=== PATIENT | male | born 1955 | race Caucasian/White ===

== ENCOUNTER 2016-09-24 17:41 | Inpatient (IN) | payer OTHER, MEDICARE ==
[~2016-09-24] VITALS: Ht 185.4 cm; Wt 96.5 kg
[2016-09-24 17:50] VITALS: BP 199/95; PULSE 94; RESP 20; TEMP 99.8; O2SAT 94
[2016-09-24] MEDS ORDERED: ONDANSETRON HCL 4 MG/2 ML VIAL ONE (18:30)
[2016-09-24 19:43] LABS: AUTOMATED NEUTROPHIL # 23.9 TH/MM3 (1.8-7.7); BASOPHIL # 0.1 TH/MM3 (0-0.2); BASOPHIL % 0.3 % (0.0-2.0); HEMATOCRIT 44.7 % (39.0-51.0); LYMPH % 4.6 % (9.0-44.0); LYMPHOCYTE # 1.2 TH/MM3 (1.0-4.8); MEAN CELL VOLUME 97.5 FL (80.0-100.0); MEAN CORPUSCULAR HEMOGLOBIN 32.4 PG (27.0-34.0); MEAN CORPUSCULAR HGB CONC 33.3 % (32.0-36.0); MONO % 4.2 % (0.0-8.0); NEUT % 90.9 % (16.0-70.0); PLATELET COUNT 289 TH/MM3 (150-450); RED BLOOD COUNT 4.59 MIL/MM3 (4.50-5.90); RED CELL DISTRIBUTION WIDTH 15.4 % (11.6-17.2); WHITE BLOOD COUNT 26.3 TH/MM3 (4.0-11.0)
[2016-09-24 19:44] VITALS: BP 197/91; PULSE 81; RESP 20; O2SAT 97
[2016-09-24] MEDS ORDERED: ZONI100C2 PO (19:49)
[2016-09-24] MEDS ORDERED: DILA100C PO (19:49)
[2016-09-24] MEDS ORDERED: METH40TA PO (19:49)
[2016-09-24] MEDS ORDERED: FOLI400T PO (19:50)
[2016-09-24] MEDS ORDERED: GABA100C4 PO (19:50)
[2016-09-24] MEDS ORDERED: LORA-475 PO (19:50)
[2016-09-24] MEDS ORDERED: CYAN1TAB24 (19:51)
--- NOTE | 2016-09-24 19:54 | PD ---
HPI Chief Complaint: GI Complaint Time Seen by Provider: 19:37 Travel History International Travel<30 days: No Contact w/Intl Traveler<30days: No PFSH Past Medical History Medical other: Yes (pneumo in 88) Neurologic: Yes (neuropathy) Renal Failure: Yes Seizures: Yes Tetanus Vaccination: Unknown Influenza Vaccination: No Past Surgical History Other Surgery: Yes (facial) Social History Alcohol Use: Yes (occasional) Tobacco Use: No Substance Use: No Allergies-Medications (Allergen,Severity, Reaction): Coded Allergies: No Known Allergies (Unverified , 09/24/16) Reported Meds & Prescriptions Reported Meds & Active Scripts Active Reported B12 (Cyanocobalamin) 1,000 Mcg Tab Folic Acid 400 Mcg Tab 400 Mcg PO DAILY Ativan (Lorazepam) 2 Mg Tab 2 Mg PO Q6H PRN Gabapentin 100 Mg Cap 200 Mg PO BID Zonisamide 100 Mg Cap 100 Mg PO BID Dilantin (Phenytoin Extended) 100 Mg Cap 100 Mg PO TID Methadone (Methadone HCl) 40 Mg Tab 90 Mg PO DAILY Data Data Last Documented VS Vital Signs Date Time Temp Pulse Resp B/P Pulse Ox O2 Delivery O2 Flow Rate FiO2 09/24/16 19:44 81 20 197/91 97 Room Air 09/24/16 17:50 99.8 Orders Complete Blood Count With Diff (09/24/16 18:29) Urinalysis - C+S If Indicated (09/24/16 18:29) Ondansetron Inj (Zofran Inj) (09/24/16 18:30) Comprehensive Metabolic Panel (09/24/16 19:16) Lipase (09/24/16 19:16) Phenytoin (Dilantin) (09/24/16 19:54) Ondansetron Inj (Zofran Inj) (09/24/16 20:00) Sodium Chlor 0.9% 1000 Ml Inj (Ns 1000 M (09/24/16 20:00) Labs Laboratory Tests Test 09/24/16 18:30 White Blood Count 26.3 TH/MM3 Red Blood Count 4.59 MIL/MM3 Hemoglobin 14.9 GM/DL Hematocrit 44.7 % Mean Corpuscular Volume 97.5 FL Mean Corpuscular Hemoglobin 32.4 PG Mean Corpuscular Hemoglobin 33.3 % Concent Red Cell Distribution Width 15.4 % Platelet Count 289 TH/MM3 Mean Platelet Volume 9.7 FL Neutrophils (%) (Auto) 90.9 % Lymphocytes (%) (Auto) 4.6 % Monocytes (%) (Auto) 4.2 % Eosinophils (%) (Auto) 0.0 % Basophils (%) (Auto) 0.3 % Neutrophils # (Auto) 23.9 TH/MM3 Lymphocytes # (Auto) 1.2 TH/MM3 Monocytes # (Auto) 1.1 TH/MM3 Eosinophils # (Auto) 0.0 TH/MM3 Basophils # (Auto) 0.1 TH/MM3 CBC Comment AUTO DIFF Toño Spring MD Sep 24, 2016 19:54
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
[2016-09-24 19:56] LABS: HEMO FLAGS AUTO DIFF
[2016-09-24] MEDS ORDERED: SODIUM CHLOR 0.9% 1000 ML INJ 1,000 ML IV ONE (20:00)
[2016-09-24] MEDS ORDERED: ONDANSETRON HCL 4 MG/2 ML VIAL IV PUSH ONE (20:00)
[2016-09-24 20:22] VITALS: BP 218/114; PULSE 80; RESP 20; O2SAT 96
[2016-09-24 20:23] LABS: ALT (GPT) 27 U/L (12-78)
[2016-09-24 20:26] LABS: ALKALINE PHOSPHATASE 143 U/L (45-117); ANION GAP 15 MEQ/L (5-15); AST (GOT) 45 U/L (15-37); BICARBONATE 23.9 MEQ/L (21.0-32.0); BLOOD UREA NITROGEN 13 MG/DL (7-18); CHLORIDE 105 MEQ/L (98-107); GLOMERULAR FILTRATION RATE 48 ML/MIN (>89); POTASSIUM 3.1 MEQ/L (3.5-5.1); SODIUM (NA) 144 MEQ/L (136-145); TOTAL BILIRUBIN ADULT 0.7 MG/DL (0.2-1.0)
[2016-09-24] MEDS ORDERED: METOCLOPRAMIDE HCL 10 MG/2 ML VIAL IV PUSH ONE (20:30)
[2016-09-24 20:58] VITALS: BP 204/93; PULSE 81; RESP 18; O2SAT 96
[2016-09-24 21:04] LABS: BACTERIA, URINE RARE /hpf; BLOOD, URINE NEG (NEG); COMMENT (UR) CULT NOT INDICATED; CULTURE IF INDICATED CULT NOT INDICATED; GLUCOSE,URINE NEG (NEG); HYALINE CAST, URINE 4 /lpf (RARE); KETONE, URINE 10 mg/dL (NEG); NITRITE,URINE NEG (NEG); PH, URINE 6.5 (5.0-8.5); URINE COLOR YELLOW (YELLW/STRAW)
[2016-09-24 21:14] LABS: SCAN/DIFF AUTO DIFF CONFIRMED
[2016-09-24] MEDS ORDERED: IOHEXOL 350 MG/ML 10 ML VIAL (for RAD DIAG) IV ONE (21:45)
--- NOTE | 2016-09-24 21:57 | RADRPT ---
EXAM DATE/TIME: 09/24/2016 21:33 [facility] COMPARISON: No previous studies available for comparison. INDICATIONS : Abdominal pain and vomiting. IV CONTRAST: 95 cc Omnipaque 350 (iohexol) IV ORAL CONTRAST: No oral contrast ingested. RADIATION DOSE: 14.53 CTDIvol (mGy) MEDICAL HISTORY : Seizures. Renal failure. SURGICAL HISTORY : None. ENCOUNTER: Initial ACUITY: 2 days PAIN SCALE: 5/10 LOCATION: All quadrants. TECHNIQUE: Volumetric scanning of the abdomen and pelvis was performed. Using automated exposure control and ad justment of the mA and/or kV according to patient size, radiation dose was kept as low as reasonably achievable to obtain optimal diagnostic quality images. DICOM format image data is available electro nically for review and comparison. FINDINGS: Lung bases are clear. No pleural or pericardial effusion. There is diffuse fatty infiltration liver. Spleen, adrenals, kidneys and pancreas unremarkable. No ca lcified gallstones or biliary ductal dilatation. There several mildly dilated loops of small bowel le ft upper quadrant, probably ileus localized. No bowel obstruction identified. CONCLUSION: 1. Localized ileus left upper quadrant. No bowel obstruction identified.. No free air or free fluid. Diffuse fatty liver. Small hiatal hernia. Dylan Lantigua MD on September 24, 2016 at 21:51 Board Certified Radiologist. This report was verified electronically.
[2016-09-24] MEDS ORDERED: LORazepam 2 MG/ML VIAL IV PUSH ONE (22:15)
[2016-09-24] MEDS ORDERED: SODIUM CHLORID 0.9% 500 ML INJ 500 ML IV ONE (22:15)
[2016-09-24] MEDS ORDERED: KETOROLAC TROMETHAMINE 30 MG/ML (IVP) VIAL IV PUSH ONE (22:15)
[2016-09-24 22:27] VITALS: BP 193/93; PULSE 83; RESP 18; O2SAT 97
[2016-09-24] MEDS ORDERED: NALOXONE HCL 0.4 MG/ML AMP IV PRN (22:45)
[2016-09-24] MEDS: SODIUM CHLOR 0.9% 1000 ML INJ 1,000 ML IV SCH (23:07)
[2016-09-24] MEDS: METOCLOPRAMIDE HCL 10 MG/2 ML VIAL IV PUSH SCH (23:13)
[2016-09-25] VITALS (9 sets, daily range): BP systolic 169–201; BP diastolic 74–97; PULSE 85–104; RESP 16–20; TEMP 98.3–100.3; O2SAT 96–100
[2016-09-25] MEDS: ONDANSETRON HCL 4 MG/2 ML VIAL IVP PRN ×3 (00:11→18:13)
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
[2016-09-25] MEDS ORDERED: FOSPHENYTOIN INJ 1,000 MGPE in SODIUM CHLORIDE 0.9% INJ 50 ML IV ONE (01:15)
[2016-09-25] MEDS ORDERED: MORPHINE SULFATE 4 MG/ML INJ IV PUSH PRN (01:30)
[2016-09-25] MEDS: LORazepam 2 MG/ML VIAL IV PUSH PRN ×5 (01:42→18:10)
--- NOTE | 2016-09-25 01:55 | RADRPT ---
EXAM DATE/TIME: 09/25/2016 01:32 [facility] COMPARISON: No previous studies available for comparison. INDICATIONS : Shortness of breath. MEDICAL HISTORY : Renal failure, acute. Seizures. SURGICAL HISTORY : None. ENCOUNTER: Initial ACUITY: 2 days PAIN SCORE: 0/10 LOCATION: Bilateral chest FINDINGS: A single view of the chest demonstrates the lungs to be symmetrically aerated without evidence of mas s, infiltrate or effusion. The cardiomediastinal contours are unremarkable. Osseous structures are intact. Postsurgical changes right apex. CONCLUSION: No acute disease. Joshua Glaser MD on September 25, 2016 at 1:52 Board Certified Radiologist. This report was verified electronically.
[2016-09-25] MEDS: HYDROmorphone HCL PF 1 MG/ML VIAL IV PUSH PRN ×2 (02:08→07:23)
[2016-09-25] MEDS ORDERED: cloNIDine HCL 0.1 MG TAB PO ONE (03:15)
[2016-09-25] MEDS ORDERED: POTASSIUM CHLORIDE 20 MEQ CONTROLLED RELEASE TAB PO ONE (03:15)
[2016-09-25] MEDS ORDERED: ACETAMINOPHEN 325 MG TAB PO PRN (03:30)
[2016-09-25] MEDS: LEVOFLOXACIN 750 MG PREMIX INJ 150 ML IV SCH (03:35)
[2016-09-25] MEDS: SODIUM CHLORIDE 0.9% FLUSH 10 ML FLUSH IV FLUSH PRN (06:02)
[2016-09-25] MEDS: METOCLOPRAMIDE HCL 10 MG/2 ML VIAL IV PUSH SCH ×3 (06:02→22:48)
[2016-09-25] MEDS: PHENYTOIN INJ 100 MG/2 ML VIAL IV SCH ×3 (06:05→21:18)
[2016-09-25 07:50] LABS: AUTOMATED NEUTROPHIL # 19.9 TH/MM3 (1.8-7.7); HEMATOCRIT 42.2 % (39.0-51.0); HEMO FLAGS DIFF FINAL; LYMPH % 8.3 % (9.0-44.0); MEAN CELL VOLUME 98.6 FL (80.0-100.0); MEAN CORPUSCULAR HEMOGLOBIN 32.3 PG (27.0-34.0); MEAN CORPUSCULAR HGB CONC 32.7 % (32.0-36.0); NEUT % 83.7 % (16.0-70.0); PLATELET COUNT 244 TH/MM3 (150-450); RED BLOOD COUNT 4.28 MIL/MM3 (4.50-5.90); RED CELL DISTRIBUTION WIDTH 15.5 % (11.6-17.2); WHITE BLOOD COUNT 23.8 TH/MM3 (4.0-11.0)
[2016-09-25] MEDS: GABAPENTIN 100 MG CAP PO SCH ×2 (08:08→21:19)
[2016-09-25] MEDS: SODIUM CHLORIDE 0.9% FLUSH 10 ML FLUSH IV FLUSH SCH ×2 (08:09→21:23)
[2016-09-25] MEDS: FOLIC ACID 1 MG TAB PO SCH (08:09)
[2016-09-25] MEDS: SODIUM CHLOR 0.9% 1000 ML INJ 1,000 ML IV SCH ×2 (08:10→17:11)
[2016-09-25] MEDS: ENOXAPARIN SODIUM 30 MG/0.3 ML SYRINGE SQ SCH (08:23)
[2016-09-25] MEDS: PANTOPRAZOLE SOD 40 MG DELAYED RELEASE TAB PO SCH (08:23)
[2016-09-25 08:31] LABS: BICARBONATE 25.5 MEQ/L (21.0-32.0); POTASSIUM 3.2 MEQ/L (3.5-5.1)
[2016-09-25] MEDS ORDERED: ENOXAPARIN SODIUM 40 MG/0.4 ML SYRINGE SQ SCH (09:00)
[2016-09-25] MEDS ORDERED: ZONISAMIDE 100 MG CAP PO SCH (09:00)
[2016-09-25] MEDS ORDERED: METHADONE HCL 10 MG TAB PO SCH (09:00)
[2016-09-25] MEDS ORDERED: cloNIDine HCL 0.1 MG TAB PO PRN (11:00)
--- NOTE | 2016-09-25 11:24 | HHI.PR ---
Subjective Remarks Follow-up for intractable emesis. Patient found very sleepy. Easily arousable. Patient was asking for his pain medication. He denies any pain or abdominal pain. Deny any shortness of breathing, chest pain, palpitation, lightheadedness or dizziness. Patient remains afebrile. He has no complaints. patient is burping at bedside. Per patient's nurse he did get a dose of Ativan earlier this morning. He stated his last drink was a week ago. Objective Vitals Vital Signs Date Time Temp Pulse Resp B/P Pulse Ox O2 Delivery O2 Flow Rate FiO2 09/25/16 09:19 18 09/25/16 08:31 16 09/25/16 04:39 Room Air 09/25/16 04:15 99.3 101 18 169/84 97 09/25/16 03:40 201/97 09/25/16 02:32 86 16 174/85 98 Room Air 09/25/16 02:08 102 20 188/90 97 Room Air 09/25/16 00:00 100.3 85 20 180/74 97 Room Air 09/24/16 22:27 83 18 193/93 97 Room Air 09/24/16 20:58 81 18 204/93 96 Room Air 09/24/16 20:22 80 20 218/114 96 Room Air 09/24/16 19:44 81 20 197/91 97 Room Air 09/24/16 17:50 99.8 94 20 199/95 94 I/O 09/24/16 09/24/16 09/24/16 09/25/16 09/25/16 09/25/16 07:00 15:00 23:00 07:00 15:00 23:00 Intake Total 1000 ml 0 ml Output Total 450 ml 0 ml Balance 550 ml 0 ml Intake Oral 0 ml IV Total 1000 ml Output Urine Total 450 ml 0 ml # Voids 1 # Bowel Movements 0 Result Diagram: 09/25/16 0704 09/25/16 0704 Objective Remarks GENERAL: in NAD found sleeping. SKIN: Warm and dry. HEAD: Normocephalic. EYES: No scleral icterus. No injection or drainage. NECK: Supple, trachea midline. No JVD or lymphadenopathy. CARDIOVASCULAR: Regular rate. Positive 3/6 systolic heart murmur. RESPIRATORY: Breath sounds equal bilaterally. No accessory muscle use. GASTROINTESTINAL: Abdomen soft, non-tender, nondistended. MUSCULOSKELETAL: No cyanosis, or edema. BACK: Nontender without obvious deformity. No CVA tenderness. Medications and IVs Current Medications Ondansetron HCl (Zofran Inj) 4 mg STK-MED ONCE .ROUTE ; Start 09/24/16 at 18:30; Stop 09/24/16 at 18:31; Status DC Ondansetron HCl 4 mg 4 mg ONCE ONCE IV PUSH Last administered on 09/24/16 20: 21; Start 09/24/16 at 20:00; Stop 09/24/16 at 20:01; Status DC Sodium Chloride (NS 1000 ml Inj) 1,000 ml @ 999 mls/hr BOLUS ONCE IV Last administered on 09/24/16 20:21; Start 09/24/16 at 20:00; Stop 09/24/16 at 21:00; Status DC Metoclopramide HCl (Reglan Inj) 10 mg ONCE ONCE IV PUSH Last administered on 20:31; Start 09/24/16 at 20:30; Stop 09/24/16 at 20:31; Status DC Iohexol (Omnipaque 350 Inj) 95 ml STK-MED ONCE IV Last administered on 21:45; Start 09/24/16 at 21:45; Stop 09/24/16 at 21:46; Status DC Lorazepam (Ativan Inj) 1 mg ONCE ONCE IV PUSH Last administered on 09/24/16 22 :17; Start 09/24/16 at 22:15; Stop 09/24/16 at 22:16; Status DC Ketorolac Tromethamine 30 mg 30 mg ONCE ONCE IV PUSH Last administered on 22:17; Start 09/24/16 at 22:15; Stop 09/24/16 at 22:16; Status DC Sodium Chloride 500 ml @ 500 mls/hr BOLUS ONCE IV Last administered on 22:17; Start 09/24/16 at 22:15; Stop 09/24/16 at 23:14; Status DC Sodium Chloride (NS 1000 ml Inj) 1,000 ml @ 100 mls/hr Q10H IV Last administered on 09/25/16 08:10; Start 09/24/16 at 22:34 Sodium Chloride (NS Flush) 2 ml UNSCH PRN IV FLUSH FLUSH AFTER USING IV ACCESS Last administered on 09/25/16 06:02; Start 09/24/16 at 22:45 Sodium Chloride (NS Flush) 2 ml BID IV FLUSH Last administered on 09/25/16 08: 09; Start 09/25/16 at 09:00 Ondansetron HCl (Zofran Inj) 4 mg Q6H PRN IVP NAUSEA OR VOMITING Last administered on 09/25/16 06:04; Start 09/24/16 at 22:45 Naloxone HCl (Narcan Inj) 0.4 mg UNSCH PRN IV SEE LABEL COMMENTS; Start at 22:45 Metoclopramide HCl (Reglan Inj) 5 mg Q8H IV PUSH Last administered on 09/25/16 06:02; Start 09/24/16 at 23:00 Folic Acid (Folate) 1 mg DAILY PO Last administered on 09/25/16 08:09; Start at 09:00 Gabapentin (Neurontin) 200 mg BID PO Last administered on 09/25/16 08:08; Start 09/25/16 at 09:00 Zonisamide (Zonegran) 100 mg BID PO Last administered on 09/25/16 09:19; Start 09/25/16 at 09:00 Phenytoin Sodium 100 mg 100 mg Q8HR IV Last administered on 09/25/16 06:05; Start 09/25/16 at 06:00 Fosphenytoin Sodium/Sodium Chloride (Cerebyx Inj/NS Inj) 70 ml @ 280 mls/hr ONCE ONCE IV Last administered on 09/25/16 02:07; Start 09/25/16 at 01:15; Stop 09/25/16 at 01:29; Status DC Lorazepam (Ativan Inj) 1 mg Q2H PRN IV PUSH withdrawal symptoms from benzo Last administered on 09/25/16 08:11; Start 09/25/16 at 01:15 Methadone HCl (Dolophine) 20 mg DAILY PO Last administered on 09/25/16 08:08; Start 09/25/16 at 09:00 Morphine Sulfate (Morphine Inj) 2 mg Q3H PRN IV PUSH pain >5; Start 09/25/16 at 01:30; Stop 09/25/16 at 01:30; Status DC Hydromorphone HCl 0.2 mg 0.2 mg Q4H PRN IV PUSH pain >5 Last administered on 07:23; Start 09/25/16 at 01:30 Levofloxacin/ Dextrose (Levaquin 750 Mg Premix Inj) 150 ml @ 100 mls/hr Q24H IV Last administered on 09/25/16 03:35; Start 09/25/16 at 02:00 Enoxaparin Sodium (Lovenox Inj) 40 mg Q24H SQ ; Start 09/25/16 at 09:00; Stop 09/25/16 at 09:00; Status DC Potassium Chloride (KCl) 40 meq ONCE ONCE PO Last administered on 09/25/16 03: 35; Start 09/25/16 at 03:15; Stop 09/25/16 at 03:18; Status DC Clonidine (Catapres) 0.1 mg ONCE ONCE PO Last administered on 09/25/16 03:35; Start 09/25/16 at 03:15; Stop 09/25/16 at 03:18; Status DC Acetaminophen (Tylenol) 650 mg Q4H PRN PO fever >101; Start 09/25/16 at 03:30 Enoxaparin Sodium (Lovenox Inj) 30 mg Q24H SQ Last administered on 09/25/16 08: 23; Start 09/25/16 at 09:00 Pantoprazole Sodium (Protonix) 40 mg DAILY PO Last administered on 09/25/16 08: 23; Start 09/25/16 at 09:00 Clonidine (Catapres) 0.1 mg Q6H PRN PO SBP>180 or DBP>100; Start 09/25/16 at 11: 00; Status UNV A/P Assessment and Plan Intractable emesis -No vomiting noted during interview patient seems very comfortable. -CT scan showed possible ileus. -May be secondary to alcohol withdrawal but at the moment I do not see any signs of it. He is on CIOH protocol. -will need to try to hold narcotics due to ileus. opiate use for chronic back pain -Will hold pain medications secondary to ileus. Alcoholic seizure disorder -Continue home medication. Renal insufficiency -Most likely secondary to dehydration. -Wilma a monitor. Avoid nephrotoxins. Strict ins and outs. Leukocytosis -Unsure source. Workup so far negative. Maybe secondary to aspiration pneumonia. -Continue to monitor clinically. -Patient was empirically put on Levaquin. Continue Levaquin. He is also on IV fluids. Continue with IV maintenance fluids. dvt prophylaxis with lovenox gi prophylaxis on pantoprazole Meaghan Matson MD Sep 25, 2016 11:24
[2016-09-25] MEDS ORDERED: FURO1TAB62 PO (17:19)
[2016-09-25] MEDS ORDERED: TIZA4 PO (17:19)
--- NOTE | 2016-09-25 17:41 | EKG ---
Date Performed: 09/24/2016 Time Performed: 20:25:49 PTAGE: 61 years EKG: Sinus rhythm WITH FREQUENT VENTRICULAR PREMATURE COMPLEXES IN A BIGEMINAL PATTERN RIGHT BUNDLE BRANCH BLOCK ABNOR MAL ECG NO PREVIOUS TRACING DOCTOR: Abigail Underwood Interpretating Date/Time 09/25/2016 17:36:38
[2016-09-25] MEDS: ZONISAMIDE 25 MG CAP PO SCH (22:43)
[2016-09-26] VITALS (7 sets, daily range): BP systolic 160–177; BP diastolic 80–93; PULSE 85–99; RESP 16–20; TEMP 98.5–99.2; O2SAT 96–98
[2016-09-26] MEDS: LORazepam 2 MG/ML VIAL IV PUSH PRN ×2 (00:09→05:05)
[2016-09-26] MEDS: SODIUM CHLORIDE 0.9% FLUSH 10 ML FLUSH IV FLUSH PRN ×2 (00:10→05:06)
[2016-09-26] MEDS: LEVOFLOXACIN 750 MG PREMIX INJ 150 ML IV SCH (03:13)
[2016-09-26] MEDS: SODIUM CHLOR 0.9% 1000 ML INJ 1,000 ML IV SCH ×2 (05:05→14:55)
[2016-09-26] MEDS: PHENYTOIN INJ 100 MG/2 ML VIAL IV SCH ×3 (05:05→20:09)
[2016-09-26] MEDS: ONDANSETRON HCL 4 MG/2 ML VIAL IVP PRN ×3 (05:06→18:13)
[2016-09-26] MEDS: METOCLOPRAMIDE HCL 10 MG/2 ML VIAL IV PUSH SCH ×3 (06:00→23:38)
[2016-09-26] MEDS: FOLIC ACID 1 MG TAB PO SCH (08:09)
[2016-09-26] MEDS: ENOXAPARIN SODIUM 30 MG/0.3 ML SYRINGE SQ SCH (08:09)
[2016-09-26] MEDS: PANTOPRAZOLE SOD 40 MG DELAYED RELEASE TAB PO SCH (08:09)
[2016-09-26] MEDS: GABAPENTIN 100 MG CAP PO SCH ×2 (08:09→20:09)
[2016-09-26] MEDS: SODIUM CHLORIDE 0.9% FLUSH 10 ML FLUSH IV FLUSH SCH ×2 (08:10→20:10)
[2016-09-26 08:12] LABS: HEMATOCRIT 39.1 % (39.0-51.0); MEAN CELL VOLUME 97.8 FL (80.0-100.0); MEAN CORPUSCULAR HEMOGLOBIN 31.8 PG (27.0-34.0); MEAN CORPUSCULAR HGB CONC 32.6 % (32.0-36.0); PLATELET COUNT 175 TH/MM3 (150-450); RED CELL DISTRIBUTION WIDTH 15.3 % (11.6-17.2); REVIEW FLAG FINAL; WHITE BLOOD COUNT 15.7 TH/MM3 (4.0-11.0)
[2016-09-26] MEDS: ZONISAMIDE 25 MG CAP PO SCH ×2 (08:21→20:09)
[2016-09-26 08:48] LABS: BICARBONATE 23.6 MEQ/L (21.0-32.0); MAGNESIUM 1.7 MG/DL (1.5-2.5)
--- NOTE | 2016-09-26 12:10 | HHI.PR ---
Subjective Remarks Follow-up for intractable emesis Deny nausea vomiting. Patient is hiccuping. Post flatus. Deny any bowel movements. Patient asking to be placed back on his methadone. Objective Vitals Vital Signs Date Time Temp Pulse Resp B/P Pulse Ox O2 Delivery O2 Flow Rate FiO2 09/26/16 11:25 86 09/26/16 08:16 Room Air 09/26/16 08:04 98.5 90 20 173/93 98 09/26/16 04:00 98.9 90 18 169/91 98 09/26/16 00:00 99.1 85 18 177/93 98 09/25/16 20:00 99.1 89 16 169/91 99 09/25/16 20:00 Room Air 09/25/16 16:00 98.7 104 18 173/88 97 I/O 09/25/16 09/25/16 09/25/16 09/26/16 09/26/16 09/26/16 07:00 15:00 23:00 07:00 15:00 23:00 Intake Total 0 ml 480 ml 240 ml 958 ml Output Total 0 ml 500 ml 300 ml 300 ml Balance 0 ml -20 ml -60 ml 658 ml Intake Oral 0 ml 480 ml 240 ml 240 ml IV Total 718 ml Output Urine Total 0 ml 500 ml 300 ml 300 ml # Bowel Movements 0 0 0 0 Result Diagram: 09/26/1671409/26/16714 Objective Remarks GENERAL: in NAD SKIN: Warm and dry. HEAD: Normocephalic. EYES: No scleral icterus. No injection or drainage. NECK: Supple, trachea midline. No JVD or lymphadenopathy. CARDIOVASCULAR: Regular rate. Positive 3/6 systolic heart murmur. RESPIRATORY: Breath sounds equal bilaterally. No accessory muscle use. GASTROINTESTINAL: Abdomen soft, non-tender, nondistended. MUSCULOSKELETAL: No cyanosis, or edema. BACK: Nontender without obvious deformity. No CVA tenderness. Medications and IVs Current Medications Ondansetron HCl (Zofran Inj) 4 mg STK-MED ONCE .ROUTE ; Start 09/24/16 at 18:30; Stop 09/24/16 at 18:31; Status DC Ondansetron HCl 4 mg 4 mg ONCE ONCE IV PUSH Last administered on 09/24/16t 20: 21; Start 09/24/16 at 20:00; Stop 09/24/16 at 20:01; Status DC Sodium Chloride (NS 1000 ml Inj) 1,000 ml @ 999 mls/hr BOLUS ONCE IV Last administered on 09/24/16 20:21; Start 09/24/16 at 20:00; Stop 09/24/16 at 21:00; Status DC Metoclopramide HCl (Reglan Inj) 10 mg ONCE ONCE IV PUSH Last administered on 20:31; Start 09/24/16 at 20:30; Stop 09/24/16 at 20:31; Status DC Iohexol (Omnipaque 350 Inj) 95 ml STK-MED ONCE IV Last administered on 21:45; Start 09/24/16 at 21:45; Stop 09/24/16 at 21:46; Status DC Lorazepam (Ativan Inj) 1 mg ONCE ONCE IV PUSH Last administered on 09/24/16 22 :17; Start 09/24/16 at 22:15; Stop 09/24/16 at 22:16; Status DC Ketorolac Tromethamine 30 mg 30 mg ONCE ONCE IV PUSH Last administered on 22:17; Start 09/24/16 at 22:15; Stop 09/24/16 at 22:16; Status DC Sodium Chloride 500 ml @ 500 mls/hr BOLUS ONCE IV Last administered on 22:17; Start 09/24/16 at 22:15; Stop 09/24/16 at 23:14; Status DC Sodium Chloride (NS 1000 ml Inj) 1,000 ml @ 100 mls/hr Q10H IV Last administered on 09/26/16 05:05; Start 09/24/16 at 22:34 Sodium Chloride (NS Flush) 2 ml UNSCH PRN IV FLUSH FLUSH AFTER USING IV ACCESS Last administered on 09/26/16 05:06; Start 09/24/16 at 22:45 Sodium Chloride (NS Flush) 2 ml BID IV FLUSH Last administered on 09/25/16 21: 23; Start 09/25/16 at 09:00 Ondansetron HCl (Zofran Inj) 4 mg Q6H PRN IVP NAUSEA OR VOMITING Last administered on 09/26/16 11:52; Start 09/24/16 at 22:45 Naloxone HCl (Narcan Inj) 0.4 mg UNSCH PRN IV SEE LABEL COMMENTS; Start at 22:45 Metoclopramide HCl (Reglan Inj) 5 mg Q8H IV PUSH Last administered on 09/26/16 06:00; Start 09/24/16 at 23:00 Folic Acid (Folate) 1 mg DAILY PO Last administered on 09/26/16 08:09; Start at 09:00 Gabapentin (Neurontin) 200 mg BID PO Last administered on 09/26/16 08:09; Start 09/25/16 at 09:00 Zonisamide (Zonegran) 100 mg BID PO Last administered on 09/25/16 09:19; Start 09/25/16 at 09:00; Stop 09/25/16 at 20:47; Status DC Phenytoin Sodium 100 mg 100 mg Q8HR IV Last administered on 09/26/16 05:05; Start 09/25/16 at 06:00 Fosphenytoin Sodium/Sodium Chloride (Cerebyx Inj/NS Inj) 70 ml @ 280 mls/hr ONCE ONCE IV Last administered on 09/25/16 02:07; Start 09/25/16 at 01:15; Stop 09/25/16 at 01:29; Status DC Lorazepam (Ativan Inj) 1 mg Q2H PRN IV PUSH withdrawal symptoms from benzo Last administered on 09/26/16 05:05; Start 09/25/16 at 01:15 Methadone HCl (Dolophine) 20 mg DAILY PO Last administered on 09/25/16 08:08; Start 09/25/16 at 09:00; Status Hold Morphine Sulfate (Morphine Inj) 2 mg Q3H PRN IV PUSH pain >5; Start 09/25/16 at 01:30; Stop 09/25/16 at 01:30; Status DC Hydromorphone HCl 0.2 mg 0.2 mg Q4H PRN IV PUSH pain >5 Last administered on 07:23; Start 09/25/16 at 01:30; Stop 09/25/16 at 11:19; Status DC Levofloxacin/ Dextrose (Levaquin 750 Mg Premix Inj) 150 ml @ 100 mls/hr Q24H IV Last administered on 09/26/16 03:13; Start 09/25/16 at 02:00 Enoxaparin Sodium (Lovenox Inj) 40 mg Q24H SQ ; Start 09/25/16 at 09:00; Stop 09/25/16 at 09:00; Status DC Potassium Chloride (KCl) 40 meq ONCE ONCE PO Last administered on 09/25/16 03: 35; Start 09/25/16 at 03:15; Stop 09/25/16 at 03:18; Status DC Clonidine (Catapres) 0.1 mg ONCE ONCE PO Last administered on 09/25/16 03:35; Start 09/25/16 at 03:15; Stop 09/25/16 at 03:18; Status DC Acetaminophen (Tylenol) 650 mg Q4H PRN PO fever >101; Start 09/25/16 at 03:30 Enoxaparin Sodium (Lovenox Inj) 30 mg Q24H SQ Last administered on 09/26/16 08: 09; Start 09/25/16 at 09:00 Pantoprazole Sodium (Protonix) 40 mg DAILY PO Last administered on 09/26/16 08: 09; Start 09/25/16 at 09:00 Clonidine (Catapres) 0.1 mg Q6H PRN PO SBP>180 or DBP>100; Start 09/25/16 at 11: 00 Zonisamide (Zonegran) 100 mg BID PO Last administered on 09/26/16 08:21; Start 09/25/16 at 21:00 Potassium Chloride (KCl) 30 meq ONCE ONCE PO ; Start 09/26/16 at 11:30; Stop 09/26/16 at 11:31; Status UNV Amlodipine Besylate (Norvasc) 10 mg DAILY PO ; Start 09/26/16 at 11:30; Status UNV A/P Assessment and Plan Intractable emesis -No vomiting noted during interview patient seems very comfortable. -CT scan showed possible ileus. -May be secondary to alcohol withdrawal but at the moment I do not see any signs of it. He is on CIMD protocol. opiate use for chronic back pain -Will restart his home dose of methadone. We'll have his nurse confirm this with his pharmacist. Alcoholic seizure disorder -Continue home medication. Renal insufficiency -Most likely secondary to dehydration. -Resolved. Leukocytosis -Unsure source. Workup so far negative. Maybe secondary to aspiration pneumonia. Continue to improve. -Continue to monitor clinically. -We will discontinue IV Levaquin and start oral Levaquin. Will need to monitor on oral medication. Systolic heart murmur -Patient unaware of heart murmur. He is a poor historian. Pending echo report. dvt prophylaxis with lovenox gi prophylaxis on pantoprazole Discharge Planning If patient does well off of IV antibiotics can consider discharge tomorrow. Meaghan Matson MD Sep 26, 2016 12:10
[2016-09-26] MEDS ORDERED: POTASSIUM CHLORIDE 10 MEQ CONTROLLED RELEASE TAB PO ONE (13:00)
[2016-09-26] MEDS ORDERED: METHADONE HCL 10 MG TAB PO SCH (13:00)
--- NOTE | 2016-09-26 18:24 | ECHRPT ---
Indication: Shortness of breath CONCLUSIONS Technically difficult echo In limited views, the left ventricular systolic function is normal with an estimated ejection fracti on in the range of 55-60%. There was limited left ventricular wall motion assessment due to poor endocardial visualization. Grossly normal tricuspid valve. There is trace tricuspid valve regurgitation. BP: 169 / 84 HR: 101 Rhythm: Sinus MEASUREMENTS (Male / Female) Normal Values Technical Quality:Technically difficult study 2D ECHO LV Diastolic Diameter PLAX 5.2 cm 4.2 - 5.9 / 3.9 - 5.3 cm LV Systolic Diameter PLAX 3.9 cm IVS Diastolic Thickness 0.9 cm 0.6 - 1.0 / 0.6 - 0.9 cm LVPW Diastolic Thickness 1.0 cm 0.6 - 1.0 / 0.6 - 0.9 cm LV Relative Wall Thickness 0.4 RV Internal Dim ED PLAX 1.8 cm DOPPLER Mitral E Point Velocity 51.0 cm/s Mitral A Point Velocity 89.9 cm/s Mitral E to A Ratio 0.6 LV E' Lateral Velocity 5.3 cm/s Mitral E to LV E' Lateral Ratio 9.7 TR Peak Velocity 200.0 cm/s TR Peak Gradient 16.0 mmHg FINDINGS LEFT VENTRICLE Normal left ventricular size. Wall thickness is normal. In limited views, the left ventricular systolic function is normal with an estimated ejection fracti on in the range of 55-60%. There was limited left ventricular wall motion assessment due to poor endocardial visualization. RIGHT VENTRICLE The right ventricle was not well visualized. LEFT ATRIUM The left atrium was not well visualized. RIGHT ATRIUM The right atrium is not well visualized. ATRIAL SEPTUM The interatrial septum not well visualized. AORTA The aortic root and proximal ascending aorta are not well visualized. MITRAL VALVE Grossly normal mitral valve. No mitral valve stenosis or regurgitation. AORTIC VALVE Trileaflet aortic valve. No aortic valve stenosis or regurgitation. TRICUSPID VALVE Grossly normal tricuspid valve. There is trace tricuspid valve regurgitation. No tricuspid valve stenosis. PULMONARY VALVE The pulmonary valve is not well visualized. VESSELS The inferior vena cava was not well visualized. PERICARDIUM A prominent epicardial fat pad is present. Gabriele Conteh DO (Electronically Signed) Final Date:26 September 2016 18:23
[2016-09-26] MEDS: METHADONE HCL 10 MG TAB PO SCH (20:10)
[2016-09-27] VITALS: BP 157/88; PULSE 90; RESP 18; TEMP 98.9; O2SAT 99
[2016-09-27] MEDS: SODIUM CHLOR 0.9% 1000 ML INJ 1,000 ML IV SCH ×2 (01:13→09:47)
[2016-09-27] MEDS: ONDANSETRON HCL 4 MG/2 ML VIAL IVP PRN ×3 (03:49→18:04)
[2016-09-27] MEDS: LORazepam 2 MG/ML VIAL IV PUSH PRN (03:49)
[2016-09-27 04:00] VITALS: BP 165/89; PULSE 87; RESP 18; TEMP 98.2; O2SAT 97
[2016-09-27] MEDS: PHENYTOIN INJ 100 MG/2 ML VIAL IV SCH ×3 (05:52→21:07)
[2016-09-27] MEDS: METHADONE HCL 10 MG TAB PO SCH ×2 (05:52→21:06)
[2016-09-27] MEDS: METOCLOPRAMIDE HCL 10 MG/2 ML VIAL IV PUSH SCH ×3 (05:52→21:07)
[2016-09-27 07:58] LABS: POTASSIUM 3.5 MEQ/L (3.5-5.1)
[2016-09-27 08:00] VITALS: BP 175/89; PULSE 89; RESP 18; TEMP 99.9; O2SAT 100
[2016-09-27 08:15] LABS: HEMATOCRIT 39.7 % (39.0-51.0); MEAN CELL VOLUME 97.4 FL (80.0-100.0); MEAN CORPUSCULAR HEMOGLOBIN 31.9 PG (27.0-34.0); MEAN CORPUSCULAR HGB CONC 32.7 % (32.0-36.0); PLATELET COUNT 136 TH/MM3 (150-450); RED BLOOD COUNT 4.08 MIL/MM3 (4.50-5.90); RED CELL DISTRIBUTION WIDTH 15.1 % (11.6-17.2); REVIEW FLAG FINAL; WHITE BLOOD COUNT 11.9 TH/MM3 (4.0-11.0)
[2016-09-27] MEDS: FOLIC ACID 1 MG TAB PO SCH (09:47)
[2016-09-27] MEDS: ZONISAMIDE 25 MG CAP PO SCH ×2 (09:47→21:04)
[2016-09-27] MEDS: LEVOFLOXACIN 750 MG TAB PO SCH (09:47)
[2016-09-27] MEDS: GABAPENTIN 100 MG CAP PO SCH ×2 (09:47→21:04)
[2016-09-27] MEDS: ENOXAPARIN SODIUM 30 MG/0.3 ML SYRINGE SQ SCH (09:47)
[2016-09-27] MEDS: PANTOPRAZOLE SOD 40 MG DELAYED RELEASE TAB PO SCH (09:47)
[2016-09-27] MEDS: SODIUM CHLORIDE 0.9% FLUSH 10 ML FLUSH IV FLUSH SCH ×2 (09:48→21:06)
--- NOTE | 2016-09-27 10:32 | HHI.PR ---
Subjective Remarks Follow-up for nausea Patient stated that he continues to feel nauseated. He stated that it's intermittent and sometimes associate food. He stated that he is afraid to eat because of this. Deny need abdominal pain. Patient feels like this is due for him not ambulating. He is also asking to be restarted on his Ativan 2 mg by mouth twice a day, Zanaflex 2 mg 3 times a day and Lasix. Otherwise no other complaints. Objective Vitals Vital Signs Date Time Temp Pulse Resp B/P Pulse Ox O2 Delivery O2 Flow Rate FiO2 09/27/16 08:00 99.9 89 18 175/89 100 09/27/16 04:00 98.2 87 18 165/89 97 09/27/16 00:00 98.9 90 18 157/88 99 09/26/16 20:00 98.7 90 16 160/87 96 09/26/16 20:00 99 09/26/16 20:00 Room Air 09/26/16 16:04 99.0 90 18 162/80 98 09/26/16 12:04 99.2 87 20 175/92 98 09/26/16 11:25 86 I/O 09/26/16 09/26/16 09/26/16 09/27/16 09/27/16 09/27/16 07:00 15:00 23:00 07:00 15:00 23:00 Intake Total 958 ml 380 ml 882 ml 1148 ml Output Total 300 ml 1200 ml 500 ml 1100 ml Balance 658 ml -820 ml 382 ml 48 ml Intake Oral 240 ml 380 ml 240 ml 480 ml IV Total 718 ml 642 ml 668 ml Output Urine Total 300 ml 1200 ml 500 ml 1100 ml # Bowel Movements 0 0 0 0 Result Diagram: 09/27/16 0654 09/27/16 0654 Objective Remarks GENERAL: in NAD SKIN: Warm and dry. HEAD: Normocephalic. EYES: No scleral icterus. No injection or drainage. NECK: Supple, trachea midline. No JVD or lymphadenopathy. CARDIOVASCULAR: Regular rate. Positive 3/6 systolic heart murmur. RESPIRATORY: Breath sounds equal bilaterally. No accessory muscle use. GASTROINTESTINAL: Abdomen soft, non-tender, nondistended. MUSCULOSKELETAL: No cyanosis, or edema. BACK: Nontender without obvious deformity. No CVA tenderness. Medications and IVs Current Medications Ondansetron HCl (Zofran Inj) 4 mg STK-MED ONCE .ROUTE ; Start 09/24/16 at 18:30; Stop 09/24/16 at 18:31; Status DC Ondansetron HCl 4 mg 4 mg ONCE ONCE IV PUSH Last administered on 09/24/16 20: 21; Start 09/24/16 at 20:00; Stop 09/24/16 at 20:01; Status DC Sodium Chloride (NS 1000 ml Inj) 1,000 ml @ 999 mls/hr BOLUS ONCE IV Last administered on 09/24/16 20:21; Start 09/24/16 at 20:00; Stop 09/24/16 at 21:00; Status DC Metoclopramide HCl (Reglan Inj) 10 mg ONCE ONCE IV PUSH Last administered on 20:31; Start 09/24/16 at 20:30; Stop 09/24/16 at 20:31; Status DC Iohexol (Omnipaque 350 Inj) 95 ml STK-MED ONCE IV Last administered on 21:45; Start 09/24/16 at 21:45; Stop 09/24/16 at 21:46; Status DC Lorazepam (Ativan Inj) 1 mg ONCE ONCE IV PUSH Last administered on 09/24/16 22 :17; Start 09/24/16 at 22:15; Stop 09/24/16 at 22:16; Status DC Ketorolac Tromethamine 30 mg 30 mg ONCE ONCE IV PUSH Last administered on 22:17; Start 09/24/16 at 22:15; Stop 09/24/16 at 22:16; Status DC Sodium Chloride 500 ml @ 500 mls/hr BOLUS ONCE IV Last administered on 22:17; Start 09/24/16 at 22:15; Stop 09/24/16 at 23:14; Status DC Sodium Chloride (NS 1000 ml Inj) 1,000 ml @ 100 mls/hr Q10H IV Last administered on 09/27/16 09:47; Start 09/24/16 at 22:34; Stop 09/27/16 at 10:24; Status DC Sodium Chloride (NS Flush) 2 ml UNSCH PRN IV FLUSH FLUSH AFTER USING IV ACCESS Last administered on 09/26/16 05:06; Start 09/24/16 at 22:45 Sodium Chloride (NS Flush) 2 ml BID IV FLUSH Last administered on 09/27/16 09: 48; Start 09/25/16 at 09:00 Ondansetron HCl (Zofran Inj) 4 mg Q6H PRN IVP NAUSEA OR VOMITING Last administered on 09/27/16 09:47; Start 09/24/16 at 22:45 Naloxone HCl (Narcan Inj) 0.4 mg UNSCH PRN IV SEE LABEL COMMENTS; Start at 22:45 Metoclopramide HCl (Reglan Inj) 5 mg Q8H IV PUSH Last administered on 09/27/16 05:52; Start 09/24/16 at 23:00 Folic Acid (Folate) 1 mg DAILY PO Last administered on 09/27/16 09:47; Start at 09:00 Gabapentin (Neurontin) 200 mg BID PO Last administered on 09/27/16 09:47; Start 09/25/16 at 09:00 Zonisamide (Zonegran) 100 mg BID PO Last administered on 09/25/16 09:19; Start 09/25/16 at 09:00; Stop 09/25/16 at 20:47; Status DC Phenytoin Sodium 100 mg 100 mg Q8HR IV Last administered on 09/27/16 05:52; Start 09/25/16 at 06:00 Fosphenytoin Sodium/Sodium Chloride (Cerebyx Inj/NS Inj) 70 ml @ 280 mls/hr ONCE ONCE IV Last administered on 09/25/16 02:07; Start 09/25/16 at 01:15; Stop 09/25/16 at 01:29; Status DC Lorazepam (Ativan Inj) 1 mg Q2H PRN IV PUSH withdrawal symptoms from benzo Last administered on 09/27/16 03:49; Start 09/25/16 at 01:15 Methadone HCl (Dolophine) 20 mg DAILY PO Last administered on 09/25/16 08:08; Start 09/25/16 at 09:00; Stop 09/26/16 at 12:05; Status DC Morphine Sulfate (Morphine Inj) 2 mg Q3H PRN IV PUSH pain >5; Start 09/25/16 at 01:30; Stop 09/25/16 at 01:30; Status DC Hydromorphone HCl 0.2 mg 0.2 mg Q4H PRN IV PUSH pain >5 Last administered on 07:23; Start 09/25/16 at 01:30; Stop 09/25/16 at 11:19; Status DC Levofloxacin/ Dextrose (Levaquin 750 Mg Premix Inj) 150 ml @ 100 mls/hr Q24H IV Last administered on 09/26/16 03:13; Start 09/25/16 at 02:00; Stop 09/26/16 at 12:11; Status DC Enoxaparin Sodium (Lovenox Inj) 40 mg Q24H SQ ; Start 09/25/16 at 09:00; Stop 09/25/16 at 09:00; Status DC Potassium Chloride (KCl) 40 meq ONCE ONCE PO Last administered on 09/25/16 03: 35; Start 09/25/16 at 03:15; Stop 09/25/16 at 03:18; Status DC Clonidine (Catapres) 0.1 mg ONCE ONCE PO Last administered on 09/25/16 03:35; Start 09/25/16 at 03:15; Stop 09/25/16 at 03:18; Status DC Acetaminophen (Tylenol) 650 mg Q4H PRN PO fever >101; Start 09/25/16 at 03:30 Enoxaparin Sodium (Lovenox Inj) 30 mg Q24H SQ Last administered on 09/27/16 09: 47; Start 09/25/16 at 09:00 Pantoprazole Sodium (Protonix) 40 mg DAILY PO Last administered on 09/27/16 09: 47; Start 09/25/16 at 09:00 Clonidine (Catapres) 0.1 mg Q6H PRN PO SBP>180 or DBP>100; Start 09/25/16 at 11: 00 Zonisamide (Zonegran) 100 mg BID PO Last administered on 09/27/16 09:47; Start 09/25/16 at 21:00 Potassium Chloride (KCl) 30 meq ONCE ONCE PO Last administered on 09/26/16 14: 55; Start 09/26/16 at 13:00; Stop 09/26/16 at 13:01; Status DC Amlodipine Besylate (Norvasc) 10 mg DAILY PO Last administered on 09/27/16 09: 47; Start 09/26/16 at 13:00 Methadone HCl (Dolophine) 90 mg DAILY PO ; Start 09/26/16 at 13:00; Stop 09/26/16 at 15:29; Status DC Levofloxacin (Levaquin) 750 mg DAILY PO Last administered on 09/27/16 09:47; Start 09/27/16 at 09:00 Methadone HCl (Dolophine) 30 mg DAILY@0600 PO Last administered on 09/27/16 05: 52; Start 09/27/16 at 06:00 Methadone HCl (Dolophine) 30 mg DAILY@2000 PO Last administered on 09/26/16 20: 10; Start 09/26/16 at 20:00 Furosemide (Lasix Inj) 20 mg ONCE ONCE IV PUSH ; Start 09/27/16 at 11:00; Stop 09/27/16 at 11:01 Furosemide (Lasix) 20 mg DAILY PO ; Start 09/28/16 at 09:00; Status UNV A/P Assessment and Plan Intractable emesis -Patient has not had any emesis but he continues to feel nauseous and has decreased by mouth intake. He is not tolerating clear liquid diet. -CT scan showed possible ileus. -Will get a HIDA scan. -Unsure this may be due to not taking his schedule Ativan. Dealt with patient' s nurse to confirm his Ativan doses with his pharmacist. If patient is taking Ativan will restart his home regimen. -May consider consulted GI based on HIDA scan and clinical course. opiate use for chronic back pain -Continue with methadone. Alcoholic seizure disorder -Continue home medication. Renal insufficiency -Most likely secondary to dehydration. -Resolved. Leukocytosis -Unsure source. Workup so far negative. Maybe secondary to aspiration pneumonia. Continue to improve. -Continue to monitor clinically. -Continue to improve on oral Levaquin. Continue with oral Levaquin. + 2/4 staph coagulase-negative -Most likely a contaminant. Patient's improving with Levaquin which does not cover for this. Systolic heart murmur -Echo EF of 55-60%. dvt prophylaxis with lovenox gi prophylaxis on pantoprazole Discharge Planning Patient doing well on oral antibiotics but he continues to be symptomatic feel nauseous and not able to tolerate oral intake. Will need to get a HIDA scan to evaluate further. Meaghan Matson MD Sep 27, 2016 10:32
[2016-09-27] MEDS ORDERED: FUROSEMIDE 20 MG/2 ML VIAL IV PUSH ONE (11:00)
[2016-09-27 12:00] VITALS: BP 162/88; PULSE 92; RESP 18; TEMP 99.7; O2SAT 97
[2016-09-27] MEDS: LORazepam 2 MG TAB PO SCH ×2 (12:46→21:05)
--- NOTE | 2016-09-27 14:59 | RADRPT ---
EXAM DATE/TIME: 09/27/2016 13:15 [facility] COMPARISON: CT ABDOMEN & PELVIS W CONTRAST, September 24, 2016, 21:33. INDICATIONS : Nausea. DOSE: 4.1 mCi Tc99m Mebrofenin IV MEDICAL HISTORY : Renal failure, chrnoic. SURGICAL HISTORY : None. ENCOUNTER: Initial ACUITY: 1 day PAIN SCALE: 0/10 LOCATION: Abdomen TECHNIQUE: Following the intravenous administration of radiotracer, dynamic sequential images were performed wit h continuous acquisition. FINDINGS: HEPATIC KINETICS: There is prompt uptake of radiotracer in the liver. No focal defects are seen. There is normal rate of washout from the hepatic parenchyma. BILIARY CLEARANCE: Activity is first seen in the extrahepatic biliary system at 10 minutes. There is normal excretion i nto the small bowel. GALLBLADDER: Activity is first seen in the gallbladder at 15 minutes. Common bile duct kinetics are normal and th ere is no evidence of biliary obstruction. BILIARY ENTRIC REFLUX: None observed. CONCLUSION: Normal uptake in the gallbladder. Joshua Glaser MD on September 27, 2016 at 14:57 Board Certified Radiologist. This report was verified electronically.
[2016-09-27 16:00] VITALS: BP 95/61; PULSE 81; RESP 18; TEMP 97.6; O2SAT 97
[2016-09-27 20:00] VITALS: BP 125/81; PULSE 71; PULSE 84; RESP 18; TEMP 98.5; O2SAT 98
[2016-09-28] VITALS (8 sets, daily range): BP systolic 100–153; BP diastolic 66–81; PULSE 68–92; RESP 18; TEMP 97.8–98.9; O2SAT 97–100
[2016-09-28] MEDS: ONDANSETRON HCL 4 MG/2 ML VIAL IVP PRN ×3 (00:59→17:20)
[2016-09-28] MEDS: SODIUM CHLORIDE 0.9% FLUSH 10 ML FLUSH IV FLUSH PRN ×3 (01:00→21:31)
[2016-09-28] MEDS: METOCLOPRAMIDE HCL 10 MG/2 ML VIAL IV PUSH SCH ×3 (05:52→21:22)
[2016-09-28] MEDS: PHENYTOIN INJ 100 MG/2 ML VIAL IV SCH ×3 (05:52→21:31)
[2016-09-28] MEDS: METHADONE HCL 10 MG TAB PO SCH ×2 (05:53→21:23)
[2016-09-28 07:40] LABS: HEMATOCRIT 36.5 % (39.0-51.0); MEAN CELL VOLUME 95.6 FL (80.0-100.0); MEAN CORPUSCULAR HEMOGLOBIN 32.6 PG (27.0-34.0); MEAN CORPUSCULAR HGB CONC 34.1 % (32.0-36.0); PLATELET COUNT 161 TH/MM3 (150-450); RED BLOOD COUNT 3.82 MIL/MM3 (4.50-5.90); RED CELL DISTRIBUTION WIDTH 14.7 % (11.6-17.2); REVIEW FLAG FINAL; WHITE BLOOD COUNT 9.4 TH/MM3 (4.0-11.0)
[2016-09-28 07:59] LABS: BICARBONATE 22.4 MEQ/L (21.0-32.0)
[2016-09-28] MEDS: LEVOFLOXACIN 750 MG TAB PO SCH (08:11)
[2016-09-28] MEDS: GABAPENTIN 100 MG CAP PO SCH ×2 (08:11→21:24)
[2016-09-28] MEDS: LORazepam 2 MG TAB PO SCH ×2 (08:11→21:24)
[2016-09-28] MEDS: ZONISAMIDE 25 MG CAP PO SCH ×2 (08:12→21:23)
[2016-09-28] MEDS: FOLIC ACID 1 MG TAB PO SCH (08:12)
[2016-09-28] MEDS: PANTOPRAZOLE SOD 40 MG DELAYED RELEASE TAB PO SCH (08:12)
[2016-09-28] MEDS: SODIUM CHLORIDE 0.9% FLUSH 10 ML FLUSH IV FLUSH SCH ×2 (08:12→21:24)
[2016-09-28] MEDS: ENOXAPARIN SODIUM 30 MG/0.3 ML SYRINGE SQ SCH (08:12)
[2016-09-28] MEDS: FUROSEMIDE 20 MG TAB PO SCH (08:12)
[2016-09-28] MEDS ORDERED: POTASSIUM CHLORIDE 10 MEQ CONTROLLED RELEASE TAB PO ONE (11:45)
--- NOTE | 2016-09-28 12:06 | HHI.PR ---
Subjective Remarks Follow-up for intractable emesis/nausea Patient stated that he has improved and he is tolerating his clear liquid diet. Patient stated that he does have episodes where he feels nauseous and sometimes is hesitant to eat. Asking to advance his diet so he can safely tolerates it. Deny any abdominal pain. Objective Vitals Vital Signs Date Time Temp Pulse Resp B/P Pulse Ox O2 Delivery O2 Flow Rate FiO2 09/28/16 10:31 70 09/28/16 10:13 Room Air 09/28/16 08:00 98.5 68 18 105/66 98 09/28/16 04:00 98.9 79 18 152/77 100 09/28/16 00:32 97.8 92 18 100/69 97 09/27/16 21:40 Room Air 09/27/16 20:00 98.5 71 18 125/81 98 09/27/16 20:00 84 09/27/16 16:00 97.6 81 18 95/61 97 09/27/16 12:56 Room Air I/O 09/27/16 09/27/16 09/27/16 09/28/16 09/28/16 09/28/16 07:00 15:00 23:00 07:00 15:00 23:00 Intake Total 1148 ml Output Total 1100 ml 850 ml 400 ml Balance 48 ml -850 ml -400 ml Intake Oral 480 ml IV Total 668 ml Output Urine Total 1100 ml 850 ml 400 ml # Bowel Movements 0 0 Result Diagram: 09/28/16 0655 09/28/16 0635 Objective Remarks GENERAL: in NAD SKIN: Warm and dry. HEAD: Normocephalic. EYES: No scleral icterus. No injection or drainage. NECK: Supple, trachea midline. No JVD or lymphadenopathy. CARDIOVASCULAR: Regular rate. Positive 3/6 systolic heart murmur. RESPIRATORY: Breath sounds equal bilaterally. No accessory muscle use. GASTROINTESTINAL: Abdomen soft, non-tender, nondistended. MUSCULOSKELETAL: No cyanosis, or edema. BACK: Nontender without obvious deformity. No CVA tenderness. Medications and IVs Current Medications Ondansetron HCl (Zofran Inj) 4 mg STK-MED ONCE .ROUTE ; Start 09/24/16 at 18:30; Stop 09/24/16 at 18:31; Status DC Ondansetron HCl 4 mg 4 mg ONCE ONCE IV PUSH Last administered on 09/24/16 20: 21; Start 09/24/16 at 20:00; Stop 09/24/16 at 20:01; Status DC Sodium Chloride (NS 1000 ml Inj) 1,000 ml @ 999 mls/hr BOLUS ONCE IV Last administered on 09/24/16 20:21; Start 09/24/16 at 20:00; Stop 09/24/16 at 21:00; Status DC Metoclopramide HCl (Reglan Inj) 10 mg ONCE ONCE IV PUSH Last administered on 20:31; Start 09/24/16 at 20:30; Stop 09/24/16 at 20:31; Status DC Iohexol (Omnipaque 350 Inj) 95 ml STK-MED ONCE IV Last administered on 21:45; Start 09/24/16 at 21:45; Stop 09/24/16 at 21:46; Status DC Lorazepam (Ativan Inj) 1 mg ONCE ONCE IV PUSH Last administered on 09/24/16 22 :17; Start 09/24/16 at 22:15; Stop 09/24/16 at 22:16; Status DC Ketorolac Tromethamine 30 mg 30 mg ONCE ONCE IV PUSH Last administered on 22:17; Start 09/24/16 at 22:15; Stop 09/24/16 at 22:16; Status DC Sodium Chloride 500 ml @ 500 mls/hr BOLUS ONCE IV Last administered on 22:17; Start 09/24/16 at 22:15; Stop 09/24/16 at 23:14; Status DC Sodium Chloride (NS 1000 ml Inj) 1,000 ml @ 100 mls/hr Q10H IV Last administered on 09/27/16 09:47; Start 09/24/16 at 22:34; Stop 09/27/16 at 10:24; Status DC Sodium Chloride (NS Flush) 2 ml UNSCH PRN IV FLUSH FLUSH AFTER USING IV ACCESS Last administered on 09/28/16 05:52; Start 09/24/16 at 22:45 Sodium Chloride (NS Flush) 2 ml BID IV FLUSH Last administered on 09/28/16 08: 12; Start 09/25/16 at 09:00 Ondansetron HCl (Zofran Inj) 4 mg Q6H PRN IVP NAUSEA OR VOMITING Last administered on 09/28/16 08:12; Start 09/24/16 at 22:45 Naloxone HCl (Narcan Inj) 0.4 mg UNSCH PRN IV SEE LABEL COMMENTS; Start at 22:45 Metoclopramide HCl (Reglan Inj) 5 mg Q8H IV PUSH Last administered on 09/28/16 05:52; Start 09/24/16 at 23:00 Folic Acid (Folate) 1 mg DAILY PO Last administered on 09/28/16 08:12; Start at 09:00 Gabapentin (Neurontin) 200 mg BID PO Last administered on 09/28/16 08:11; Start 09/25/16 at 09:00 Zonisamide (Zonegran) 100 mg BID PO Last administered on 09/25/16 09:19; Start 09/25/16 at 09:00; Stop 09/25/16 at 20:47; Status DC Phenytoin Sodium 100 mg 100 mg Q8HR IV Last administered on 09/28/16 05:52; Start 09/25/16 at 06:00 Fosphenytoin Sodium/Sodium Chloride (Cerebyx Inj/NS Inj) 70 ml @ 280 mls/hr ONCE ONCE IV Last administered on 09/25/16 02:07; Start 09/25/16 at 01:15; Stop 09/25/16 at 01:29; Status DC Lorazepam (Ativan Inj) 1 mg Q2H PRN IV PUSH withdrawal symptoms from benzo Last administered on 09/27/16 03:49; Start 09/25/16 at 01:15 Methadone HCl (Dolophine) 20 mg DAILY PO Last administered on 09/25/16 08:08; Start 09/25/16 at 09:00; Stop 09/26/16 at 12:05; Status DC Morphine Sulfate (Morphine Inj) 2 mg Q3H PRN IV PUSH pain >5; Start 09/25/16 at 01:30; Stop 09/25/16 at 01:30; Status DC Hydromorphone HCl 0.2 mg 0.2 mg Q4H PRN IV PUSH pain >5 Last administered on 07:23; Start 09/25/16 at 01:30; Stop 09/25/16 at 11:19; Status DC Levofloxacin/ Dextrose (Levaquin 750 Mg Premix Inj) 150 ml @ 100 mls/hr Q24H IV Last administered on 09/26/16 03:13; Start 09/25/16 at 02:00; Stop 09/26/16 at 12:11; Status DC Enoxaparin Sodium (Lovenox Inj) 40 mg Q24H SQ ; Start 09/25/16 at 09:00; Stop 09/25/16 at 09:00; Status DC Potassium Chloride (KCl) 40 meq ONCE ONCE PO Last administered on 09/25/16 03: 35; Start 09/25/16 at 03:15; Stop 09/25/16 at 03:18; Status DC Clonidine (Catapres) 0.1 mg ONCE ONCE PO Last administered on 09/25/16 03:35; Start 09/25/16 at 03:15; Stop 09/25/16 at 03:18; Status DC Acetaminophen (Tylenol) 650 mg Q4H PRN PO fever >101; Start 09/25/16 at 03:30 Enoxaparin Sodium (Lovenox Inj) 30 mg Q24H SQ Last administered on 09/28/16 08: 12; Start 09/25/16 at 09:00 Pantoprazole Sodium (Protonix) 40 mg DAILY PO Last administered on 09/28/16 08: 12; Start 09/25/16 at 09:00 Clonidine (Catapres) 0.1 mg Q6H PRN PO SBP>180 or DBP>100; Start 09/25/16 at 11: 00 Zonisamide (Zonegran) 100 mg BID PO Last administered on 09/28/16 08:12; Start 09/25/16 at 21:00 Potassium Chloride (KCl) 30 meq ONCE ONCE PO Last administered on 09/26/16 14: 55; Start 09/26/16 at 13:00; Stop 09/26/16 at 13:01; Status DC Amlodipine Besylate (Norvasc) 10 mg DAILY PO Last administered on 09/28/16 08: 11; Start 09/26/16 at 13:00 Methadone HCl (Dolophine) 90 mg DAILY PO ; Start 09/26/16 at 13:00; Stop 09/26/16 at 15:29; Status DC Levofloxacin (Levaquin) 750 mg DAILY PO Last administered on 09/28/16 08:11; Start 09/27/16 at 09:00 Methadone HCl (Dolophine) 30 mg DAILY@0600 PO Last administered on 09/28/16 05: 53; Start 09/27/16 at 06:00 Methadone HCl (Dolophine) 30 mg DAILY@2000 PO Last administered on 09/27/16 21: 06; Start 09/26/16 at 20:00 Furosemide (Lasix Inj) 20 mg ONCE ONCE IV PUSH Last administered on 09/27/16 12:15; Start 09/27/16 at 11:00; Stop 09/27/16 at 11:01; Status DC Furosemide (Lasix) 20 mg DAILY PO Last administered on 09/28/16 08:12; Start at 09:00 Lorazepam (Ativan) 2 mg BID PO Last administered on 09/28/16 08:11; Start at 12:30 Tizanidine HCl (Zanaflex) 2 mg Q8HR PO Last administered on 09/28/16 05:52; Start 09/27/16 at 14:00 Potassium Chloride (KCl) 30 meq ONCE ONCE PO ; Start 09/28/16 at 11:45; Stop 09/28/16 at 11:53; Status DC A/P Assessment and Plan Intractable emesis -Patient has not had any emesis but he continues to feel nauseous with improvement. Will advance his diet. -CT scan showed possible ileus and HIDA scan negative. -If patient continues to be symptomatic does not tolerate diet will consult GI. opiate use for chronic back pain -Continue with methadone. Alcoholic seizure disorder -Continue home medication. Renal insufficiency -Most likely secondary to dehydration. -Resolved. Leukocytosis -Unsure source. Workup so far negative. Maybe secondary to aspiration pneumonia. Continue to improve. -Continue to monitor clinically. -Continue to improve on oral Levaquin. Continue with oral Levaquin. + 2/4 staph coagulase-negative -Most likely a contaminant. Patient's improving with Levaquin which does not cover for this. Systolic heart murmur -Echo EF of 55-60%. dvt prophylaxis with lovenox gi prophylaxis on pantoprazole Discharge Planning If patient tolerates diet can be discharged to home if not will need to consult GI. Meaghan Matson MD Sep 28, 2016 12:06
[2016-09-29] VITALS (8 sets, daily range): BP systolic 94–162; BP diastolic 59–84; PULSE 70–89; RESP 16–22; TEMP 97.6–99.5; O2SAT 95–98
[2016-09-29] MEDS: ONDANSETRON HCL 4 MG/2 ML VIAL IVP PRN ×3 (00:26→21:06)
[2016-09-29] MEDS: METOCLOPRAMIDE HCL 10 MG/2 ML VIAL IV PUSH SCH ×2 (05:25→08:42)
[2016-09-29] MEDS: METHADONE HCL 10 MG TAB PO SCH ×2 (05:25→21:06)
[2016-09-29] MEDS: PHENYTOIN INJ 100 MG/2 ML VIAL IV SCH (05:26)
[2016-09-29] MEDS: SODIUM CHLORIDE 0.9% FLUSH 10 ML FLUSH IV FLUSH PRN (05:26)
[2016-09-29] MEDS: PANTOPRAZOLE SOD 40 MG DELAYED RELEASE TAB PO SCH (08:41)
[2016-09-29] MEDS: ENOXAPARIN SODIUM 30 MG/0.3 ML SYRINGE SQ SCH (08:41)
[2016-09-29] MEDS: GABAPENTIN 100 MG CAP PO SCH ×2 (08:42→21:05)
[2016-09-29] MEDS: SODIUM CHLORIDE 0.9% FLUSH 10 ML FLUSH IV FLUSH SCH ×2 (08:42→21:00)
[2016-09-29] MEDS: LEVOFLOXACIN 750 MG TAB PO SCH (08:42)
[2016-09-29] MEDS: FUROSEMIDE 20 MG TAB PO SCH (08:42)
[2016-09-29] MEDS: FOLIC ACID 1 MG TAB PO SCH (08:42)
[2016-09-29] MEDS: LORazepam 2 MG TAB PO SCH ×2 (08:42→21:06)
[2016-09-29] MEDS: ZONISAMIDE 25 MG CAP PO SCH ×2 (08:56→21:05)
[2016-09-29 10:12] LABS: HEMATOCRIT 36.2 % (39.0-51.0); MEAN CELL VOLUME 95.2 FL (80.0-100.0); MEAN CORPUSCULAR HEMOGLOBIN 32.7 PG (27.0-34.0); MEAN CORPUSCULAR HGB CONC 34.3 % (32.0-36.0); PLATELET COUNT 166 TH/MM3 (150-450); RED BLOOD COUNT 3.81 MIL/MM3 (4.50-5.90); RED CELL DISTRIBUTION WIDTH 14.7 % (11.6-17.2); REVIEW FLAG FINAL; WHITE BLOOD COUNT 8.5 TH/MM3 (4.0-11.0)
--- NOTE | 2016-09-29 11:05 | HHI.PR ---
Subjective Remarks Follow-up for intractable emesis and ileus Patient stated that he did not tolerate the diet yesterday. He stated that after eating he had episodes emesis and he continues to feel nauseous. He remains afebrile. He has no other complaints. Objective Vitals Vital Signs Date Time Temp Pulse Resp B/P Pulse Ox O2 Delivery O2 Flow Rate FiO2 09/29/16 08:05 98.6 75 18 162/84 97 09/29/16 05:29 97.6 70 20 145/75 98 09/29/16 00:51 98.8 79 22 94/59 95 09/28/16 21:45 Room Air 09/28/16 21:45 87 09/28/16 20:00 98.2 86 18 153/80 98 09/28/16 16:00 98.1 88 18 133/77 97 09/28/16 12:00 98.7 80 18 151/81 99 I/O 09/28/16 09/28/16 09/28/16 09/29/16 09/29/16 09/29/16 07:00 15:00 23:00 07:00 15:00 23:00 Intake Total 1400 ml 240 ml Output Total 400 ml 800 ml 600 ml Balance -400 ml 600 ml -360 ml Intake Oral 1400 ml 240 ml Output Urine Total 400 ml 800 ml 600 ml Result Diagram: 09/29/16 0848 09/28/16 0635 Objective Remarks GENERAL: in NAD NECK: Supple, trachea midline. No JVD or lymphadenopathy. CARDIOVASCULAR: Regular rate. Positive 3/6 systolic heart murmur. RESPIRATORY: Breath sounds equal bilaterally. No accessory muscle use. GASTROINTESTINAL: Abdomen soft, non-tender, nondistended. MUSCULOSKELETAL: No cyanosis, or edema. BACK: Nontender without obvious deformity. No CVA tenderness. Medications and IVs Current Medications Ondansetron HCl (Zofran Inj) 4 mg STK-MED ONCE .ROUTE ; Start 09/24/16 at 18:30; Stop 09/24/16 at 18:31; Status DC Ondansetron HCl 4 mg 4 mg ONCE ONCE IV PUSH Last administered on 09/24/16t 20: 21; Start 09/24/16 at 20:00; Stop 09/24/16 at 20:01; Status DC Sodium Chloride (NS 1000 ml Inj) 1,000 ml @ 999 mls/hr BOLUS ONCE IV Last administered on 09/24/16 20:21; Start 09/24/16 at 20:00; Stop 09/24/16 at 21:00; Status DC Metoclopramide HCl (Reglan Inj) 10 mg ONCE ONCE IV PUSH Last administered on 20:31; Start 09/24/16 at 20:30; Stop 09/24/16 at 20:31; Status DC Iohexol (Omnipaque 350 Inj) 95 ml STK-MED ONCE IV Last administered on 21:45; Start 09/24/16 at 21:45; Stop 09/24/16 at 21:46; Status DC Lorazepam (Ativan Inj) 1 mg ONCE ONCE IV PUSH Last administered on 09/24/16 22 :17; Start 09/24/16 at 22:15; Stop 09/24/16 at 22:16; Status DC Ketorolac Tromethamine 30 mg 30 mg ONCE ONCE IV PUSH Last administered on 22:17; Start 09/24/16 at 22:15; Stop 09/24/16 at 22:16; Status DC Sodium Chloride 500 ml @ 500 mls/hr BOLUS ONCE IV Last administered on 22:17; Start 09/24/16 at 22:15; Stop 09/24/16 at 23:14; Status DC Sodium Chloride (NS 1000 ml Inj) 1,000 ml @ 100 mls/hr Q10H IV Last administered on 09/27/16 09:47; Start 09/24/16 at 22:34; Stop 09/27/16 at 10:24; Status DC Sodium Chloride (NS Flush) 2 ml UNSCH PRN IV FLUSH FLUSH AFTER USING IV ACCESS Last administered on 09/29/16 05:26; Start 09/24/16 at 22:45 Sodium Chloride (NS Flush) 2 ml BID IV FLUSH Last administered on 09/29/16 08: 42; Start 09/25/16 at 09:00 Ondansetron HCl (Zofran Inj) 4 mg Q6H PRN IVP NAUSEA OR VOMITING Last administered on 09/29/16 08:56; Start 09/24/16 at 22:45 Naloxone HCl (Narcan Inj) 0.4 mg UNSCH PRN IV SEE LABEL COMMENTS; Start at 22:45 Metoclopramide HCl (Reglan Inj) 5 mg Q8H IV PUSH Last administered on 05:25; Start 09/24/16 at 23:00 Folic Acid (Folate) 1 mg DAILY PO Last administered on 09/29/16 08:42; Start 09/25/16 at 09:00 Gabapentin (Neurontin) 200 mg BID PO Last administered on 09/29/16 08:42; Start 09/25/16 at 09:00 Zonisamide (Zonegran) 100 mg BID PO Last administered on 09/25/16 09:19; Start 09/25/16 at 09:00; Stop 09/25/16 at 20:47; Status DC Phenytoin Sodium 100 mg 100 mg Q8HR IV Last administered on 09/29/16 05:26; Start 09/25/16 at 06:00 Fosphenytoin Sodium/Sodium Chloride (Cerebyx Inj/NS Inj) 70 ml @ 280 mls/hr ONCE ONCE IV Last administered on 09/25/16 02:07; Start 09/25/16 at 01:15; Stop 09/25/16 at 01:29; Status DC Lorazepam (Ativan Inj) 1 mg Q2H PRN IV PUSH withdrawal symptoms from benzo Last administered on 09/27/16 03:49; Start 09/25/16 at 01:15 Methadone HCl (Dolophine) 20 mg DAILY PO Last administered on 09/25/16 08:08; Start 09/25/16 at 09:00; Stop 09/26/16 at 12:05; Status DC Morphine Sulfate (Morphine Inj) 2 mg Q3H PRN IV PUSH pain >5; Start 09/25/16 at 01:30; Stop 09/25/16 at 01:30; Status DC Hydromorphone HCl 0.2 mg 0.2 mg Q4H PRN IV PUSH pain >5 Last administered on 07:23; Start 09/25/16 at 01:30; Stop 09/25/16 at 11:19; Status DC Levofloxacin/ Dextrose (Levaquin 750 Mg Premix Inj) 150 ml @ 100 mls/hr Q24H IV Last administered on 09/26/16 03:13; Start 09/25/16 at 02:00; Stop 09/26/16 at 12:11; Status DC Enoxaparin Sodium (Lovenox Inj) 40 mg Q24H SQ ; Start 09/25/16 at 09:00; Stop 09/25/16 at 09:00; Status DC Potassium Chloride (KCl) 40 meq ONCE ONCE PO Last administered on 09/25/16 03: 35; Start 09/25/16 at 03:15; Stop 09/25/16 at 03:18; Status DC Clonidine (Catapres) 0.1 mg ONCE ONCE PO Last administered on 09/25/16 03:35; Start 09/25/16 at 03:15; Stop 09/25/16 at 03:18; Status DC Acetaminophen (Tylenol) 650 mg Q4H PRN PO fever >101; Start 09/25/16 at 03:30 Enoxaparin Sodium (Lovenox Inj) 30 mg Q24H SQ Last administered on 09/29/16 08 :41; Start 09/25/16 at 09:00 Pantoprazole Sodium (Protonix) 40 mg DAILY PO Last administered on 09/29/16 08 :41; Start 09/25/16 at 09:00 Clonidine (Catapres) 0.1 mg Q6H PRN PO SBP>180 or DBP>100; Start 09/25/16 at 11: 00 Zonisamide (Zonegran) 100 mg BID PO Last administered on 09/29/16 08:56; Start 09/25/16 at 21:00 Potassium Chloride (KCl) 30 meq ONCE ONCE PO Last administered on 09/26/16 14: 55; Start 09/26/16 at 13:00; Stop 09/26/16 at 13:01; Status DC Amlodipine Besylate (Norvasc) 10 mg DAILY PO Last administered on 09/29/16 08: 41; Start 09/26/16 at 13:00 Methadone HCl (Dolophine) 90 mg DAILY PO ; Start 09/26/16 at 13:00; Stop 09/26/16 at 15:29; Status DC Levofloxacin (Levaquin) 750 mg DAILY PO Last administered on 09/29/16 08:42; Start 09/27/16 at 09:00 Methadone HCl (Dolophine) 30 mg DAILY@0600 PO Last administered on 09/29/16 05 :25; Start 09/27/16 at 06:00 Methadone HCl (Dolophine) 30 mg DAILY@2000 PO Last administered on 09/28/16 21: 23; Start 09/26/16 at 20:00 Furosemide (Lasix Inj) 20 mg ONCE ONCE IV PUSH Last administered on 09/27/16 12:15; Start 09/27/16 at 11:00; Stop 09/27/16 at 11:01; Status DC Furosemide (Lasix) 20 mg DAILY PO Last administered on 09/29/16 08:42; Start 09/28/16 at 09:00 Lorazepam (Ativan) 2 mg BID PO Last administered on 09/29/16 08:42; Start 09/27 at 12:30 Tizanidine HCl (Zanaflex) 2 mg Q8HR PO Last administered on 09/29/16 05:25; Start 09/27/16 at 14:00 Potassium Chloride (KCl) 30 meq ONCE ONCE PO Last administered on 09/28/16 12: 05; Start 09/28/16 at 11:45; Stop 09/28/16 at 11:53; Status DC A/P Assessment and Plan Intractable emesis -CT scan showed possible ileus and HIDA scan negative. --Patient's diet was advanced yesterday but continues to have emesis/nausea. Will consult GI for further recommendations. opiate use for chronic back pain -Continue with methadone. Alcoholic seizure disorder -Continue home medication. Renal insufficiency -Most likely secondary to dehydration. -Resolved. Leukocytosis -Unsure source. Workup so far negative. Maybe secondary to aspiration pneumonia. Continue to improve. -Continue to monitor clinically. -Continue to improve on oral Levaquin. Continue with oral Levaquin. + 2/4 Staphylococcus capitis -Patient has no prosthetics in. Most likely contaminant. Systolic heart murmur -Echo EF of 55-60%. dvt prophylaxis with lovenox gi prophylaxis on pantoprazole Discharge Planning Patient continues to be symptomatic will need to consult GI. Meaghan Matson MD Sep 29, 2016 11:05
[2016-09-29] MEDS ORDERED: POTASSIUM CHLORIDE 10 MEQ CONTROLLED RELEASE TAB PO ONE (11:30)
[2016-09-29] MEDS: PHENYTOIN INJ 250 MG/5 ML VIAL IV SCH ×2 (14:00→21:05)
[2016-09-29 14:35] LABS: BICARBONATE 22.4 MEQ/L (21.0-32.0)
[2016-09-29 14:36] LABS: POTASSIUM 3.3 MEQ/L (3.5-5.1)
--- NOTE | 2016-09-29 16:28 | PD.CONS ---
HPI History of Present Illness This is a 61 year old male with a history of seizure disorder, chronic kidney disease, hx traumatic brain injury from a fall, chronic back pain (on methadone for pain management) secondary to degenerative spine disease, who presented to the ER for evaluation of persistent nausea/vomiting with hematemesis. He reports that he was in his normal state of health up until 6 days ago. He cooked some asparagus for dinner and reports that after about an hour later, he started having nausea and vomiting. Initially, this consisted of undigested food, then bile. After about 24 hours of nausea/vomiting with dry heaving, he started vomiting a mixture of bilious material mixed with red blood. This is what prompted him to come to the ER for evaluation. He denies any associated fever or chills, abdominal pain, diarrhea, constipation, melena, or hematochezia. He last had a bowel movement yesterday. His symptoms are aggravated by any po intake. Here in the hospital, he was evaluated with Abdomen/Pelvis CT (09/24/16)----> 1. Localized ileus left upper quadrant. No bowel obstruction identified.. No free air or free fluid. Diffuse fatty liver. Small hiatal hernia. Hepatobiliary Scan Nuclear Medicine (09/27/16)-----> Normal uptake in the gallbladder. He was treated with a clear liquid diet, Protonix, and reglan. His symptoms did improve, but he reports that these worsened again after his diet was advanced yesterday. He reports that he cannot eat anything because of the nausea and vomiting. He denies any hx of peptic ulcer disease. He has never had an EGD or Colonoscopy, although he does report that he recently had the Cologuard test with his primary care physician. He does not take NSAIDs. PFSH Past Medical History Neuropathy CKD Seizure D/O Hx Traumatic brain injury from a fall about 17yrs - no surgical intervention Degenerative spine disease Chronic back pain Past Surgical History Facial reconstruction Surgery for pneumothorax Right tib fib spiral fx repair Coded Allergies: No Known Allergies (Unverified , 09/24/16) Medications Allergies Coded Allergies Type Severity Reaction Last Updated Verified No Known Allergies 09/24/16 No Active Scripts Medications Dose Route/Sig Days Date Category Zanaflex (Tizanidine HCl) 4 Mg Tab 8 Mg PO TID 09/25/16 Reported Lasix (Furosemide) 20 Mg Tab 20 Mg PO DAILY 09/25/16 Reported B12 (Cyanocobalamin) 1,000 Mcg Tab 09/24/16 Reported Folic Acid 400 Mcg Tab 400 Mcg PO DAILY 09/24/16 Reported Ativan (Lorazepam) 2 Mg Tab 2 Mg PO Q6H PRN 09/24/16 Reported Gabapentin 100 Mg Cap 200 Mg PO BID 09/24/16 Reported Zonisamide 100 Mg Cap 100 Mg PO BID 09/24/16 Reported Dilantin (Phenytoin Extended) 100 Mg Cap 100 Mg PO TID 09/24/16 Reported Methadone (Methadone HCl) 40 Mg Tab 90 Mg PO DAILY 09/24/16 Reported Family History No family hx of esophageal, gastric, or colorectal cancer. Social History Never smoked Occasional drinker No drugs Review of Systems Constitutional: COMPLAINS OF: Fatigue, Change in appetite, DENIES: Fever, Weight loss, Chills Respiratory: DENIES: Cough, Shortness of breath Cardiovascular: DENIES: Chest pain Gastrointestinal: COMPLAINS OF: Nausea, Vomiting, Hematemesis, DENIES: Abdominal pain, Black stools, Bloody stools, Constipation, Diarrhea, Swelling of Abdomen Musculoskeletal: COMPLAINS OF: Joint pain, Back pain Hematologic/lymphatic: DENIES: Bruising Neurologic: DENIES: Headache Psychiatric: DENIES: Confusion GI Exam Vitals I&O Vital Signs Date Time Temp Pulse Resp B/P Pulse Ox O2 Delivery O2 Flow Rate FiO2 09/29/16 12:05 99.5 89 18 161/82 96 09/29/16 08:05 98.6 75 18 162/84 97 09/29/16 08:00 Room Air 09/29/16 05:29 97.6 70 20 145/75 98 09/29/16 00:51 98.8 79 22 94/59 95 09/28/16 21:45 Room Air 09/28/16 21:45 87 09/28/16 20:00 98.2 86 18 153/80 98 I/O 09/28/16 09/28/16 09/28/16 09/29/16 09/29/16 09/29/16 07:00 15:00 23:00 07:00 15:00 23:00 Intake Total 1400 ml 240 ml Output Total 400 ml 800 ml 600 ml Balance -400 ml 600 ml -360 ml Intake Oral 1400 ml 240 ml Output Urine Total 400 ml 800 ml 600 ml Imaging Last Impressions Hepatobiliary Scan Nuclear Medicine 09/27/16 0000 Signed Impressions: Service Date/Time: Tuesday, September 27, 2016 13:15 - CONCLUSION: Normal uptake in the gallbladder. Joshua Glaser MD Chest X-Ray 09/25/16 0000 Signed Impressions: Service Date/Time: September 01:32 - CONCLUSION: No acute disease. Joshua Glaser MD Abdomen/Pelvis CT 09/24/16 0000 Signed Impressions: Service Date/Time: Saturday, September 24, 2016 21:33 - CONCLUSION: 1. Localized ileus left upper quadrant. No bowel obstruction identified.. No free air or free fluid. Diffuse fatty liver. Small hiatal hernia. Dylan Lantigua MD Laboratory Test 09/29/16 09/29/16 08:48 13:45 White Blood Count 8.5 TH/MM3 Red Blood Count 3.81 MIL/MM3 Hemoglobin 12.4 GM/DL Hematocrit 36.2 % Mean Corpuscular Volume 95.2 FL Mean Corpuscular Hemoglobin 32.7 PG Mean Corpuscular Hemoglobin 34.3 % Concent Red Cell Distribution Width 14.7 % Platelet Count 166 TH/MM3 Mean Platelet Volume 9.2 FL Sodium Level 141 MEQ/L Potassium Level 3.3 MEQ/L Chloride Level 108 MEQ/L Carbon Dioxide Level 22.4 MEQ/L Anion Gap 11 MEQ/L Blood Urea Nitrogen 10 MG/DL Creatinine 1.02 MG/DL Estimat Glomerular Filtration 74 ML/MIN Rate Random Glucose 91 MG/DL Calcium Level 8.5 MG/DL Date/Time Procedure Status Source Growth 09/25/16 01:45 Aerobic Blood Culture - Preliminary Resulted Blood Peripheral NO GROWTH IN 4 DAYS 09/25/16 01:45 Anaerobic Blood Culture - Final Resulted Staphylococcus Capitis-Capitis Physical Examination HEENT: Normocephalic; atraumatic; no jaundice. CHEST: CTA CARDIAC: RRR ABDOMEN: Soft, nondistended, nontender; no hepatosplenomegaly; bowel sounds are present in all four quadrants. EXTREMITIES: No clubbing, cyanosis, or edema. SKIN: Normal; no rash; no jaundice. 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 Assessment and Plan Plan ASSESSMENT: - Intractable N/V. Started 6 days ago after having asparagus- has had intractable n/v (first digested food, then bilious, then red blood mixed in bile ). Came to the ER Abdomen/Pelvis CT (09/24/16)----> 1. Localized ileus left upper quadrant. No bowel obstruction identified.. No free air or free fluid. Diffuse fatty liver. Small hiatal hernia. HIDA (09/27/16)-----> Normal uptake in the gallbladder. He was treated with clear liquids, Protonix, and Reglan. His symptoms improved, but returned once his diet was advanced. GI has been consulted for further evaluation. He c/o persistent nausea without abdominal pain, constipation, bloating. He is not having any further GI bleeding at this time, but did have some earlier. Of note, he takes methadone for chronic back pain. No hx of PUD. Never had EGD/Colonoscopy. Recently had Cologuard testing thru his primary. Not on NSAIDs. Will plan for EGD in am to r/o gastritis, PUD. If negative, consider GES. ? some medication component. - GIB, Hematemesis. Had red blood mixed in bile after persistent n/v x 24 hours. he has not not any further bleeding since that time. HH 12.4/36.2. - Elevated LFTs. on 09/24/16, had T. Bili 0.7, AST 45, ALT 27, ALK phoshp 143. HIDA negative. Will get GB US to r/o gallbladder wall thickening/ pericholecystic fluid. Rpt LFTs. - Leukocytosis, improved. ? reactive from vomiting. - Hypokalemia. - Seizure disorder, CKD, hx TBI from a fall, chronic back pain (on methadone for pain management) secondary to degenerative spine disease per attending. PLAN: - Plan for egd in am - Obtain consents - NPO after MN - Clear liquids - RUQ US - LFT in am - PPI - D/C reglan given the fact that he still has n/v with this and he has hx of sz - Zofran prn - Supportive care - Further recommendations to follow based on results of above - Pt seen and examined by Dr. Hester and myself and this note is written on his behalf Darya Angulo Sep 29, 2016 16:28
[2016-09-30] VITALS (8 sets, daily range): BP systolic 108–162; BP diastolic 62–85; PULSE 66–74; RESP 16–20; TEMP 98.1–99.8; O2SAT 96–99
[2016-09-30] MEDS: ONDANSETRON HCL 4 MG/2 ML VIAL IVP PRN ×4 (03:40→20:27)
[2016-09-30] MEDS: PHENYTOIN INJ 250 MG/5 ML VIAL IV SCH ×3 (05:48→20:27)
[2016-09-30] MEDS: METHADONE HCL 10 MG TAB PO SCH ×2 (05:48→20:30)
[2016-09-30 06:20] LABS: HEMATOCRIT 35.7 % (39.0-51.0); MEAN CELL VOLUME 95.8 FL (80.0-100.0); MEAN CORPUSCULAR HEMOGLOBIN 32.9 PG (27.0-34.0); MEAN CORPUSCULAR HGB CONC 34.4 % (32.0-36.0); PLATELET COUNT 167 TH/MM3 (150-450); RED BLOOD COUNT 3.73 MIL/MM3 (4.50-5.90); RED CELL DISTRIBUTION WIDTH 14.7 % (11.6-17.2); REVIEW FLAG FINAL; WHITE BLOOD COUNT 7.6 TH/MM3 (4.0-11.0)
[2016-09-30 06:26] LABS: BICARBONATE 23.8 MEQ/L (21.0-32.0); POTASSIUM 3.2 MEQ/L (3.5-5.1)
[2016-09-30 06:29] LABS: INDIRECT BILIRUBIN 0.3 MG/DL (0.0-0.8); TOTAL BILIRUBIN ADULT 0.5 MG/DL (0.2-1.0)
[2016-09-30] MEDS: SODIUM CHLORIDE 0.9% FLUSH 10 ML FLUSH IV FLUSH SCH ×2 (09:00→20:31)
[2016-09-30] MEDS: FUROSEMIDE 20 MG TAB PO SCH (09:00)
[2016-09-30] MEDS: PANTOPRAZOLE SOD 40 MG DELAYED RELEASE TAB PO SCH (09:00)
[2016-09-30] MEDS: ZONISAMIDE 25 MG CAP PO SCH ×2 (09:08→20:30)
[2016-09-30] MEDS: GABAPENTIN 100 MG CAP PO SCH ×2 (09:08→20:30)
[2016-09-30] MEDS: LORazepam 2 MG TAB PO SCH ×2 (09:09→20:31)
[2016-09-30] MEDS: LEVOFLOXACIN 750 MG TAB PO SCH (09:09)
[2016-09-30] MEDS: FOLIC ACID 1 MG TAB PO SCH (09:10)
[2016-09-30] MEDS ORDERED: PROPOFOL 200 MG/20 ML AMP IV ONE (10:08)
--- NOTE | 2016-09-30 10:21 | HHI.GIFU ---
Subjective Remarks Immediate postop note: EGD with biopsy Indication: N and v, hematemesis Meds: MAC Findings: Esophagus: distal mild esophagitis Stomach: small HH Antral gastritis. Biopsy taken Duodenum: normal Imp: Gastritis. HH, and GERD Plan: PPI and carafate. supportive care. Objective Vitals I&O Vital Signs Date Time Temp Pulse Resp B/P Pulse Ox O2 Delivery O2 Flow Rate FiO2 09/30/16 09:38 99.8 71 18 155/75 99 09/30/16 04:00 98.3 72 16 158/85 98 09/30/16 00:00 98.1 69 16 126/71 97 09/29/16 21:16 Room Air 09/29/16 20:00 98.3 78 16 138/80 97 09/29/16 19:47 86 09/29/16 16:26 98.8 83 20 126/78 98 09/29/16 12:05 99.5 89 18 161/82 96 I/O 09/29/16 09/29/16 09/29/16 09/30/16 09/30/16 09/30/16 07:00 15:00 23:00 07:00 15:00 23:00 Intake Total 240 ml 480 ml Output Total 600 ml 1400 ml 450 ml 300 ml Balance -360 ml -920 ml -450 ml -300 ml Intake Oral 240 ml 480 ml Output Urine Total 600 ml 1400 ml 450 ml 300 ml # Bowel Movements 0 Laboratory Laboratory Tests Test 09/29/16 09/30/16 13:45 05:20 Sodium Level 141 141 Potassium Level 3.3 3.2 Chloride Level 108 108 Carbon Dioxide Level 22.4 23.8 Anion Gap 11 9 Blood Urea Nitrogen 10 10 Creatinine 1.02 1.03 Estimat Glomerular Filtration 74 73 Rate Random Glucose 91 96 Calcium Level 8.5 8.6 White Blood Count 7.6 Red Blood Count 3.73 Hemoglobin 12.3 Hematocrit 35.7 Mean Corpuscular Volume 95.8 Mean Corpuscular Hemoglobin 32.9 Mean Corpuscular Hemoglobin 34.4 Concent Red Cell Distribution Width 14.7 Platelet Count 167 Mean Platelet Volume 8.8 Total Bilirubin 0.5 Direct Bilirubin 0.2 Indirect Bilirubin 0.3 Aspartate Amino Transf 26 (AST/SGOT) Alanine Aminotransferase 18 (ALT/SGPT) Alkaline Phosphatase 86 Total Protein 6.3 Albumin 3.1 Physical Exam HEENT: Pupils round and reactive to light; normocephalic; atraumatic; no jaundice. Throat is clear. NECK: Neck is supple, no JVD, no lymphadenopathy. CHEST: Chest is clear to auscultation and percussion. CARDIAC: Regular rate and rhythm with no murmur gallop or rubs. ABDOMEN: Soft, nondistended, nontender; no hepatosplenomegaly; bowel sounds are present in all four quadrants. EXTREMITIES: No clubbing, cyanosis, or edema. SKIN: Normal; no rash; no jaundice. PROGRAMMER NUMERICAL CONTROL: No focal deficits; alert and oriented times three. Assessment and Plan Plan ASSESSMENT: - Intractable N/V. Started 6 days ago after having asparagus- has had intractable n/v (first digested food, then bilious, then red blood mixed in bile ). Came to the ER Abdomen/Pelvis CT (09/24/16)----> 1. Localized ileus left upper quadrant. No bowel obstruction identified.. No free air or free fluid. Diffuse fatty liver. Small hiatal hernia. HIDA (09/27/16)-----> Normal uptake in the gallbladder. He was treated with clear liquids, Protonix, and Reglan. His symptoms improved, but returned once his diet was advanced. GI has been consulted for further evaluation. He c/o persistent nausea without abdominal pain, constipation, bloating. He is not having any further GI bleeding at this time, but did have some earlier. Of note, he takes methadone for chronic back pain. No hx of PUD. Never had EGD/Colonoscopy. Recently had Cologuard testing thru his primary. Not on NSAIDs. Will plan for EGD in am to r/o gastritis, PUD. If negative, consider GES. ? some medication component. - GIB, Hematemesis. Had red blood mixed in bile after persistent n/v x 24 hours. he has not not any further bleeding since that time. HH 12.4/36.2. - Elevated LFTs. on 09/24/16, had T. Bili 0.7, AST 45, ALT 27, ALK phoshp 143. HIDA negative. Will get GB US to r/o gallbladder wall thickening/ pericholecystic fluid. Rpt LFTs. - Leukocytosis, improved. ? reactive from vomiting. - Hypokalemia. - Seizure disorder, CKD, hx TBI from a fall, chronic back pain (on methadone for pain management) secondary to degenerative spine disease per attending. - EGD today showed no bleeding, no ulcers. Has HH and gerd, mild gastritis PLAN: - await biopsy result - full liquids - RUQ US - LFT in am - PPI - D/C reglan given the fact that he still has n/v with this and he has hx of sz - Zofran prn - Supportive care - Further recommendations to follow based on results of above Sriram Hester MD Sep 30, 2016 10:21
--- NOTE | 2016-09-30 10:25 | RADRPT ---
EXAM DATE/TIME: 09/30/2016 07:52 [facility] COMPARISON: CT ABDOMEN & PELVIS W CONTRAST, September 24, 2016, 21:33. INDICATIONS : Elevated labs. MEDICAL HISTORY : Hypertension. Seizures. Hematemesis. Renal disease, unspecified. Renal failure. Joint pain. SURGICAL HISTORY : Tibia and fibula surgery. Facial reconstruction. ENCOUNTER: Initial ACUITY: 4-6 days PAIN SCORE: 1/10 LOCATION: Right upper quadrant MEASUREMENTS: LIVER: 18.1 cm length COMMON DUCT: 3 mm RIGHT KIDNEY: 10.7 x 5.5 x 4.6 cm FINDINGS: LIVER: Diffusely increased hepatic echogenicity with evidence for volume loss or gross focal mass or in trahepatic ductal dilatation. COMMON DUCT: No intraluminal mass or stone visualized. GALLBLADDER: Contains no stones, demonstrates no wall thickening or pericholecystic fluid. PANCREAS: Largely secured by overlying bowel gas. RIGHT KIDNEY: Suboptimally visualized. No evidence of hydronephrosis, gross stone, or mass. CONCLUSION: 1. Limited exam due to bowel gas with limited visualization of the pancreas and right kidney. 2. Mild hepatomegaly with diffusely increased hepatic echogenicity most consistent with diffuse fatty infiltration. 3. No sonographic evidence for cholelithiasis or acute cholecystitis. Harry Ryan MD on September 30, 2016 at 10:19 Board Certified Radiologist. This report was verified electronically.
[2016-09-30] MEDS ORDERED: POTASSIUM CHLORIDE 10 MEQ CONTROLLED RELEASE TAB PO ONE (11:00)
[2016-09-30] MEDS: ENOXAPARIN SODIUM 30 MG/0.3 ML SYRINGE SQ SCH (11:24)
--- NOTE | 2016-09-30 11:28 | HHI.PR ---
Subjective Remarks Follow-up for nausea Patient stated he just had EGD done. He denies any nausea/ vomiting, but has not eaten yet. Denies abdominal pain. Patient stated that he supposed to work with PT this afternoon. Objective Vitals Vital Signs Date Time Temp Pulse Resp B/P Pulse Ox O2 Delivery O2 Flow Rate FiO2 09/30/16 10:28 66 16 168/83 100 09/30/16 10:22 68 16 126/69 98 09/30/16 10:18 98.3 70 16 129/67 98 09/30/16 09:38 99.8 71 18 155/75 99 09/30/16 07:15 Room Air 09/30/16 04:00 98.3 72 16 158/85 98 09/30/16 00:00 98.1 69 16 126/71 97 09/29/16 21:16 Room Air 09/29/16 20:00 98.3 78 16 138/80 97 09/29/16 19:47 86 09/29/16 16:26 98.8 83 20 126/78 98 09/29/16 12:05 99.5 89 18 161/82 96 I/O 09/29/16 09/29/16 09/29/16 09/30/16 09/30/16 09/30/16 07:00 15:00 23:00 07:00 15:00 23:00 Intake Total 240 ml 480 ml 300 ml Output Total 600 ml 1400 ml 450 ml 300 ml Balance -360 ml -920 ml -450 ml -300 ml 300 ml Intake Oral 240 ml 480 ml IV Total 300 ml Output Urine Total 600 ml 1400 ml 450 ml 300 ml # Bowel Movements 0 Result Diagram: 09/30/16 0520 09/30/16 0520 Objective Remarks GENERAL: in NAD NECK: Supple, trachea midline. No JVD or lymphadenopathy. CARDIOVASCULAR: Regular rate. Positive 3/6 systolic heart murmur. RESPIRATORY: Breath sounds equal bilaterally. No accessory muscle use. GASTROINTESTINAL: Abdomen soft, non-tender, nondistended. MUSCULOSKELETAL: No cyanosis, or edema. BACK: Nontender without obvious deformity. No CVA tenderness. Medications and IVs Current Medications Ondansetron HCl (Zofran Inj) 4 mg STK-MED ONCE .ROUTE ; Start 09/24/16 at 18:30; Stop 09/24/16 at 18:31; Status DC Ondansetron HCl 4 mg 4 mg ONCE ONCE IV PUSH Last administered on 09/24/16 20: 21; Start 09/24/16 at 20:00; Stop 09/24/16 at 20:01; Status DC Sodium Chloride (NS 1000 ml Inj) 1,000 ml @ 999 mls/hr BOLUS ONCE IV Last administered on 09/24/16 20:21; Start 09/24/16 at 20:00; Stop 09/24/16 at 21:00; Status DC Metoclopramide HCl (Reglan Inj) 10 mg ONCE ONCE IV PUSH Last administered on 20:31; Start 09/24/16 at 20:30; Stop 09/24/16 at 20:31; Status DC Iohexol (Omnipaque 350 Inj) 95 ml STK-MED ONCE IV Last administered on 21:45; Start 09/24/16 at 21:45; Stop 09/24/16 at 21:46; Status DC Lorazepam (Ativan Inj) 1 mg ONCE ONCE IV PUSH Last administered on 09/24/16 22 :17; Start 09/24/16 at 22:15; Stop 09/24/16 at 22:16; Status DC Ketorolac Tromethamine 30 mg 30 mg ONCE ONCE IV PUSH Last administered on 22:17; Start 09/24/16 at 22:15; Stop 09/24/16 at 22:16; Status DC Sodium Chloride 500 ml @ 500 mls/hr BOLUS ONCE IV Last administered on 22:17; Start 09/24/16 at 22:15; Stop 09/24/16 at 23:14; Status DC Sodium Chloride (NS 1000 ml Inj) 1,000 ml @ 100 mls/hr Q10H IV Last administered on 09/27/16 09:47; Start 09/24/16 at 22:34; Stop 09/27/16 at 10:24; Status DC Sodium Chloride (NS Flush) 2 ml UNSCH PRN IV FLUSH FLUSH AFTER USING IV ACCESS Last administered on 09/29/16 05:26; Start 09/24/16 at 22:45 Sodium Chloride (NS Flush) 2 ml BID IV FLUSH Last administered on 09/30/16 09: 00; Start 09/25/16 at 09:00 Ondansetron HCl (Zofran Inj) 4 mg Q6H PRN IVP NAUSEA OR VOMITING Last administered on 09/30/16 09:10; Start 09/24/16 at 22:45 Naloxone HCl (Narcan Inj) 0.4 mg UNSCH PRN IV SEE LABEL COMMENTS; Start at 22:45 Metoclopramide HCl (Reglan Inj) 5 mg Q8H IV PUSH Last administered on 05:25; Start 09/24/16 at 23:00; Stop 09/29/16 at 17:27; Status DC Folic Acid (Folate) 1 mg DAILY PO Last administered on 09/30/16 09:10; Start 09/25/16 at 09:00 Gabapentin (Neurontin) 200 mg BID PO Last administered on 09/30/16 09:08; Start 09/25/16 at 09:00 Zonisamide (Zonegran) 100 mg BID PO Last administered on 09/25/16 09:19; Start 09/25/16 at 09:00; Stop 09/25/16 at 20:47; Status DC Phenytoin Sodium 100 mg 100 mg Q8HR IV Last administered on 09/29/16 05:26; Start 09/25/16 at 06:00; Stop 09/29/16 at 13:24; Status DC Fosphenytoin Sodium/Sodium Chloride (Cerebyx Inj/NS Inj) 70 ml @ 280 mls/hr ONCE ONCE IV Last administered on 09/25/16 02:07; Start 09/25/16 at 01:15; Stop 09/25/16 at 01:29; Status DC Lorazepam (Ativan Inj) 1 mg Q2H PRN IV PUSH withdrawal symptoms from benzo Last administered on 09/27/16 03:49; Start 09/25/16 at 01:15 Methadone HCl (Dolophine) 20 mg DAILY PO Last administered on 09/25/16 08:08; Start 09/25/16 at 09:00; Stop 09/26/16 at 12:05; Status DC Morphine Sulfate (Morphine Inj) 2 mg Q3H PRN IV PUSH pain >5; Start 09/25/16 at 01:30; Stop 09/25/16 at 01:30; Status DC Hydromorphone HCl 0.2 mg 0.2 mg Q4H PRN IV PUSH pain >5 Last administered on 07:23; Start 09/25/16 at 01:30; Stop 09/25/16 at 11:19; Status DC Levofloxacin/ Dextrose (Levaquin 750 Mg Premix Inj) 150 ml @ 100 mls/hr Q24H IV Last administered on 09/26/16 03:13; Start 09/25/16 at 02:00; Stop 09/26/16 at 12:11; Status DC Enoxaparin Sodium (Lovenox Inj) 40 mg Q24H SQ ; Start 09/25/16 at 09:00; Stop 09/25/16 at 09:00; Status DC Potassium Chloride (KCl) 40 meq ONCE ONCE PO Last administered on 09/25/16 03: 35; Start 09/25/16 at 03:15; Stop 09/25/16 at 03:18; Status DC Clonidine (Catapres) 0.1 mg ONCE ONCE PO Last administered on 09/25/16 03:35; Start 09/25/16 at 03:15; Stop 09/25/16 at 03:18; Status DC Acetaminophen (Tylenol) 650 mg Q4H PRN PO fever >101; Start 09/25/16 at 03:30 Enoxaparin Sodium (Lovenox Inj) 30 mg Q24H SQ Last administered on 09/30/16 11 :24; Start 09/25/16 at 09:00 Pantoprazole Sodium (Protonix) 40 mg DAILY PO Last administered on 09/30/16 09 :00; Start 09/25/16 at 09:00 Clonidine (Catapres) 0.1 mg Q6H PRN PO SBP>180 or DBP>100; Start 09/25/16 at 11: 00 Zonisamide (Zonegran) 100 mg BID PO Last administered on 09/30/16 09:08; Start 09/25/16 at 21:00 Potassium Chloride (KCl) 30 meq ONCE ONCE PO Last administered on 09/26/16 14: 55; Start 09/26/16 at 13:00; Stop 09/26/16 at 13:01; Status DC Amlodipine Besylate (Norvasc) 10 mg DAILY PO Last administered on 09/30/16 09: 08; Start 09/26/16 at 13:00 Methadone HCl (Dolophine) 90 mg DAILY PO ; Start 09/26/16 at 13:00; Stop 09/26/16 at 15:29; Status DC Levofloxacin (Levaquin) 750 mg DAILY PO Last administered on 09/30/16 09:09; Start 09/27/16 at 09:00 Methadone HCl (Dolophine) 30 mg DAILY@0600 PO Last administered on 09/30/16 05 :48; Start 09/27/16 at 06:00 Methadone HCl (Dolophine) 30 mg DAILY@2000 PO Last administered on 09/29/16 21 :06; Start 09/26/16 at 20:00 Furosemide (Lasix Inj) 20 mg ONCE ONCE IV PUSH Last administered on 09/27/16 12:15; Start 09/27/16 at 11:00; Stop 09/27/16 at 11:01; Status DC Furosemide (Lasix) 20 mg DAILY PO Last administered on 09/30/16 09:00; Start 09/28/16 at 09:00 Lorazepam (Ativan) 2 mg BID PO Last administered on 09/30/16 09:09; Start 09/27 at 12:30 Tizanidine HCl (Zanaflex) 2 mg Q8HR PO Last administered on 09/30/16 05:48; Start 09/27/16 at 14:00 Potassium Chloride (KCl) 30 meq ONCE ONCE PO Last administered on 09/28/16 12: 05; Start 09/28/16 at 11:45; Stop 09/28/16 at 11:53; Status DC Potassium Chloride (KCl) 30 meq ONCE ONCE PO Last administered on 09/29/16 13 :27; Start 09/29/16 at 11:30; Stop 09/29/16 at 11:31; Status DC Phenytoin Sodium (Dilantin Inj) 100 mg Q8H IV Last administered on 09/30/16 05 :48; Start 09/29/16 at 14:00 Propofol (Diprivan 200 Mg/20 ml Inj) 250 mg STK-MED ONCE IV ; Start 09/30/16 at 10:08; Stop 09/30/16 at 10:14; Status DC Potassium Chloride (KCl) 30 meq ONCE ONCE PO Last administered on 7/11/17at 11 :21; Start 09/30/16 at 11:00; Stop 09/30/16 at 11:07; Status DC A/P Assessment and Plan Intractable emesis -CT scan showed possible ileus and HIDA scan negative. -Ultrasound of liver/gallbladder does not show any acute process. He does have fatty liver disease. -EGD done this morning showing GERD and mild gastritis. -Patient is on Protonix. Per GI repeat LFTs tomorrow. -Management per GI. opiate use for chronic back pain -Continue with methadone. Alcoholic seizure disorder -Continue home medication. Renal insufficiency -Most likely secondary to dehydration. -Resolved. Leukocytosis -Unsure source. Workup so far negative. Maybe secondary to aspiration pneumonia. Continue to improve. -Continue to monitor clinically. -Continue to improve on oral Levaquin. Continue with oral Levaquin. + 2/4 Staphylococcus capitis -Patient has no prosthetics. Most likely contaminant. Systolic heart murmur -Echo EF of 55-60%. dvt prophylaxis with lovenox Discharge Planning Patient continues to be symptomatic will need to consult GI. Meaghan Matson MD Sep 30, 2016 11:28
--- NOTE | 2016-09-30 13:36 | MR ---
cc: GINA SHAH MD, HAROLD H. JR. MD DATE 09/30/2016 PROCEDURE Esophagogastroduodenoscopy with biopsy. INDICATION Nausea and vomiting, hematemesis REFERRING PHYSICIAN Dr. Shah PROCEDURE After informed consent was obtained, the patient was placed in left side down position. He was sedated by the anesthesia service. After adequate sedation was achieved, the Pentax video gastroscope was inserted in the oropharynx and advanced through the esophagus, stomach and duodenum. It was then slowly withdrawn examining the mucosal surfaces carefully. Retroflex exam was performed in the fundus and cardia. The scope was then straightened and biopsies were obtained in the gastric antrum. The scope was then withdrawn out through the esophagus and the procedure was terminated. He tolerated the procedure well and was returned to the recovery area in good condition. FINDINGS 1. The esophagus showed distal mild esophagitis. 2. In the stomach there was small hiatal hernia. 3. There was antral gastritis that was mild, biopsy was taken. 4. Duodenum was normal. IMPRESSION Hiatal hernia and gastroesophageal reflux disease and gastritis. PLAN He should continue proton pump inhibitor and Carafate and continue supportive care. Advance diet to full liquids and then diet as tolerated. The ultrasound was also negative as was his HIDA scan. He may be stable for discharge. Sriram Hester MD HHS/DJL /10:33 AM /1:34 PM
[2016-10-01] VITALS: BP 127/72; PULSE 62; RESP 16; TEMP 98; O2SAT 98
[2016-10-01] MEDS: ONDANSETRON HCL 4 MG/2 ML VIAL IVP PRN ×2 (02:30→08:32)
[2016-10-01 04:00] VITALS: BP 166/84; PULSE 72; RESP 18; TEMP 98.9; O2SAT 100
[2016-10-01] MEDS: PHENYTOIN INJ 250 MG/5 ML VIAL IV SCH (05:33)
[2016-10-01] MEDS: METHADONE HCL 10 MG TAB PO SCH (05:33)
[2016-10-01 08:00] VITALS: BP 126/75; PULSE 76; RESP 16; TEMP 98; O2SAT 98
[2016-10-01] MEDS: LEVOFLOXACIN 750 MG TAB PO SCH (08:31)
[2016-10-01] MEDS: LORazepam 2 MG TAB PO SCH (08:31)
[2016-10-01] MEDS: FOLIC ACID 1 MG TAB PO SCH (08:31)
[2016-10-01] MEDS: FUROSEMIDE 20 MG TAB PO SCH (08:31)
[2016-10-01] MEDS: PANTOPRAZOLE SOD 40 MG DELAYED RELEASE TAB PO SCH (08:31)
[2016-10-01] MEDS: GABAPENTIN 100 MG CAP PO SCH (08:31)
[2016-10-01] MEDS: ZONISAMIDE 25 MG CAP PO SCH (08:32)
[2016-10-01] MEDS: SODIUM CHLORIDE 0.9% FLUSH 10 ML FLUSH IV FLUSH SCH (08:39)
[2016-10-01] MEDS: ENOXAPARIN SODIUM 30 MG/0.3 ML SYRINGE SQ SCH (08:39)
[2016-10-01] MEDS: ONDANSETRON ODT 4 MG TAB PO PRN ×2 (09:29→15:34)
[2016-10-01 12:00] VITALS: BP 141/74; PULSE 74; RESP 16; TEMP 98.2; O2SAT 98
[2016-10-01 12:35] LABS: HEMATOCRIT 36.2 % (39.0-51.0); MEAN CELL VOLUME 93.8 FL (80.0-100.0); MEAN CORPUSCULAR HEMOGLOBIN 32.6 PG (27.0-34.0); MEAN CORPUSCULAR HGB CONC 34.8 % (32.0-36.0); PLATELET COUNT 191 TH/MM3 (150-450); RED BLOOD COUNT 3.86 MIL/MM3 (4.50-5.90); RED CELL DISTRIBUTION WIDTH 14.5 % (11.6-17.2); REVIEW FLAG FINAL; WHITE BLOOD COUNT 10.4 TH/MM3 (4.0-11.0)
[2016-10-01] MEDS ORDERED: WALKER WHEELS/F1 MIS (12:50)
[2016-10-01] MEDS ORDERED: LEVA750T9 PO (12:53)
[2016-10-01] MEDS ORDERED: AMLO10 PO (12:53)
[2016-10-01] MEDS ORDERED: ZOFR4TAB PO (12:54)
[2016-10-01] MEDS ORDERED: PANT40TA3 PO (12:54)
[2016-10-01 12:59] LABS: BICARBONATE 25.5 MEQ/L (21.0-32.0); POTASSIUM 3.2 MEQ/L (3.5-5.1)
--- NOTE | 2016-10-01 12:59 | HHI.DCPOC ---
Discharge Care Plan Diagnosis: (1) Ileus (2) Nausea (3) Gastritis (4) Deconditioned low back (5) Chronic pain Goals to Promote Your Health * To prevent worsening of your condition and complications * To maintain your health at the optimal level Directions to Meet Your Goals Take your medications as prescribed Follow your dietary instruction Follow activity as directed Keep your appointments as scheduled Take your immunizations and boosters as scheduled If your symptoms worsen call your PCP, if no PCP go to Urgent Care Center or Emergency Room Smoking is Dangerous to Your Health. Avoid second hand smoke Call the 24-hour hour crisis hotline for domestic abuse at Meaghan Matson MD Oct 01, 2016 12:59
[2016-10-01] MEDS ORDERED: POTASSIUM CHLORIDE 20 MEQ CONTROLLED RELEASE TAB PO ONE (13:00)
[2016-10-01] MEDS ORDERED: PHENYTOIN SODIUM 100 MG CAP PO SCH (13:00)
[2016-10-01 13:01] LABS: INDIRECT BILIRUBIN 0.3 MG/DL (0.0-0.8); TOTAL BILIRUBIN ADULT 0.5 MG/DL (0.2-1.0)
--- NOTE | 2016-10-01 13:02 | HHI.DS ---
Discharge Summary Admission Date Sep 24, 2016 at 22:31 Admitting Diagnosis Ileus Brief History - From Admission thursday night ate somehting wrong and constant nausea vomiting yellow and red color no coffee color all day long episodes no abdominal pain able to pass gas but have not moved bowels states he had fever 101.5 started onlhy when this started that fever started had cough wiht vomiting no brunig or pain ' does c/o on and off dizziness no balck or blood CBC/BMP: 10/01/16 1155 10/01/16 1155 Significant Findings Laboratory Tests Test 09/29/16 09/29/16 09/30/16 10/01/16 08:48 13:45 05:20 11:55 Red Blood Count 3.81 MIL/MM3 3.73 MIL/MM3 3.86 MIL/MM3 (4.50-5.90) (4.50-5.90) (4.50-5.90) Hemoglobin 12.4 GM/DL 12.3 GM/DL 12.6 GM/DL (13.0-17.0) (13.0-17.0) (13.0-17.0) Hematocrit 36.2 % 35.7 % 36.2 % (39.0-51.0) (39.0-51.0) (39.0-51.0) Potassium Level 3.3 MEQ/L 3.2 MEQ/L 3.2 MEQ/L (3.5-5.1) (3.5-5.1) (3.5-5.1) Chloride Level 108 MEQ/L 108 MEQ/L (98-107) (98-107) Estimat Glomerular Filtration 74 ML/MIN (>89) 73 ML/MIN (>89) 77 ML/MIN (>89) Rate Total Protein 6.3 GM/DL (6.4-8.2) Albumin 3.1 GM/DL 3.3 GM/DL (3.4-5.0) (3.4-5.0) PE at Discharge GENERAL: in NAD NECK: Supple, trachea midline. No JVD or lymphadenopathy. CARDIOVASCULAR: Regular rate. Positive 3/6 systolic heart murmur. RESPIRATORY: Breath sounds equal bilaterally. No accessory muscle use. GASTROINTESTINAL: Abdomen soft, non-tender, nondistended. MUSCULOSKELETAL: No cyanosis, or edema. BACK: Nontender without obvious deformity. No CVA tenderness. Pt Condition on Discharge: Stable Discharge Disposition: Discharge Home Discharge Instructions DIET: Follow Instructions for: Heart Healthy Diet Activities you can perform: Regular-No Restrictions Meaghan Matson MD Oct 01, 2016 13:02
--- NOTE | 2016-10-01 14:17 | HHI.GIFU ---
Subjective Remarks Pt resting in bed. Says he had his first solid meal, did ok. No nausea. Objective Vitals I&O Vital Signs Date Time Temp Pulse Resp B/P Pulse Ox O2 Delivery O2 Flow Rate FiO2 10/01/16 12:00 98.2 74 16 141/74 98 10/01/16 08:00 98.0 76 16 126/75 98 10/01/16 04:00 98.9 72 18 166/84 100 10/01/16 00:00 98.0 62 16 127/72 98 09/30/16 20:00 98.6 70 16 162/84 99 09/30/16 19:59 66 09/30/16 16:00 98.2 67 20 108/62 96 I/O 09/30/16 09/30/16 09/30/16 10/01/16 10/01/16 10/01/16 07:00 15:00 23:00 07:00 15:00 23:00 Intake Total 840 ml 360 ml 1080 ml Output Total 300 ml 725 ml 275 ml 1200 ml Balance -300 ml 115 ml 85 ml -120 ml Intake Oral 540 ml 360 ml 1080 ml IV Total 300 ml Output Urine Total 300 ml 725 ml 275 ml 1200 ml # Bowel Movements 0 0 0 Laboratory Laboratory Tests Test 10/01/16 11:55 White Blood Count 10.4 Red Blood Count 3.86 Hemoglobin 12.6 Hematocrit 36.2 Mean Corpuscular Volume 93.8 Mean Corpuscular Hemoglobin 32.6 Mean Corpuscular Hemoglobin 34.8 Concent Red Cell Distribution Width 14.5 Platelet Count 191 Mean Platelet Volume 8.9 Sodium Level 141 Potassium Level 3.2 Chloride Level 107 Carbon Dioxide Level 25.5 Anion Gap 9 Blood Urea Nitrogen 8 Creatinine 0.99 Estimat Glomerular Filtration 77 Rate Random Glucose 78 Calcium Level 9.0 Total Bilirubin 0.5 Direct Bilirubin 0.2 Indirect Bilirubin 0.3 Aspartate Amino Transf 27 (AST/SGOT) Alanine Aminotransferase 18 (ALT/SGPT) Alkaline Phosphatase 90 Total Protein 6.9 Albumin 3.3 Imaging Last Impressions Gall Bladder Ultrasound 09/30/16 0000 Signed Impressions: Service Date/Time: Friday, September 30, 2016 07:52 - CONCLUSION: 1. Limited exam due to bowel gas with limited visualization of the pancreas and right kidney. 2. Mild hepatomegaly with diffusely increased hepatic echogenicity most consistent with diffuse fatty infiltration. 3. No sonographic evidence for cholelithiasis or acute cholecystitis. Harry Ryan MD Hepatobiliary Scan Nuclear Medicine 09/27/16 0000 Signed Impressions: Service Date/Time: Tuesday, September 27, 2016 13:15 - CONCLUSION: Normal uptake in the gallbladder. Joshua Glaser MD Chest X-Ray 09/25/16 Signed Impressions: Service Date/Time: September 01:32 - CONCLUSION: No acute disease. Joshua Glaser MD Abdomen/Pelvis CT 09/24/16 0000 Signed Impressions: Service Date/Time: Saturday, September 24, 2016 21:33 - CONCLUSION: 1. Localized ileus left upper quadrant. No bowel obstruction identified.. No free air or free fluid. Diffuse fatty liver. Small hiatal hernia. Dylan Lantigua MD Physical Exam HEENT: PERRL; normocephalic; atraumatic; no jaundice. CHEST: CTA CARDIAC: RRR, + murmur ABDOMEN: Soft, nondistended, nontender; no hepatosplenomegaly; bowel sounds are present in all four quadrants. EXTREMITIES: No clubbing, cyanosis, or edema. SKIN: Normal; no rash; no jaundice. PROFESSIONAL SECURITY OFFICER: No focal deficits; alert and oriented times three. Assessment and Plan Plan ASSESSMENT: - Intractable N/V. Started 6 days ago after having asparagus- has had intractable n/v (first digested food, then bilious, then red blood mixed in bile ). Came to the ER s/p EGD 09-30-16--> GERD, hiatal hernia. GB US 09-30-16--> 1. Limited exam due to bowel gas with limited visualization of the pancreas and right kidney. 2. Mild hepatomegaly with diffusely increased hepatic echogenicity most consistent with diffuse fatty infiltration. 3. No sonographic evidence for cholelithiasis or acute cholecystitis. Abdomen/Pelvis CT (09/24/16)----> 1. Localized ileus left upper quadrant. No bowel obstruction identified.. No free air or free fluid. Diffuse fatty liver. Small hiatal hernia. HIDA (09/27/16)-----> Normal uptake in the gallbladder. He was treated with clear liquids, Protonix, and Reglan. His symptoms improved, but returned once his diet was advanced. GI has been consulted for further evaluation. He c/o persistent nausea without abdominal pain, constipation, bloating. He is not having any further GI bleeding at this time, but did have some earlier. Of note, he takes methadone for chronic back pain. No hx of PUD. Never had EGD/Colonoscopy. Recently had Cologuard testing thru his primary. Not on NSAIDs. consider GES. ? some medication component. - GIB, Hematemesis. Had red blood mixed in bile after persistent n/v x 24 hours. he has not not any further bleeding since that time. HH stable - Elevated LFTs. on 09/24/16, had T. Bili 0.7, AST 45, ALT 27, ALK phoshp 143. HIDA negative. Will get GB US to r/o gallbladder wall thickening/ pericholecystic fluid. Rpt LFTs. - Leukocytosis, improved. ? reactive from vomiting. - Hypokalemia. - Seizure disorder, CKD, hx TBI from a fall, chronic back pain (on methadone for pain management) secondary to degenerative spine disease per attending. - EGD today showed no bleeding, no ulcers. Has HH and gerd, mild gastritis PLAN: - await biopsy result - heart healthy diet - PPI - carafate - trial bethanechol - Zofran prn - Supportive care - stable for d/c if tolerates reg diet, from GI standpoint This pt seen by myself and Dr Hester and this note is written on his behalf Christi Narayan Oct 01, 2016 14:17
[2016-10-01] MEDS ORDERED: BETHANECHOL CHL 10 MG TAB PO SCH (14:30)
--- NOTE | 2016-10-03 21:43 | HHI.FF ---
Face to Face Verification Diagnosis: (1) Infection (2) Chronic pain (3) Deconditioned low back (4) Gastritis (5) Ileus (6) Nausea Physical Therapy Order: Evaluate and Treat, Improve ambulation, Strength and gait training Home Health Nursing Order: Medical education Signs/symptoms of disease process Medication education-adverse effect I have seen patient Dylan Blackwood on 10/03/16. My clinical findings support the need for the requested home health care services because: Deconditioned w/ increased weakness I certify that my clinical findings support that this patient is homebound because: Unsteady gait/balance Meaghan Matson MD Oct 03, 2016 21:43
== END 2016-10-01 17:30 | disposition home or self-care (01) | DRG 389 ==
LOC: NEPE 17:41 → NEDA 22:31 → NEDH 09-25 02:41 → N04A 09-25 04:10
PROVIDERS: ADMIT Family Medicine; ATTEND Family Medicine
PROC: 0DB68ZX Excision of Stomach, Via Natural or Artificial Opening Endoscopic, Diagnostic (ICD-10-PCS; principal; 2016-09-30 09:45)
DX: K56.7 Ileus, unspecified (principal); K92.0 Hematemesis; K76.0 Fatty (change of) liver, not elsewhere classified; F13.239 Sedative, hypnotic or anxiolytic dependence with withdrawal, unspecified; K21.0 Gastro-esophageal reflux disease with esophagitis; G62.9 Polyneuropathy, unspecified; G89.29 Other chronic pain; G40.909 Epilepsy, unspecified, not intractable, without status epilepticus; K29.70 Gastritis, unspecified, without bleeding; K44.9 Diaphragmatic hernia without obstruction or gangrene; N18.9 Chronic kidney disease, unspecified; E87.6 Hypokalemia; M54.9 Dorsalgia, unspecified; E86.0 Dehydration; R06.6 Hiccough; Z79.891 Long term (current) use of opiate analgesic; Z87.820 Personal history of traumatic brain injury
CPT/HCPCS: 71010; 74177; 76705; 76937; 78226; 80048; 80053; 80076; 80185; 81001; 83605; 83690; 83735; 84484; 85025; 85027; 86403; 87040; 87077; 87186; 87205; 88305; 88312; 93005; 93306; 96361; 96374; 96375; A9537; J1165; J1170; J1650; J1885; J1940; J1956; J2060; J2405; J2765; J7030; J7040; Q2009; Q9967

== ENCOUNTER 2016-10-29 01:13 | Inpatient (IN) | payer OTHER, MEDICAID, MEDICARE ==
[~2016-10-29] VITALS: Ht 182.9 cm; Wt 98.6 kg
[2016-10-29] VITALS (9 sets, daily range): BP systolic 163–199; BP diastolic 57–93; PULSE 82–94; RESP 16–19; TEMP 97.8–99.9; O2SAT 97–100
[~2016-10-29 01:13] MED LIST: AMLO10 PO; CYAN1TAB24 PO; DILA100C PO; FOLI400T PO; FURO1TAB62 PO; GABA100C4 PO; LEVA750T9 PO; LORA-475 PO; METH40TA PO; PANT40TA3 PO; TIZA4 PO; WALKER WHEELS/F1 MIS; ZOFR4TAB PO; ZONI100C2 PO
[2016-10-29] MEDS ORDERED: METH10TA PO (01:41)
[2016-10-29] MEDS ORDERED: SODIUM CHLOR 0.9% 1000 ML INJ 1,000 ML IV SCH (01:47)
[2016-10-29] MEDS ORDERED: ONDANSETRON HCL 4 MG/2 ML VIAL IVP ONE (02:00)
[2016-10-29] MEDS ORDERED: MORPHINE SULFATE 4 MG/ML INJ IV PUSH ONE ×2 (02:00→05:15)
[2016-10-29] MEDS ORDERED: SODIUM CHLORIDE 0.9% FLUSH 10 ML FLUSH IV FLUSH PRN (02:00)
--- NOTE | 2016-10-29 02:03 | PD ---
HPI Chief Complaint: Abdominal Pain Time Seen by Provider: 01:30 Travel History International Travel<30 days: No Contact w/Intl Traveler<30days: No Traveled to known affect area: No History of Present Illness HPI 61-year-old male seen in the emergency department last month for ileus, brought in by ambulance from home for similar symptoms. The patient states that since yesterday at around 7:00 AM he has been having epigastric abdominal pain associated with nausea and vomiting. He states he is unable to keep any food or liquid down without vomiting. Last bowel movement was yesterday evening. He denies history of abdominal surgeries. No chest pain. He has had subjective fevers/chills. PFSH Past Medical History Arthritis: No Asthma: No Heart Rhythm Problems: No Cancer: No Cardiovascular Problems: Yes High Cholesterol: No Chest Pain: No Congestive Heart Failure: No COPD: No Cerebrovascular Accident: No Diabetes: No Endocrine: No Gastrointestinal Disorders: Yes (PARTIALLY BLOCKED ILLEUM, HIATAL HERNIA ) Genitourinary: Yes Hypertension: Yes Immune Disorder: No Implanted Vascular Access Dvce: Yes Kidney Stones: No Musculoskeletal: Yes Neurologic: Yes (neuropathy) Psychiatric: No Reproductive: No Respiratory: Yes (PNEUMOTHORAX IN 1987) Migraines: No Renal Failure: Yes Seizures: Yes Sleep Apnea: No Thyroid Disease: No Tetanus Vaccination: > 5 Years Influenza Vaccination: No Past Surgical History Abdominal Surgery: No Arteriovenous Shunt: No Body Medical Devices: cher in right lower leg Cardiac Surgery: No Ear Surgery: No Endocrine Surgery: No Eye Surgery: No Genitourinary Surgery: No Gynecologic Surgery: No Insulin Pump: No Oral Surgery: No Thoracic Surgery: Yes Other Surgery: Yes (facial reconstruction) Social History Alcohol Use: Yes (RARELY ) Tobacco Use: No Substance Use: No Allergies-Medications (Allergen,Severity, Reaction): Coded Allergies: No Known Allergies (Unverified , 10/29/16) Reported Meds & Prescriptions Reported Meds & Active Scripts Active Zofran (Ondansetron HCl) 4 Mg Tab 4 Mg PO Q6HR PRN Pantoprazole (Pantoprazole Sodium) 40 Mg Tab 40 Mg PO DAILY Norvasc (Amlodipine Besylate) 10 Mg Tab 10 Mg PO DAILY Walker with Front Wheels (Device) 1 Mis Mis 1 Ea .ROUTE DIRECTED Reported Methadone (Methadone HCl) 10 Mg Tab 30 Mg PO TID Zanaflex (Tizanidine HCl) 4 Mg Tab 8 Mg PO TID Lasix (Furosemide) 20 Mg Tab 20 Mg PO DAILY B12 (Cyanocobalamin) 1,000 Mcg Tab Folic Acid 400 Mcg Tab 400 Mcg PO DAILY Ativan (Lorazepam) 2 Mg Tab 2 Mg PO Q6H PRN Gabapentin 100 Mg Cap 200 Mg PO BID Zonisamide 100 Mg Cap 100 Mg PO BID Dilantin (Phenytoin Extended) 100 Mg Cap 100 Mg PO TID Review of Systems Except as stated in HPI: all other systems reviewed are Neg Physical Exam Narrative GENERAL: Well-developed, well-nourished, awake, alert, no apparent distress. SKIN: Focused skin assessment warm/dry. HEAD: Atraumatic. Normocephalic. EYES: Pupils equal and round. No scleral icterus. No injection or drainage. ENT: Mucous membranes pink and moist. NECK: Trachea midline. No JVD. CARDIOVASCULAR: Regular rate and rhythm. No murmur appreciated. RESPIRATORY: No accessory muscle use. Clear to auscultation. Breath sounds equal bilaterally. GASTROINTESTINAL: Abdomen soft, round, moderate epigastric tenderness without peritoneal signs. Normal bowel sounds. Reducible inguinal hernia. MUSCULOSKELETAL: No obvious deformities. No clubbing. No cyanosis. No edema. NEUROLOGICAL: Awake and alert. No obvious cranial nerve deficits. Motor grossly within normal limits. Normal speech. PSYCHIATRIC: Appropriate mood and affect; insight and judgment normal. Data Data Last Documented VS Vital Signs Date Time Temp Pulse Resp B/P Pulse Ox O2 Delivery O2 Flow Rate FiO2 10/29/16 05:16 90 16 199/93 100 Nasal Cannula 2 10/29/16 01:15 99.9 Orders Comprehensive Metabolic Panel (10/29/16 01:47) Lipase (10/29/16 01:47) Lactic Acid (10/29/16 01:47) Prothrombin Time / Inr (Pt) (10/29/16 01:47) Act Partial Throm Time (Ptt) (10/29/16 01:47) Urinalysis - C+S If Indicated (10/29/16 01:47) Ct Abd/Pel W Iv Contrast(Rout) (10/29/16 01:47) Iv Access Insert/Monitor (10/29/16 01:47) Ecg Monitoring (10/29/16 01:47) Oximetry (10/29/16 01:47) Morphine Inj (Morphine Inj) (10/29/16 02:00) Ondansetron Inj (Zofran Inj) (10/29/16 02:00) Sodium Chlor 0.9% 1000 Ml Inj (Ns 1000 M (10/29/16 01:47) Sodium Chloride 0.9% Flush (Ns Flush) (10/29/16 02:00) Electrocardiogram (10/29/16 01:47) Abdomen, Flat & Upright (10/29/16 ) Ckmb (Isoenzyme) Profile (10/29/16 01:47) Troponin I (10/29/16 01:47) Electrocardiogram (10/29/16 ) Complete Blood Count With Diff (10/29/16 04:01) Sodium Chlor 0.9% 1000 Ml Inj (Ns 1000 M (10/29/16 05:00) Morphine Inj (Morphine Inj) (10/29/16 05:15) Ondansetron Inj (Zofran Inj) (10/29/16 05:15) Potassium Chlor 20 Meq Premix (Kcl 20 Me (10/29/16 05:15) Iohexol 350 Inj (Omnipaque 350 Inj) (10/29/16 05:26) Labs Laboratory Tests Test 10/29/16 10/29/16 10/29/16 01:55 03:17 04:01 Prothrombin Time 11.5 SEC Prothromb Time International 1.0 RATIO Ratio Activated Partial 23.1 SEC Thromboplast Time Urine Color YELLOW Urine Turbidity CLEAR Urine pH 7.0 Urine Specific [place] 1.016 Urine Protein TRACE mg/dL Urine Glucose (UA) NEG mg/dL Urine Ketones NEG mg/dL Urine Occult Blood NEG Urine Nitrite NEG Urine Bilirubin NEG Urine Urobilinogen LESS THAN 2.0 MG/DL Urine Leukocyte Esterase TRACE Urine RBC LESS THAN 1 /hpf Urine WBC 1 /hpf Urine Hyaline Casts 3 /lpf Microscopic Urinalysis Comment CULT NOT INDICATED Lactic Acid Level 5.7 mmol/L Sodium Level 140 MEQ/L Potassium Level 3.1 MEQ/L Chloride Level 98 MEQ/L Carbon Dioxide Level 28.8 MEQ/L Anion Gap 13 MEQ/L Blood Urea Nitrogen 8 MG/DL Creatinine 1.30 MG/DL Estimat Glomerular Filtration 56 ML/MIN Rate Random Glucose 142 MG/DL Calcium Level 8.4 MG/DL Total Bilirubin 0.6 MG/DL Aspartate Amino Transf 21 U/L (AST/SGOT) Alanine Aminotransferase 15 U/L (ALT/SGPT) Alkaline Phosphatase 125 U/L Total Creatine Kinase 21 U/L Troponin I LESS THAN 0.02 NG/ML Total Protein 7.4 GM/DL Albumin 3.5 GM/DL Lipase 6880 U/L White Blood Count 17.1 TH/MM3 Red Blood Count 4.49 MIL/MM3 Hemoglobin 14.3 GM/DL Hematocrit 42.1 % Mean Corpuscular Volume 93.7 FL Mean Corpuscular Hemoglobin 31.9 PG Mean Corpuscular Hemoglobin 34.0 % Concent Red Cell Distribution Width 15.3 % Platelet Count 213 TH/MM3 Mean Platelet Volume 8.3 FL Neutrophils (%) (Auto) 91.8 % Lymphocytes (%) (Auto) 3.4 % Monocytes (%) (Auto) 4.6 % Eosinophils (%) (Auto) 0.0 % Basophils (%) (Auto) 0.2 % Neutrophils # (Auto) 15.7 TH/MM3 Lymphocytes # (Auto) 0.6 TH/MM3 Monocytes # (Auto) 0.8 TH/MM3 Eosinophils # (Auto) 0.0 TH/MM3 Basophils # (Auto) 0.0 TH/MM3 CBC Comment DIFF FINAL Differential Comment MDM Medical Decision Making Medical Screen Exam Complete: Yes Emergency Medical Condition: Yes Medical Record Reviewed: Yes Differential Diagnosis Ileus, bowel obstruction, pancreatitis, gastritis, peptic ulcer disease, hepatobiliary disease, ACS Narrative Course Initial CBC showed a hemoglobin of 6.7. According to farm laborer, he believe this may be a lab error. Repeat labs were sent to the lab with conflicting results. I then inserted my on IV catheter in the right arm and sent the labs to lab. Repeat CBC performed by me shows a hemoglobin of 14.3, hematocrit 42.1, WBC 17.1 with 92% neutrophils. CMP is remarkable for potassium 3.1, calcium 8.4, alkaline phosphatase 125 Cardiac enzymes are negative. Lipase is 6880 Lactic acid is 5.7. UA is not suggestive of UTI. CT abdomen/pelvis: CONCLUSION: 1. Hepatomegaly and hepatic steatosis. 2. Acute pancreatitis. No evidence for pseudocyst or abscess. 3. There is pericholecystic fat stranding and findings of this gallbladder wall edema versus trace pericholecystic fluid. The possibility of cholecystitis should be entertained, and a gallbladder ultrasound would be helpful for further assessment. 4. Atherosclerosis. 5. Small amount of free fluid. 6. Severe osteoarthritis of the left hip. Patient made aware of all findings. He was given 2 doses of IV pain medication and IV antiemetics. There are no peritoneal signs on exam. Right upper quadrant ultrasound will be ordered as advised by CT reading. Patient will also be started on Zosyn. He will be admitted to the medical service for further workup and evaluation. Case discussed with hospitalist Dr. Blair who will admit the patient to her service. Diagnosis Primary Impression: Acute pancreatitis Qualified Code: K85.90 - Acute pancreatitis, unspecified complication status, unspecified pancreatitis type Admitting Information Admitting Physician Requests: Admit Agustín Richardson MD Oct 29, 2016 02:03
[2016-10-29 02:23] LABS: BLOOD, URINE NEG (NEG); COMMENT (UR) CULT NOT INDICATED; CULTURE IF INDICATED CULT NOT INDICATED; GLUCOSE,URINE NEG (NEG); HYALINE CAST, URINE 3 /lpf (RARE); KETONE, URINE NEG (NEG); NITRITE,URINE NEG (NEG); URINE COLOR YELLOW (YELLW/STRAW)
--- NOTE | 2016-10-29 02:34 | RADRPT ---
EXAM DATE/TIME: 10/29/2016 02:11 [facility] COMPARISON: No previous studies available for comparison. INDICATIONS : Obstruction. MEDICAL HISTORY : None. SURGICAL HISTORY : None. ENCOUNTER: Initial ACUITY: 1 day PAIN SCORE: 0/10 LOCATION: Bilateral Abdomen FINDINGS: Supine and upright views of the abdomen were performed. The abdominal bowel gas pattern is normal. No air fluid levels are seen. No abnormal masses, calcifications, or organomegaly is seen. The visu alized lower lungs are clear. No evidence of free intraperitoneal gas. The osseous structures are u nremarkable. CONCLUSION: 1. Nonobstructive bowel gas pattern. Gustavo Soto MD on October 29, 2016 at 2:32 Board Certified Radiologist. This report was verified electronically.
[2016-10-29 04:19] LABS: AUTOMATED NEUTROPHIL # 15.7 TH/MM3 (1.8-7.7); BASOPHIL % 0.2 % (0.0-2.0); HEMATOCRIT 42.1 % (39.0-51.0); HEMO FLAGS DIFF FINAL; LYMPH % 3.4 % (9.0-44.0); LYMPHOCYTE # 0.6 TH/MM3 (1.0-4.8); MEAN CELL VOLUME 93.7 FL (80.0-100.0); MEAN CORPUSCULAR HEMOGLOBIN 31.9 PG (27.0-34.0); MONO % 4.6 % (0.0-8.0); NEUT % 91.8 % (16.0-70.0); PLATELET COUNT 213 TH/MM3 (150-450); RED BLOOD COUNT 4.49 MIL/MM3 (4.50-5.90); RED CELL DISTRIBUTION WIDTH 15.3 % (11.6-17.2); WHITE BLOOD COUNT 17.1 TH/MM3 (4.0-11.0)
[2016-10-29 04:49] LABS: BLOOD UREA NITROGEN 8 MG/DL (7-18); GLOMERULAR FILTRATION RATE 56 ML/MIN (>89)
[2016-10-29 04:50] LABS: ALKALINE PHOSPHATASE 125 U/L (45-117); ALT (GPT) 15 U/L (12-78); ANION GAP 13 MEQ/L (5-15); AST (GOT) 21 U/L (15-37); BICARBONATE 28.8 MEQ/L (21.0-32.0); CHLORIDE 98 MEQ/L (98-107); POTASSIUM 3.1 MEQ/L (3.5-5.1); SODIUM (NA) 140 MEQ/L (136-145); TOTAL BILIRUBIN ADULT 0.6 MG/DL (0.2-1.0)
[2016-10-29 04:51] LABS: APTT (PATIENT) 23.1 SEC (24.3-30.1); PROTHROMBIN TIME - PATIENT 11.5 SEC (9.8-11.6)
[2016-10-29 04:53] LABS: CREATINE KINASE 21 U/L (39-308)
[2016-10-29] MEDS ORDERED: SODIUM CHLOR 0.9% 1000 ML INJ 1,000 ML IV ONE (05:00)
[2016-10-29] MEDS ORDERED: ONDANSETRON HCL 4 MG/2 ML VIAL IV PUSH ONE (05:15)
[2016-10-29] MEDS ORDERED: IOHEXOL 350 MG/ML 10 ML VIAL (for RAD DIAG) IV ONE (05:26)
[2016-10-29] MEDS: POTASSIUM CHLOR 20 MEQ PREMIX 100 ML IV SCH ×2 (05:52→08:29)
--- NOTE | 2016-10-29 05:52 | RADRPT ---
EXAM DATE/TIME: 10/29/2016 05:23 [facility] COMPARISON: US ABDOMEN - GALLBLADDER, September 30, 2016, 7:52. CT ABDOMEN & PELVIS W CONTRAST, September 24, 2016, 21:33. INDICATIONS : Abdominal pain, nausea and vomiting. Elevated lipase. IV CONTRAST: 100 cc Omnipaque 350 (iohexol) IV ORAL CONTRAST: No oral contrast ingested. RADIATION DOSE: 15.23 CTDIvol (mGy) MEDICAL HISTORY : Hypertension. Hernia, hiatal. Renal failure. SURGICAL HISTORY : None. ENCOUNTER: Initial ACUITY: 1 day PAIN SCALE: 9/10 LOCATION: All quadrants. TECHNIQUE: Volumetric scanning of the abdomen and pelvis was performed. Using automated exposure control and ad justment of the mA and/or kV according to patient size, radiation dose was kept as low as reasonably achievable to obtain optimal diagnostic quality images. DICOM format image data is available electro nically for review and comparison. FINDINGS: Linear atelectasis at the bases. The osseous structures are intact. There is severe osteoarthritis of the left hip. There is gynecomastia. Hepatic steatosis. Small hiatal hernia. Spleen, adrenal glands, kidneys are unremarkable. The there is some fluid in the right anterior pararenal space, and strandi ng is seen near the body neck and head of the pancreas the peripancreatic fat. There is a small amoun t of fluid near the head of the pancreas. This is characteristic of acute pancreatitis. There is some stranding of the pericholecystic fat is well, and coronal images suggest possible gallbladder wall e dean. No obvious radiopaque calculi are seen however cholecystitis should be excluded. The liver richard ures 23 cm in cephalocaudal dimension. There is atherosclerotic calcification of the aorta and iliac vessels. There is bladder and prostate are unremarkable. There is presacral edema identified. There i s a trace amount of free fluid in the pelvis. No evidence of bowel obstruction. No free air. CONCLUSION: 1. Hepatomegaly and hepatic steatosis. 2. Acute pancreatitis. No evidence for pseudocyst or abscess. 3. There is pericholecystic fat stranding and findings of this gallbladder wall edema versus trace pe richolecystic fluid. The possibility of cholecystitis should be entertained, and a gallbladder ultras ound would be helpful for further assessment. 4. Atherosclerosis. 5. Small amount of free fluid. 6. Severe osteoarthritis of the left hip. Gustavo Soto MD on October 29, 2016 at 5:45 Board Certified Radiologist. This report was verified electronically.
[2016-10-29] MEDS ORDERED: PIPERACIL-TAZO 4.5 GM PREMIX 100 ML IV ONE (06:00)
[2016-10-29] MEDS ORDERED: NALOXONE HCL 0.4 MG/ML AMP IV PRN (06:45)
[2016-10-29] MEDS: SODIUM CHLOR 0.9% 1000 ML INJ 1,000 ML IV SCH ×3 (06:51→21:22)
--- NOTE | 2016-10-29 08:04 | HHI.HP ---
[facility] Physician Christophe Toledo MD Admission Diagnosis acute pancreatitis Diagnoses: (1) Acute pancreatitis Diagnosis: Principal Chief Complaint: abdominal pain Travel History International Travel<30 Days: No Contact w/Intl Traveler <30 Da: No Traveled to Known Affected Are: No Sepsis Criteria SIRS Criteria (2 or more): Heart rate over 90, WBC > 46757, < 4000 or > 10% bands Sepsis Criteria (SIRS+source): Infect source susp/known Severe Sepsis (+one): Lactate >2 Criteria Outcome: Meets severe sepsis criteria History of Present Illness patient is a 61 y/o male who presented to ER with abdominal pain. he says that the pain started yesterday morning, constant,severe and gradually got worse. pain is more or less generalized. he had some nausea, emesis , fever and chills. he doesn't report any change in his bowel movement. he doesn't recall any similar prior episodes of abdominal pain in the past. Review of Systems Constitutional: COMPLAINS OF: Fever, Chills, DENIES: Weight loss, Night Sweats Eyes: DENIES: Blurred vision, Diplopia, Vision loss, Double Vision Ears, nose, mouth, throat: DENIES: Tinnitus, Vertigo, Throat pain, Epistaxis Respiratory: DENIES: Apneas, Cough, Snoring, Wheezing, Hemoptysis, Sputum production, Shortness of breath Cardiovascular: DENIES: Chest pain, Palpitations, Syncope, Dyspnea on Exertion , PND, Lower Extremity Edema, Orthopnea, Claudication Gastrointestinal: COMPLAINS OF: Abdominal pain, Nausea, Vomiting, DENIES: Black stools, Bloody stools, Constipation, Diarrhea, Difficulty Swallowing, Anorexia Genitourinary: DENIES: Urinary frequency, Urgency, Hematuria, Dysuria Musculoskeletal: DENIES: Joint pain, Muscle aches, Stiffness, Joint Swelling Integumentary: DENIES: Rash Neurologic: DENIES: Abnormal gait, Headache, Localized weakness, Paresthesias, Seizures, Speech Problems, Tremor, Poor Balance Psychiatric: DENIES: Anxiety, Confusion, Mood changes, Depression, Hallucinations, Agitation, Suicidal Ideation, Homicidal Ideation, Delusions Past Family Social History Past Medical History back pain neuropathy hypertension seizure disorder Past Surgical History facial reconstruction right leg surgery Reported Medications Zofran (Ondansetron HCl) 4 Mg Tab 4 Mg PO Q6HR PRN Pantoprazole (Pantoprazole Sodium) 40 Mg Tab 40 Mg PO DAILY Norvasc (Amlodipine Besylate) 10 Mg Tab 10 Mg PO DAILY Walker with Front Wheels (Device) 1 Mis Mis 1 Ea .ROUTE DIRECTED Reported Methadone (Methadone HCl) 10 Mg Tab 30 Mg PO TID Zanaflex (Tizanidine HCl) 4 Mg Tab 8 Mg PO TID Lasix (Furosemide) 20 Mg Tab 20 Mg PO DAILY B12 (Cyanocobalamin) 1,000 Mcg Tab Folic Acid 400 Mcg Tab 400 Mcg PO DAILY Ativan (Lorazepam) 2 Mg Tab 2 Mg PO Q6H PRN Gabapentin 100 Mg Cap 200 Mg PO BID Zonisamide 100 Mg Cap 100 Mg PO BID Dilantin (Phenytoin Extended) 100 Mg Cap 100 Mg PO TID Allergies: Coded Allergies: No Known Allergies (Unverified , 10/29/16) Active Ordered Medications Current Medications Morphine Sulfate (Morphine Inj) 4 mg ONCE ONCE IV PUSH Last administered on 02:06; Start 10/29/16 at 02:00; Stop 10/29/16 at 02:01; Status DC Ondansetron HCl 4 mg 4 mg ONCE ONCE IVP Last administered on 10/29/16 02:05; Start 10/29/16 at 02:00; Stop 10/29/16 at 02:01; Status DC Sodium Chloride (NS 1000 ml Inj) 1,000 ml @ 125 mls/hr Q8H IV Last administered on 10/29/16 02:05; Start 10/29/16 at 01:47; Stop 10/29/16 at 06:36; Status DC Sodium Chloride 2 ml 2 ml UNSCH PRN IV FLUSH FLUSH AFTER USING IV ACCESS Last administered on 10/29/16 02:05; Start 10/29/16 at 02:00; Stop 10/29/16 at 06:36; Status DC Sodium Chloride (NS 1000 ml Inj) 1,000 ml @ 999 mls/hr BOLUS ONCE IV Last administered on 10/29/16 05:10; Start 10/29/16 at 05:00; Stop 10/29/16 at 06:00; Status DC Morphine Sulfate (Morphine Inj) 4 mg ONCE ONCE IV PUSH Last administered on 05:15; Start 10/29/16 at 05:15; Stop 10/29/16 at 05:16; Status DC Ondansetron HCl 4 mg 4 mg ONCE ONCE IV PUSH Last administered on 10/29/16 05: 15; Start 10/29/16 at 05:15; Stop 10/29/16 at 05:16; Status DC Potassium Chloride (KCl 20 Meq Premix Inj) 100 ml @ 50 mls/hr Q2H IV Last administered on 10/29/16 05:52; Start 10/29/16 at 05:15; Stop 10/29/16 at 09:14 Iohexol 100 ml 100 ml STK-MED ONCE IV Last administered on 10/29/16 05:26; Start 10/29/16 at 05:26; Stop 10/29/16 at 05:27; Status DC Piperacillin Sod/ Tazobactam Sod 100 ml @ 200 mls/hr ONCE ONCE IV Last administered on 10/29/16 06:25; Start 10/29/16 at 06:00; Stop 10/29/16 at 06:29; Status DC Sodium Chloride (NS 1000 ml Inj) 1,000 ml @ 100 mls/hr Q10H IV Last administered on 10/29/16 06:51; Start 10/29/16 at 06:31 Sodium Chloride (NS Flush) 2 ml UNSCH PRN IV FLUSH FLUSH AFTER USING IV ACCESS ; Start 10/29/16 at 06:45 Sodium Chloride (NS Flush) 2 ml BID IV FLUSH ; Start 10/29/16 at 09:00 Ondansetron HCl (Zofran Inj) 4 mg Q6H PRN IVP NAUSEA OR VOMITING; Start at 06:45 Naloxone HCl (Narcan Inj) 0.4 mg UNSCH PRN IV SEE LABEL COMMENTS; Start at 06:45 Morphine Sulfate (Morphine Inj) 2 mg Q3H PRN IV PUSH pain >5; Start 10/29/16 at 06:45 Family History not relevant to this admission. Social History doesn't smoke.drinks rarely. Physical Exam Vital Signs Vital Signs Date Time Temp Pulse Resp B/P Pulse Ox O2 Delivery O2 Flow Rate FiO2 10/29/16 07:11 90 16 198/89 100 Room Air 10/29/16 05:16 90 16 199/93 100 Nasal Cannula 2 10/29/16 01:15 99.9 94 16 193/93 99 Physical Exam GENERAL: This is a well-nourished, well-developed patient, in no apparent distress. SKIN: No rashes, ecchymoses or lesions. Cool and dry. HEAD: Atraumatic. Normocephalic. No temporal or scalp tenderness. EYES: Pupils equal round and reactive. Extraocular motions intact. No scleral icterus. No injection or drainage. ENT: Nose without bleeding, purulent drainage or septal hematoma. Throat without erythema, tonsillar hypertrophy or exudate. Uvula midline. Airway patent. NECK: Trachea midline. No JVD or lymphadenopathy. Supple, nontender, no meningeal signs. CARDIOVASCULAR: Regular rate and rhythm without murmurs, gallops, or rubs. RESPIRATORY: Clear to auscultation. Breath sounds equal bilaterally. No wheezes , rales, or rhonchi. GASTROINTESTINAL: Abdomen soft, periumbilical tenderness, nondistended. No hepato-splenomegaly, or palpable masses. No guarding. MUSCULOSKELETAL: Extremities without clubbing, cyanosis, or edema. No joint tenderness, effusion, or edema noted. No calf tenderness. Negative Homans sign bilaterally. NEUROLOGICAL: Awake and alert. Cranial nerves II through XII intact. Motor and sensory grossly within normal limits. Five out of 5 muscle strength in all muscle groups. Normal speech. Laboratory Laboratory Tests Test 10/29/16 10/29/16 10/29/16 10/29/16 01:55 03:17 04:01 06:45 Prothrombin Time 11.5 Prothromb Time International 1.0 Ratio Activated Partial 23.1 Thromboplast Time Urine Color YELLOW Urine Turbidity CLEAR Urine pH 7.0 Urine Specific [place] 1.016 Urine Protein TRACE Urine Glucose (UA) NEG Urine Ketones NEG Urine Occult Blood NEG Urine Nitrite NEG Urine Bilirubin NEG Urine Urobilinogen LESS THAN 2.0 Urine Leukocyte Esterase TRACE Urine RBC LESS THAN 1 Urine WBC 1 Urine Hyaline Casts 3 Microscopic Urinalysis Comment CULT NOT INDICATED Lactic Acid Level 5.7 4.8 Sodium Level 140 Potassium Level 3.1 Chloride Level 98 Carbon Dioxide Level 28.8 Anion Gap 13 Blood Urea Nitrogen 8 Creatinine 1.30 Estimat Glomerular Filtration 56 Rate Random Glucose 142 Calcium Level 8.4 Total Bilirubin 0.6 Aspartate Amino Transf 21 (AST/SGOT) Alanine Aminotransferase 15 (ALT/SGPT) Alkaline Phosphatase 125 Total Creatine Kinase 21 Troponin I LESS THAN 0.02 Total Protein 7.4 Albumin 3.5 Lipase 6880 White Blood Count 17.1 Red Blood Count 4.49 Hemoglobin 14.3 Hematocrit 42.1 Mean Corpuscular Volume 93.7 Mean Corpuscular Hemoglobin 31.9 Mean Corpuscular Hemoglobin 34.0 Concent Red Cell Distribution Width 15.3 Platelet Count 213 Mean Platelet Volume 8.3 Neutrophils (%) (Auto) 91.8 Lymphocytes (%) (Auto) 3.4 Monocytes (%) (Auto) 4.6 Eosinophils (%) (Auto) 0.0 Basophils (%) (Auto) 0.2 Neutrophils # (Auto) 15.7 Lymphocytes # (Auto) 0.6 Monocytes # (Auto) 0.8 Eosinophils # (Auto) 0.0 Basophils # (Auto) 0.0 CBC Comment DIFF FINAL Differential Comment Result Diagram: 10/29/16 0401 10/29/16 0317 Imaging Last Impressions Abdomen/Pelvis CT 10/29/16 0147 Signed Impressions: Service Date/Time: Saturday, October 29, 2016 05:23 - CONCLUSION: 1. Hepatomegaly and hepatic steatosis. 2. Acute pancreatitis. No evidence for pseudocyst or abscess. 3. There is pericholecystic fat stranding and findings of this gallbladder wall edema versus trace pericholecystic fluid. The possibility of cholecystitis should be entertained, and a gallbladder ultrasound would be helpful for further assessment. 4. Atherosclerosis. 5. Small amount of free fluid. 6. Severe osteoarthritis of the left hip. Gustavo Soto MD Abdomen X-Ray 10/29/16 0000 Signed Impressions: Service Date/Time: Saturday, October 29, 2016 02:11 - CONCLUSION: 1. Nonobstructive bowel gas pattern. Gustavo Soto MD EKG; sinus rhythm with RBBB Assessment and Plan Assessment and Plan A/P - severe sepsis due to acute pancreatitis with questionable acute cholecystitis keep NPO- continue IV fluid, IV antibiotic pain control and antiemetics as needed. abdominal sonogram- will consider GI/ surgery evaluation-pending the clinical course and result of sonogram -hypokalemia; replaced. -hypertension; resume amlodipine- vasotec prn- - seizure disorder/neuropathy; resume home meds -DVT prophylaxis with subq Lovenox Discussed Condition With the patient and RN. Physician Certification 2 Midnight Certification Type: Admission for Inpatient Services Order for Inpatient Services The services are ordered in accordance with Medicare regulations or non- Medicare payer requirements, as applicable. In the case of services not specified as inpatient-only, they are appropriately provided as inpatient services in accordance with the 2-midnight benchmark. Estimated LOS (days): 2 days is the estimated time the patient will need to remain in the hospital, assuming treatment plan goals are met and no additional complications. Post-Hospital Plan: Home Problem Qualifiers (1) Acute pancreatitis: Qualified Code: K85.90 - Acute pancreatitis, unspecified complication status, unspecified pancreatitis type Sintia Iverson MD Oct 29, 2016 08:04
--- NOTE | 2016-10-29 08:17 | EKG ---
Date Performed: 10/29/2016 Time Performed: 03:42:38 PTAGE: 61 years EKG: Sinus rhythm WITH SHORT SC INTERVAL INDETERMINATE AXIS RIGHT BUNDLE BRANCH BLOCK POSSIBLE ANTERIOR MYOCARDIAL INF ARCTION MODERATE T-WAVE ABNORMALITY, CONSIDER LATERAL ISCHEMIA ABNORMAL ECG PREVIOUS TRACING : 09/24/2016 20.25 DOCTOR: Moe Garcia Interpretating Date/Time 10/29/2016 08:15:49
[2016-10-29] MEDS: ONDANSETRON HCL 4 MG/2 ML VIAL IVP PRN ×3 (08:22→20:10)
[2016-10-29] MEDS: MORPHINE SULFATE 4 MG/ML INJ IV PUSH PRN ×5 (08:22→21:50)
[2016-10-29] MEDS: SODIUM CHLORIDE 0.9% FLUSH 10 ML FLUSH IV FLUSH SCH ×2 (09:00→20:12)
[2016-10-29] MEDS: GABAPENTIN 100 MG CAP PO SCH ×2 (09:21→21:23)
[2016-10-29] MEDS: PANTOPRAZOLE SODIUM 40 MG VIAL IV PUSH SCH (09:21)
[2016-10-29] MEDS: ENOXAPARIN SODIUM 40 MG/0.4 ML SYRINGE SQ SCH (09:21)
--- NOTE | 2016-10-29 09:42 | RADRPT ---
EXAM DATE/TIME: 10/29/2016 07:49 [place] COMPARISON: CT ABDOMEN & PELVIS W CONTRAST, October 29, 2016, 5:23. INDICATIONS : Right upper quadrant pain. MEDICAL HISTORY : Hernia, hiatal. Seizures. Neuropathy. Seizures. Head trauma. Pneumothorax. Partially blocked ille um. Renal disease and failure. SURGICAL HISTORY : Tib/fib in right spiral fracture. Blood transfusions. Facial reconstruction. ENCOUNTER: Subsequent ACUITY: 1 day PAIN SCORE: 10/10 LOCATION: Right upper quadrant MEASUREMENTS: LIVER: Unable to see borders COMMON DUCT: Non-visualized RIGHT KIDNEY: 10.7 x 5.5 x 6.4 cm FINDINGS: LIVER: Diffuse increase in hepatic echogenicity, likely steatosis. Liver is poorly seen with portions obscur ed for technical reasons. There is a 13 mm hypoechoic mass in the right lobe. No definite biliary dennis paul dilatation, however the common duct is not clearly seen. COMMON DUCT: Nonvisualized GALLBLADDER: Contains no stones, demonstrates no wall thickening or pericholecystic fluid. PANCREAS: Obscured RIGHT KIDNEY: No evidence of hydronephrosis, stone, or mass. CONCLUSION: Technically limited exam. Gallbladder is mildly distended but otherwise focally unremarkable. Poorly seen fatty liver with hypoechoic right lobe mass. This likely correlates with hypervascular fo cus in segment V. Further characterization with hepatic MRI may be beneficial. Christophe Vegas MD on October 29, 2016 at 9:33 Board Certified Radiologist. This report was verified electronically.
[2016-10-29] MEDS: PHENYTOIN SODIUM 100 MG CAP PO SCH ×2 (11:25→18:51)
[2016-10-29] MEDS: ZONISAMIDE 100 MG CAP PO SCH ×2 (11:25→22:00)
[2016-10-29] MEDS: PIPERACIL-TAZO 3.375 GM PREMIX 50 ML IV SCH ×2 (11:26→17:51)
[2016-10-29] MEDS: ACETAMINOPHEN 325 MG TAB PO PRN (12:11)
[2016-10-29] MEDS: ENALAPRILAT 1.25 MG/ML VIAL IV PUSH PRN ×2 (12:42→21:50)
[2016-10-29] MEDS ORDERED: PHENYTOIN SODIUM 100 MG CAP PO SCH (13:00)
--- NOTE | 2016-10-29 15:11 | PD.CONS ---
HPI History of Present Illness This is a 61 year old male who presented with epigastric pain and n/v that started yesterday. He admits fevers. NEver had pain like this before. NO aggravating or alleviating factors. No hx pancreatitis, gallbladder issues or liver problems. No blood in vomit, diarrhea, blood in stool, tarry stools, weight loss. Rare ETOH consumption but did drink "a little bit yesterday with a couple friends" prior to onset of his pain; he says he had one drink. He was admitted in September for n/v and hematemesis and was found to have ileus, had EGD -- > mild esophagitis, gastritis, hiatal hernia, path benign. Lipase [address] showed hepatomegaly, fatty liver, acute pancreatitis, and possible cholecystitis. US showed hypoechoic mass right liver lobe. PFSH Past Medical History back pain neuropathy hypertension seizure disorder Past Surgical History facial reconstruction right leg surgery Coded Allergies: No Known Allergies (Unverified , 10/29/16) Family History not relevant to this admission. Social History doesn't smoke.drinks rarely. Review of Systems Constitutional: COMPLAINS OF: Fever Eyes: DENIES: Blurred vision Ears, nose, mouth, throat: DENIES: Hearing loss Respiratory: DENIES: Hemoptysis Cardiovascular: DENIES: Chest pain Gastrointestinal: COMPLAINS OF: Abdominal pain, Nausea, Vomiting, DENIES: Black stools, Bloody stools, Constipation, Diarrhea, Hematemesis Genitourinary: DENIES: Hematuria Musculoskeletal: DENIES: Joint Swelling Integumentary: DENIES: Jaundice Neurologic: DENIES: Abnormal gait Psychiatric: DENIES: Confusion GI Exam Vitals I&O Vital Signs Date Time Temp Pulse Resp B/P Pulse Ox O2 Delivery O2 Flow Rate FiO2 10/29/16 13:45 192/57 10/29/16 11:57 99.2 82 18 194/91 97 Room Air 10/29/16 10:17 97.8 93 19 189/91 Room Air 10/29/16 07:11 90 16 198/89 100 Room Air 10/29/16 05:16 90 16 199/93 100 Nasal Cannula 2 10/29/16 01:15 99.9 94 16 193/93 99 Imaging Last Impressions Abdomen/Pelvis CT 10/29/16 0147 Signed Impressions: Service Date/Time: Saturday, October 29, 2016 05:23 - CONCLUSION: 1. Hepatomegaly and hepatic steatosis. 2. Acute pancreatitis. No evidence for pseudocyst or abscess. 3. There is pericholecystic fat stranding and findings of this gallbladder wall edema versus trace pericholecystic fluid. The possibility of cholecystitis should be entertained, and a gallbladder ultrasound would be helpful for further assessment. 4. Atherosclerosis. 5. Small amount of free fluid. 6. Severe osteoarthritis of the left hip. Gustavo Soto MD Gall Bladder Ultrasound 10/29/16 0000 Signed Impressions: Service Date/Time: Saturday, October 29, 2016 07:49 - CONCLUSION: Technically limited exam. Gallbladder is mildly distended but otherwise focally unremarkable. Poorly seen fatty liver with hypoechoic right lobe mass. This likely correlates with hypervascular focus in segment V. Further characterization with hepatic MRI may be beneficial. Christophe Vegas MD Abdomen X-Ray 10/29/16 0000 Signed Impressions: Service Date/Time: Saturday, October 29, 2016 02:11 - CONCLUSION: 1. Nonobstructive bowel gas pattern. Gustavo Soto MD Laboratory Test 10/29/16 10/29/16 10/29/16 10/29/16 01:55 03:17 04:01 06:45 Prothrombin Time 11.5 SEC Prothromb Time International 1.0 RATIO Ratio Activated Partial 23.1 SEC Thromboplast Time Urine Color YELLOW Urine Turbidity CLEAR Urine pH 7.0 Urine Specific [place] 1.016 Urine Protein TRACE mg/dL Urine Glucose (UA) NEG mg/dL Urine Ketones NEG mg/dL Urine Occult Blood NEG Urine Nitrite NEG Urine Bilirubin NEG Urine Urobilinogen LESS THAN 2.0 MG/DL Urine Leukocyte Esterase TRACE Urine RBC LESS THAN 1 /hpf Urine WBC 1 /hpf Urine Hyaline Casts 3 /lpf Microscopic Urinalysis Comment CULT NOT INDICATED Lactic Acid Level 5.7 mmol/L 4.8 mmol/L Sodium Level 140 MEQ/L Potassium Level 3.1 MEQ/L Chloride Level 98 MEQ/L Carbon Dioxide Level 28.8 MEQ/L Anion Gap 13 MEQ/L Blood Urea Nitrogen 8 MG/DL Creatinine 1.30 MG/DL Estimat Glomerular Filtration 56 ML/MIN Rate Random Glucose 142 MG/DL Calcium Level 8.4 MG/DL Total Bilirubin 0.6 MG/DL Aspartate Amino Transf 21 U/L (AST/SGOT) Alanine Aminotransferase 15 U/L (ALT/SGPT) Alkaline Phosphatase 125 U/L Total Creatine Kinase 21 U/L Troponin I LESS THAN 0.02 NG/ML Total Protein 7.4 GM/DL Albumin 3.5 GM/DL Triglycerides Level 219 MG/DL Lipase 6880 U/L White Blood Count 17.1 TH/MM3 Red Blood Count 4.49 MIL/MM3 Hemoglobin 14.3 GM/DL Hematocrit 42.1 % Mean Corpuscular Volume 93.7 FL Mean Corpuscular Hemoglobin 31.9 PG Mean Corpuscular Hemoglobin 34.0 % Concent Red Cell Distribution Width 15.3 % Platelet Count 213 TH/MM3 Mean Platelet Volume 8.3 FL Neutrophils (%) (Auto) 91.8 % Lymphocytes (%) (Auto) 3.4 % Monocytes (%) (Auto) 4.6 % Eosinophils (%) (Auto) 0.0 % Basophils (%) (Auto) 0.2 % Neutrophils # (Auto) 15.7 TH/MM3 Lymphocytes # (Auto) 0.6 TH/MM3 Monocytes # (Auto) 0.8 TH/MM3 Eosinophils # (Auto) 0.0 TH/MM3 Basophils # (Auto) 0.0 TH/MM3 CBC Comment DIFF FINAL Differential Comment Physical Examination HEENT: PERRL; normocephalic; atraumatic; no jaundice. CHEST: CTA CARDIAC: RRR ABDOMEN: Soft, nondistended,LUQ and epigastric TTP; no hepatosplenomegaly; bowel sounds are present in all four quadrants. EXTREMITIES: No clubbing, cyanosis, + pitting BLE edema SKIN: Normal; no rash; no jaundice. STUNT DOUBLE: No focal deficits; alert and oriented times three. Assessment and Plan Plan ASSESSMENT - Epigastric and LUQ pain, n/v - acute pancreatitis, lipase 6880 on admission, CT indicates acute pancreatitis. CT also showed poss cholecystitis- HIDA 7-17 normal. pt says he rarely drinks but did drink prior to onset pain. - abnormal US finding - hypoechoic mass right hepatic lobe, suggested f/u with MRliver. Mild elev ALP, he had this also in September will get AFP, will consider ordering MRCP - leukocytosis wbc 17.1 on admission- could be from pancreatitis. zosyn. PLAN - NPO - IVF - will see tomorrow and consider MRCP - AFP - monitor labs - supportive care - This pt seen by myself and Dr Hester and this note is written on his behalf Christi Narayan Oct 29, 2016 15:11
[2016-10-29] MEDS ORDERED: cloNIDine HCL 0.1 MG TAB PO ONE ×2 (16:00→16:30)
[2016-10-29] MEDS: LORazepam 2 MG TAB PO PRN (22:00)
[2016-10-30] VITALS (9 sets, daily range): BP systolic 166–188; BP diastolic 85–93; PULSE 90–119; RESP 18–19; TEMP 97.1–100.1; O2SAT 97–100
[2016-10-30] MEDS: PIPERACIL-TAZO 3.375 GM PREMIX 50 ML IV SCH ×5 (00:25→23:57)
[2016-10-30] MEDS: MORPHINE SULFATE 4 MG/ML INJ IV PUSH PRN ×8 (00:44→20:58)
[2016-10-30] MEDS: PHENYTOIN SODIUM 100 MG CAP PO SCH ×3 (02:14→18:45)
[2016-10-30] MEDS: ONDANSETRON HCL 4 MG/2 ML VIAL IVP PRN ×4 (02:15→20:58)
[2016-10-30 07:23] LABS: AUTOMATED NEUTROPHIL # 16.1 TH/MM3 (1.8-7.7); BASOPHIL % 0.1 % (0.0-2.0); HEMATOCRIT 37.4 % (39.0-51.0); HEMO FLAGS DIFF FINAL; LYMPH % 6.6 % (9.0-44.0); LYMPHOCYTE # 1.2 TH/MM3 (1.0-4.8); MEAN CELL VOLUME 93.1 FL (80.0-100.0); MEAN CORPUSCULAR HEMOGLOBIN 31.7 PG (27.0-34.0); MEAN CORPUSCULAR HGB CONC 34.1 % (32.0-36.0); MONO % 7.9 % (0.0-8.0); NEUT % 85.4 % (16.0-70.0); PLATELET COUNT 194 TH/MM3 (150-450); RED BLOOD COUNT 4.02 MIL/MM3 (4.50-5.90); RED CELL DISTRIBUTION WIDTH 15.4 % (11.6-17.2); WHITE BLOOD COUNT 18.9 TH/MM3 (4.0-11.0)
[2016-10-30 07:56] LABS: ALT (GPT) 12 U/L (12-78); ANION GAP 9 MEQ/L (5-15); AST (GOT) 20 U/L (15-37); BICARBONATE 28.1 MEQ/L (21.0-32.0); BLOOD UREA NITROGEN 7 MG/DL (7-18); CHLORIDE 107 MEQ/L (98-107); GLOMERULAR FILTRATION RATE 83 ML/MIN (>89); SODIUM (NA) 144 MEQ/L (136-145)
[2016-10-30 07:59] LABS: ALKALINE PHOSPHATASE 96 U/L (45-117); POTASSIUM 2.9 MEQ/L (3.5-5.1); TOTAL BILIRUBIN ADULT 0.8 MG/DL (0.2-1.0)
[2016-10-30] MEDS: ZONISAMIDE 100 MG CAP PO SCH ×2 (08:51→20:57)
[2016-10-30] MEDS: ENOXAPARIN SODIUM 40 MG/0.4 ML SYRINGE SQ SCH (08:51)
[2016-10-30] MEDS: PANTOPRAZOLE SODIUM 40 MG VIAL IV PUSH SCH (08:52)
[2016-10-30] MEDS: SODIUM CHLORIDE 0.9% FLUSH 10 ML FLUSH IV FLUSH SCH ×2 (08:52→21:08)
[2016-10-30] MEDS: GABAPENTIN 100 MG CAP PO SCH ×2 (08:52→20:57)
[2016-10-30] MEDS: LORazepam 2 MG TAB PO PRN ×2 (08:52→21:07)
--- NOTE | 2016-10-30 09:15 | HHI.PR ---
Subjective Remarks f/u; acute pancreatitis still with moderate to severe abdominal pain. had some nausea but no emesis. Tmax 100.1. d/w the RN. Objective Vitals Vital Signs Date Time Temp Pulse Resp B/P Pulse Ox O2 Delivery O2 Flow Rate FiO2 10/30/16 07:27 99.6 101 18 188/91 97 10/30/16 06:30 18 10/30/16 04:25 100.1 95 19 186/88 97 10/30/16 00:45 97.1 99 18 177/85 99 10/29/16 20:35 98.2 82 17 180/86 97 10/29/16 18:17 82 17 163/61 97 Room Air 10/29/16 16:12 98.8 84 19 165/58 97 Room Air 10/29/16 13:45 192/57 10/29/16 11:57 99.2 82 18 194/91 97 Room Air 10/29/16 10:17 97.8 93 19 189/91 Room Air I/O 10/29/16 10/29/16 10/29/16 10/30/16 10/30/16 10/30/16 07:00 15:00 23:00 07:00 15:00 23:00 Intake Total 0 ml 0 ml Output Total 300 ml Balance -300 ml 0 ml Intake Oral 0 ml 0 ml Output Urine Total 300 ml # Voids 1 1 # Bowel Movements 0 0 Result Diagram: 10/30/16 0702 10/30/16 0702 Imaging Last Impressions Abdomen/Pelvis CT 10/29/16 0147 Signed Impressions: Service Date/Time: Saturday, October 29, 2016 05:23 - CONCLUSION: 1. Hepatomegaly and hepatic steatosis. 2. Acute pancreatitis. No evidence for pseudocyst or abscess. 3. There is pericholecystic fat stranding and findings of this gallbladder wall edema versus trace pericholecystic fluid. The possibility of cholecystitis should be entertained, and a gallbladder ultrasound would be helpful for further assessment. 4. Atherosclerosis. 5. Small amount of free fluid. 6. Severe osteoarthritis of the left hip. Gustavo Soto MD Gall Bladder Ultrasound 10/29/16 0000 Signed Impressions: Service Date/Time: Saturday, October 29, 2016 07:49 - CONCLUSION: Technically limited exam. Gallbladder is mildly distended but otherwise focally unremarkable. Poorly seen fatty liver with hypoechoic right lobe mass. This likely correlates with hypervascular focus in segment V. Further characterization with hepatic MRI may be beneficial. Christophe Vegas MD Abdomen X-Ray 10/29/16 0000 Signed Impressions: Service Date/Time: Saturday, October 29, 2016 02:11 - CONCLUSION: 1. Nonobstructive bowel gas pattern. Gustavo Soto MD Objective Remarks GENERAL: This is a well-nourished, well-developed patient, in no apparent distress. CARDIOVASCULAR: Regular rate and regular rhythm without murmurs, gallops, or rubs. RESPIRATORY: Clear to auscultation. Breath sounds equal bilaterally. No wheezes , rales, or rhonchi. GASTROINTESTINAL: Abdomen soft, periumbilical tenderness, nondistended. Normal, active bowel sounds MUSCULOSKELETAL: Extremities without clubbing, cyanosis, or edema. NEURO: Alert & Oriented x4 to person, place, time, situation. Moves all ext x4 Medications and IVs Current Medications Morphine Sulfate (Morphine Inj) 4 mg ONCE ONCE IV PUSH Last administered on 02:06; Start 10/29/16 at 02:00; Stop 10/29/16 at 02:01; Status DC Ondansetron HCl 4 mg 4 mg ONCE ONCE IVP Last administered on 10/29/16 02:05; Start 10/29/16 at 02:00; Stop 10/29/16 at 02:01; Status DC Sodium Chloride (NS 1000 ml Inj) 1,000 ml @ 125 mls/hr Q8H IV Last administered on 10/29/16 02:05; Start 10/29/16 at 01:47; Stop 10/29/16 at 06:36; Status DC Sodium Chloride 2 ml 2 ml UNSCH PRN IV FLUSH FLUSH AFTER USING IV ACCESS Last administered on 10/29/16 02:05; Start 10/29/16 at 02:00; Stop 10/29/16 at 06:36; Status DC Sodium Chloride (NS 1000 ml Inj) 1,000 ml @ 999 mls/hr BOLUS ONCE IV Last administered on 10/29/16 05:10; Start 10/29/16 at 05:00; Stop 10/29/16 at 06:00; Status DC Morphine Sulfate (Morphine Inj) 4 mg ONCE ONCE IV PUSH Last administered on 05:15; Start 10/29/16 at 05:15; Stop 10/29/16 at 05:16; Status DC Ondansetron HCl 4 mg 4 mg ONCE ONCE IV PUSH Last administered on 10/29/16 05: 15; Start 10/29/16 at 05:15; Stop 10/29/16 at 05:16; Status DC Potassium Chloride (KCl 20 Meq Premix Inj) 100 ml @ 50 mls/hr Q2H IV Last administered on 10/29/16 08:29; Start 10/29/16 at 05:15; Stop 10/29/16 at 09:14; Status DC Iohexol 100 ml 100 ml STK-MED ONCE IV Last administered on 10/29/16 05:26; Start 10/29/16 at 05:26; Stop 10/29/16 at 05:27; Status DC Piperacillin Sod/ Tazobactam Sod 100 ml @ 200 mls/hr ONCE ONCE IV Last administered on 10/29/16 06:25; Start 10/29/16 at 06:00; Stop 10/29/16 at 06:29; Status DC Sodium Chloride (NS 1000 ml Inj) 1,000 ml @ 100 mls/hr Q10H IV Last administered on 10/29/16 21:22; Start 10/29/16 at 06:31 Sodium Chloride (NS Flush) 2 ml UNSCH PRN IV FLUSH FLUSH AFTER USING IV ACCESS ; Start 10/29/16 at 06:45 Sodium Chloride (NS Flush) 2 ml BID IV FLUSH Last administered on 10/30/16 08: 52; Start 10/29/16 at 09:00 Ondansetron HCl (Zofran Inj) 4 mg Q6H PRN IVP NAUSEA OR VOMITING Last administered on 10/30/16 08:51; Start 10/29/16 at 06:45 Naloxone HCl (Narcan Inj) 0.4 mg UNSCH PRN IV SEE LABEL COMMENTS; Start at 06:45 Morphine Sulfate 2 mg 2 mg Q3H PRN IV PUSH pain >5 Last administered on 08:51; Start 10/29/16 at 06:45 Piperacillin Sod/ Tazobactam Sod (Zosyn 3.375 Gm Premix) 50 ml @ 100 mls/hr Q6H IV Last administered on 10/30/16 06:25; Start 10/29/16 at 12:00 Pantoprazole Sodium (Protonix Inj) 40 mg DAILY IV PUSH Last administered on 08:52; Start 10/29/16 at 09:00 Gabapentin (Neurontin) 200 mg BID PO Last administered on 10/30/16 08:52; Start 10/29/16 at 09:00 Zonisamide (Zonegran) 100 mg BID PO Last administered on 10/30/16 08:51; Start 10/29/16 at 09:00 Enalaprilat (Vasotec Inj) 1.25 mg Q8H PRN IV PUSH SBP> OR = 180, DBP> OR = 100 Last administered on 10/29/16 21:50; Start 10/29/16 at 08:00 Acetaminophen (Tylenol) 650 mg Q4H PRN PO FEVER Last administered on 10/29/16 12:11; Start 10/29/16 at 08:15 Enoxaparin Sodium (Lovenox Inj) 40 mg Q24H SQ Last administered on 10/30/16 08 :51; Start 10/29/16 at 09:00 Lorazepam (Ativan) 2 mg Q6H PRN PO ANXIETY AND/OR AGITATION Last administered on 10/30/16 08:52; Start 10/29/16 at 10:45 Phenytoin (Dilantin) 100 mg TID PO ; Start 10/29/16 at 13:00; Stop 10/29/16 at 13: 00; Status DC Phenytoin (Dilantin) 100 mg Q8H PO Last administered on 10/30/16 02:14; Start 10/29/16 at 11:00 Amlodipine Besylate (Norvasc) 10 mg DAILY PO Last administered on 10/30/16 08: 51; Start 10/29/16 at 10:45 Clonidine (Catapres) 0.1 mg NOW ONCE PO Last administered on 10/29/16 15:57; Start 10/29/16 at 16:00; Stop 10/29/16 at 16:01; Status DC Clonidine (Catapres) 0.1 mg NOW ONCE PO ; Start 10/29/16 at 16:30; Stop 10/29/16 at 16:31; Status Cancel A/P Assessment and Plan A/P - severe sepsis due to acute pancreatitis with questionable acute cholecystitis - pain hasn't changed as much. continue to keep NPO- continue IV fluid, IV antibiotics- pain control and antiemetics as needed. GI consult appreciated. -hypokalemia; will replace and monitor. -hypertension;not well controlled-likely due to the pain- resumed amlodipine- one dose of Procardia today- vasotec prn- continue to monitor and adjust the regimen as needed. - seizure disorder/neuropathy; resumed home meds -DVT prophylaxis with subq Lovelupex Sintia Iverson MD Oct 30, 2016 09:15
[2016-10-30] MEDS ORDERED: POTASSIUM CHLOR 20 MEQ PREMIX 100 ML IV ONE (09:30)
[2016-10-30] MEDS ORDERED: NIFEdipine 30 MG SUSTAINED RELEASE TAB PO ONE (09:30)
[2016-10-30] MEDS: NS + KCL 20 MEQ INJ 1,000 ML IV SCH (11:00)
[2016-10-30] MEDS: SODIUM CHLORIDE 0.9% FLUSH 10 ML FLUSH IV FLUSH PRN ×3 (11:51→17:41)
[2016-10-30] MEDS: ENALAPRILAT 1.25 MG/ML VIAL IV PUSH PRN (13:12)
--- NOTE | 2016-10-30 16:18 | HHI.GIFU ---
Subjective Remarks Resting in bed. Continues to have nausea, abdominal pain. Low grade fevers. Objective Vitals I&O Vital Signs Date Time Temp Pulse Resp B/P Pulse Ox O2 Delivery O2 Flow Rate FiO2 10/30/16 14:49 112 174/87 10/30/16 11:30 98.2 103 18 182/93 97 10/30/16 07:27 99.6 101 18 188/91 97 10/30/16 06:30 18 10/30/16 04:25 100.1 95 19 186/88 97 10/30/16 00:45 97.1 99 18 177/85 99 10/29/16 20:35 98.2 82 17 180/86 97 10/29/16 18:17 82 17 163/61 97 Room Air 10/29/16 16:12 98.8 84 19 165/58 97 Room Air I/O 10/29/16 10/29/16 10/29/16 10/30/16 10/30/16 10/30/16 07:00 15:00 23:00 07:00 15:00 23:00 Intake Total 0 ml 0 ml 358 ml Output Total 300 ml Balance -300 ml 0 ml 358 ml Intake Oral 0 ml 0 ml IV Total 358 ml Output Urine Total 300 ml # Voids 1 1 # Bowel Movements 0 0 Laboratory Laboratory Tests Test 10/30/16 07:02 White Blood Count 18.9 Red Blood Count 4.02 Hemoglobin 12.7 Hematocrit 37.4 Mean Corpuscular Volume 93.1 Mean Corpuscular Hemoglobin 31.7 Mean Corpuscular Hemoglobin 34.1 Concent Red Cell Distribution Width 15.4 Platelet Count 194 Mean Platelet Volume 8.3 Neutrophils (%) (Auto) 85.4 Lymphocytes (%) (Auto) 6.6 Monocytes (%) (Auto) 7.9 Eosinophils (%) (Auto) 0.0 Basophils (%) (Auto) 0.1 Neutrophils # (Auto) 16.1 Lymphocytes # (Auto) 1.2 Monocytes # (Auto) 1.5 Eosinophils # (Auto) 0.0 Basophils # (Auto) 0.0 CBC Comment DIFF FINAL Differential Comment Sodium Level 144 Potassium Level 2.9 Chloride Level 107 Carbon Dioxide Level 28.1 Anion Gap 9 Blood Urea Nitrogen 7 Creatinine 0.93 Estimat Glomerular Filtration 83 Rate Random Glucose 148 Lactic Acid Level 1.4 Calcium Level 7.9 Total Bilirubin 0.8 Aspartate Amino Transf 20 (AST/SGOT) Alanine Aminotransferase 12 (ALT/SGPT) Alkaline Phosphatase 96 Total Protein 6.2 Albumin 2.9 Lipase 1142 Tumor Marker Alpha Fetoprotein 4.9 Imaging Last Impressions Abdomen/Pelvis CT 10/29/16 0147 Signed Impressions: Service Date/Time: Saturday, October 29, 2016 05:23 - CONCLUSION: 1. Hepatomegaly and hepatic steatosis. 2. Acute pancreatitis. No evidence for pseudocyst or abscess. 3. There is pericholecystic fat stranding and findings of this gallbladder wall edema versus trace pericholecystic fluid. The possibility of cholecystitis should be entertained, and a gallbladder ultrasound would be helpful for further assessment. 4. Atherosclerosis. 5. Small amount of free fluid. 6. Severe osteoarthritis of the left hip. Gustavo Soto MD Gall Bladder Ultrasound 10/29/16 0000 Signed Impressions: Service Date/Time: Saturday, October 29, 2016 07:49 - CONCLUSION: Technically limited exam. Gallbladder is mildly distended but otherwise focally unremarkable. Poorly seen fatty liver with hypoechoic right lobe mass. This likely correlates with hypervascular focus in segment V. Further characterization with hepatic MRI may be beneficial. Christophe Vegas MD Abdomen X-Ray 10/29/16 0000 Signed Impressions: Service Date/Time: Saturday, October 29, 2016 02:11 - CONCLUSION: 1. Nonobstructive bowel gas pattern. Gustavo Soto MD Physical Exam HEENT: Normocephalic; atraumatic; no jaundice. CHEST: CTA CARDIAC: RRR ABDOMEN: Soft, mildly bloated, diffuse tenderness; no hepatosplenomegaly; bowel sounds are present in all four quadrants. EXTREMITIES: Generalized edema. SKIN: Normal; no rash; no jaundice. ADMINISTRATIVE SUPPORT ASSOCIATE: No focal deficits; alert and oriented times three. Assessment and Plan Plan ASSESSMENT - Acute pancreatitis with abdominal pain and nausea/vomiting. Abdomen/Pelvis CT (10/29/16)---> 1. Hepatomegaly and hepatic steatosis. 2. Acute pancreatitis. No evidence for pseudocyst or abscess. 3. There is pericholecystic fat stranding and findings of this gallbladder wall edema versus trace pericholecystic fluid. The possibility of cholecystitis should be entertained, and a gallbladder ultrasound would be helpful for further assessment. 4. Atherosclerosis. 5. Small amount of free fluid. 6. Severe osteoarthritis of the left hip. Gall Bladder Ultrasound (10/29/16)---> Technically limited exam. Gallbladder is mildly distended but otherwise focally unremarkable. Poorly seen fatty liver with hypoechoic right lobe mass. This likely correlates with hypervascular focus in segment V. Further characterization with hepatic MRI may be beneficial. States he has never had pancreatitis. States rare ETOH use, but does admit to drinking (unclear amount) prior to this episode. NPO, IVF. Continues to have abdominal pain/nausea. Zosyn. - Right hepatic lobe mass on US. AFP 4.9. Will get MRI abdomen. - Leukocytosis. WBC 18.9. Zosyn. PLAN - Ice chips - IVF - PPI - Zosyn. - MRI abdomen - Supportive care - Further recommendations to follow based on results of above - This pt seen by myself and Dr Hester and this note is written on his behalf Darya Angulo Oct 30, 2016 16:18
[2016-10-31] VITALS (7 sets, daily range): BP systolic 156–182; BP diastolic 78–91; PULSE 82–108; RESP 17–18; TEMP 98.9–99.7; O2SAT 96–98
[2016-10-31] MEDS: MORPHINE SULFATE 4 MG/ML INJ IV PUSH PRN ×4 (00:02→09:06)
[2016-10-31] MEDS: NS + KCL 20 MEQ INJ 1,000 ML IV SCH ×3 (00:04→16:29)
[2016-10-31] MEDS: PHENYTOIN SODIUM 100 MG CAP PO SCH ×3 (03:01→18:12)
[2016-10-31] MEDS: ENALAPRILAT 1.25 MG/ML VIAL IV PUSH PRN (04:25)
[2016-10-31] MEDS ORDERED: HYDROmorphone HCL PF 1 MG/ML VIAL IV PUSH ONE (05:00)
[2016-10-31] MEDS: PIPERACIL-TAZO 3.375 GM PREMIX 50 ML IV SCH ×3 (05:11→18:12)
[2016-10-31] MEDS: ONDANSETRON HCL 4 MG/2 ML VIAL IVP PRN ×3 (06:02→20:26)
[2016-10-31] MEDS ORDERED: POTASSIUM CHLORIDE INJ 20 MEQ in SODIUM CHLOR 0.9% 1000 ML INJ 1,000 ML IV SCH (06:31)
[2016-10-31] MEDS: SODIUM CHLORIDE 0.9% FLUSH 10 ML FLUSH IV FLUSH SCH ×2 (09:04→20:26)
[2016-10-31] MEDS: GABAPENTIN 100 MG CAP PO SCH ×2 (09:05→20:25)
[2016-10-31] MEDS: PANTOPRAZOLE SODIUM 40 MG VIAL IV PUSH SCH (09:05)
[2016-10-31] MEDS: ENOXAPARIN SODIUM 40 MG/0.4 ML SYRINGE SQ SCH (09:05)
[2016-10-31] MEDS: ZONISAMIDE 100 MG CAP PO SCH ×2 (09:05→20:25)
[2016-10-31] MEDS ORDERED: HYDROmorphone HCL PF 1 MG/ML VIAL IV PUSH PRN (09:15)
--- NOTE | 2016-10-31 09:17 | HHI.PR ---
Subjective Remarks still with severe abdominal pain. says that Morphine doesn't help. still with some nausea. afebrile this morning. d/w the RN at the bedside. Objective Vitals Vital Signs Date Time Temp Pulse Resp B/P Pulse Ox O2 Delivery O2 Flow Rate FiO2 10/31/16 07:34 99.3 97 18 165/83 97 10/31/16 04:50 98.9 106 18 182/89 97 10/31/16 03:07 18 10/30/16 22:58 99.0 119 19 171/89 97 10/30/16 20:55 97.6 94 18 184/88 100 10/30/16 16:00 98.6 119 18 166/89 99 10/30/16 14:49 112 174/87 10/30/16 11:30 98.2 103 18 182/93 97 I/O 10/30/16 10/30/16 10/30/16 10/31/16 10/31/16 10/31/16 06:59 14:59 22:59 06:59 14:59 22:59 Intake Total 0 ml 358 ml 1052 ml 964 ml Output Total 250 ml 300 ml Balance 0 ml 358 ml 802 ml 664 ml Intake Oral 0 ml 0 ml 0 ml 0 ml IV Total 358 ml 1052 ml 964 ml Output Urine Total 250 ml 300 ml # Voids 1 4 # Bowel Movements 0 0 0 0 Result Diagram: 10/30/16 0702 10/30/16 0702 Imaging Last Impressions Abdomen/Pelvis CT 10/29/16 0147 Signed Impressions: Service Date/Time: Saturday, October 29, 2016 05:23 - CONCLUSION: 1. Hepatomegaly and hepatic steatosis. 2. Acute pancreatitis. No evidence for pseudocyst or abscess. 3. There is pericholecystic fat stranding and findings of this gallbladder wall edema versus trace pericholecystic fluid. The possibility of cholecystitis should be entertained, and a gallbladder ultrasound would be helpful for further assessment. 4. Atherosclerosis. 5. Small amount of free fluid. 6. Severe osteoarthritis of the left hip. Gustavo Soto MD Gall Bladder Ultrasound 10/29/16 0000 Signed Impressions: Service Date/Time: Saturday, October 29, 2016 07:49 - CONCLUSION: Technically limited exam. Gallbladder is mildly distended but otherwise focally unremarkable. Poorly seen fatty liver with hypoechoic right lobe mass. This likely correlates with hypervascular focus in segment V. Further characterization with hepatic MRI may be beneficial. Christophe Vegas MD Abdomen X-Ray 10/29/16 0000 Signed Impressions: Service Date/Time: Saturday, October 29, 2016 02:11 - CONCLUSION: 1. Nonobstructive bowel gas pattern. Gustavo Soto MD Objective Remarks GENERAL: This is a well-nourished, well-developed patient, in no apparent distress. CARDIOVASCULAR: Regular rate and regular rhythm without murmurs, gallops, or rubs. RESPIRATORY: Clear to auscultation. Breath sounds equal bilaterally. No wheezes , rales, or rhonchi. GASTROINTESTINAL: Abdomen soft, still with periumbilical tenderness, nondistended. Normal, active bowel sounds MUSCULOSKELETAL: Extremities without clubbing, cyanosis, or edema. NEURO: Alert & Oriented x4 to person, place, time, situation. Moves all ext x4 Procedures none Medications and IVs Current Medications Morphine Sulfate (Morphine Inj) 4 mg ONCE ONCE IV PUSH Last administered on 02:06; Start 10/29/16 at 02:00; Stop 10/29/16 at 02:01; Status DC Ondansetron HCl 4 mg 4 mg ONCE ONCE IVP Last administered on 10/29/16 02:05; Start 10/29/16 at 02:00; Stop 10/29/16 at 02:01; Status DC Sodium Chloride (NS 1000 ml Inj) 1,000 ml @ 125 mls/hr Q8H IV Last administered on 10/29/16 02:05; Start 10/29/16 at 01:47; Stop 10/29/16 at 06:36; Status DC Sodium Chloride 2 ml 2 ml UNSCH PRN IV FLUSH FLUSH AFTER USING IV ACCESS Last administered on 10/29/16 02:05; Start 10/29/16 at 02:00; Stop 10/29/16 at 06:36; Status DC Sodium Chloride (NS 1000 ml Inj) 1,000 ml @ 999 mls/hr BOLUS ONCE IV Last administered on 10/29/16 05:10; Start 10/29/16 at 05:00; Stop 10/29/16 at 06:00; Status DC Morphine Sulfate (Morphine Inj) 4 mg ONCE ONCE IV PUSH Last administered on 05:15; Start 10/29/16 at 05:15; Stop 10/29/16 at 05:16; Status DC Ondansetron HCl 4 mg 4 mg ONCE ONCE IV PUSH Last administered on 10/29/16 05: 15; Start 10/29/16 at 05:15; Stop 10/29/16 at 05:16; Status DC Potassium Chloride (KCl 20 Meq Premix Inj) 100 ml @ 50 mls/hr Q2H IV Last administered on 10/29/16 08:29; Start 10/29/16 at 05:15; Stop 10/29/16 at 09:14; Status DC Iohexol 100 ml 100 ml STK-MED ONCE IV Last administered on 10/29/16 05:26; Start 10/29/16 at 05:26; Stop 10/29/16 at 05:27; Status DC Piperacillin Sod/ Tazobactam Sod 100 ml @ 200 mls/hr ONCE ONCE IV Last administered on 10/29/16 06:25; Start 10/29/16 at 06:00; Stop 10/29/16 at 06:29; Status DC Sodium Chloride (NS 1000 ml Inj) 1,000 ml @ 100 mls/hr Q10H IV Last administered on 10/29/16 21:22; Start 10/29/16 at 06:31; Stop 10/30/16 at 09:17; Status DC Sodium Chloride (NS Flush) 2 ml UNSCH PRN IV FLUSH FLUSH AFTER USING IV ACCESS Last administered on 10/30/16 17:41; Start 10/29/16 at 06:45 Sodium Chloride (NS Flush) 2 ml BID IV FLUSH Last administered on 10/31/16 09: 04; Start 10/29/16 at 09:00 Ondansetron HCl (Zofran Inj) 4 mg Q6H PRN IVP NAUSEA OR VOMITING Last administered on 10/31/16 06:02; Start 10/29/16 at 06:45 Naloxone HCl (Narcan Inj) 0.4 mg UNSCH PRN IV SEE LABEL COMMENTS; Start at 06:45 Morphine Sulfate 2 mg 2 mg Q3H PRN IV PUSH pain >5 Last administered on 09:06; Start 10/29/16 at 06:45 Piperacillin Sod/ Tazobactam Sod (Zosyn 3.375 Gm Premix) 50 ml @ 100 mls/hr Q6H IV Last administered on 10/31/16 05:11; Start 10/29/16 at 12:00 Pantoprazole Sodium (Protonix Inj) 40 mg DAILY IV PUSH Last administered on 09:05; Start 10/29/16 at 09:00 Gabapentin (Neurontin) 200 mg BID PO Last administered on 10/31/16 09:05; Start 10/29/16 at 09:00 Zonisamide (Zonegran) 100 mg BID PO Last administered on 10/31/16 09:05; Start 10/29/16 at 09:00 Enalaprilat (Vasotec Inj) 1.25 mg Q8H PRN IV PUSH SBP> OR = 180, DBP> OR = 100 Last administered on 10/31/16 04:25; Start 10/29/16 at 08:00 Acetaminophen (Tylenol) 650 mg Q4H PRN PO FEVER Last administered on 10/29/16 12:11; Start 10/29/16 at 08:15 Enoxaparin Sodium (Lovenox Inj) 40 mg Q24H SQ Last administered on 10/31/16 09 :05; Start 10/29/16 at 09:00 Lorazepam (Ativan) 2 mg Q6H PRN PO ANXIETY AND/OR AGITATION Last administered on 10/30/16 21:07; Start 10/29/16 at 10:45 Phenytoin (Dilantin) 100 mg TID PO ; Start 10/29/16 at 13:00; Stop 10/29/16 at 13: 00; Status DC Phenytoin (Dilantin) 100 mg Q8H PO Last administered on 10/31/16 03:01; Start 10/29/16 at 11:00 Amlodipine Besylate (Norvasc) 10 mg DAILY PO Last administered on 10/31/16 09: 05; Start 10/29/16 at 10:45 Clonidine (Catapres) 0.1 mg NOW ONCE PO Last administered on 10/29/16 15:57; Start 10/29/16 at 16:00; Stop 10/29/16 at 16:01; Status DC Clonidine 0.1 mg 0.1 mg NOW ONCE PO ; Start 10/29/16 at 16:30; Stop 10/29/16 at 16:31; Status Cancel Potassium Chloride 20 meq/ Sodium Chloride 1,010 ml @ 100 mls/hr Q10H6M IV ; Start 10/31/16 at 06:31; Stop 10/31/16 at 06:31; Status DC Potassium Chloride (KCl 20 Meq Premix Inj) 100 ml @ 50 mls/hr BOLUS ONCE IV Last administered on 10/30/16 11:00; Start 10/30/16 at 09:30; Stop 10/30/16 at 11:29; Status DC Nifedipine 30 mg 30 mg ONCE ONCE PO Last administered on 10/30/16 11:00; Start 10/30/16 at 09:30; Stop 10/30/16 at 09:31; Status DC Potassium Chloride/Sodium Chloride (NS + KCl 20 Meq Inj) 1,000 ml @ 100 mls/hr Q10H IV Last administered on 10/31/16 00:04; Start 10/30/16 at 09:30 Hydromorphone HCl (Dilaudid Pf Inj) 0.5 mg ONCE ONCE IV PUSH Last administered on 10/31/16 05:11; Start 10/31/16 at 05:00; Stop 10/31/16 at 05:01 ; Status DC A/P Assessment and Plan A/P - severe sepsis due to acute pancreatitis with questionable acute cholecystitis - pain hasn't changed as much. continue to keep NPO- continue IV fluid, IV antibiotics- continue antiemetics. will dc Morphine and start on IV dilaudid- will adjust the pain regimen as needed. MRI of the abdomen pending- GI following. -hypokalemia; replaced. -hypertension;not well controlled-likely due to the pain- resumed amlodipine- - vasotec prn- continue to monitor and adjust the regimen as needed. - seizure disorder/neuropathy; resumed home meds -DVT prophylaxis with Sintia Nash MD Oct 31, 2016 09:17
[2016-10-31] MEDS: SODIUM CHLORIDE 0.9% FLUSH 10 ML FLUSH IV FLUSH PRN ×2 (10:21→14:07)
[2016-10-31] MEDS: HYDROmorphone HCL PF 1 MG/ML VIAL IV PUSH PRN ×4 (10:21→22:00)
[2016-10-31 12:17] LABS: AUTOMATED NEUTROPHIL # 15.1 TH/MM3 (1.8-7.7); BASOPHIL # 0.1 TH/MM3 (0-0.2); BASOPHIL % 0.4 % (0.0-2.0); EOSINOPHIL % 0.1 % (0.0-4.0); LYMPH % 9.1 % (9.0-44.0); LYMPHOCYTE # 1.7 TH/MM3 (1.0-4.8); MEAN CELL VOLUME 94.5 FL (80.0-100.0); MEAN CORPUSCULAR HEMOGLOBIN 31.2 PG (27.0-34.0); MONO % 7.7 % (0.0-8.0); NEUT % 82.7 % (16.0-70.0); PLATELET COUNT 205 TH/MM3 (150-450); RED BLOOD COUNT 4.02 MIL/MM3 (4.50-5.90); RED CELL DISTRIBUTION WIDTH 15.7 % (11.6-17.2); WHITE BLOOD COUNT 18.2 TH/MM3 (4.0-11.0)
[2016-10-31 12:20] LABS: HEMO FLAGS AUTO DIFF
[2016-10-31 12:40] LABS: BICARBONATE 26.1 MEQ/L (21.0-32.0)
[2016-10-31 12:42] LABS: POTASSIUM 2.9 MEQ/L (3.5-5.1)
[2016-10-31 13:08] LABS: BANDS 6 % (0-6); METAMYELOCYTES 1 % (0-1); MYELOCYTES 2 % (0-0); NEUTROPHIL # MANUAL DIFF 16.9 TH/MM3 (1.8-7.7); POLYS (SEG NEUTROPHILS) 84 % (16-70); SCAN/DIFF FINAL DIFF MANUAL; WBC DIFF SAMPLE 100
[2016-10-31 13:10] LABS: PLATELET ESTIMATE SMEAR NORMAL (NORMAL); PLATELET MORPHOLOGY NORMAL (NORMAL)
[2016-10-31 13:16] LABS: HYPERSEGMENTED POLYS 1+ (NORMAL)
[2016-10-31] MEDS: POTASSIUM CHLOR 20 MEQ PREMIX 100 ML IV SCH ×2 (13:25→16:29)
--- NOTE | 2016-10-31 14:16 | HHI.GIFU ---
Subjective Remarks Resting in bed. C/O nausea without vomiting. Continues to have significant abdominal pain. Wants to eat. Objective Vitals I&O Vital Signs Date Time Temp Pulse Resp B/P Pulse Ox O2 Delivery O2 Flow Rate FiO2 10/31/16 11:31 99.6 108 18 170/85 96 10/31/16 07:34 99.3 97 18 165/83 97 10/31/16 04:50 98.9 106 18 182/89 97 10/31/16 03:07 18 10/30/16 22:58 99.0 119 19 171/89 97 10/30/16 20:55 97.6 94 18 184/88 100 10/30/16 16:00 98.6 119 18 166/89 99 10/30/16 14:49 112 174/87 I/O 10/30/16 10/30/16 10/30/16 10/31/16 10/31/16 10/31/16 06:59 14:59 22:59 06:59 14:59 22:59 Intake Total 0 ml 358 ml 1052 ml 964 ml Output Total 250 ml 300 ml Balance 0 ml 358 ml 802 ml 664 ml Intake Oral 0 ml 0 ml 0 ml 0 ml IV Total 358 ml 1052 ml 964 ml Output Urine Total 250 ml 300 ml # Voids 1 4 # Bowel Movements 0 0 0 0 Laboratory Laboratory Tests Test 10/31/16 11:46 White Blood Count 18.2 Red Blood Count 4.02 Hemoglobin 12.5 Hematocrit 38.0 Mean Corpuscular Volume 94.5 Mean Corpuscular Hemoglobin 31.2 Mean Corpuscular Hemoglobin 33.0 Concent Red Cell Distribution Width 15.7 Platelet Count 205 Mean Platelet Volume 7.6 Neutrophils (%) (Auto) 82.7 Lymphocytes (%) (Auto) 9.1 Monocytes (%) (Auto) 7.7 Eosinophils (%) (Auto) 0.1 Basophils (%) (Auto) 0.4 Neutrophils # (Auto) 15.1 Lymphocytes # (Auto) 1.7 Monocytes # (Auto) 1.4 Eosinophils # (Auto) 0.0 Basophils # (Auto) 0.1 CBC Comment AUTO DIFF Differential Total Cells 100 Counted Neutrophils % (Manual) 84 Band Neutrophils % 6 Lymphocytes % 2 Monocytes % 5 Neutrophils # (Manual) 16.9 Metamyelocytes 1 Myelocytes 2 Differential Comment FINAL DIFF MANUAL Hypersegmented Polys 1+ Platelet Estimate NORMAL Platelet Morphology Comment NORMAL Red Cell Morphology Comment NORMAL Sodium Level 142 Potassium Level 2.9 Chloride Level 109 Carbon Dioxide Level 26.1 Anion Gap 7 Blood Urea Nitrogen 5 Creatinine 0.70 Estimat Glomerular Filtration 115 Rate Random Glucose 122 Calcium Level 8.3 Lipase 899 Imaging Last Impressions Abdomen/Pelvis CT 10/29/16 0147 Signed Impressions: Service Date/Time: Saturday, October 29, 2016 05:23 - CONCLUSION: 1. Hepatomegaly and hepatic steatosis. 2. Acute pancreatitis. No evidence for pseudocyst or abscess. 3. There is pericholecystic fat stranding and findings of this gallbladder wall edema versus trace pericholecystic fluid. The possibility of cholecystitis should be entertained, and a gallbladder ultrasound would be helpful for further assessment. 4. Atherosclerosis. 5. Small amount of free fluid. 6. Severe osteoarthritis of the left hip. Gustavo Soto MD Gall Bladder Ultrasound 10/29/16 0000 Signed Impressions: Service Date/Time: Saturday, October 29, 2016 07:49 - CONCLUSION: Technically limited exam. Gallbladder is mildly distended but otherwise focally unremarkable. Poorly seen fatty liver with hypoechoic right lobe mass. This likely correlates with hypervascular focus in segment V. Further characterization with hepatic MRI may be beneficial. Christophe Vegas MD Abdomen X-Ray 10/29/16 0000 Signed Impressions: Service Date/Time: Saturday, October 29, 2016 02:11 - CONCLUSION: 1. Nonobstructive bowel gas pattern. Gustavo Soto MD Physical Exam HEENT: Normocephalic; atraumatic; no jaundice. CHEST: CTA CARDIAC: RRR ABDOMEN: Soft, mildly bloated, diffuse tenderness; no hepatosplenomegaly; bowel sounds are present in all four quadrants. EXTREMITIES: Generalized edema. SKIN: Normal; no rash; no jaundice. ISOTOPE HYDROLOGIST: No focal deficits; alert and oriented times three. Assessment and Plan Plan ASSESSMENT - Acute pancreatitis with abdominal pain and nausea/vomiting. Abdomen/Pelvis CT (10/29/16)---> 1. Hepatomegaly and hepatic steatosis. 2. Acute pancreatitis. No evidence for pseudocyst or abscess. 3. There is pericholecystic fat stranding and findings of this gallbladder wall edema versus trace pericholecystic fluid. The possibility of cholecystitis should be entertained, and a gallbladder ultrasound would be helpful for further assessment. 4. Atherosclerosis. 5. Small amount of free fluid. 6. Severe osteoarthritis of the left hip. Gall Bladder Ultrasound (10/29/16)---> Technically limited exam. Gallbladder is mildly distended but otherwise focally unremarkable. Poorly seen fatty liver with hypoechoic right lobe mass. This likely correlates with hypervascular focus in segment V. Further characterization with hepatic MRI may be beneficial. States he has never had pancreatitis. States rare ETOH use, but does admit to drinking (unclear amount) prior to this episode. NPO, IVF. Continues to have abdominal pain/nausea, although wanting to eat today. WBC 18.2. Lipase 899 Zosyn. - Right hepatic lobe mass on US. AFP 4.9. MRI pending. - Leukocytosis. WBC 18.9. Zosyn. PLAN - Clear liquids - MRI abdomen - IVF - PPI - Zosyn. - Supportive care - Further recommendations to follow based on results of above - This pt seen by myself and Dr Hester and this note is written on his behalf Darya Angulo Oct 31, 2016 14:16
[2016-10-31] MEDS ORDERED: GADODIAMIDE PF 287 MG/ML 20 ML VIAL (for RAD MRI) IV ONE (15:28)
--- NOTE | 2016-10-31 16:49 | RADRPT ---
EXAM DATE/TIME: 10/31/2016 14:57 [facility] COMPARISON: CT ABDOMEN & PELVIS W CONTRAST, October 29, 2016, 5:23. INDICATIONS : Abnormal CT scan. Abdominal pain. CONTRAST: 18 cc Omniscan (gadodiamide) IV MEDICAL HISTORY : Hypertension. renal insufficiency SURGICAL HISTORY : tib/fib, facial reconstruction ENCOUNTER: Subsequent ACUITY: 3 day PAIN SCORE: 3/10 LOCATION: upper quadrant abdomen TECHNIQUE: Multiplanar, multisequence magnetic resonance imaging of the abdomen was performed without and with i ntravenous contrast. FINDINGS: LIVER: The liver is mildly enlarged and demonstrates decreased signal intensity on opposed phase imaging. Sm all hemangioma is identified in right hepatic lobe. There are no suspicious lesions. Portal vein is p atent. Small amount of ascites is noted. BILIARY: There is no intra- or extra-hepatic biliary ductal dilatation. Gallbladder is distended but does not contain any calculi. Common bile that measures 3-4 mm. SPLEEN: Within normal limits. PANCREAS: Diffuse inflammation is present throughout the pancreas. There is no evidence of discrete mass, enhan cing lesions or abnormal fluid collections. ADRENALS: Within normal limits. KIDNEYS: Normal size and signal intensity. There is no hydronephrosis or mass. OTHER: Aorta is nonaneurysmal. There is no lymphadenopathy. CONCLUSION: 1. Acute pancreatitis without evidence of organized fluid collections. 2. Hepatic steatosis. 3. No evidence of biliary duct or pancreatic duct dilatation. 4. Mildly distended gallbladder without evidence of cholelithiasis. 5. Minimal ascites. 6. Small hepatic hemangioma. Josias Arthur MD on October 31, 2016 at 16:42 Board Certified Radiologist. This report was verified electronically.
[2016-10-31] MEDS: LORazepam 2 MG TAB PO PRN (21:59)
[2016-11-01] VITALS: BP 172/90; PULSE 97; RESP 16; TEMP 99.8; O2SAT 98
[2016-11-01] MEDS: PIPERACIL-TAZO 3.375 GM PREMIX 50 ML IV SCH ×4 (00:03→18:22)
[2016-11-01] MEDS: PHENYTOIN SODIUM 100 MG CAP PO SCH ×3 (01:19→18:24)
[2016-11-01] MEDS: HYDROmorphone HCL PF 1 MG/ML VIAL IV PUSH PRN ×7 (01:20→21:40)
[2016-11-01] MEDS: NS + KCL 20 MEQ INJ 1,000 ML IV SCH ×3 (01:30→21:47)
[2016-11-01] MEDS: ONDANSETRON HCL 4 MG/2 ML VIAL IVP PRN ×4 (02:25→21:39)
[2016-11-01 04:00] VITALS: BP 170/89; PULSE 98; RESP 16; TEMP 99.3; O2SAT 97
[2016-11-01] MEDS: LORazepam 2 MG TAB PO PRN ×2 (04:49→21:39)
[2016-11-01] MEDS: ENOXAPARIN SODIUM 40 MG/0.4 ML SYRINGE SQ SCH (08:32)
[2016-11-01] MEDS: SODIUM CHLORIDE 0.9% FLUSH 10 ML FLUSH IV FLUSH SCH ×2 (08:32→20:37)
[2016-11-01] MEDS: GABAPENTIN 100 MG CAP PO SCH ×2 (08:32→20:29)
[2016-11-01] MEDS: PANTOPRAZOLE SODIUM 40 MG VIAL IV PUSH SCH (08:32)
[2016-11-01] MEDS: ZONISAMIDE 100 MG CAP PO SCH ×2 (08:37→20:31)
--- NOTE | 2016-11-01 11:08 | HHI.PR ---
Subjective Remarks in no acute distress. still with moderate to severe abdominal pain. has some nausea but with no emesis. d/w the RN. Objective Vitals Vital Signs Date Time Temp Pulse Resp B/P Pulse Ox O2 Delivery O2 Flow Rate FiO2 11/01/16 04:00 99.3 98 16 170/89 97 11/01/16 00:00 99.8 97 16 172/90 98 10/31/16 22:09 82 10/31/16 20:00 99.4 100 17 156/78 98 10/31/16 16:00 99.7 96 18 178/91 98 10/31/16 11:31 99.6 108 18 170/85 96 I/O 10/31/16 10/31/16 10/31/16 11/01/16 11/01/16 11/01/16 06:59 14:59 22:59 06:59 14:59 22:59 Intake Total 964 ml 701 ml 720 ml 600 ml Output Total 300 ml 525 ml 750 ml Balance 664 ml 701 ml 195 ml -150 ml Intake Oral 0 ml 0 ml 720 ml 600 ml IV Total 964 ml 701 ml Output Urine Total 300 ml 525 ml 750 ml # Voids 3 # Bowel Movements 0 0 Result Diagram: 10/31/16 1146 10/31/16 1146 Imaging Last Impressions Abdomen MRI 10/31/16 0000 Signed Impressions: Service Date/Time: Monday, October 31, 2016 14:57 - CONCLUSION: 1. Acute pancreatitis without evidence of organized fluid collections. 2. Hepatic steatosis. 3. No evidence of biliary duct or pancreatic duct dilatation. 4. Mildly distended gallbladder without evidence of cholelithiasis. 5. Minimal ascites. 6. Small hepatic hemangioma. Josias Arthur MD Abdomen/Pelvis CT 10/29/16 0147 Signed Impressions: Service Date/Time: Saturday, October 29, 2016 05:23 - CONCLUSION: 1. Hepatomegaly and hepatic steatosis. 2. Acute pancreatitis. No evidence for pseudocyst or abscess. 3. There is pericholecystic fat stranding and findings of this gallbladder wall edema versus trace pericholecystic fluid. The possibility of cholecystitis should be entertained, and a gallbladder ultrasound would be helpful for further assessment. 4. Atherosclerosis. 5. Small amount of free fluid. 6. Severe osteoarthritis of the left hip. Gustavo Soto MD Gall Bladder Ultrasound 10/29/16 0000 Signed Impressions: Service Date/Time: Saturday, October 29, 2016 07:49 - CONCLUSION: Technically limited exam. Gallbladder is mildly distended but otherwise focally unremarkable. Poorly seen fatty liver with hypoechoic right lobe mass. This likely correlates with hypervascular focus in segment V. Further characterization with hepatic MRI may be beneficial. Christophe Vegas MD Abdomen X-Ray 10/29/16 0000 Signed Impressions: Service Date/Time: Saturday, October 29, 2016 02:11 - CONCLUSION: 1. Nonobstructive bowel gas pattern. Gustavo Soto MD Objective Remarks GENERAL: This is a well-nourished, well-developed patient, in no apparent distress. CARDIOVASCULAR: Regular rate and regular rhythm without murmurs, gallops, or rubs. RESPIRATORY: Clear to auscultation. Breath sounds equal bilaterally. No wheezes , rales, or rhonchi. GASTROINTESTINAL: Abdomen soft, still with periumbilical tenderness, nondistended. Normal, active bowel sounds MUSCULOSKELETAL: Extremities without clubbing, cyanosis, or edema. NEURO: Alert & Oriented x4 to person, place, time, situation. Moves all ext x4 Procedures none Medications and IVs Current Medications Morphine Sulfate (Morphine Inj) 4 mg ONCE ONCE IV PUSH Last administered on 02:06; Start 10/29/16 at 02:00; Stop 10/29/16 at 02:01; Status DC Ondansetron HCl 4 mg 4 mg ONCE ONCE IVP Last administered on 10/29/16 02:05; Start 10/29/16 at 02:00; Stop 10/29/16 at 02:01; Status DC Sodium Chloride (NS 1000 ml Inj) 1,000 ml @ 125 mls/hr Q8H IV Last administered on 10/29/16 02:05; Start 10/29/16 at 01:47; Stop 10/29/16 at 06:36; Status DC Sodium Chloride 2 ml 2 ml UNSCH PRN IV FLUSH FLUSH AFTER USING IV ACCESS Last administered on 10/29/16 02:05; Start 10/29/16 at 02:00; Stop 10/29/16 at 06:36; Status DC Sodium Chloride (NS 1000 ml Inj) 1,000 ml @ 999 mls/hr BOLUS ONCE IV Last administered on 10/29/16 05:10; Start 10/29/16 at 05:00; Stop 10/29/16 at 06:00; Status DC Morphine Sulfate (Morphine Inj) 4 mg ONCE ONCE IV PUSH Last administered on 05:15; Start 10/29/16 at 05:15; Stop 10/29/16 at 05:16; Status DC Ondansetron HCl 4 mg 4 mg ONCE ONCE IV PUSH Last administered on 10/29/16 05: 15; Start 10/29/16 at 05:15; Stop 10/29/16 at 05:16; Status DC Potassium Chloride (KCl 20 Meq Premix Inj) 100 ml @ 50 mls/hr Q2H IV Last administered on 10/29/16 08:29; Start 10/29/16 at 05:15; Stop 10/29/16 at 09:14; Status DC Iohexol 100 ml 100 ml STK-MED ONCE IV Last administered on 10/29/16 05:26; Start 10/29/16 at 05:26; Stop 10/29/16 at 05:27; Status DC Piperacillin Sod/ Tazobactam Sod 100 ml @ 200 mls/hr ONCE ONCE IV Last administered on 10/29/16 06:25; Start 10/29/16 at 06:00; Stop 10/29/16 at 06:29; Status DC Sodium Chloride (NS 1000 ml Inj) 1,000 ml @ 100 mls/hr Q10H IV Last administered on 10/29/16 21:22; Start 10/29/16 at 06:31; Stop 10/30/16 at 09:17; Status DC Sodium Chloride (NS Flush) 2 ml UNSCH PRN IV FLUSH FLUSH AFTER USING IV ACCESS Last administered on 10/31/16 14:07; Start 10/29/16 at 06:45 Sodium Chloride (NS Flush) 2 ml BID IV FLUSH Last administered on 10/31/16 09: 04; Start 10/29/16 at 09:00 Ondansetron HCl (Zofran Inj) 4 mg Q6H PRN IVP NAUSEA OR VOMITING Last administered on 11/01/16 02:25; Start 10/29/16 at 06:45 Naloxone HCl (Narcan Inj) 0.4 mg UNSCH PRN IV SEE LABEL COMMENTS; Start at 06:45 Morphine Sulfate 2 mg 2 mg Q3H PRN IV PUSH pain >5 Last administered on 09:06; Start 10/29/16 at 06:45; Stop 10/31/16 at 09:17; Status DC Piperacillin Sod/ Tazobactam Sod (Zosyn 3.375 Gm Premix) 50 ml @ 100 mls/hr Q6H IV Last administered on 11/01/16 04:52; Start 10/29/16 at 12:00 Pantoprazole Sodium (Protonix Inj) 40 mg DAILY IV PUSH Last administered on 08:32; Start 10/29/16 at 09:00 Gabapentin (Neurontin) 200 mg BID PO Last administered on 11/01/16 08:32; Start 10/29/16 at 09:00 Zonisamide (Zonegran) 100 mg BID PO Last administered on 11/01/16 08:37; Start 10/29/16 at 09:00 Enalaprilat (Vasotec Inj) 1.25 mg Q8H PRN IV PUSH SBP> OR = 180, DBP> OR = 100 Last administered on 10/31/16 04:25; Start 10/29/16 at 08:00 Acetaminophen (Tylenol) 650 mg Q4H PRN PO FEVER Last administered on 10/29/16 12:11; Start 10/29/16 at 08:15 Enoxaparin Sodium (Lovenox Inj) 40 mg Q24H SQ Last administered on 11/01/16 08 :32; Start 10/29/16 at 09:00 Lorazepam (Ativan) 2 mg Q6H PRN PO ANXIETY AND/OR AGITATION Last administered on 11/01/16 04:49; Start 10/29/16 at 10:45 Phenytoin (Dilantin) 100 mg TID PO ; Start 10/29/16 at 13:00; Stop 10/29/16 at 13: 00; Status DC Phenytoin (Dilantin) 100 mg Q8H PO Last administered on 11/01/16 10:33; Start 10/29/16 at 11:00 Amlodipine Besylate (Norvasc) 10 mg DAILY PO Last administered on 11/01/16 08: 32; Start 10/29/16 at 10:45 Clonidine (Catapres) 0.1 mg NOW ONCE PO Last administered on 10/29/16 15:57; Start 10/29/16 at 16:00; Stop 10/29/16 at 16:01; Status DC Clonidine 0.1 mg 0.1 mg NOW ONCE PO ; Start 10/29/16 at 16:30; Stop 10/29/16 at 16:31; Status Cancel Potassium Chloride 20 meq/ Sodium Chloride 1,010 ml @ 100 mls/hr Q10H6M IV ; Start 10/31/16 at 06:31; Stop 10/31/16 at 06:31; Status DC Potassium Chloride (KCl 20 Meq Premix Inj) 100 ml @ 50 mls/hr BOLUS ONCE IV Last administered on 10/30/16 11:00; Start 10/30/16 at 09:30; Stop 10/30/16 at 11:29; Status DC Nifedipine 30 mg 30 mg ONCE ONCE PO Last administered on 10/30/16 11:00; Start 10/30/16 at 09:30; Stop 10/30/16 at 09:31; Status DC Potassium Chloride/Sodium Chloride (NS + KCl 20 Meq Inj) 1,000 ml @ 100 mls/hr Q10H IV Last administered on 10/31/16 16:29; Start 10/30/16 at 09:30 Hydromorphone HCl (Dilaudid Pf Inj) 0.5 mg ONCE ONCE IV PUSH Last administered on 10/31/16 05:11; Start 10/31/16 at 05:00; Stop 10/31/16 at 05:01 ; Status DC Hydromorphone HCl (Dilaudid Pf Inj) 0.5 mg Q4H PRN IV PUSH PAIN 4-6; Start 02/06 at 09:15 Hydromorphone HCl 1 mg 1 mg Q4H PRN IV PUSH PAIN 7-10 Last administered on 11/01 08:30; Start 10/31/16 at 09:15 Potassium Chloride (KCl 20 Meq Premix Inj) 100 ml @ 50 mls/hr Q2H IV Last administered on 10/31/16 16:29; Start 10/31/16 at 13:00; Stop 10/31/16 at 16:59 ; Status DC Gadodiamide (Omniscan Pf Inj) 18 ml STK-MED ONCE IV Last administered on t 15:28; Start 10/31/16 at 15:28; Stop 10/31/16 at 15:29; Status DC A/P Assessment and Plan A/P - severe sepsis due to acute pancreatitis with questionable acute cholecystitis - on clear liquid diet- will advance the continue IV fluid, IV antibiotics- continue antiemetics. continue IV dilaudid- will increase the dose today for better pain control. will resume his methadone when nausea / abdominal pain is better. MRI of the abdomen with acute pancreatitis- GI following. -hypokalemia; replaced.will monitor. -hypertension;not well controlled-likely due to the pain- resumed amlodipine- - vasotec prn- one dose of procardia today. continue to monitor and adjust the regimen as needed. - seizure disorder/neuropathy; resumed home meds -DVT prophylaxis with subq Lovenox Sintia Iverson MD Nov 01, 2016 11:08
[2016-11-01] MEDS ORDERED: MAGNESIUM HYDROXIDE SUSP 30 ML CUP PO PRN (11:15)
[2016-11-01] MEDS ORDERED: NIFEdipine 30 MG SUSTAINED RELEASE TAB PO ONE (12:00)
[2016-11-01 12:10] LABS: AUTOMATED NEUTROPHIL # 12.4 TH/MM3 (1.8-7.7); BASOPHIL % 0.3 % (0.0-2.0); EOSINOPHIL % 0.2 % (0.0-4.0); HEMATOCRIT 36.1 % (39.0-51.0); HEMO FLAGS DIFF FINAL; LYMPH % 11.1 % (9.0-44.0); LYMPHOCYTE # 1.7 TH/MM3 (1.0-4.8); MEAN CELL VOLUME 93.1 FL (80.0-100.0); MEAN CORPUSCULAR HEMOGLOBIN 31.6 PG (27.0-34.0); MEAN CORPUSCULAR HGB CONC 33.9 % (32.0-36.0); MONO % 7.5 % (0.0-8.0); NEUT % 80.9 % (16.0-70.0); PLATELET COUNT 188 TH/MM3 (150-450); RED BLOOD COUNT 3.88 MIL/MM3 (4.50-5.90); RED CELL DISTRIBUTION WIDTH 15.5 % (11.6-17.2); WHITE BLOOD COUNT 15.4 TH/MM3 (4.0-11.0)
[2016-11-01] MEDS ORDERED: HYDROmorphone HCL PF 1 MG/ML VIAL IV PUSH PRN ×3 (12:15→14:00)
[2016-11-01 12:30] LABS: BICARBONATE 24.2 MEQ/L (21.0-32.0); POTASSIUM 3.2 MEQ/L (3.5-5.1)
[2016-11-01 16:00] VITALS: BP_SYST 179; BP_SYST 190; BP_DIAS 100; BP_DIAS 96; PULSE 92; RESP 18; TEMP 99.2; O2SAT 97
--- NOTE | 2016-11-01 16:10 | HHI.GIFU ---
Subjective Remarks Pt resting in bed, clears have been ordered but he has not tried yet. about to eat a popsicle. Says no improvement in pain or nausea. (Christi Narayan) Objective Vitals I&O Vital Signs Date Time Temp Pulse Resp B/P Pulse Ox O2 Delivery O2 Flow Rate FiO2 11/01/16 04:00 99.3 98 16 170/89 97 11/01/16 00:00 99.8 97 16 172/90 98 10/31/16 22:09 82 10/31/16 20:00 99.4 100 17 156/78 98 I/O 10/31/16 10/31/16 10/31/16 11/01/16 11/01/16 11/01/16 07:00 15:00 23:00 07:00 15:00 23:00 Intake Total 964 ml 701 ml 720 ml 600 ml Output Total 300 ml 525 ml 750 ml Balance 664 ml 701 ml 195 ml -150 ml Intake Oral 0 ml 0 ml 720 ml 600 ml IV Total 964 ml 701 ml Output Urine Total 300 ml 525 ml 750 ml # Voids 3 # Bowel Movements 0 0 Laboratory Laboratory Tests Test 11/01/16 11:56 White Blood Count 15.4 Red Blood Count 3.88 Hemoglobin 12.3 Hematocrit 36.1 Mean Corpuscular Volume 93.1 Mean Corpuscular Hemoglobin 31.6 Mean Corpuscular Hemoglobin 33.9 Concent Red Cell Distribution Width 15.5 Platelet Count 188 Mean Platelet Volume 7.8 Neutrophils (%) (Auto) 80.9 Lymphocytes (%) (Auto) 11.1 Monocytes (%) (Auto) 7.5 Eosinophils (%) (Auto) 0.2 Basophils (%) (Auto) 0.3 Neutrophils # (Auto) 12.4 Lymphocytes # (Auto) 1.7 Monocytes # (Auto) 1.2 Eosinophils # (Auto) 0.0 Basophils # (Auto) 0.0 CBC Comment DIFF FINAL Differential Comment Sodium Level 144 Potassium Level 3.2 Chloride Level 110 Carbon Dioxide Level 24.2 Anion Gap 10 Blood Urea Nitrogen 7 Creatinine 0.71 Estimat Glomerular Filtration 113 Rate Random Glucose 102 Calcium Level 8.3 Lipase 1101 Imaging Last Impressions Abdomen MRI 10/31/16 0000 Signed Impressions: Service Date/Time: Monday, October 31, 2016 14:57 - CONCLUSION: 1. Acute pancreatitis without evidence of organized fluid collections. 2. Hepatic steatosis. 3. No evidence of biliary duct or pancreatic duct dilatation. 4. Mildly distended gallbladder without evidence of cholelithiasis. 5. Minimal ascites. 6. Small hepatic hemangioma. Josias Arthur MD Abdomen/Pelvis CT 10/29/16 0147 Signed Impressions: Service Date/Time: Saturday, October 29, 2016 05:23 - CONCLUSION: 1. Hepatomegaly and hepatic steatosis. 2. Acute pancreatitis. No evidence for pseudocyst or abscess. 3. There is pericholecystic fat stranding and findings of this gallbladder wall edema versus trace pericholecystic fluid. The possibility of cholecystitis should be entertained, and a gallbladder ultrasound would be helpful for further assessment. 4. Atherosclerosis. 5. Small amount of free fluid. 6. Severe osteoarthritis of the left hip. Gustavo Soto MD Gall Bladder Ultrasound 10/29/16 0000 Signed Impressions: Service Date/Time: Saturday, October 29, 2016 07:49 - CONCLUSION: Technically limited exam. Gallbladder is mildly distended but otherwise focally unremarkable. Poorly seen fatty liver with hypoechoic right lobe mass. This likely correlates with hypervascular focus in segment V. Further characterization with hepatic MRI may be beneficial. Christophe Vegas MD Abdomen X-Ray 10/29/16 0000 Signed Impressions: Service Date/Time: Saturday, October 29, 2016 02:11 - CONCLUSION: 1. Nonobstructive bowel gas pattern. Gustavo Soto MD Physical Exam HEENT: Normocephalic; atraumatic; no jaundice. CHEST: CTA CARDIAC: RRR ABDOMEN: Soft, mildly bloated, LUQ and epigastric TTP; no hepatosplenomegaly; bowel sounds are present in all four quadrants. EXTREMITIES: Generalized edema. SKIN: Normal; no rash; no jaundice. GROUP BURNER MACHINE: No focal deficits; alert and oriented times three. (Christi Narayan) Assessment and Plan Plan ASSESSMENT - Acute pancreatitis with abdominal pain and nausea/vomiting. Abdomen/Pelvis CT (10/29/16)---> 1. Hepatomegaly and hepatic steatosis. 2. Acute pancreatitis. No evidence for pseudocyst or abscess. 3. There is pericholecystic fat stranding and findings of this gallbladder wall edema versus trace pericholecystic fluid. The possibility of cholecystitis should be entertained, and a gallbladder ultrasound would be helpful for further assessment. 4. Atherosclerosis. 5. Small amount of free fluid. 6. Severe osteoarthritis of the left hip. Gall Bladder Ultrasound (10/29/16)---> Technically limited exam. Gallbladder is mildly distended but otherwise focally unremarkable. Poorly seen fatty liver with hypoechoic right lobe mass. This likely correlates with hypervascular focus in segment V. Further characterization with hepatic MRI may be beneficial. MRI abd 11-01-16--> fatty liver, acute pancreatitis, no evidence biliary or pancreatic duct dilatation, mildly distended BG no evidence cholelithiasis, min ascites, hemangioma liver. States he has never had pancreatitis. States rare ETOH use, but does admit to drinking (unclear amount) prior to this episode. NPO, IVF. Continues to have abdominal pain/nausea, although wanting to eat today. WBCdecreasing Lipase decreasing Zosyn. - Right hepatic lobe mass on US. AFP 4.9. MRI pending. - Leukocytosis. WBC 18.9. Zosyn. PLAN - Clear liquids - IVF - PPI - Zosyn. - Supportive care - Further recommendations to follow based on results of above - This pt seen by myself and Dr Mejia and this note is written on his behalf (Christi Narayan) Plan Patient was seen and examined, agree with above-noted plan, continue supportive care, start clear liquid advancing as tolerated, monitor lab. (Samra Mejia MD ) Christi Narayan Nov 01, 2016 16:09 Samra Mejia MD Nov 01, 2016 17:13
[2016-11-01] MEDS: ENALAPRILAT 1.25 MG/ML VIAL IV PUSH PRN (16:17)
[2016-11-01] MEDS ORDERED: POTASSIUM CHLOR 20 MEQ PREMIX 100 ML IV ONE (16:45)
[2016-11-01] MEDS ORDERED: ENALAPRILAT 1.25 MG/ML VIAL IV PUSH ONE (16:45)
[2016-11-01 20:20] VITALS: BP 159/88; PULSE 104; RESP 19; TEMP 96.8; O2SAT 96
[2016-11-01 23:05] VITALS: BP 168/95; PULSE 111; RESP 19; TEMP 98.1; O2SAT 97
[2016-11-02] MEDS: PIPERACIL-TAZO 3.375 GM PREMIX 50 ML IV SCH ×4 (00:33→18:58)
[2016-11-02] MEDS: HYDROmorphone HCL PF 1 MG/ML VIAL IV PUSH PRN ×8 (00:34→21:30)
[2016-11-02] MEDS: PHENYTOIN SODIUM 100 MG CAP PO SCH ×3 (03:28→18:50)
[2016-11-02] MEDS: ONDANSETRON HCL 4 MG/2 ML VIAL IVP PRN ×4 (03:33→21:29)
[2016-11-02 04:27] VITALS: BP 162/92; PULSE 100; RESP 18; TEMP 98.1; O2SAT 99
[2016-11-02] MEDS: NS + KCL 20 MEQ INJ 1,000 ML IV SCH ×2 (06:28→18:50)
[2016-11-02 08:00] VITALS: BP 187/94; PULSE 95; RESP 18; TEMP 98.9; O2SAT 98
--- NOTE | 2016-11-02 08:40 | HHI.PR ---
Subjective Remarks looks sightly more comfortable- although still with abdominal pain and tenderness. says that at times has nausea with clear liquids. no fever this morning. d/w the RN. Objective Vitals Vital Signs Date Time Temp Pulse Resp B/P Pulse Ox O2 Delivery O2 Flow Rate FiO2 11/02/16 04:27 98.1 100 18 162/92 99 11/01/16 23:05 98.1 111 19 168/95 97 11/01/16 20:20 96.8 104 19 159/88 96 11/01/16 16:00 99.2 92 18 179/100 97 190/96 I/O 11/01/16 11/01/16 11/01/16 11/02/16 11/02/16 11/02/16 07:00 15:00 23:00 07:00 15:00 23:00 Intake Total 600 ml 1159 ml 720 ml Output Total 750 ml 1175 ml Balance -150 ml 1159 ml -455 ml Intake Oral 600 ml 720 ml IV Total 1159 ml Output Urine Total 750 ml 1175 ml # Bowel Movements 0 Result Diagram: 11/01/16 1156 11/01/16 1156 Imaging Last Impressions Abdomen MRI 10/31/16 0000 Signed Impressions: Service Date/Time: Monday, October 31, 2016 14:57 - CONCLUSION: 1. Acute pancreatitis without evidence of organized fluid collections. 2. Hepatic steatosis. 3. No evidence of biliary duct or pancreatic duct dilatation. 4. Mildly distended gallbladder without evidence of cholelithiasis. 5. Minimal ascites. 6. Small hepatic hemangioma. Josias Arthur MD Abdomen/Pelvis CT 10/29/16 0147 Signed Impressions: Service Date/Time: Saturday, October 29, 2016 05:23 - CONCLUSION: 1. Hepatomegaly and hepatic steatosis. 2. Acute pancreatitis. No evidence for pseudocyst or abscess. 3. There is pericholecystic fat stranding and findings of this gallbladder wall edema versus trace pericholecystic fluid. The possibility of cholecystitis should be entertained, and a gallbladder ultrasound would be helpful for further assessment. 4. Atherosclerosis. 5. Small amount of free fluid. 6. Severe osteoarthritis of the left hip. Gustavo Soto MD Gall Bladder Ultrasound 10/29/16 0000 Signed Impressions: Service Date/Time: Saturday, October 29, 2016 07:49 - CONCLUSION: Technically limited exam. Gallbladder is mildly distended but otherwise focally unremarkable. Poorly seen fatty liver with hypoechoic right lobe mass. This likely correlates with hypervascular focus in segment V. Further characterization with hepatic MRI may be beneficial. Christophe Vegas MD Abdomen X-Ray 10/29/16 0000 Signed Impressions: Service Date/Time: Saturday, October 29, 2016 02:11 - CONCLUSION: 1. Nonobstructive bowel gas pattern. Gustavo Soto MD Objective Remarks GENERAL: This is a well-nourished, well-developed patient, in no apparent distress. CARDIOVASCULAR: Regular rate and regular rhythm without murmurs, gallops, or rubs. RESPIRATORY: Clear to auscultation. Breath sounds equal bilaterally. No wheezes , rales, or rhonchi. GASTROINTESTINAL: Abdomen soft, still with periumbilical tenderness, nondistended. Normal, active bowel sounds MUSCULOSKELETAL: Extremities without clubbing, cyanosis, or edema. NEURO: Alert & Oriented x4 to person, place, time, situation. Moves all ext x4 Procedures none Medications and IVs Current Medications Morphine Sulfate (Morphine Inj) 4 mg ONCE ONCE IV PUSH Last administered on 02:06; Start 10/29/16 at 02:00; Stop 10/29/16 at 02:01; Status DC Ondansetron HCl 4 mg 4 mg ONCE ONCE IVP Last administered on 10/29/16 02:05; Start 10/29/16 at 02:00; Stop 10/29/16 at 02:01; Status DC Sodium Chloride (NS 1000 ml Inj) 1,000 ml @ 125 mls/hr Q8H IV Last administered on 10/29/16 02:05; Start 10/29/16 at 01:47; Stop 10/29/16 at 06:36; Status DC Sodium Chloride 2 ml 2 ml UNSCH PRN IV FLUSH FLUSH AFTER USING IV ACCESS Last administered on 10/29/16 02:05; Start 10/29/16 at 02:00; Stop 10/29/16 at 06:36; Status DC Sodium Chloride (NS 1000 ml Inj) 1,000 ml @ 999 mls/hr BOLUS ONCE IV Last administered on 10/29/16 05:10; Start 10/29/16 at 05:00; Stop 10/29/16 at 06:00; Status DC Morphine Sulfate (Morphine Inj) 4 mg ONCE ONCE IV PUSH Last administered on 05:15; Start 10/29/16 at 05:15; Stop 10/29/16 at 05:16; Status DC Ondansetron HCl 4 mg 4 mg ONCE ONCE IV PUSH Last administered on 10/29/16 05: 15; Start 10/29/16 at 05:15; Stop 10/29/16 at 05:16; Status DC Potassium Chloride (KCl 20 Meq Premix Inj) 100 ml @ 50 mls/hr Q2H IV Last administered on 10/29/16 08:29; Start 10/29/16 at 05:15; Stop 10/29/16 at 09:14; Status DC Iohexol 100 ml 100 ml STK-MED ONCE IV Last administered on 10/29/16 05:26; Start 10/29/16 at 05:26; Stop 10/29/16 at 05:27; Status DC Piperacillin Sod/ Tazobactam Sod 100 ml @ 200 mls/hr ONCE ONCE IV Last administered on 10/29/16 06:25; Start 10/29/16 at 06:00; Stop 10/29/16 at 06:29; Status DC Sodium Chloride (NS 1000 ml Inj) 1,000 ml @ 100 mls/hr Q10H IV Last administered on 10/29/16 21:22; Start 10/29/16 at 06:31; Stop 10/30/16 at 09:17; Status DC Sodium Chloride (NS Flush) 2 ml UNSCH PRN IV FLUSH FLUSH AFTER USING IV ACCESS Last administered on 10/31/16 14:07; Start 10/29/16 at 06:45 Sodium Chloride (NS Flush) 2 ml BID IV FLUSH Last administered on 10/31/16 09: 04; Start 10/29/16 at 09:00 Ondansetron HCl (Zofran Inj) 4 mg Q6H PRN IVP NAUSEA OR VOMITING Last administered on 11/02/16 03:33; Start 10/29/16 at 06:45 Naloxone HCl (Narcan Inj) 0.4 mg UNSCH PRN IV SEE LABEL COMMENTS; Start at 06:45 Morphine Sulfate 2 mg 2 mg Q3H PRN IV PUSH pain >5 Last administered on 09:06; Start 10/29/16 at 06:45; Stop 10/31/16 at 09:17; Status DC Piperacillin Sod/ Tazobactam Sod (Zosyn 3.375 Gm Premix) 50 ml @ 100 mls/hr Q6H IV Last administered on 11/02/16 06:24; Start 10/29/16 at 12:00 Pantoprazole Sodium (Protonix Inj) 40 mg DAILY IV PUSH Last administered on 08:32; Start 10/29/16 at 09:00 Gabapentin (Neurontin) 200 mg BID PO Last administered on 11/01/16 20:29; Start 10/29/16 at 09:00 Zonisamide (Zonegran) 100 mg BID PO Last administered on 11/01/16 20:31; Start 10/29/16 at 09:00 Enalaprilat (Vasotec Inj) 1.25 mg Q8H PRN IV PUSH SBP> OR = 180, DBP> OR = 100 Last administered on 11/01/16 16:17; Start 10/29/16 at 08:00 Acetaminophen (Tylenol) 650 mg Q4H PRN PO FEVER Last administered on 10/29/16 12:11; Start 10/29/16 at 08:15 Enoxaparin Sodium (Lovenox Inj) 40 mg Q24H SQ Last administered on 11/01/16 08 :32; Start 10/29/16 at 09:00 Lorazepam (Ativan) 2 mg Q6H PRN PO ANXIETY AND/OR AGITATION Last administered on 11/01/16 21:39; Start 10/29/16 at 10:45 Phenytoin (Dilantin) 100 mg TID PO ; Start 10/29/16 at 13:00; Stop 10/29/16 at 13: 00; Status DC Phenytoin (Dilantin) 100 mg Q8H PO Last administered on 11/02/16 03:28; Start 10/29/16 at 11:00 Amlodipine Besylate (Norvasc) 10 mg DAILY PO Last administered on 11/01/16 08: 32; Start 10/29/16 at 10:45 Clonidine (Catapres) 0.1 mg NOW ONCE PO Last administered on 10/29/16 15:57; Start 10/29/16 at 16:00; Stop 10/29/16 at 16:01; Status DC Clonidine 0.1 mg 0.1 mg NOW ONCE PO ; Start 10/29/16 at 16:30; Stop 10/29/16 at 16:31; Status Cancel Potassium Chloride 20 meq/ Sodium Chloride 1,010 ml @ 100 mls/hr Q10H6M IV ; Start 10/31/16 at 06:31; Stop 10/31/16 at 06:31; Status DC Potassium Chloride (KCl 20 Meq Premix Inj) 100 ml @ 50 mls/hr BOLUS ONCE IV Last administered on 10/30/16 11:00; Start 10/30/16 at 09:30; Stop 10/30/16 at 11:29; Status DC Nifedipine 30 mg 30 mg ONCE ONCE PO Last administered on 10/30/16 11:00; Start 10/30/16 at 09:30; Stop 10/30/16 at 09:31; Status DC Potassium Chloride/Sodium Chloride (NS + KCl 20 Meq Inj) 1,000 ml @ 100 mls/hr Q10H IV Last administered on 11/02/16 06:28; Start 10/30/16 at 09:30 Hydromorphone HCl (Dilaudid Pf Inj) 0.5 mg ONCE ONCE IV PUSH Last administered on 10/31/16 05:11; Start 10/31/16 at 05:00; Stop 10/31/16 at 05:01 ; Status DC Hydromorphone HCl (Dilaudid Pf Inj) 0.5 mg Q4H PRN IV PUSH PAIN 4-6; Start 02/06 at 09:15; Stop 11/01/16 at 11:10; Status DC Hydromorphone HCl 1 mg 1 mg Q4H PRN IV PUSH PAIN 7-10 Last administered on 11/01 08:30; Start 10/31/16 at 09:15; Stop 11/01/16 at 11:10; Status DC Potassium Chloride (KCl 20 Meq Premix Inj) 100 ml @ 50 mls/hr Q2H IV Last administered on 10/31/16 16:29; Start 10/31/16 at 13:00; Stop 10/31/16 at 16:59 ; Status DC Gadodiamide (Omniscan Pf Inj) 18 ml STK-MED ONCE IV Last administered on 15:28; Start 10/31/16 at 15:28; Stop 10/31/16 at 15:29; Status DC Hydromorphone HCl (Dilaudid Pf Inj) 0.5 mg Q3H PRN IV PUSH PAIN 4-6; Start 03/08 at 14:00; Stop 11/01/16 at 14:00; Status DC Hydromorphone HCl (Dilaudid Pf Inj) 1 mg Q3H PRN IV PUSH PAIN 7-10; Start 11/01 at 14:00; Stop 11/01/16 at 14:00; Status DC Magnesium Hydroxide (Milk Of Magnesia Liq) 30 ml DAILY PRN PO CONSTIPATION; Start 11/01/16 at 11:15 Nifedipine (Procardia Xl) 30 mg ONCE ONCE PO Last administered on 11/01/16 12 :22; Start 11/01/16 at 12:00; Stop 11/01/16 at 12:01; Status DC Hydromorphone HCl (Dilaudid Pf Inj) 0.5 mg Q3H PRN IV PUSH PAIN 4-6; Start 03/08 at 12:15 Hydromorphone HCl 1 mg 1 mg Q3H PRN IV PUSH PAIN 7-10 Last administered on 11/02 06:23; Start 11/01/16 at 12:15 Potassium Chloride (KCl 20 Meq Premix Inj) 100 ml @ 50 mls/hr BOLUS ONCE IV Last administered on 11/01/16 16:45; Start 11/01/16 at 16:45; Stop 11/01/16 at 18:44; Status DC Enalaprilat (Vasotec Inj) 1.25 mg ONCE ONCE IV PUSH ; Start 11/01/16 at 16:45 ; Stop 11/01/16 at 16:46; Status DC A/P Assessment and Plan A/P - severe sepsis due to acute pancreatitis with questionable acute cholecystitis - on clear liquid diet- will advance the diet slowly- continue IV fluid, IV antibiotics- continue antiemetics. continue IV dilaudid- will resume his methadone when nausea / abdominal pain is better. MRI of the abdomen with acute pancreatitis- GI following. -hypokalemia; replaced.will monitor. -hypertension;not well controlled-likely due to the pain- hold amlodipine- - vasotec prn- start Procardia today. continue to monitor and adjust the regimen as needed. - seizure disorder/neuropathy; resumed home meds -DVT prophylaxis with subq Lovenox Sintia Iverson MD Nov 02, 2016 08:40
[2016-11-02] MEDS: SODIUM CHLORIDE 0.9% FLUSH 10 ML FLUSH IV FLUSH SCH ×2 (09:00→21:30)
[2016-11-02] MEDS: PANTOPRAZOLE SODIUM 40 MG VIAL IV PUSH SCH (09:19)
[2016-11-02] MEDS: GABAPENTIN 100 MG CAP PO SCH ×2 (09:20→21:29)
[2016-11-02] MEDS: ZONISAMIDE 100 MG CAP PO SCH ×2 (09:20→21:28)
[2016-11-02] MEDS: ENOXAPARIN SODIUM 40 MG/0.4 ML SYRINGE SQ SCH (09:20)
[2016-11-02] MEDS: NIFEdipine 30 MG SUSTAINED RELEASE TAB PO SCH (09:20)
[2016-11-02] MEDS: LORazepam 2 MG TAB PO PRN ×2 (09:32→21:29)
[2016-11-02 12:00] VITALS: BP 177/97; PULSE 101; RESP 18; TEMP 100; O2SAT 100
--- NOTE | 2016-11-02 15:20 | HHI.GIFU ---
Subjective Remarks Lying in bed in no apparent distress. Continues to have abdominal tenderness and intermittent nausea. (Arianna Petty) Objective Vitals I&O Vital Signs Date Time Temp Pulse Resp B/P Pulse Ox O2 Delivery O2 Flow Rate FiO2 11/02/16 08:00 98.9 95 18 187/94 98 11/02/16 04:27 98.1 100 18 162/92 99 11/01/16 23:05 98.1 111 19 168/95 97 11/01/16 20:20 96.8 104 19 159/88 96 11/01/16 16:00 99.2 92 18 179/100 97 190/96 I/O 11/01/16 11/01/16 11/01/16 11/02/16 11/02/16 11/02/16 07:00 15:00 23:00 07:00 15:00 23:00 Intake Total 600 ml 1159 ml 720 ml Output Total 750 ml 1175 ml Balance -150 ml 1159 ml -455 ml Intake Oral 600 ml 720 ml IV Total 1159 ml Output Urine Total 750 ml 1175 ml # Bowel Movements 0 Imaging Last Impressions Abdomen MRI 10/31/16 0000 Signed Impressions: Service Date/Time: Monday, October 31, 2016 14:57 - CONCLUSION: 1. Acute pancreatitis without evidence of organized fluid collections. 2. Hepatic steatosis. 3. No evidence of biliary duct or pancreatic duct dilatation. 4. Mildly distended gallbladder without evidence of cholelithiasis. 5. Minimal ascites. 6. Small hepatic hemangioma. Josias Arthur MD Abdomen/Pelvis CT 10/29/16 0147 Signed Impressions: Service Date/Time: Saturday, October 29, 2016 05:23 - CONCLUSION: 1. Hepatomegaly and hepatic steatosis. 2. Acute pancreatitis. No evidence for pseudocyst or abscess. 3. There is pericholecystic fat stranding and findings of this gallbladder wall edema versus trace pericholecystic fluid. The possibility of cholecystitis should be entertained, and a gallbladder ultrasound would be helpful for further assessment. 4. Atherosclerosis. 5. Small amount of free fluid. 6. Severe osteoarthritis of the left hip. Gustavo Soto MD Gall Bladder Ultrasound 10/29/16 0000 Signed Impressions: Service Date/Time: Saturday, October 29, 2016 07:49 - CONCLUSION: Technically limited exam. Gallbladder is mildly distended but otherwise focally unremarkable. Poorly seen fatty liver with hypoechoic right lobe mass. This likely correlates with hypervascular focus in segment V. Further characterization with hepatic MRI may be beneficial. Christophe Vegas MD Abdomen X-Ray 10/29/16 0000 Signed Impressions: Service Date/Time: Saturday, October 29, 2016 02:11 - CONCLUSION: 1. Nonobstructive bowel gas pattern. Gustavo Soto MD Physical Exam HEENT: Normocephalic; atraumatic; no jaundice. CHEST: CTA CARDIAC: RRR ABDOMEN: Soft, nondistended, periumbilical TTP; no hepatosplenomegaly; bowel sounds x 4 EXTREMITIES: Generalized edema. SKIN: Normal; no rash; no jaundice. LEAD PRESSMAN: No focal deficits; alert and oriented x 3 (Arianna Petty) Assessment and Plan Plan ASSESSMENT - Acute pancreatitis with abdominal pain and nausea/vomiting. Abdomen/Pelvis CT (10/29/16)---> 1. Hepatomegaly and hepatic steatosis. 2. Acute pancreatitis. No evidence for pseudocyst or abscess. 3. There is pericholecystic fat stranding and findings of this gallbladder wall edema versus trace pericholecystic fluid. The possibility of cholecystitis should be entertained, and a gallbladder ultrasound would be helpful for further assessment. 4. Atherosclerosis. 5. Small amount of free fluid. 6. Severe osteoarthritis of the left hip. Gall Bladder Ultrasound (10/29/16)---> Technically limited exam. Gallbladder is mildly distended but otherwise focally unremarkable. Poorly seen fatty liver with hypoechoic right lobe mass. This likely correlates with hypervascular focus in segment V. Further characterization with hepatic MRI may be beneficial. MRI abd 11-01-16--> fatty liver, acute pancreatitis, no evidence biliary or pancreatic duct dilatation, mildly distended BG no evidence cholelithiasis, min ascites, hemangioma liver. States he has never had pancreatitis. States rare ETOH use, but does admit to drinking (unclear amount) prior to this episode. Continues to have abdominal pain/nausea. WBC trending down. Lipase 899 (10/31) , 1101 (11/01) - Right hepatic lobe mass on US. AFP 4.9. MRI abd as above. - Leukocytosis. WBC 15.4. Zosyn. PLAN - Clear liquid diet - Antiemetics - Monitor Lipase - IVF - PPI - Zosyn. - Supportive care - Further recommendations to follow based on results of above Patient seen and examined by Dr. Tan and myself and this note is written on his behalf. (Arianna Petty) Physician Comments Patient Seen and examined Agree with above Continue with current supportive care Monitor labs Rising lipase with persistent abdominal pain we will continue to monitor for now further recommendations shall depend on his hospital course (Jcarlos Tan MD) Arianna Petty Nov 02, 2016 15:20 Jcarlos Tan MD Nov 02, 2016 22:13
[2016-11-02 16:00] VITALS: BP 159/97; PULSE 99; RESP 18; TEMP 97.3; O2SAT 100
[2016-11-02 20:00] VITALS: BP 172/94; PULSE 85; RESP 18; TEMP 98.6; O2SAT 97
[2016-11-03] VITALS (8 sets, daily range): BP systolic 156–187; BP diastolic 86–96; PULSE 84–102; RESP 18–20; TEMP 97–99.5; O2SAT 95–99
[2016-11-03] MEDS: PIPERACIL-TAZO 3.375 GM PREMIX 50 ML IV SCH ×5 (00:28→23:25)
[2016-11-03] MEDS: HYDROmorphone HCL PF 1 MG/ML VIAL IV PUSH PRN ×8 (00:29→23:24)
[2016-11-03] MEDS: PHENYTOIN SODIUM 100 MG CAP PO SCH ×3 (03:22→18:38)
[2016-11-03] MEDS: ONDANSETRON HCL 4 MG/2 ML VIAL IVP PRN ×4 (03:22→22:54)
[2016-11-03] MEDS: NS + KCL 20 MEQ INJ 1,000 ML IV SCH ×3 (06:01→23:26)
[2016-11-03] MEDS: GABAPENTIN 100 MG CAP PO SCH ×2 (08:25→20:11)
[2016-11-03] MEDS: ZONISAMIDE 100 MG CAP PO SCH ×2 (08:25→20:11)
[2016-11-03] MEDS: NIFEdipine 30 MG SUSTAINED RELEASE TAB PO SCH (08:25)
[2016-11-03] MEDS: ENOXAPARIN SODIUM 40 MG/0.4 ML SYRINGE SQ SCH (08:26)
[2016-11-03] MEDS: PANTOPRAZOLE SODIUM 40 MG VIAL IV PUSH SCH (08:26)
[2016-11-03] MEDS: SODIUM CHLORIDE 0.9% FLUSH 10 ML FLUSH IV FLUSH SCH ×2 (08:26→20:11)
[2016-11-03] MEDS: LORazepam 2 MG TAB PO PRN ×2 (08:45→20:17)
--- NOTE | 2016-11-03 08:51 | HHI.PR ---
Subjective Remarks looks and feels slightly better. no fever today- Tmax 100. BP still elevated. d/w the RN. Objective Vitals Vital Signs Date Time Temp Pulse Resp B/P Pulse Ox O2 Delivery O2 Flow Rate FiO2 11/03/16 04:00 97.0 84 18 175/94 97 11/03/16 00:00 99.5 92 18 186/96 99 11/02/16 20:00 98.6 85 18 172/94 97 11/02/16 16:00 97.3 99 18 159/97 100 11/02/16 12:00 100.0 101 18 177/97 100 I/O 11/02/16 11/02/16 11/02/16 11/03/16 11/03/16 11/03/16 07:00 15:00 23:00 07:00 15:00 23:00 Intake Total 720 ml 960 ml 806 ml 441 ml Output Total 1175 ml 500 ml Balance -455 ml 960 ml 306 ml 441 ml Intake Oral 720 ml 960 ml IV Total 806 ml 441 ml Output Urine Total 1175 ml 500 ml # Voids 4 1 # Bowel Movements 0 0 1 Result Diagram: 11/01/16 1156 11/01/16 1156 Imaging Last Impressions Abdomen MRI 10/31/16 0000 Signed Impressions: Service Date/Time: Monday, October 31, 2016 14:57 - CONCLUSION: 1. Acute pancreatitis without evidence of organized fluid collections. 2. Hepatic steatosis. 3. No evidence of biliary duct or pancreatic duct dilatation. 4. Mildly distended gallbladder without evidence of cholelithiasis. 5. Minimal ascites. 6. Small hepatic hemangioma. Josias Arthur MD Abdomen/Pelvis CT 10/29/16 0147 Signed Impressions: Service Date/Time: Saturday, October 29, 2016 05:23 - CONCLUSION: 1. Hepatomegaly and hepatic steatosis. 2. Acute pancreatitis. No evidence for pseudocyst or abscess. 3. There is pericholecystic fat stranding and findings of this gallbladder wall edema versus trace pericholecystic fluid. The possibility of cholecystitis should be entertained, and a gallbladder ultrasound would be helpful for further assessment. 4. Atherosclerosis. 5. Small amount of free fluid. 6. Severe osteoarthritis of the left hip. Gustavo Soto MD Gall Bladder Ultrasound 10/29/16 0000 Signed Impressions: Service Date/Time: Saturday, October 29, 2016 07:49 - CONCLUSION: Technically limited exam. Gallbladder is mildly distended but otherwise focally unremarkable. Poorly seen fatty liver with hypoechoic right lobe mass. This likely correlates with hypervascular focus in segment V. Further characterization with hepatic MRI may be beneficial. Christophe Vegas MD Abdomen X-Ray 10/29/16 0000 Signed Impressions: Service Date/Time: Saturday, October 29, 2016 02:11 - CONCLUSION: 1. Nonobstructive bowel gas pattern. Gustavo Soto MD Objective Remarks GENERAL: This is a well-nourished, well-developed patient, in no apparent distress. CARDIOVASCULAR: Regular rate and regular rhythm without murmurs, gallops, or rubs. RESPIRATORY: Clear to auscultation. Breath sounds equal bilaterally. No wheezes , rales, or rhonchi. GASTROINTESTINAL: Abdomen soft, still with periumbilical tenderness, nondistended. Normal, active bowel sounds MUSCULOSKELETAL: Extremities without clubbing, cyanosis, or edema. NEURO: Alert & Oriented x4 to person, place, time, situation. Moves all ext x4 Procedures none Medications and IVs Current Medications Morphine Sulfate (Morphine Inj) 4 mg ONCE ONCE IV PUSH Last administered on 02:06; Start 10/29/16 at 02:00; Stop 10/29/16 at 02:01; Status DC Ondansetron HCl 4 mg 4 mg ONCE ONCE IVP Last administered on 10/29/16 02:05; Start 10/29/16 at 02:00; Stop 10/29/16 at 02:01; Status DC Sodium Chloride (NS 1000 ml Inj) 1,000 ml @ 125 mls/hr Q8H IV Last administered on 10/29/16 02:05; Start 10/29/16 at 01:47; Stop 10/29/16 at 06:36; Status DC Sodium Chloride 2 ml 2 ml UNSCH PRN IV FLUSH FLUSH AFTER USING IV ACCESS Last administered on 10/29/16 02:05; Start 10/29/16 at 02:00; Stop 10/29/16 at 06:36; Status DC Sodium Chloride (NS 1000 ml Inj) 1,000 ml @ 999 mls/hr BOLUS ONCE IV Last administered on 10/29/16 05:10; Start 10/29/16 at 05:00; Stop 10/29/16 at 06:00; Status DC Morphine Sulfate (Morphine Inj) 4 mg ONCE ONCE IV PUSH Last administered on 05:15; Start 10/29/16 at 05:15; Stop 10/29/16 at 05:16; Status DC Ondansetron HCl 4 mg 4 mg ONCE ONCE IV PUSH Last administered on 10/29/16 05: 15; Start 10/29/16 at 05:15; Stop 10/29/16 at 05:16; Status DC Potassium Chloride (KCl 20 Meq Premix Inj) 100 ml @ 50 mls/hr Q2H IV Last administered on 10/29/16 08:29; Start 10/29/16 at 05:15; Stop 10/29/16 at 09:14; Status DC Iohexol 100 ml 100 ml STK-MED ONCE IV Last administered on 10/29/16 05:26; Start 10/29/16 at 05:26; Stop 10/29/16 at 05:27; Status DC Piperacillin Sod/ Tazobactam Sod 100 ml @ 200 mls/hr ONCE ONCE IV Last administered on 10/29/16 06:25; Start 10/29/16 at 06:00; Stop 10/29/16 at 06:29; Status DC Sodium Chloride (NS 1000 ml Inj) 1,000 ml @ 100 mls/hr Q10H IV Last administered on 10/29/16 21:22; Start 10/29/16 at 06:31; Stop 10/30/16 at 09:17; Status DC Sodium Chloride (NS Flush) 2 ml UNSCH PRN IV FLUSH FLUSH AFTER USING IV ACCESS Last administered on 10/31/16 14:07; Start 10/29/16 at 06:45 Sodium Chloride (NS Flush) 2 ml BID IV FLUSH Last administered on 11/03/16 08: 26; Start 10/29/16 at 09:00 Ondansetron HCl (Zofran Inj) 4 mg Q6H PRN IVP NAUSEA OR VOMITING Last administered on 11/03/16 03:22; Start 10/29/16 at 06:45 Naloxone HCl (Narcan Inj) 0.4 mg UNSCH PRN IV SEE LABEL COMMENTS; Start at 06:45 Morphine Sulfate 2 mg 2 mg Q3H PRN IV PUSH pain >5 Last administered on 09:06; Start 10/29/16 at 06:45; Stop 10/31/16 at 09:17; Status DC Piperacillin Sod/ Tazobactam Sod (Zosyn 3.375 Gm Premix) 50 ml @ 100 mls/hr Q6H IV Last administered on 11/03/16 05:59; Start 10/29/16 at 12:00 Pantoprazole Sodium (Protonix Inj) 40 mg DAILY IV PUSH Last administered on 08:26; Start 10/29/16 at 09:00 Gabapentin (Neurontin) 200 mg BID PO Last administered on 11/03/16 08:25; Start 10/29/16 at 09:00 Zonisamide (Zonegran) 100 mg BID PO Last administered on 11/03/16 08:25; Start 10/29/16 at 09:00 Enalaprilat (Vasotec Inj) 1.25 mg Q8H PRN IV PUSH SBP> OR = 180, DBP> OR = 100 Last administered on 11/01/16 16:17; Start 10/29/16 at 08:00 Acetaminophen (Tylenol) 650 mg Q4H PRN PO FEVER Last administered on 10/29/16 12:11; Start 10/29/16 at 08:15 Enoxaparin Sodium (Lovenox Inj) 40 mg Q24H SQ Last administered on 11/03/16 08 :26; Start 10/29/16 at 09:00 Lorazepam (Ativan) 2 mg Q6H PRN PO ANXIETY AND/OR AGITATION Last administered on 11/02/16 21:29; Start 10/29/16 at 10:45 Phenytoin (Dilantin) 100 mg TID PO ; Start 10/29/16 at 13:00; Stop 10/29/16 at 13: 00; Status DC Phenytoin (Dilantin) 100 mg Q8H PO Last administered on 11/03/16 03:22; Start 10/29/16 at 11:00 Amlodipine Besylate (Norvasc) 10 mg DAILY PO Last administered on 11/01/16 08: 32; Start 10/29/16 at 10:45; Status Hold Clonidine (Catapres) 0.1 mg NOW ONCE PO Last administered on 10/29/16 15:57; Start 10/29/16 at 16:00; Stop 10/29/16 at 16:01; Status DC Clonidine 0.1 mg 0.1 mg NOW ONCE PO ; Start 10/29/16 at 16:30; Stop 10/29/16 at 16:31; Status Cancel Potassium Chloride 20 meq/ Sodium Chloride 1,010 ml @ 100 mls/hr Q10H6M IV ; Start 10/31/16 at 06:31; Stop 10/31/16 at 06:31; Status DC Potassium Chloride (KCl 20 Meq Premix Inj) 100 ml @ 50 mls/hr BOLUS ONCE IV Last administered on 10/30/16 11:00; Start 10/30/16 at 09:30; Stop 10/30/16 at 11:29; Status DC Nifedipine 30 mg 30 mg ONCE ONCE PO Last administered on 10/30/16 11:00; Start 10/30/16 at 09:30; Stop 10/30/16 at 09:31; Status DC Potassium Chloride/Sodium Chloride (NS + KCl 20 Meq Inj) 1,000 ml @ 100 mls/hr Q10H IV Last administered on 11/03/16 06:01; Start 10/30/16 at 09:30 Hydromorphone HCl (Dilaudid Pf Inj) 0.5 mg ONCE ONCE IV PUSH Last administered on 10/31/16 05:11; Start 10/31/16 at 05:00; Stop 10/31/16 at 05:01 ; Status DC Hydromorphone HCl (Dilaudid Pf Inj) 0.5 mg Q4H PRN IV PUSH PAIN 4-6; Start 02/06 at 09:15; Stop 11/01/16 at 11:10; Status DC Hydromorphone HCl 1 mg 1 mg Q4H PRN IV PUSH PAIN 7-10 Last administered on 11/01 08:30; Start 10/31/16 at 09:15; Stop 11/01/16 at 11:10; Status DC Potassium Chloride (KCl 20 Meq Premix Inj) 100 ml @ 50 mls/hr Q2H IV Last administered on 8/11/17at 16:29; Start 10/31/16 at 13:00; Stop 10/31/16 at 16:59 ; Status DC Gadodiamide (Omniscan Pf Inj) 18 ml STK-MED ONCE IV Last administered on 15:28; Start 10/31/16 at 15:28; Stop 10/31/16 at 15:29; Status DC Hydromorphone HCl (Dilaudid Pf Inj) 0.5 mg Q3H PRN IV PUSH PAIN 4-6; Start 03/08 at 14:00; Stop 11/01/16 at 14:00; Status DC Hydromorphone HCl (Dilaudid Pf Inj) 1 mg Q3H PRN IV PUSH PAIN 7-10; Start 11/01 at 14:00; Stop 11/01/16 at 14:00; Status DC Magnesium Hydroxide (Milk Of Magnesia Liq) 30 ml DAILY PRN PO CONSTIPATION; Start 11/01/16 at 11:15 Nifedipine (Procardia Xl) 30 mg ONCE ONCE PO Last administered on 11/01/16 12 :22; Start 11/01/16 at 12:00; Stop 11/01/16 at 12:01; Status DC Hydromorphone HCl (Dilaudid Pf Inj) 0.5 mg Q3H PRN IV PUSH PAIN 4-6; Start 03/08 at 12:15 Hydromorphone HCl 1 mg 1 mg Q3H PRN IV PUSH PAIN 7-10 Last administered on 11/03 06:33; Start 11/01/16 at 12:15 Potassium Chloride (KCl 20 Meq Premix Inj) 100 ml @ 50 mls/hr BOLUS ONCE IV Last administered on 11/01/16 16:45; Start 11/01/16 at 16:45; Stop 11/01/16 at 18:44; Status DC Enalaprilat (Vasotec Inj) 1.25 mg ONCE ONCE IV PUSH ; Start 11/01/16 at 16:45 ; Stop 11/01/16 at 16:46; Status DC Nifedipine (Procardia Xl) 30 mg DAILY PO Last administered on 11/03/16 08:25; Start 11/02/16 at 09:00 A/P Assessment and Plan A/P - severe sepsis due to acute pancreatitis with questionable acute cholecystitis - on clear liquid diet- will advance the diet slowly- continue IV fluid, IV antibiotics- continue antiemetics. monitor lipase level. continue IV dilaudid- will resume his methadone today. MRI of the abdomen with acute pancreatitis- GI following. -hypokalemia; replaced.will monitor. -hypertension;not well controlled-likely due to the pain- hold amlodipine- - vasotec prn- increase Procardia today. continue to monitor and adjust the regimen as needed. - seizure disorder/neuropathy; resumed home meds -DVT prophylaxis with subq LovenoSintia Huitron MD Nov 03, 2016 08:51
[2016-11-03] MEDS: METHADONE HCL 10 MG TAB PO SCH ×3 (09:00→18:38)
[2016-11-03] MEDS ORDERED: NIFEdipine 30 MG SUSTAINED RELEASE TAB PO ONE (09:00)
--- NOTE | 2016-11-03 14:01 | HHI.GIFU ---
Subjective Remarks Resting in bed. States he is feeling much better today since he was placed back on his methadone. States he was having so much back pain before, that it made his abdominal pain worse, but now that his back pain is better controlled, his abdominal pain is improving. Tolerating liquids. States that they were not able to draw his lipase this am and that he is waiting on someone to come up and try again. He is hoping his diet can be advanced. (Darya Angulo) Objective Vitals I&O Vital Signs Date Time Temp Pulse Resp B/P Pulse Ox O2 Delivery O2 Flow Rate FiO2 11/03/16 08:00 99.0 89 20 187/92 98 11/03/16 04:00 97.0 84 18 175/94 97 11/03/16 00:00 99.5 92 18 186/96 99 11/02/16 20:00 98.6 85 18 172/94 97 11/02/16 16:00 97.3 99 18 159/97 100 I/O 11/02/16 11/02/16 11/02/16 11/03/16 11/03/16 11/03/16 06:59 14:59 22:59 06:59 14:59 22:59 Intake Total 720 ml 960 ml 806 ml 441 ml Output Total 1175 ml 500 ml Balance -455 ml 960 ml 306 ml 441 ml Intake Oral 720 ml 960 ml IV Total 806 ml 441 ml Output Urine Total 1175 ml 500 ml # Voids 4 1 # Bowel Movements 0 0 1 Laboratory Laboratory Tests Test 11/02/16 20:45 Lipase 1683 Imaging Last Impressions Abdomen MRI 10/31/16 0000 Signed Impressions: Service Date/Time: Monday, October 31, 2016 14:57 - CONCLUSION: 1. Acute pancreatitis without evidence of organized fluid collections. 2. Hepatic steatosis. 3. No evidence of biliary duct or pancreatic duct dilatation. 4. Mildly distended gallbladder without evidence of cholelithiasis. 5. Minimal ascites. 6. Small hepatic hemangioma. Josias Arthur MD Abdomen/Pelvis CT 10/29/16 0147 Signed Impressions: Service Date/Time: Saturday, October 29, 2016 05:23 - CONCLUSION: 1. Hepatomegaly and hepatic steatosis. 2. Acute pancreatitis. No evidence for pseudocyst or abscess. 3. There is pericholecystic fat stranding and findings of this gallbladder wall edema versus trace pericholecystic fluid. The possibility of cholecystitis should be entertained, and a gallbladder ultrasound would be helpful for further assessment. 4. Atherosclerosis. 5. Small amount of free fluid. 6. Severe osteoarthritis of the left hip. Gustavo Soto MD Gall Bladder Ultrasound 10/29/16 0000 Signed Impressions: Service Date/Time: Saturday, October 29, 2016 07:49 - CONCLUSION: Technically limited exam. Gallbladder is mildly distended but otherwise focally unremarkable. Poorly seen fatty liver with hypoechoic right lobe mass. This likely correlates with hypervascular focus in segment V. Further characterization with hepatic MRI may be beneficial. Christophe Vegas MD Abdomen X-Ray 10/29/16 0000 Signed Impressions: Service Date/Time: Saturday, October 29, 2016 02:11 - CONCLUSION: 1. Nonobstructive bowel gas pattern. Gustavo Soto MD Physical Exam HEENT: Normocephalic; atraumatic; no jaundice. CHEST: CTA CARDIAC: RRR ABDOMEN: Soft, nondistended, very mild epigastric tenderness; no hepatosplenomegaly; bowel sounds x 4 EXTREMITIES: Generalized edema. SKIN: Normal; no rash; no jaundice. PEDIATRIC NEUROLOGIST: No focal deficits; alert and oriented x 3 (Darya Angulo) Assessment and Plan Plan ASSESSMENT - Acute pancreatitis with abdominal pain and nausea/vomiting. Abdomen/Pelvis CT (10/29/16)---> 1. Hepatomegaly and hepatic steatosis. 2. Acute pancreatitis. No evidence for pseudocyst or abscess. 3. There is pericholecystic fat stranding and findings of this gallbladder wall edema versus trace pericholecystic fluid. The possibility of cholecystitis should be entertained, and a gallbladder ultrasound would be helpful for further assessment. 4. Atherosclerosis. 5. Small amount of free fluid. 6. Severe osteoarthritis of the left hip. Gall Bladder Ultrasound (10/29/16)---> Technically limited exam. Gallbladder is mildly distended but otherwise focally unremarkable. Poorly seen fatty liver with hypoechoic right lobe mass. This likely correlates with hypervascular focus in segment V. Further characterization with hepatic MRI may be beneficial. MRI abd 11-01-16--> fatty liver, acute pancreatitis, no evidence biliary or pancreatic duct dilatation, mildly distended GB no evidence cholelithiasis, min ascites, hemangioma liver. Clinically, abdominal pain is much improved. Lipase is pending. He is tolerating liquids and hoping that his diet States he has never had pancreatitis. States rare ETOH use, but does admit to drinking (unclear amount) prior to this episode. - Right hepatic lobe mass on US. AFP 4.9. MRI abd as above. - Leukocytosis. WBC 15.4 on 11/01. Zosyn. PLAN - Advance to full liquid diet - PPI - Zosyn - Lipase in am - Supportive care - Further recommendations to follow based on results of above - Patient seen and examined by Dr. Tan and myself and this note is written on his behalf. (Darya Angulo) Physician Comments Patient seen and examined Agree with above Continue with current supportive care Monitor labs (Jcarlos Tan MD) Darya Angulo Nov 03, 2016 14:01 Jcarlos Tan MD Nov 03, 2016 22:32
[2016-11-03 22:44] LABS: AUTOMATED NEUTROPHIL # 10.4 TH/MM3 (1.8-7.7); BASOPHIL # 0.1 TH/MM3 (0-0.2); BASOPHIL % 0.7 % (0.0-2.0); EOSINOPHIL # 0.1 TH/MM3 (0-0.4); EOSINOPHIL % 0.9 % (0.0-4.0); HEMO FLAGS DIFF FINAL; LYMPH % 13.8 % (9.0-44.0); LYMPHOCYTE # 1.8 TH/MM3 (1.0-4.8); MEAN CELL VOLUME 91.8 FL (80.0-100.0); MEAN CORPUSCULAR HEMOGLOBIN 31.8 PG (27.0-34.0); MEAN CORPUSCULAR HGB CONC 34.6 % (32.0-36.0); MONO % 5.7 % (0.0-8.0); NEUT % 78.9 % (16.0-70.0); PLATELET COUNT 191 TH/MM3 (150-450); RED BLOOD COUNT 3.93 MIL/MM3 (4.50-5.90); RED CELL DISTRIBUTION WIDTH 15.3 % (11.6-17.2); WHITE BLOOD COUNT 13.2 TH/MM3 (4.0-11.0)
[2016-11-03 23:15] LABS: ANION GAP 8 MEQ/L (5-15); BLOOD UREA NITROGEN 7 MG/DL (7-18); CHLORIDE 107 MEQ/L (98-107); POTASSIUM 3.2 MEQ/L (3.5-5.1); SODIUM (NA) 137 MEQ/L (136-145)
[2016-11-04] MEDS: PHENYTOIN SODIUM 100 MG CAP PO SCH ×3 (02:45→18:26)
[2016-11-04] MEDS: HYDROmorphone HCL PF 1 MG/ML VIAL IV PUSH PRN ×7 (02:45→23:41)
[2016-11-04 04:32] VITALS: BP 173/96; PULSE 91; RESP 18; TEMP 97.5; O2SAT 98
[2016-11-04] MEDS: ONDANSETRON HCL 4 MG/2 ML VIAL IVP PRN ×3 (05:06→20:20)
[2016-11-04] MEDS: PIPERACIL-TAZO 3.375 GM PREMIX 50 ML IV SCH ×4 (05:06→22:18)
[2016-11-04 08:00] VITALS: BP 186/91; PULSE 84; RESP 18; TEMP 98.2; O2SAT 95
[2016-11-04] MEDS: ZONISAMIDE 100 MG CAP PO SCH ×2 (08:15→20:20)
[2016-11-04] MEDS: ENOXAPARIN SODIUM 40 MG/0.4 ML SYRINGE SQ SCH (08:17)
[2016-11-04] MEDS: GABAPENTIN 100 MG CAP PO SCH ×2 (08:18→20:19)
[2016-11-04] MEDS: NIFEdipine 30 MG SUSTAINED RELEASE TAB PO SCH (08:18)
[2016-11-04] MEDS: METHADONE HCL 10 MG TAB PO SCH ×3 (08:18→18:18)
[2016-11-04] MEDS: PANTOPRAZOLE SODIUM 40 MG VIAL IV PUSH SCH (08:19)
[2016-11-04] MEDS: NS + KCL 20 MEQ INJ 1,000 ML IV SCH ×3 (08:19→20:22)
[2016-11-04] MEDS: SODIUM CHLORIDE 0.9% FLUSH 10 ML FLUSH IV FLUSH SCH ×2 (08:19→20:21)
[2016-11-04 09:10] LABS: AUTOMATED NEUTROPHIL # 9.7 TH/MM3 (1.8-7.7); BASOPHIL # 0.1 TH/MM3 (0-0.2); BASOPHIL % 0.4 % (0.0-2.0); EOSINOPHIL # 0.1 TH/MM3 (0-0.4); EOSINOPHIL % 1.1 % (0.0-4.0); HEMATOCRIT 36.5 % (39.0-51.0); LYMPH % 12.1 % (9.0-44.0); LYMPHOCYTE # 1.5 TH/MM3 (1.0-4.8); MEAN CELL VOLUME 93.4 FL (80.0-100.0); MEAN CORPUSCULAR HEMOGLOBIN 30.5 PG (27.0-34.0); MEAN CORPUSCULAR HGB CONC 32.7 % (32.0-36.0); MONO % 6.9 % (0.0-8.0); NEUT % 79.5 % (16.0-70.0); PLATELET COUNT 200 TH/MM3 (150-450); RED BLOOD COUNT 3.91 MIL/MM3 (4.50-5.90); RED CELL DISTRIBUTION WIDTH 15.3 % (11.6-17.2); WHITE BLOOD COUNT 12.2 TH/MM3 (4.0-11.0)
[2016-11-04 09:14] LABS: HEMO FLAGS AUTO DIFF
[2016-11-04 09:33] LABS: ALT (GPT) 12 U/L (12-78); ANION GAP 10 MEQ/L (5-15); AST (GOT) 16 U/L (15-37); BICARBONATE 22.4 MEQ/L (21.0-32.0); BLOOD UREA NITROGEN 6 MG/DL (7-18); CHLORIDE 107 MEQ/L (98-107); GLOMERULAR FILTRATION RATE 137 ML/MIN (>89); POTASSIUM 3.4 MEQ/L (3.5-5.1); SODIUM (NA) 139 MEQ/L (136-145)
[2016-11-04 09:37] LABS: ALKALINE PHOSPHATASE 90 U/L (45-117); TOTAL BILIRUBIN ADULT 0.5 MG/DL (0.2-1.0)
[2016-11-04 09:50] LABS: PLATELET ESTIMATE SMEAR NORMAL (NORMAL); PLATELET MORPHOLOGY NORMAL (NORMAL); SCAN/DIFF AUTO DIFF CONFIRMED
--- NOTE | 2016-11-04 10:15 | HHI.GIFU ---
Subjective Remarks Pt resting in bed. States he was feeling better yesterday, but when he tried the full liquids last night, he had worsening nausea and abdominal pain. He is afraid to eat today. No fever (Darya Angulo) Objective Vitals I&O Vital Signs Date Time Temp Pulse Resp B/P Pulse Ox O2 Delivery O2 Flow Rate FiO2 11/04/16 08:00 98.2 84 18 186/91 95 11/04/16 04:32 97.5 91 18 173/96 98 11/03/16 23:45 97.9 100 18 156/94 95 11/03/16 20:00 98 11/03/16 19:45 97.5 102 18 162/86 97 11/03/16 18:30 86 11/03/16 18:30 97.8 86 20 173/88 99 11/03/16 12:00 98.7 87 20 163/92 97 I/O 11/03/16 11/03/16 11/03/16 11/04/16 11/04/16 11/04/16 07:00 15:00 23:00 07:00 15:00 23:00 Intake Total 441 ml 1326 ml 720 ml 360 ml Output Total 475 ml 400 ml Balance 441 ml 1326 ml 245 ml -40 ml Intake Oral 500 ml 720 ml 360 ml IV Total 441 ml 826 ml Output Urine Total 475 ml 400 ml # Voids 1 5 1 # Bowel Movements 1 0 0 1 Laboratory Laboratory Tests Test 11/03/16 11/04/16 22:28 07:13 White Blood Count 13.2 12.2 Red Blood Count 3.93 3.91 Hemoglobin 12.5 11.9 Hematocrit 36.0 36.5 Mean Corpuscular Volume 91.8 93.4 Mean Corpuscular Hemoglobin 31.8 30.5 Mean Corpuscular Hemoglobin 34.6 32.7 Concent Red Cell Distribution Width 15.3 15.3 Platelet Count 191 200 Mean Platelet Volume 7.8 7.5 Neutrophils (%) (Auto) 78.9 79.5 Lymphocytes (%) (Auto) 13.8 12.1 Monocytes (%) (Auto) 5.7 6.9 Eosinophils (%) (Auto) 0.9 1.1 Basophils (%) (Auto) 0.7 0.4 Neutrophils # (Auto) 10.4 9.7 Lymphocytes # (Auto) 1.8 1.5 Monocytes # (Auto) 0.8 0.8 Eosinophils # (Auto) 0.1 0.1 Basophils # (Auto) 0.1 0.1 CBC Comment DIFF FINAL AUTO DIFF Differential Comment AUTO DIFF CONFIRMED Sodium Level 137 139 Potassium Level 3.2 3.4 Chloride Level 107 107 Carbon Dioxide Level 22.0 22.4 Anion Gap 8 10 Blood Urea Nitrogen 7 6 Creatinine 0.64 0.60 Random Glucose 120 84 Calcium Level 8.6 8.5 Lipase 1524 1910 Platelet Estimate NORMAL Platelet Morphology Comment NORMAL Red Cell Morphology Comment NORMAL Estimat Glomerular Filtration 137 Rate Total Bilirubin 0.5 Aspartate Amino Transf 16 (AST/SGOT) Alanine Aminotransferase 12 (ALT/SGPT) Alkaline Phosphatase 90 Total Protein 6.1 Albumin 2.6 Imaging Last Impressions Abdomen MRI 10/31/16 0000 Signed Impressions: Service Date/Time: Monday, October 31, 2016 14:57 - CONCLUSION: 1. Acute pancreatitis without evidence of organized fluid collections. 2. Hepatic steatosis. 3. No evidence of biliary duct or pancreatic duct dilatation. 4. Mildly distended gallbladder without evidence of cholelithiasis. 5. Minimal ascites. 6. Small hepatic hemangioma. Josias Arthur MD Abdomen/Pelvis CT 10/29/16 0147 Signed Impressions: Service Date/Time: Saturday, October 29, 2016 05:23 - CONCLUSION: 1. Hepatomegaly and hepatic steatosis. 2. Acute pancreatitis. No evidence for pseudocyst or abscess. 3. There is pericholecystic fat stranding and findings of this gallbladder wall edema versus trace pericholecystic fluid. The possibility of cholecystitis should be entertained, and a gallbladder ultrasound would be helpful for further assessment. 4. Atherosclerosis. 5. Small amount of free fluid. 6. Severe osteoarthritis of the left hip. Gustavo Soto MD Gall Bladder Ultrasound 10/29/16 0000 Signed Impressions: Service Date/Time: Saturday, October 29, 2016 07:49 - CONCLUSION: Technically limited exam. Gallbladder is mildly distended but otherwise focally unremarkable. Poorly seen fatty liver with hypoechoic right lobe mass. This likely correlates with hypervascular focus in segment V. Further characterization with hepatic MRI may be beneficial. Christophe Vegas MD Abdomen X-Ray 10/29/16 0000 Signed Impressions: Service Date/Time: Saturday, October 29, 2016 02:11 - CONCLUSION: 1. Nonobstructive bowel gas pattern. Gustavo Soto MD Physical Exam HEENT: Normocephalic; atraumatic; no jaundice. CHEST: CTA CARDIAC: RRR ABDOMEN: Soft, nondistended, epigastric/LUQ tenderness; no hepatosplenomegaly; bowel sounds x 4 EXTREMITIES: Generalized edema. SKIN: Normal; no rash; no jaundice. CHIROPRACTIC ASSISTANT: No focal deficits; alert and oriented x 3 (AnguloDarya) Assessment and Plan Plan ASSESSMENT - Acute pancreatitis with abdominal pain and nausea/vomiting. Abdomen/Pelvis CT (10/29/16)---> 1. Hepatomegaly and hepatic steatosis. 2. Acute pancreatitis. No evidence for pseudocyst or abscess. 3. There is pericholecystic fat stranding and findings of this gallbladder wall edema versus trace pericholecystic fluid. The possibility of cholecystitis should be entertained, and a gallbladder ultrasound would be helpful for further assessment. 4. Atherosclerosis. 5. Small amount of free fluid. 6. Severe osteoarthritis of the left hip. Gall Bladder Ultrasound (10/29/16)---> Technically limited exam. Gallbladder is mildly distended but otherwise focally unremarkable. Poorly seen fatty liver with hypoechoic right lobe mass. This likely correlates with hypervascular focus in segment V. Further characterization with hepatic MRI may be beneficial. MRI abd 11-01-16--> fatty liver, acute pancreatitis, no evidence biliary or pancreatic duct dilatation, mildly distended GB no evidence cholelithiasis, min ascites, hemangioma liver. He was doing better yesterday , but he did not tolerate the full liquids- increased nausea/pain, states he is now afraid to eat. Lipase increased to 1910. WBC okay. Afebrile. Will make NPO and increase IVF to 125cc/hr. Zosyn. - Right hepatic lobe mass on US. AFP 4.9. S/P MRI, hemangioma. - Leukocytosis. WBC 12.2 . Zosyn. PLAN - NPO except meds - Increase IVF to 125cc/hr - Cont. PPI - Cont. Zosyn - Lipase in am - Supportive care - Further recommendations to follow based on results of above - Patient seen and examined by Dr. Tan and myself and this note is written on his behalf. (Darya Angulo) Physician Comments Patient seen and examined Agree with above Continue current supportive care Monitor labs There is a possibility that this worsening of the lipase may be related to medications versus smoldering pancreatitis versus other Further recommendations shall depend on his hospital course even the consideration for a GJ tube (Jcarlos Tan MD) Darya Angulo Nov 04, 2016 10:15 Jcarlos Tan MD Nov 04, 2016 18:25
--- NOTE | 2016-11-04 10:58 | HHI.PR ---
Subjective Remarks in no acute distress. has some abdominal pain. no nausea,vomiting or fever. noted an upward trend in lipase level. Objective Vitals Vital Signs Date Time Temp Pulse Resp B/P Pulse Ox O2 Delivery O2 Flow Rate FiO2 11/04/16 08:00 98.2 84 18 186/91 95 11/04/16 04:32 97.5 91 18 173/96 98 11/03/16 23:45 97.9 100 18 156/94 95 11/03/16 20:00 98 11/03/16 19:45 97.5 102 18 162/86 97 11/03/16 18:30 86 11/03/16 18:30 97.8 86 20 173/88 99 11/03/16 12:00 98.7 87 20 163/92 97 I/O 11/03/16 11/03/16 11/03/16 11/04/16 11/04/16 11/04/16 06:59 14:59 22:59 06:59 14:59 22:59 Intake Total 441 ml 826 ml 1220 ml 360 ml Output Total 475 ml 400 ml Balance 441 ml 826 ml 745 ml -40 ml Intake Oral 1220 ml 360 ml IV Total 441 ml 826 ml Output Urine Total 475 ml 400 ml # Voids 1 5 1 # Bowel Movements 1 0 1 Result Diagram: 11/04/16 0713 11/04/16 0713 Imaging Last Impressions Abdomen MRI 10/31/16 0000 Signed Impressions: Service Date/Time: Monday, October 31, 2016 14:57 - CONCLUSION: 1. Acute pancreatitis without evidence of organized fluid collections. 2. Hepatic steatosis. 3. No evidence of biliary duct or pancreatic duct dilatation. 4. Mildly distended gallbladder without evidence of cholelithiasis. 5. Minimal ascites. 6. Small hepatic hemangioma. Josias Arthur MD Abdomen/Pelvis CT 10/29/16 0147 Signed Impressions: Service Date/Time: Saturday, October 29, 2016 05:23 - CONCLUSION: 1. Hepatomegaly and hepatic steatosis. 2. Acute pancreatitis. No evidence for pseudocyst or abscess. 3. There is pericholecystic fat stranding and findings of this gallbladder wall edema versus trace pericholecystic fluid. The possibility of cholecystitis should be entertained, and a gallbladder ultrasound would be helpful for further assessment. 4. Atherosclerosis. 5. Small amount of free fluid. 6. Severe osteoarthritis of the left hip. Gustavo Soto MD Gall Bladder Ultrasound 10/29/16 0000 Signed Impressions: Service Date/Time: Saturday, October 29, 2016 07:49 - CONCLUSION: Technically limited exam. Gallbladder is mildly distended but otherwise focally unremarkable. Poorly seen fatty liver with hypoechoic right lobe mass. This likely correlates with hypervascular focus in segment V. Further characterization with hepatic MRI may be beneficial. Christophe Vegas MD Abdomen X-Ray 10/29/16 0000 Signed Impressions: Service Date/Time: Saturday, October 29, 2016 02:11 - CONCLUSION: 1. Nonobstructive bowel gas pattern. Gustavo Soto MD Objective Remarks GENERAL: This is a well-nourished, well-developed patient, in no apparent distress. CARDIOVASCULAR: Regular rate and regular rhythm without murmurs, gallops, or rubs. RESPIRATORY: Clear to auscultation. Breath sounds equal bilaterally. No wheezes , rales, or rhonchi. GASTROINTESTINAL: Abdomen soft, still with periumbilical tenderness, nondistended. Normal, active bowel sounds MUSCULOSKELETAL: Extremities without clubbing, cyanosis, or edema. NEURO: Alert & Oriented x4 to person, place, time, situation. Moves all ext x4 Procedures none Medications and IVs Current Medications Morphine Sulfate (Morphine Inj) 4 mg ONCE ONCE IV PUSH Last administered on 02:06; Start 10/29/16 at 02:00; Stop 10/29/16 at 02:01; Status DC Ondansetron HCl 4 mg 4 mg ONCE ONCE IVP Last administered on 10/29/16 02:05; Start 10/29/16 at 02:00; Stop 10/29/16 at 02:01; Status DC Sodium Chloride (NS 1000 ml Inj) 1,000 ml @ 125 mls/hr Q8H IV Last administered on 10/29/16 02:05; Start 10/29/16 at 01:47; Stop 10/29/16 at 06:36; Status DC Sodium Chloride 2 ml 2 ml UNSCH PRN IV FLUSH FLUSH AFTER USING IV ACCESS Last administered on 10/29/16 02:05; Start 10/29/16 at 02:00; Stop 10/29/16 at 06:36; Status DC Sodium Chloride (NS 1000 ml Inj) 1,000 ml @ 999 mls/hr BOLUS ONCE IV Last administered on 10/29/16 05:10; Start 10/29/16 at 05:00; Stop 10/29/16 at 06:00; Status DC Morphine Sulfate (Morphine Inj) 4 mg ONCE ONCE IV PUSH Last administered on 05:15; Start 10/29/16 at 05:15; Stop 10/29/16 at 05:16; Status DC Ondansetron HCl 4 mg 4 mg ONCE ONCE IV PUSH Last administered on 10/29/16 05: 15; Start 10/29/16 at 05:15; Stop 10/29/16 at 05:16; Status DC Potassium Chloride (KCl 20 Meq Premix Inj) 100 ml @ 50 mls/hr Q2H IV Last administered on 10/29/16 08:29; Start 10/29/16 at 05:15; Stop 10/29/16 at 09:14; Status DC Iohexol 100 ml 100 ml STK-MED ONCE IV Last administered on 10/29/16 05:26; Start 10/29/16 at 05:26; Stop 10/29/16 at 05:27; Status DC Piperacillin Sod/ Tazobactam Sod 100 ml @ 200 mls/hr ONCE ONCE IV Last administered on 10/29/16 06:25; Start 10/29/16 at 06:00; Stop 10/29/16 at 06:29; Status DC Sodium Chloride (NS 1000 ml Inj) 1,000 ml @ 100 mls/hr Q10H IV Last administered on 10/29/16 21:22; Start 10/29/16 at 06:31; Stop 10/30/16 at 09:17; Status DC Sodium Chloride (NS Flush) 2 ml UNSCH PRN IV FLUSH FLUSH AFTER USING IV ACCESS Last administered on 10/31/16 14:07; Start 10/29/16 at 06:45 Sodium Chloride (NS Flush) 2 ml BID IV FLUSH Last administered on 11/04/16 08: 19; Start 10/29/16 at 09:00 Ondansetron HCl (Zofran Inj) 4 mg Q6H PRN IVP NAUSEA OR VOMITING Last administered on 11/04/16 05:06; Start 10/29/16 at 06:45 Naloxone HCl (Narcan Inj) 0.4 mg UNSCH PRN IV SEE LABEL COMMENTS; Start at 06:45 Morphine Sulfate 2 mg 2 mg Q3H PRN IV PUSH pain >5 Last administered on 09:06; Start 10/29/16 at 06:45; Stop 10/31/16 at 09:17; Status DC Piperacillin Sod/ Tazobactam Sod (Zosyn 3.375 Gm Premix) 50 ml @ 100 mls/hr Q6H IV Last administered on 11/04/16 05:06; Start 10/29/16 at 12:00 Pantoprazole Sodium (Protonix Inj) 40 mg DAILY IV PUSH Last administered on 08:19; Start 10/29/16 at 09:00 Gabapentin (Neurontin) 200 mg BID PO Last administered on 11/04/16 08:18; Start 10/29/16 at 09:00 Zonisamide (Zonegran) 100 mg BID PO Last administered on 11/04/16 08:15; Start 10/29/16 at 09:00 Enalaprilat (Vasotec Inj) 1.25 mg Q8H PRN IV PUSH SBP> OR = 180, DBP> OR = 100 Last administered on 11/01/16 16:17; Start 10/29/16 at 08:00 Acetaminophen (Tylenol) 650 mg Q4H PRN PO FEVER Last administered on 10/29/16 12:11; Start 10/29/16 at 08:15 Enoxaparin Sodium (Lovenox Inj) 40 mg Q24H SQ Last administered on 11/04/16 08 :17; Start 10/29/16 at 09:00 Lorazepam (Ativan) 2 mg Q6H PRN PO ANXIETY AND/OR AGITATION Last administered on 11/03/16 20:17; Start 10/29/16 at 10:45 Phenytoin (Dilantin) 100 mg TID PO ; Start 10/29/16 at 13:00; Stop 10/29/16 at 13: 00; Status DC Phenytoin (Dilantin) 100 mg Q8H PO Last administered on 11/04/16 09:21; Start 10/29/16 at 11:00 Amlodipine Besylate (Norvasc) 10 mg DAILY PO Last administered on 11/01/16 08: 32; Start 10/29/16 at 10:45; Status Hold Clonidine (Catapres) 0.1 mg NOW ONCE PO Last administered on 10/29/16 15:57; Start 10/29/16 at 16:00; Stop 10/29/16 at 16:01; Status DC Clonidine 0.1 mg 0.1 mg NOW ONCE PO ; Start 10/29/16 at 16:30; Stop 10/29/16 at 16:31; Status Cancel Potassium Chloride 20 meq/ Sodium Chloride 1,010 ml @ 100 mls/hr Q10H6M IV ; Start 10/31/16 at 06:31; Stop 10/31/16 at 06:31; Status DC Potassium Chloride (KCl 20 Meq Premix Inj) 100 ml @ 50 mls/hr BOLUS ONCE IV Last administered on 10/30/16 11:00; Start 10/30/16 at 09:30; Stop 10/30/16 at 11:29; Status DC Nifedipine 30 mg 30 mg ONCE ONCE PO Last administered on 10/30/16 11:00; Start 10/30/16 at 09:30; Stop 10/30/16 at 09:31; Status DC Potassium Chloride/Sodium Chloride (NS + KCl 20 Meq Inj) 1,000 ml @ 125 mls/hr Q8H IV Last administered on 11/04/16 08:19; Start 10/30/16 at 09:30 Hydromorphone HCl (Dilaudid Pf Inj) 0.5 mg ONCE ONCE IV PUSH Last administered on 10/31/16 05:11; Start 10/31/16 at 05:00; Stop 10/31/16 at 05:01 ; Status DC Hydromorphone HCl (Dilaudid Pf Inj) 0.5 mg Q4H PRN IV PUSH PAIN 4-6; Start 02/06 at 09:15; Stop 11/01/16 at 11:10; Status DC Hydromorphone HCl 1 mg 1 mg Q4H PRN IV PUSH PAIN 7-10 Last administered on 11/01 08:30; Start 10/31/16 at 09:15; Stop 11/01/16 at 11:10; Status DC Potassium Chloride (KCl 20 Meq Premix Inj) 100 ml @ 50 mls/hr Q2H IV Last administered on 10/31/16 16:29; Start 10/31/16 at 13:00; Stop 10/31/16 at 16:59 ; Status DC Gadodiamide (Omniscan Pf Inj) 18 ml STK-MED ONCE IV Last administered on 15:28; Start 10/31/16 at 15:28; Stop 10/31/16 at 15:29; Status DC Hydromorphone HCl (Dilaudid Pf Inj) 0.5 mg Q3H PRN IV PUSH PAIN 4-6; Start 03/08 at 14:00; Stop 11/01/16 at 14:00; Status DC Hydromorphone HCl (Dilaudid Pf Inj) 1 mg Q3H PRN IV PUSH PAIN 7-10; Start 11/01 at 14:00; Stop 11/01/16 at 14:00; Status DC Magnesium Hydroxide (Milk Of Magnesia Liq) 30 ml DAILY PRN PO CONSTIPATION; Start 11/01/16 at 11:15 Nifedipine (Procardia Xl) 30 mg ONCE ONCE PO Last administered on 11/01/16 12 :22; Start 11/01/16 at 12:00; Stop 11/01/16 at 12:01; Status DC Hydromorphone HCl (Dilaudid Pf Inj) 0.5 mg Q3H PRN IV PUSH PAIN 4-6; Start 03/08 at 12:15 Hydromorphone HCl 1 mg 1 mg Q3H PRN IV PUSH PAIN 7-10 Last administered on 11/04 09:22; Start 11/01/16 at 12:15 Potassium Chloride (KCl 20 Meq Premix Inj) 100 ml @ 50 mls/hr BOLUS ONCE IV Last administered on 11/01/16 16:45; Start 11/01/16 at 16:45; Stop 11/01/16 at 18:44; Status DC Enalaprilat (Vasotec Inj) 1.25 mg ONCE ONCE IV PUSH ; Start 11/01/16 at 16:45 ; Stop 11/01/16 at 16:46; Status DC Nifedipine (Procardia Xl) 30 mg DAILY PO Last administered on 8/14/17at 08:25; Start 11/02/16 at 09:00; Stop 11/03/16 at 08:52; Status DC Methadone HCl (Dolophine) 30 mg TID PO Last administered on 11/04/16 08:18; Start 11/03/16 at 09:00 Nifedipine (Procardia Xl) 60 mg DAILY PO Last administered on 11/04/16 08:18; Start 11/04/16 at 09:00 Nifedipine (Procardia Xl) 30 mg ONCE ONCE PO Last administered on 11/03/16 12 :00; Start 11/03/16 at 09:00; Stop 11/03/16 at 11:37; Status DC A/P Assessment and Plan A/P - severe sepsis due to acute pancreatitis with questionable acute cholecystitis - MRI of the abdomen with acute pancreatitis lipase is trending up- keep NPO for now- continue IV fluid, IV antibiotics- continue antiemetics and pain control. monitor lipase level closely-GI follow-up appreciated. -hypokalemia; will replace.will monitor. -hypertension;still not well controlled-likely due to the pain- hold amlodipine - - vasotec prn- continue procardia- will add clonidine- continue to monitor and adjust the regimen as needed. - seizure disorder/neuropathy; resumed home meds -DVT prophylaxis with subq LoveSintia Price MD Nov 04, 2016 10:58
[2016-11-04] MEDS: cloNIDine HCL 0.1 MG TAB PO SCH ×2 (11:40→20:20)
[2016-11-04] MEDS: LORazepam 2 MG TAB PO PRN ×2 (11:40→22:18)
[2016-11-04 12:00] VITALS: BP 187/95; PULSE 80; RESP 18; TEMP 97.7; O2SAT 97
[2016-11-04 16:00] VITALS: BP 174/93; PULSE 81; RESP 18; TEMP 96.6; O2SAT 97
[2016-11-04 16:01] VITALS: PULSE 81
[2016-11-04 20:00] VITALS: BP 169/89; PULSE 85; RESP 17; TEMP 97.4; O2SAT 98
[2016-11-05 00:28] VITALS: BP 177/95; PULSE 91; RESP 18; TEMP 96.7; O2SAT 96
[2016-11-05] MEDS: PHENYTOIN SODIUM 100 MG CAP PO SCH ×3 (02:39→19:24)
[2016-11-05] MEDS: ONDANSETRON HCL 4 MG/2 ML VIAL IVP PRN ×4 (02:39→22:23)
[2016-11-05] MEDS: HYDROmorphone HCL PF 1 MG/ML VIAL IV PUSH PRN ×7 (02:40→22:23)
[2016-11-05 04:30] VITALS: BP 173/85; PULSE 98; RESP 18; TEMP 96.7; O2SAT 96
[2016-11-05] MEDS: PIPERACIL-TAZO 3.375 GM PREMIX 50 ML IV SCH ×4 (05:44→23:50)
[2016-11-05 08:00] VITALS: BP 168/88; PULSE 93; RESP 19; TEMP 97.6; O2SAT 100
[2016-11-05] MEDS: ENOXAPARIN SODIUM 40 MG/0.4 ML SYRINGE SQ SCH (08:58)
[2016-11-05] MEDS: ZONISAMIDE 100 MG CAP PO SCH ×2 (09:00→22:22)
[2016-11-05] MEDS: METHADONE HCL 10 MG TAB PO SCH ×3 (09:00→19:24)
[2016-11-05] MEDS: NIFEdipine 30 MG SUSTAINED RELEASE TAB PO SCH (09:00)
[2016-11-05] MEDS: NS + KCL 20 MEQ INJ 1,000 ML IV SCH ×3 (09:01→22:22)
[2016-11-05] MEDS: cloNIDine HCL 0.1 MG TAB PO SCH ×2 (09:01→16:08)
[2016-11-05] MEDS: GABAPENTIN 100 MG CAP PO SCH ×2 (09:01→22:22)
[2016-11-05] MEDS: SODIUM CHLORIDE 0.9% FLUSH 10 ML FLUSH IV FLUSH SCH ×2 (09:02→22:22)
[2016-11-05] MEDS: PANTOPRAZOLE SODIUM 40 MG VIAL IV PUSH SCH (09:02)
[2016-11-05] MEDS: LORazepam 2 MG TAB PO PRN ×2 (09:17→22:22)
--- NOTE | 2016-11-05 11:40 | HHI.PR ---
Subjective Remarks in no distress. abdominal pain is better.has on and off nausea. overall doing better. no fever. Objective Vitals Vital Signs Date Time Temp Pulse Resp B/P Pulse Ox O2 Delivery O2 Flow Rate FiO2 11/05/16 08:00 97.6 93 19 168/88 100 11/05/16 04:30 96.7 98 18 173/85 96 11/05/16 00:28 96.7 91 18 177/95 96 11/04/16 20:00 97.4 85 17 169/89 98 11/04/16 19:03 Room Air 11/04/16 16:01 81 11/04/16 16:00 96.6 81 18 174/93 97 11/04/16 12:00 97.7 80 18 187/95 97 I/O 11/04/16 11/04/16 11/04/16 11/05/16 11/05/16 11/05/16 07:00 15:00 23:00 07:00 15:00 23:00 Intake Total 360 ml 875 ml 1641 ml 825 ml Output Total 400 ml 650 ml 1500 ml Balance -40 ml 875 ml 991 ml -675 ml Intake Oral 360 ml 720 ml 120 ml IV Total 875 ml 921 ml 705 ml Output Urine Total 400 ml 650 ml 1500 ml # Voids 1 4 1 # Bowel Movements 1 0 0 1 Result Diagram: 11/04/1613 11/04/1613 Imaging Last Impressions Abdomen MRI 10/31/16 0000 Signed Impressions: Service Date/Time: Monday, October 31, 2016 14:57 - CONCLUSION: 1. Acute pancreatitis without evidence of organized fluid collections. 2. Hepatic steatosis. 3. No evidence of biliary duct or pancreatic duct dilatation. 4. Mildly distended gallbladder without evidence of cholelithiasis. 5. Minimal ascites. 6. Small hepatic hemangioma. Josias Arthur MD Abdomen/Pelvis CT 10/29/16 0147 Signed Impressions: Service Date/Time: Saturday, October 29, 2016 05:23 - CONCLUSION: 1. Hepatomegaly and hepatic steatosis. 2. Acute pancreatitis. No evidence for pseudocyst or abscess. 3. There is pericholecystic fat stranding and findings of this gallbladder wall edema versus trace pericholecystic fluid. The possibility of cholecystitis should be entertained, and a gallbladder ultrasound would be helpful for further assessment. 4. Atherosclerosis. 5. Small amount of free fluid. 6. Severe osteoarthritis of the left hip. Gustavo Soto MD Gall Bladder Ultrasound 10/29/16 Signed Impressions: Service Date/Time: Saturday, October 29, 2016 07:49 - CONCLUSION: Technically limited exam. Gallbladder is mildly distended but otherwise focally unremarkable. Poorly seen fatty liver with hypoechoic right lobe mass. This likely correlates with hypervascular focus in segment V. Further characterization with hepatic MRI may be beneficial. Christophe Vegas MD Abdomen X-Ray 10/29/16 Signed Impressions: Service Date/Time: Saturday, October 29, 2016 02:11 - CONCLUSION: 1. Nonobstructive bowel gas pattern. Gustavo Soto MD Objective Remarks GENERAL: This is a well-nourished, well-developed patient, in no apparent distress. CARDIOVASCULAR: Regular rate and regular rhythm without murmurs, gallops, or rubs. RESPIRATORY: Clear to auscultation. Breath sounds equal bilaterally. No wheezes , rales, or rhonchi. GASTROINTESTINAL: Abdomen soft, still with periumbilical tenderness, nondistended. Normal, active bowel sounds MUSCULOSKELETAL: Extremities without clubbing, cyanosis, or edema. NEURO: Alert & Oriented x4 to person, place, time, situation. Moves all ext x4 Procedures none Medications and IVs Current Medications Morphine Sulfate (Morphine Inj) 4 mg ONCE ONCE IV PUSH Last administered on 02:06; Start 10/29/16 at 02:00; Stop 10/29/16 at 02:01; Status DC Ondansetron HCl 4 mg 4 mg ONCE ONCE IVP Last administered on 10/29/16 02:05; Start 10/29/16 at 02:00; Stop 10/29/16 at 02:01; Status DC Sodium Chloride (NS 1000 ml Inj) 1,000 ml @ 125 mls/hr Q8H IV Last administered on 10/29/16 02:05; Start 10/29/16 at 01:47; Stop 10/29/16 at 06:36; Status DC Sodium Chloride 2 ml 2 ml UNSCH PRN IV FLUSH FLUSH AFTER USING IV ACCESS Last administered on 10/29/16 02:05; Start 10/29/16 at 02:00; Stop 10/29/16 at 06:36; Status DC Sodium Chloride (NS 1000 ml Inj) 1,000 ml @ 999 mls/hr BOLUS ONCE IV Last administered on 10/29/16 05:10; Start 10/29/16 at 05:00; Stop 10/29/16 at 06:00; Status DC Morphine Sulfate (Morphine Inj) 4 mg ONCE ONCE IV PUSH Last administered on 05:15; Start 10/29/16 at 05:15; Stop 10/29/16 at 05:16; Status DC Ondansetron HCl 4 mg 4 mg ONCE ONCE IV PUSH Last administered on 10/29/16 05: 15; Start 10/29/16 at 05:15; Stop 10/29/16 at 05:16; Status DC Potassium Chloride (KCl 20 Meq Premix Inj) 100 ml @ 50 mls/hr Q2H IV Last administered on 10/29/16 08:29; Start 10/29/16 at 05:15; Stop 10/29/16 at 09:14; Status DC Iohexol 100 ml 100 ml STK-MED ONCE IV Last administered on 10/29/16 05:26; Start 10/29/16 at 05:26; Stop 10/29/16 at 05:27; Status DC Piperacillin Sod/ Tazobactam Sod 100 ml @ 200 mls/hr ONCE ONCE IV Last administered on 10/29/16 06:25; Start 10/29/16 at 06:00; Stop 10/29/16 at 06:29; Status DC Sodium Chloride (NS 1000 ml Inj) 1,000 ml @ 100 mls/hr Q10H IV Last administered on 10/29/16 21:22; Start 10/29/16 at 06:31; Stop 10/30/16 at 09:17; Status DC Sodium Chloride (NS Flush) 2 ml UNSCH PRN IV FLUSH FLUSH AFTER USING IV ACCESS Last administered on 10/31/16 14:07; Start 10/29/16 at 06:45 Sodium Chloride (NS Flush) 2 ml BID IV FLUSH Last administered on 11/05/16 09: 02; Start 10/29/16 at 09:00 Ondansetron HCl (Zofran Inj) 4 mg Q6H PRN IVP NAUSEA OR VOMITING Last administered on 11/05/16 08:59; Start 10/29/16 at 06:45 Naloxone HCl (Narcan Inj) 0.4 mg UNSCH PRN IV SEE LABEL COMMENTS; Start at 06:45 Morphine Sulfate 2 mg 2 mg Q3H PRN IV PUSH pain >5 Last administered on 09:06; Start 10/29/16 at 06:45; Stop 10/31/16 at 09:17; Status DC Piperacillin Sod/ Tazobactam Sod (Zosyn 3.375 Gm Premix) 50 ml @ 100 mls/hr Q6H IV Last administered on 11/05/16 05:44; Start 10/29/16 at 12:00 Pantoprazole Sodium (Protonix Inj) 40 mg DAILY IV PUSH Last administered on 09:02; Start 10/29/16 at 09:00 Gabapentin (Neurontin) 200 mg BID PO Last administered on 11/05/16 09:01; Start 10/29/16 at 09:00 Zonisamide (Zonegran) 100 mg BID PO Last administered on 11/05/16 09:00; Start 10/29/16 at 09:00 Enalaprilat (Vasotec Inj) 1.25 mg Q8H PRN IV PUSH SBP> OR = 180, DBP> OR = 100 Last administered on 11/01/16 16:17; Start 10/29/16 at 08:00 Acetaminophen (Tylenol) 650 mg Q4H PRN PO FEVER Last administered on 10/29/16 12:11; Start 10/29/16 at 08:15 Enoxaparin Sodium (Lovenox Inj) 40 mg Q24H SQ Last administered on 11/05/16 08 :58; Start 10/29/16 at 09:00 Lorazepam (Ativan) 2 mg Q6H PRN PO ANXIETY AND/OR AGITATION Last administered on 11/05/16 09:17; Start 10/29/16 at 10:45 Phenytoin (Dilantin) 100 mg TID PO ; Start 10/29/16 at 13:00; Stop 10/29/16 at 13: 00; Status DC Phenytoin (Dilantin) 100 mg Q8H PO Last administered on 11/05/16 02:39; Start 10/29/16 at 11:00 Amlodipine Besylate (Norvasc) 10 mg DAILY PO Last administered on 11/01/16 08: 32; Start 10/29/16 at 10:45; Status Hold Clonidine (Catapres) 0.1 mg NOW ONCE PO Last administered on 10/29/16 15:57; Start 10/29/16 at 16:00; Stop 10/29/16 at 16:01; Status DC Clonidine 0.1 mg 0.1 mg NOW ONCE PO ; Start 10/29/16 at 16:30; Stop 10/29/16 at 16:31; Status Cancel Potassium Chloride 20 meq/ Sodium Chloride 1,010 ml @ 100 mls/hr Q10H6M IV ; Start 10/31/16 at 06:31; Stop 10/31/16 at 06:31; Status DC Potassium Chloride (KCl 20 Meq Premix Inj) 100 ml @ 50 mls/hr BOLUS ONCE IV Last administered on 10/30/16 11:00; Start 10/30/16 at 09:30; Stop 10/30/16 at 11:29; Status DC Nifedipine 30 mg 30 mg ONCE ONCE PO Last administered on 10/30/16 11:00; Start 10/30/16 at 09:30; Stop 10/30/16 at 09:31; Status DC Potassium Chloride/Sodium Chloride (NS + KCl 20 Meq Inj) 1,000 ml @ 125 mls/hr Q8H IV Last administered on 11/05/16 09:01; Start 10/30/16 at 09:30 Hydromorphone HCl (Dilaudid Pf Inj) 0.5 mg ONCE ONCE IV PUSH Last administered on 10/31/16 05:11; Start 10/31/16 at 05:00; Stop 10/31/16 at 05:01 ; Status DC Hydromorphone HCl (Dilaudid Pf Inj) 0.5 mg Q4H PRN IV PUSH PAIN 4-6; Start 02/06 at 09:15; Stop 11/01/16 at 11:10; Status DC Hydromorphone HCl 1 mg 1 mg Q4H PRN IV PUSH PAIN 7-10 Last administered on 11/01 08:30; Start 10/31/16 at 09:15; Stop 11/01/16 at 11:10; Status DC Potassium Chloride (KCl 20 Meq Premix Inj) 100 ml @ 50 mls/hr Q2H IV Last administered on 10/31/16 16:29; Start 10/31/16 at 13:00; Stop 10/31/16 at 16:59 ; Status DC Gadodiamide (Omniscan Pf Inj) 18 ml STK-MED ONCE IV Last administered on 15:28; Start 10/31/16 at 15:28; Stop 10/31/16 at 15:29; Status DC Hydromorphone HCl (Dilaudid Pf Inj) 0.5 mg Q3H PRN IV PUSH PAIN 4-6; Start 03/08 at 14:00; Stop 11/01/16 at 14:00; Status DC Hydromorphone HCl (Dilaudid Pf Inj) 1 mg Q3H PRN IV PUSH PAIN 7-10; Start 11/01 at 14:00; Stop 11/01/16 at 14:00; Status DC Magnesium Hydroxide (Milk Of Magnesia Liq) 30 ml DAILY PRN PO CONSTIPATION; Start 11/01/16 at 11:15 Nifedipine (Procardia Xl) 30 mg ONCE ONCE PO Last administered on 11/01/16 12 :22; Start 11/01/16 at 12:00; Stop 11/01/16 at 12:01; Status DC Hydromorphone HCl (Dilaudid Pf Inj) 0.5 mg Q3H PRN IV PUSH PAIN 4-6; Start 03/08 at 12:15 Hydromorphone HCl 1 mg 1 mg Q3H PRN IV PUSH PAIN 7-10 Last administered on 11/05 08:59; Start 11/01/16 at 12:15 Potassium Chloride (KCl 20 Meq Premix Inj) 100 ml @ 50 mls/hr BOLUS ONCE IV Last administered on 11/01/16 16:45; Start 11/01/16 at 16:45; Stop 11/01/16 at 18:44; Status DC Enalaprilat (Vasotec Inj) 1.25 mg ONCE ONCE IV PUSH ; Start 11/01/16 at 16:45 ; Stop 11/01/16 at 16:46; Status DC Nifedipine (Procardia Xl) 30 mg DAILY PO Last administered on 11/03/16 08:25; Start 11/02/16 at 09:00; Stop 11/03/16 at 08:52; Status DC Methadone HCl (Dolophine) 30 mg TID PO Last administered on 11/05/16 09:00; Start 11/03/16 at 09:00 Nifedipine (Procardia Xl) 60 mg DAILY PO Last administered on 11/05/16 09:00; Start 11/04/16 at 09:00 Nifedipine (Procardia Xl) 30 mg ONCE ONCE PO Last administered on 11/03/16 12 :00; Start 11/03/16 at 09:00; Stop 11/03/16 at 11:37; Status DC Clonidine (Catapres) 0.1 mg Q12HR PO Last administered on 11/05/16 09:01; Start 11/04/16 at 11:00 A/P Assessment and Plan A/P - severe sepsis due to acute pancreatitis with questionable acute cholecystitis - MRI of the abdomen with acute pancreatitis lipase is trending down- continue IV fluid, IV antibiotics- continue antiemetics and pain control. will advance the diet slowly- awaiting GI follow-up. monitor lipase level closely- -hypokalemia; replaced.will monitor. -hypertension;still not well controlled-likely due to the pain- hold amlodipine - - vasotec prn- continue procardia- increase clonidine- continue to monitor and adjust the regimen as needed. - seizure disorder/neuropathy; resumed home meds -DVT prophylaxis with subq Lovenox Sintia Iverson MD Nov 05, 2016 11:40
[2016-11-05 12:00] VITALS: BP 141/89; PULSE 86; RESP 18; TEMP 98.1; O2SAT 99
--- NOTE | 2016-11-05 15:04 | HHI.GIFU ---
Subjective Remarks Pt resting in bed, inquiring about clear liquids. Says his pain is marginally better and he has not vomited today. (Christi Narayan) Objective Vitals I&O Vital Signs Date Time Temp Pulse Resp B/P Pulse Ox O2 Delivery O2 Flow Rate FiO2 11/05/16 12:00 98.1 86 18 141/89 99 11/05/16 08:00 97.6 93 19 168/88 100 11/05/16 04:30 96.7 98 18 173/85 96 11/05/16 00:28 96.7 91 18 177/95 96 11/04/16 20:00 97.4 85 17 169/89 98 11/04/16 19:03 Room Air 11/04/16 16:01 81 11/04/16 16:00 96.6 81 18 174/93 97 I/O 11/04/16 11/04/16 11/04/16 11/05/16 11/05/16 11/05/16 07:00 15:00 23:00 07:00 15:00 23:00 Intake Total 360 ml 875 ml 1641 ml 825 ml Output Total 400 ml 650 ml 1500 ml Balance -40 ml 875 ml 991 ml -675 ml Intake Oral 360 ml 720 ml 120 ml IV Total 875 ml 921 ml 705 ml Output Urine Total 400 ml 650 ml 1500 ml # Voids 1 4 1 # Bowel Movements 1 0 0 1 Laboratory Laboratory Tests Test 11/05/16 07:45 Lipase 1072 Imaging Last Impressions Abdomen MRI 10/31/16 0000 Signed Impressions: Service Date/Time: Monday, October 31, 2016 14:57 - CONCLUSION: 1. Acute pancreatitis without evidence of organized fluid collections. 2. Hepatic steatosis. 3. No evidence of biliary duct or pancreatic duct dilatation. 4. Mildly distended gallbladder without evidence of cholelithiasis. 5. Minimal ascites. 6. Small hepatic hemangioma. Josias Arthur MD Abdomen/Pelvis CT 10/29/16 0147 Signed Impressions: Service Date/Time: Saturday, October 29, 2016 05:23 - CONCLUSION: 1. Hepatomegaly and hepatic steatosis. 2. Acute pancreatitis. No evidence for pseudocyst or abscess. 3. There is pericholecystic fat stranding and findings of this gallbladder wall edema versus trace pericholecystic fluid. The possibility of cholecystitis should be entertained, and a gallbladder ultrasound would be helpful for further assessment. 4. Atherosclerosis. 5. Small amount of free fluid. 6. Severe osteoarthritis of the left hip. Gustavo Soto MD Gall Bladder Ultrasound 10/29/16 0000 Signed Impressions: Service Date/Time: Saturday, October 29, 2016 07:49 - CONCLUSION: Technically limited exam. Gallbladder is mildly distended but otherwise focally unremarkable. Poorly seen fatty liver with hypoechoic right lobe mass. This likely correlates with hypervascular focus in segment V. Further characterization with hepatic MRI may be beneficial. Christophe Vegas MD Abdomen X-Ray 10/29/16 0000 Signed Impressions: Service Date/Time: Saturday, October 29, 2016 02:11 - CONCLUSION: 1. Nonobstructive bowel gas pattern. Gustavo Soto MD Physical Exam HEENT: Normocephalic; atraumatic; no jaundice. CHEST: CTA CARDIAC: RRR ABDOMEN: Soft, nondistended, epigastric/LUQ tenderness; no hepatosplenomegaly; bowel sounds x 4 EXTREMITIES: Generalized edema. SKIN: Normal; no rash; no jaundice. DENTAL HYGIENE ADMINISTRATIVE ASSISTANT: No focal deficits; alert and oriented x 3 (Christi Narayan [employer]) Assessment and Plan Plan ASSESSMENT - Acute pancreatitis with abdominal pain and nausea/vomiting. Abdomen/Pelvis CT (10/29/16)---> 1. Hepatomegaly and hepatic steatosis. 2. Acute pancreatitis. No evidence for pseudocyst or abscess. 3. There is pericholecystic fat stranding and findings of this gallbladder wall edema versus trace pericholecystic fluid. The possibility of cholecystitis should be entertained, and a gallbladder ultrasound would be helpful for further assessment. 4. Atherosclerosis. 5. Small amount of free fluid. 6. Severe osteoarthritis of the left hip. Gall Bladder Ultrasound (10/29/16)---> Technically limited exam. Gallbladder is mildly distended but otherwise focally unremarkable. Poorly seen fatty liver with hypoechoic right lobe mass. This likely correlates with hypervascular focus in segment V. Further characterization with hepatic MRI may be beneficial. MRI abd 11-01-16--> fatty liver, acute pancreatitis, no evidence biliary or pancreatic duct dilatation, mildly distended GB no evidence cholelithiasis, min ascites, hemangioma liver. He was doing better yesterday , but he did not tolerate the full liquids- increased nausea/pain, states he is now afraid to eat.lipase had increased after full liquid and subsequently trending down. will try clears again. WBC okay. Afebrile. Zosyn. - Right hepatic lobe mass on US. AFP 4.9. S/P MRI, hemangioma. - Leukocytosis. WBC 12.2 . Zosyn. PLAN - clear liquids - Cont. PPI - Cont. Zosyn - Lipase in am - Supportive care - Further recommendations to follow based on results of above - Patient seen and examined by Dr. Tan and myself and this note is written on his behalf. (Christi Narayan) Physician Comments Patient seen and examined Agree with above Continue with current supportive care Monitor labs Recommend clear liquid diet at this point (Jcarlos Tan MD) Christi Narayan Nov 05, 2016 15:04 Jcarlos Tan MD Nov 05, 2016 18:30
[2016-11-05 16:00] VITALS: BP 165/93; PULSE 84; RESP 19; TEMP 96.6; O2SAT 99
[2016-11-05 19:00] VITALS: BP 165/95; PULSE 81; RESP 17; TEMP 98.5; O2SAT 99
[2016-11-06] VITALS: BP 163/89; PULSE 71; RESP 18; TEMP 97.4; O2SAT 99
[2016-11-06] MEDS: cloNIDine HCL 0.1 MG TAB PO SCH ×3 (01:20→15:31)
[2016-11-06] MEDS: PHENYTOIN SODIUM 100 MG CAP PO SCH ×3 (01:20→17:47)
[2016-11-06] MEDS: HYDROmorphone HCL PF 1 MG/ML VIAL IV PUSH PRN ×8 (01:21→23:14)
[2016-11-06 04:00] VITALS: BP 162/84; PULSE 80; RESP 17; TEMP 98; O2SAT 98
[2016-11-06] MEDS: PIPERACIL-TAZO 3.375 GM PREMIX 50 ML IV SCH ×3 (04:28→19:34)
[2016-11-06] MEDS: ONDANSETRON HCL 4 MG/2 ML VIAL IVP PRN ×3 (04:28→20:05)
[2016-11-06 07:54] LABS: AUTOMATED NEUTROPHIL # 6.4 TH/MM3 (1.8-7.7); BASOPHIL # 0.1 TH/MM3 (0-0.2); BASOPHIL % 1.2 % (0.0-2.0); EOSINOPHIL # 0.1 TH/MM3 (0-0.4); EOSINOPHIL % 1.4 % (0.0-4.0); HEMATOCRIT 34.2 % (39.0-51.0); LYMPH % 17.2 % (9.0-44.0); LYMPHOCYTE # 1.5 TH/MM3 (1.0-4.8); MEAN CELL VOLUME 92.4 FL (80.0-100.0); MEAN CORPUSCULAR HEMOGLOBIN 31.1 PG (27.0-34.0); MEAN CORPUSCULAR HGB CONC 33.7 % (32.0-36.0); MONO % 5.9 % (0.0-8.0); NEUT % 74.3 % (16.0-70.0); PLATELET COUNT 187 TH/MM3 (150-450); RED CELL DISTRIBUTION WIDTH 15.3 % (11.6-17.2); WHITE BLOOD COUNT 8.6 TH/MM3 (4.0-11.0)
[2016-11-06 07:57] LABS: HEMO FLAGS AUTO DIFF
[2016-11-06 08:00] VITALS: BP 167/87; PULSE 86; RESP 18; TEMP 99.1; O2SAT 99
[2016-11-06] MEDS: SODIUM CHLORIDE 0.9% FLUSH 10 ML FLUSH IV FLUSH SCH ×2 (08:30→20:06)
[2016-11-06 08:47] LABS: BICARBONATE 25.7 MEQ/L (21.0-32.0); POTASSIUM 3.2 MEQ/L (3.5-5.1)
[2016-11-06 08:52] LABS: EOSINOPHILS 3 % (0-4); MYELOCYTES 2 % (0-0); NEUTROPHIL # MANUAL DIFF 6.4 TH/MM3 (1.8-7.7); POLYS (SEG NEUTROPHILS) 72 % (16-70); WBC DIFF SAMPLE 100
[2016-11-06 08:53] LABS: PLATELET ESTIMATE SMEAR NORMAL (NORMAL); PLATELET MORPHOLOGY NORMAL (NORMAL); SCAN/DIFF FINAL DIFF MANUAL
[2016-11-06] MEDS: PANTOPRAZOLE SODIUM 40 MG VIAL IV PUSH SCH (09:11)
[2016-11-06] MEDS: NIFEdipine 30 MG SUSTAINED RELEASE TAB PO SCH (09:12)
[2016-11-06] MEDS: ZONISAMIDE 100 MG CAP PO SCH ×2 (09:12→20:05)
[2016-11-06] MEDS: LORazepam 2 MG TAB PO PRN (09:12)
[2016-11-06] MEDS: GABAPENTIN 100 MG CAP PO SCH ×2 (09:12→20:05)
[2016-11-06] MEDS: ENOXAPARIN SODIUM 40 MG/0.4 ML SYRINGE SQ SCH (09:13)
[2016-11-06] MEDS: METHADONE HCL 10 MG TAB PO SCH ×3 (09:13→17:47)
[2016-11-06] MEDS: NS + KCL 20 MEQ INJ 1,000 ML IV SCH ×2 (09:14→17:48)
--- NOTE | 2016-11-06 09:46 | HHI.GIFU ---
Subjective Remarks Resting in bed. Feels much better. Requesting mashed potatoes and gravy. No nausea. Pain much improved. (Darya Angulo) Objective Vitals I&O Vital Signs Date Time Temp Pulse Resp B/P Pulse Ox O2 Delivery O2 Flow Rate FiO2 11/06/16 08:00 99.1 86 18 167/87 99 11/06/16 04:00 98.0 80 17 162/84 98 11/06/16 00:00 97.4 71 18 163/89 99 11/05/16 19:12 Room Air 11/05/16 19:00 98.5 81 17 165/95 99 11/05/16 16:00 96.6 84 19 165/93 99 11/05/16 12:00 98.1 86 18 141/89 99 I/O 11/05/16 11/05/16 11/05/16 11/06/16 11/06/16 11/06/16 07:00 15:00 23:00 07:00 15:00 23:00 Intake Total 825 ml 1898 ml 1004 ml 1257 ml Output Total 1500 ml 1175 ml 960 ml 1500 ml Balance -675 ml 723 ml 44 ml -243 ml Intake Oral 120 ml 960 ml 480 ml 480 ml IV Total 705 ml 938 ml 524 ml 777 ml Output Urine Total 1500 ml 1175 ml 960 ml 1500 ml # Voids 1 5 # Bowel Movements 1 0 0 Laboratory Laboratory Tests Test 11/06/16 07:06 White Blood Count 8.6 Red Blood Count 3.70 Hemoglobin 11.5 Hematocrit 34.2 Mean Corpuscular Volume 92.4 Mean Corpuscular Hemoglobin 31.1 Mean Corpuscular Hemoglobin 33.7 Concent Red Cell Distribution Width 15.3 Platelet Count 187 Mean Platelet Volume 8.1 Neutrophils (%) (Auto) 74.3 Lymphocytes (%) (Auto) 17.2 Monocytes (%) (Auto) 5.9 Eosinophils (%) (Auto) 1.4 Basophils (%) (Auto) 1.2 Neutrophils # (Auto) 6.4 Lymphocytes # (Auto) 1.5 Monocytes # (Auto) 0.5 Eosinophils # (Auto) 0.1 Basophils # (Auto) 0.1 CBC Comment AUTO DIFF Differential Total Cells 100 Counted Neutrophils % (Manual) 72 Lymphocytes % 19 Monocytes % 4 Eosinophils % 3 Neutrophils # (Manual) 6.4 Myelocytes 2 Differential Comment FINAL DIFF MANUAL Platelet Estimate NORMAL Platelet Morphology Comment NORMAL Red Cell Morphology Comment NORMAL Sodium Level 139 Potassium Level 3.2 Chloride Level 107 Carbon Dioxide Level 25.7 Anion Gap 6 Blood Urea Nitrogen 3 Creatinine 0.62 Estimat Glomerular Filtration 132 Rate Random Glucose 97 Calcium Level 8.6 Lipase 686 Imaging Last Impressions Abdomen MRI 10/31/16 0000 Signed Impressions: Service Date/Time: Monday, October 31, 2016 14:57 - CONCLUSION: 1. Acute pancreatitis without evidence of organized fluid collections. 2. Hepatic steatosis. 3. No evidence of biliary duct or pancreatic duct dilatation. 4. Mildly distended gallbladder without evidence of cholelithiasis. 5. Minimal ascites. 6. Small hepatic hemangioma. Josias Arthur MD Abdomen/Pelvis CT 10/29/16 0147 Signed Impressions: Service Date/Time: Saturday, October 29, 2016 05:23 - CONCLUSION: 1. Hepatomegaly and hepatic steatosis. 2. Acute pancreatitis. No evidence for pseudocyst or abscess. 3. There is pericholecystic fat stranding and findings of this gallbladder wall edema versus trace pericholecystic fluid. The possibility of cholecystitis should be entertained, and a gallbladder ultrasound would be helpful for further assessment. 4. Atherosclerosis. 5. Small amount of free fluid. 6. Severe osteoarthritis of the left hip. Gustavo Soto MD Gall Bladder Ultrasound 10/29/16 0000 Signed Impressions: Service Date/Time: Saturday, October 29, 2016 07:49 - CONCLUSION: Technically limited exam. Gallbladder is mildly distended but otherwise focally unremarkable. Poorly seen fatty liver with hypoechoic right lobe mass. This likely correlates with hypervascular focus in segment V. Further characterization with hepatic MRI may be beneficial. Christophe Vegas MD Abdomen X-Ray 10/29/16 0000 Signed Impressions: Service Date/Time: Saturday, October 29, 2016 02:11 - CONCLUSION: 1. Nonobstructive bowel gas pattern. Gustavo Soto MD Physical Exam HEENT: Normocephalic; atraumatic; no jaundice. CHEST: CTA CARDIAC: RRR ABDOMEN: Soft, nondistended, mild epigastric/LUQ tenderness; no hepatosplenomegaly; bowel sounds x 4 EXTREMITIES: Generalized edema. SKIN: Normal; no rash; no jaundice. MANAGER DENTAL: No focal deficits; alert and oriented x 3 (Darya Angulo) Assessment and Plan Plan ASSESSMENT - Acute pancreatitis with abdominal pain and nausea/vomiting. Abdomen/Pelvis CT (10/29/16)---> 1. Hepatomegaly and hepatic steatosis. 2. Acute pancreatitis. No evidence for pseudocyst or abscess. 3. There is pericholecystic fat stranding and findings of this gallbladder wall edema versus trace pericholecystic fluid. The possibility of cholecystitis should be entertained, and a gallbladder ultrasound would be helpful for further assessment. 4. Atherosclerosis. 5. Small amount of free fluid. 6. Severe osteoarthritis of the left hip. Gall Bladder Ultrasound (10/29/16)---> Technically limited exam. Gallbladder is mildly distended but otherwise focally unremarkable. Poorly seen fatty liver with hypoechoic right lobe mass. This likely correlates with hypervascular focus in segment V. Further characterization with hepatic MRI may be beneficial. MRI abd 11-01-16--> fatty liver, acute pancreatitis, no evidence biliary or pancreatic duct dilatation, mildly distended GB no evidence cholelithiasis, min ascites, hemangioma liver. Symptoms much improved. Requesting diet to be advanced. WBC 8.6. Afebrile. Lipase down to 686. Zosyn. - Right hepatic lobe mass on US. AFP 4.9. S/P MRI, hemangioma. - Leukocytosis. WBC 12.2 . Zosyn. PLAN - Full liquids - Cont. PPI - Cont. Zosyn - Lipase in am - Supportive care - Further recommendations to follow based on results of above - Patient seen and examined by Dr. Tan and myself and this note is written on his behalf. (Darya Angulo) Physician Comments Patient seen and examined Agree with above Continue with current supportive care Monitor labs (Jcarlos Tan MD) Darya Angulo Nov 06, 2016 09:46 Jcarlos Tan MD Nov 06, 2016 20:01
[2016-11-06 12:14] VITALS: BP 144/80; PULSE 71; RESP 18; TEMP 97.4; O2SAT 98
--- NOTE | 2016-11-06 12:25 | HHI.PR ---
Subjective Remarks overall doing better. abdominal pain is improving. no emesis. afebrile. Objective Vitals Vital Signs Date Time Temp Pulse Resp B/P Pulse Ox O2 Delivery O2 Flow Rate FiO2 11/06/16 12:14 97.4 71 18 144/80 98 11/06/16 08:00 99.1 86 18 167/87 99 11/06/16 04:00 98.0 80 17 162/84 98 11/06/16 00:00 97.4 71 18 163/89 99 11/05/16 19:12 Room Air 11/05/16 19:00 98.5 81 17 165/95 99 11/05/16 16:00 96.6 84 19 165/93 99 I/O 11/05/16 11/05/16 11/05/16 11/06/16 11/06/16 11/06/16 07:00 15:00 23:00 07:00 15:00 23:00 Intake Total 825 ml 1898 ml 1004 ml 1257 ml Output Total 1500 ml 1175 ml 960 ml 1500 ml Balance -675 ml 723 ml 44 ml -243 ml Intake Oral 120 ml 960 ml 480 ml 480 ml IV Total 705 ml 938 ml 524 ml 777 ml Output Urine Total 1500 ml 1175 ml 960 ml 1500 ml # Voids 1 5 # Bowel Movements 1 0 0 Result Diagram: 11/06/16 0706 11/06/16 0706 Imaging Last Impressions Abdomen MRI 10/31/16 0000 Signed Impressions: Service Date/Time: Monday, October 31, 2016 14:57 - CONCLUSION: 1. Acute pancreatitis without evidence of organized fluid collections. 2. Hepatic steatosis. 3. No evidence of biliary duct or pancreatic duct dilatation. 4. Mildly distended gallbladder without evidence of cholelithiasis. 5. Minimal ascites. 6. Small hepatic hemangioma. Josias Arthur MD Abdomen/Pelvis CT 10/29/16 0147 Signed Impressions: Service Date/Time: Saturday, October 29, 2016 05:23 - CONCLUSION: 1. Hepatomegaly and hepatic steatosis. 2. Acute pancreatitis. No evidence for pseudocyst or abscess. 3. There is pericholecystic fat stranding and findings of this gallbladder wall edema versus trace pericholecystic fluid. The possibility of cholecystitis should be entertained, and a gallbladder ultrasound would be helpful for further assessment. 4. Atherosclerosis. 5. Small amount of free fluid. 6. Severe osteoarthritis of the left hip. Gustavo Soto MD Gall Bladder Ultrasound 10/29/16 0000 Signed Impressions: Service Date/Time: Saturday, October 29, 2016 07:49 - CONCLUSION: Technically limited exam. Gallbladder is mildly distended but otherwise focally unremarkable. Poorly seen fatty liver with hypoechoic right lobe mass. This likely correlates with hypervascular focus in segment V. Further characterization with hepatic MRI may be beneficial. Christophe Vegas MD Abdomen X-Ray 10/29/16 0000 Signed Impressions: Service Date/Time: Saturday, October 29, 2016 02:11 - CONCLUSION: 1. Nonobstructive bowel gas pattern. Gustavo Soto MD Objective Remarks GENERAL: This is a well-nourished, well-developed patient, in no apparent distress. CARDIOVASCULAR: Regular rate and regular rhythm without murmurs, gallops, or rubs. RESPIRATORY: Clear to auscultation. Breath sounds equal bilaterally. No wheezes , rales, or rhonchi. GASTROINTESTINAL: Abdomen soft, still with periumbilical tenderness, nondistended. Normal, active bowel sounds MUSCULOSKELETAL: Extremities without clubbing, cyanosis, or edema. NEURO: Alert & Oriented x4 to person, place, time, situation. Moves all ext x4 Procedures none Medications and IVs Current Medications Morphine Sulfate (Morphine Inj) 4 mg ONCE ONCE IV PUSH Last administered on 02:06; Start 10/29/16 at 02:00; Stop 10/29/16 at 02:01; Status DC Ondansetron HCl 4 mg 4 mg ONCE ONCE IVP Last administered on 10/29/16 02:05; Start 10/29/16 at 02:00; Stop 10/29/16 at 02:01; Status DC Sodium Chloride (NS 1000 ml Inj) 1,000 ml @ 125 mls/hr Q8H IV Last administered on 10/29/16 02:05; Start 10/29/16 at 01:47; Stop 10/29/16 at 06:36; Status DC Sodium Chloride 2 ml 2 ml UNSCH PRN IV FLUSH FLUSH AFTER USING IV ACCESS Last administered on 10/29/16 02:05; Start 10/29/16 at 02:00; Stop 10/29/16 at 06:36; Status DC Sodium Chloride (NS 1000 ml Inj) 1,000 ml @ 999 mls/hr BOLUS ONCE IV Last administered on 10/29/16 05:10; Start 10/29/16 at 05:00; Stop 10/29/16 at 06:00; Status DC Morphine Sulfate (Morphine Inj) 4 mg ONCE ONCE IV PUSH Last administered on 05:15; Start 10/29/16 at 05:15; Stop 10/29/16 at 05:16; Status DC Ondansetron HCl 4 mg 4 mg ONCE ONCE IV PUSH Last administered on 10/29/16 05: 15; Start 10/29/16 at 05:15; Stop 10/29/16 at 05:16; Status DC Potassium Chloride (KCl 20 Meq Premix Inj) 100 ml @ 50 mls/hr Q2H IV Last administered on 10/29/16 08:29; Start 10/29/16 at 05:15; Stop 10/29/16 at 09:14; Status DC Iohexol 100 ml 100 ml STK-MED ONCE IV Last administered on 10/29/16 05:26; Start 10/29/16 at 05:26; Stop 10/29/16 at 05:27; Status DC Piperacillin Sod/ Tazobactam Sod 100 ml @ 200 mls/hr ONCE ONCE IV Last administered on 10/29/16 06:25; Start 10/29/16 at 06:00; Stop 10/29/16 at 06:29; Status DC Sodium Chloride (NS 1000 ml Inj) 1,000 ml @ 100 mls/hr Q10H IV Last administered on 10/29/16 21:22; Start 10/29/16 at 06:31; Stop 10/30/16 at 09:17; Status DC Sodium Chloride (NS Flush) 2 ml UNSCH PRN IV FLUSH FLUSH AFTER USING IV ACCESS Last administered on 10/31/16 14:07; Start 10/29/16 at 06:45 Sodium Chloride (NS Flush) 2 ml BID IV FLUSH Last administered on 11/05/16 22: 22; Start 10/29/16 at 09:00 Ondansetron HCl (Zofran Inj) 4 mg Q6H PRN IVP NAUSEA OR VOMITING Last administered on 11/06/16 11:42; Start 10/29/16 at 06:45 Naloxone HCl (Narcan Inj) 0.4 mg UNSCH PRN IV SEE LABEL COMMENTS; Start at 06:45 Morphine Sulfate 2 mg 2 mg Q3H PRN IV PUSH pain >5 Last administered on 09:06; Start 10/29/16 at 06:45; Stop 10/31/16 at 09:17; Status DC Piperacillin Sod/ Tazobactam Sod (Zosyn 3.375 Gm Premix) 50 ml @ 100 mls/hr Q6H IV Last administered on 11/06/16 04:28; Start 10/29/16 at 12:00 Pantoprazole Sodium (Protonix Inj) 40 mg DAILY IV PUSH Last administered on 09:11; Start 10/29/16 at 09:00 Gabapentin (Neurontin) 200 mg BID PO Last administered on 11/06/16 09:12; Start 10/29/16 at 09:00 Zonisamide (Zonegran) 100 mg BID PO Last administered on 11/06/16 09:12; Start 10/29/16 at 09:00 Enalaprilat (Vasotec Inj) 1.25 mg Q8H PRN IV PUSH SBP> OR = 180, DBP> OR = 100 Last administered on 11/01/16 16:17; Start 10/29/16 at 08:00 Acetaminophen (Tylenol) 650 mg Q4H PRN PO FEVER Last administered on 10/29/16 12:11; Start 10/29/16 at 08:15 Enoxaparin Sodium (Lovenox Inj) 40 mg Q24H SQ Last administered on 11/06/16 09 :13; Start 10/29/16 at 09:00 Lorazepam (Ativan) 2 mg Q6H PRN PO ANXIETY AND/OR AGITATION Last administered on 11/06/16 09:12; Start 10/29/16 at 10:45 Phenytoin (Dilantin) 100 mg TID PO ; Start 10/29/16 at 13:00; Stop 10/29/16 at 13: 00; Status DC Phenytoin (Dilantin) 100 mg Q8H PO Last administered on 11/06/16 11:39; Start 10/29/16 at 11:00 Amlodipine Besylate (Norvasc) 10 mg DAILY PO Last administered on 11/01/16 08: 32; Start 10/29/16 at 10:45; Status Hold Clonidine (Catapres) 0.1 mg NOW ONCE PO Last administered on 10/29/16 15:57; Start 10/29/16 at 16:00; Stop 10/29/16 at 16:01; Status DC Clonidine 0.1 mg 0.1 mg NOW ONCE PO ; Start 10/29/16 at 16:30; Stop 10/29/16 at 16:31; Status Cancel Potassium Chloride 20 meq/ Sodium Chloride 1,010 ml @ 100 mls/hr Q10H6M IV ; Start 10/31/16 at 06:31; Stop 10/31/16 at 06:31; Status DC Potassium Chloride (KCl 20 Meq Premix Inj) 100 ml @ 50 mls/hr BOLUS ONCE IV Last administered on 10/30/16 11:00; Start 10/30/16 at 09:30; Stop 10/30/16 at 11:29; Status DC Nifedipine 30 mg 30 mg ONCE ONCE PO Last administered on 10/30/16 11:00; Start 10/30/16 at 09:30; Stop 10/30/16 at 09:31; Status DC Potassium Chloride/Sodium Chloride (NS + KCl 20 Meq Inj) 1,000 ml @ 125 mls/hr Q8H IV Last administered on 11/06/16 09:14; Start 10/30/16 at 09:30 Hydromorphone HCl (Dilaudid Pf Inj) 0.5 mg ONCE ONCE IV PUSH Last administered on 10/31/16 05:11; Start 10/31/16 at 05:00; Stop 10/31/16 at 05:01 ; Status DC Hydromorphone HCl (Dilaudid Pf Inj) 0.5 mg Q4H PRN IV PUSH PAIN 4-6; Start 02/06 at 09:15; Stop 11/01/16 at 11:10; Status DC Hydromorphone HCl 1 mg 1 mg Q4H PRN IV PUSH PAIN 7-10 Last administered on 11/01 08:30; Start 10/31/16 at 09:15; Stop 11/01/16 at 11:10; Status DC Potassium Chloride (KCl 20 Meq Premix Inj) 100 ml @ 50 mls/hr Q2H IV Last administered on 10/31/16 16:29; Start 10/31/16 at 13:00; Stop 10/31/16 at 16:59 ; Status DC Gadodiamide (Omniscan Pf Inj) 18 ml STK-MED ONCE IV Last administered on 15:28; Start 10/31/16 at 15:28; Stop 10/31/16 at 15:29; Status DC Hydromorphone HCl (Dilaudid Pf Inj) 0.5 mg Q3H PRN IV PUSH PAIN 4-6; Start 03/08 at 14:00; Stop 11/01/16 at 14:00; Status DC Hydromorphone HCl (Dilaudid Pf Inj) 1 mg Q3H PRN IV PUSH PAIN 7-10; Start 11/01 at 14:00; Stop 11/01/16 at 14:00; Status DC Magnesium Hydroxide (Milk Of Magnesia Liq) 30 ml DAILY PRN PO CONSTIPATION; Start 11/01/16 at 11:15 Nifedipine (Procardia Xl) 30 mg ONCE ONCE PO Last administered on 11/01/16 12 :22; Start 11/01/16 at 12:00; Stop 11/01/16 at 12:01; Status DC Hydromorphone HCl (Dilaudid Pf Inj) 0.5 mg Q3H PRN IV PUSH PAIN 4-6; Start 03/08 at 12:15 Hydromorphone HCl 1 mg 1 mg Q3H PRN IV PUSH PAIN 7-10 Last administered on 11/06 11:45; Start 11/01/16 at 12:15 Potassium Chloride (KCl 20 Meq Premix Inj) 100 ml @ 50 mls/hr BOLUS ONCE IV Last administered on 11/01/16 16:45; Start 11/01/16 at 16:45; Stop 11/01/16 at 18:44; Status DC Enalaprilat (Vasotec Inj) 1.25 mg ONCE ONCE IV PUSH ; Start 11/01/16 at 16:45 ; Stop 11/01/16 at 16:46; Status DC Nifedipine (Procardia Xl) 30 mg DAILY PO Last administered on 11/03/16 08:25; Start 11/02/16 at 09:00; Stop 11/03/16 at 08:52; Status DC Methadone HCl (Dolophine) 30 mg TID PO Last administered on 11/06/16 09:13; Start 11/03/16 at 09:00 Nifedipine (Procardia Xl) 60 mg DAILY PO Last administered on 11/06/16 09:12; Start 11/04/16 at 09:00 Nifedipine (Procardia Xl) 30 mg ONCE ONCE PO Last administered on 11/03/16 12 :00; Start 11/03/16 at 09:00; Stop 11/03/16 at 11:37; Status DC Clonidine (Catapres) 0.1 mg Q12HR PO Last administered on 11/05/16 09:01; Start 11/04/16 at 11:00; Stop 11/05/16 at 11:41; Status DC Clonidine (Catapres) 0.1 mg Q8H PO Last administered on 11/06/16 09:12; Start 11/05/16 at 17:00 A/P Assessment and Plan A/P - severe sepsis due to acute pancreatitis with questionable acute cholecystitis - MRI of the abdomen with acute pancreatitis lipase is trending down- continue IV fluid, IV antibiotics- continue antiemetics and pain control. will advance the diet slowly- ad/w GI today. -hypokalemia; will replace. -hypertension;hold amlodipine- - vasotec prn- continue procardia and clonidine- continue to monitor and adjust the regimen as needed. - seizure disorder/neuropathy; resumed home meds -DVT prophylaxis with subq Lovenox Discharge Planning dc home tomorrow if stable. Sintia Iverson MD Nov 06, 2016 12:25
[2016-11-06] MEDS ORDERED: POTASSIUM CHLORIDE 10 MEQ CONTROLLED RELEASE TAB PO ONE (12:30)
[2016-11-06 16:00] VITALS: BP 153/88; PULSE 81; RESP 18; TEMP 98.4; O2SAT 97
[2016-11-06 20:00] VITALS: BP 155/96; PULSE 91; RESP 18; TEMP 97.9; O2SAT 99
[2016-11-07] VITALS: BP 150/87; PULSE 77; RESP 16; TEMP 97.4; O2SAT 99
[2016-11-07] MEDS: cloNIDine HCL 0.1 MG TAB PO SCH ×3 (00:38→18:14)
[2016-11-07] MEDS: PIPERACIL-TAZO 3.375 GM PREMIX 50 ML IV SCH ×5 (00:38→23:25)
[2016-11-07] MEDS: LORazepam 2 MG TAB PO PRN ×3 (00:38→21:35)
[2016-11-07] MEDS: PHENYTOIN SODIUM 100 MG CAP PO SCH ×3 (03:23→18:14)
[2016-11-07] MEDS: HYDROmorphone HCL PF 1 MG/ML VIAL IV PUSH PRN ×3 (03:23→09:34)
[2016-11-07] MEDS: ONDANSETRON HCL 4 MG/2 ML VIAL IVP PRN ×4 (03:23→21:34)
[2016-11-07] MEDS: NS + KCL 20 MEQ INJ 1,000 ML IV SCH ×3 (03:23→17:39)
[2016-11-07 08:00] VITALS: BP 155/84; PULSE 89; RESP 16; TEMP 99; O2SAT 98
[2016-11-07] MEDS: SODIUM CHLORIDE 0.9% FLUSH 10 ML FLUSH IV FLUSH SCH ×2 (09:34→21:35)
[2016-11-07] MEDS: METHADONE HCL 10 MG TAB PO SCH ×3 (09:35→18:14)
[2016-11-07] MEDS: GABAPENTIN 100 MG CAP PO SCH ×2 (09:35→21:34)
[2016-11-07] MEDS: PANTOPRAZOLE SODIUM 40 MG VIAL IV PUSH SCH (09:35)
[2016-11-07] MEDS: ZONISAMIDE 100 MG CAP PO SCH ×2 (09:36→21:35)
[2016-11-07] MEDS: ENOXAPARIN SODIUM 40 MG/0.4 ML SYRINGE SQ SCH (09:36)
[2016-11-07] MEDS: NIFEdipine 30 MG SUSTAINED RELEASE TAB PO SCH (09:48)
--- NOTE | 2016-11-07 10:46 | HHI.PR ---
Subjective Remarks f/u ; acute pancreatitis resting comfortably with no distress. abdominal pain is mild. tolerating the full liquid diet. no new complaints. Objective Vitals Vital Signs Date Time Temp Pulse Resp B/P Pulse Ox O2 Delivery O2 Flow Rate FiO2 11/07/16 00:00 97.4 77 16 150/87 99 11/06/16 20:00 97.9 91 18 155/96 99 11/06/16 19:42 Room Air 11/06/16 16:00 98.4 81 18 153/88 97 11/06/16 12:14 97.4 71 18 144/80 98 I/O 11/06/16 11/06/16 11/06/16 11/07/16 11/07/16 11/07/16 07:00 15:00 23:00 07:00 15:00 23:00 Intake Total 1257 ml 1200 ml 2195 ml 1335 ml Output Total 1500 ml Balance -243 ml 1200 ml 2195 ml 1335 ml Intake Oral 480 ml 1200 ml 720 ml 720 ml IV Total 777 ml 1475 ml 615 ml Output Urine Total 1500 ml # Voids 4 2 2 # Bowel Movements 0 1 Result Diagram: 11/06/16 0706 11/06/16 0706 Imaging Last Impressions Abdomen MRI 10/31/16 0000 Signed Impressions: Service Date/Time: Monday, October 31, 2016 14:57 - CONCLUSION: 1. Acute pancreatitis without evidence of organized fluid collections. 2. Hepatic steatosis. 3. No evidence of biliary duct or pancreatic duct dilatation. 4. Mildly distended gallbladder without evidence of cholelithiasis. 5. Minimal ascites. 6. Small hepatic hemangioma. Josias Arthur MD Abdomen/Pelvis CT 10/29/16 0147 Signed Impressions: Service Date/Time: Saturday, October 29, 2016 05:23 - CONCLUSION: 1. Hepatomegaly and hepatic steatosis. 2. Acute pancreatitis. No evidence for pseudocyst or abscess. 3. There is pericholecystic fat stranding and findings of this gallbladder wall edema versus trace pericholecystic fluid. The possibility of cholecystitis should be entertained, and a gallbladder ultrasound would be helpful for further assessment. 4. Atherosclerosis. 5. Small amount of free fluid. 6. Severe osteoarthritis of the left hip. Gustavo Soto MD Gall Bladder Ultrasound 10/29/16 0000 Signed Impressions: Service Date/Time: Saturday, October 29, 2016 07:49 - CONCLUSION: Technically limited exam. Gallbladder is mildly distended but otherwise focally unremarkable. Poorly seen fatty liver with hypoechoic right lobe mass. This likely correlates with hypervascular focus in segment V. Further characterization with hepatic MRI may be beneficial. Christophe Vegas MD Abdomen X-Ray 10/29/16 0000 Signed Impressions: Service Date/Time: Saturday, October 29, 2016 02:11 - CONCLUSION: 1. Nonobstructive bowel gas pattern. Gustavo Soto MD Objective Remarks GENERAL: This is a well-nourished, well-developed patient, in no apparent distress. CARDIOVASCULAR: Regular rate and regular rhythm without murmurs, gallops, or rubs. RESPIRATORY: Clear to auscultation. Breath sounds equal bilaterally. No wheezes , rales, or rhonchi. GASTROINTESTINAL: Abdomen soft, still with periumbilical tenderness, nondistended. Normal, active bowel sounds MUSCULOSKELETAL: Extremities without clubbing, cyanosis, or edema. NEURO: Alert & Oriented x4 to person, place, time, situation. Moves all ext x4 Procedures none Medications and IVs Current Medications Morphine Sulfate (Morphine Inj) 4 mg ONCE ONCE IV PUSH Last administered on 02:06; Start 10/29/16 at 02:00; Stop 10/29/16 at 02:01; Status DC Ondansetron HCl 4 mg 4 mg ONCE ONCE IVP Last administered on 10/29/16 02:05; Start 10/29/16 at 02:00; Stop 10/29/16 at 02:01; Status DC Sodium Chloride (NS 1000 ml Inj) 1,000 ml @ 125 mls/hr Q8H IV Last administered on 10/29/16 02:05; Start 10/29/16 at 01:47; Stop 10/29/16 at 06:36; Status DC Sodium Chloride 2 ml 2 ml UNSCH PRN IV FLUSH FLUSH AFTER USING IV ACCESS Last administered on 10/29/16 02:05; Start 10/29/16 at 02:00; Stop 10/29/16 at 06:36; Status DC Sodium Chloride (NS 1000 ml Inj) 1,000 ml @ 999 mls/hr BOLUS ONCE IV Last administered on 10/29/16 05:10; Start 10/29/16 at 05:00; Stop 10/29/16 at 06:00; Status DC Morphine Sulfate (Morphine Inj) 4 mg ONCE ONCE IV PUSH Last administered on 05:15; Start 10/29/16 at 05:15; Stop 10/29/16 at 05:16; Status DC Ondansetron HCl 4 mg 4 mg ONCE ONCE IV PUSH Last administered on 10/29/16 05: 15; Start 10/29/16 at 05:15; Stop 10/29/16 at 05:16; Status DC Potassium Chloride (KCl 20 Meq Premix Inj) 100 ml @ 50 mls/hr Q2H IV Last administered on 10/29/16 08:29; Start 10/29/16 at 05:15; Stop 10/29/16 at 09:14; Status DC Iohexol 100 ml 100 ml STK-MED ONCE IV Last administered on 10/29/16 05:26; Start 10/29/16 at 05:26; Stop 10/29/16 at 05:27; Status DC Piperacillin Sod/ Tazobactam Sod 100 ml @ 200 mls/hr ONCE ONCE IV Last administered on 10/29/16 06:25; Start 10/29/16 at 06:00; Stop 10/29/16 at 06:29; Status DC Sodium Chloride (NS 1000 ml Inj) 1,000 ml @ 100 mls/hr Q10H IV Last administered on 10/29/16 21:22; Start 10/29/16 at 06:31; Stop 10/30/16 at 09:17; Status DC Sodium Chloride (NS Flush) 2 ml UNSCH PRN IV FLUSH FLUSH AFTER USING IV ACCESS Last administered on 10/31/16 14:07; Start 10/29/16 at 06:45 Sodium Chloride (NS Flush) 2 ml BID IV FLUSH Last administered on 11/07/16 09: 34; Start 10/29/16 at 09:00 Ondansetron HCl (Zofran Inj) 4 mg Q6H PRN IVP NAUSEA OR VOMITING Last administered on 11/07/16 09:35; Start 10/29/16 at 06:45 Naloxone HCl (Narcan Inj) 0.4 mg UNSCH PRN IV SEE LABEL COMMENTS; Start at 06:45 Morphine Sulfate 2 mg 2 mg Q3H PRN IV PUSH pain >5 Last administered on 09:06; Start 10/29/16 at 06:45; Stop 10/31/16 at 09:17; Status DC Piperacillin Sod/ Tazobactam Sod (Zosyn 3.375 Gm Premix) 50 ml @ 100 mls/hr Q6H IV Last administered on 11/07/16 06:25; Start 10/29/16 at 12:00 Pantoprazole Sodium (Protonix Inj) 40 mg DAILY IV PUSH Last administered on 09:35; Start 10/29/16 at 09:00 Gabapentin (Neurontin) 200 mg BID PO Last administered on 11/07/16 09:35; Start 10/29/16 at 09:00 Zonisamide (Zonegran) 100 mg BID PO Last administered on 11/07/16 09:36; Start 10/29/16 at 09:00 Enalaprilat (Vasotec Inj) 1.25 mg Q8H PRN IV PUSH SBP> OR = 180, DBP> OR = 100 Last administered on 11/01/16 16:17; Start 10/29/16 at 08:00 Acetaminophen (Tylenol) 650 mg Q4H PRN PO FEVER Last administered on 10/29/16 12:11; Start 10/29/16 at 08:15 Enoxaparin Sodium (Lovenox Inj) 40 mg Q24H SQ Last administered on 11/07/16 09 :36; Start 10/29/16 at 09:00 Lorazepam (Ativan) 2 mg Q6H PRN PO ANXIETY AND/OR AGITATION Last administered on 11/07/16 09:48; Start 10/29/16 at 10:45 Phenytoin (Dilantin) 100 mg TID PO ; Start 10/29/16 at 13:00; Stop 10/29/16 at 13: 00; Status DC Phenytoin (Dilantin) 100 mg Q8H PO Last administered on 11/07/16 09:48; Start 10/29/16 at 11:00 Amlodipine Besylate (Norvasc) 10 mg DAILY PO Last administered on 11/01/16 08: 32; Start 10/29/16 at 10:45; Status Hold Clonidine (Catapres) 0.1 mg NOW ONCE PO Last administered on 10/29/16 15:57; Start 10/29/16 at 16:00; Stop 10/29/16 at 16:01; Status DC Clonidine 0.1 mg 0.1 mg NOW ONCE PO ; Start 10/29/16 at 16:30; Stop 10/29/16 at 16:31; Status Cancel Potassium Chloride 20 meq/ Sodium Chloride 1,010 ml @ 100 mls/hr Q10H6M IV ; Start 10/31/16 at 06:31; Stop 10/31/16 at 06:31; Status DC Potassium Chloride (KCl 20 Meq Premix Inj) 100 ml @ 50 mls/hr BOLUS ONCE IV Last administered on 10/30/16 11:00; Start 10/30/16 at 09:30; Stop 10/30/16 at 11:29; Status DC Nifedipine 30 mg 30 mg ONCE ONCE PO Last administered on 10/30/16 11:00; Start 10/30/16 at 09:30; Stop 10/30/16 at 09:31; Status DC Potassium Chloride/Sodium Chloride (NS + KCl 20 Meq Inj) 1,000 ml @ 125 mls/hr Q8H IV Last administered on 11/07/16 03:23; Start 10/30/16 at 09:30 Hydromorphone HCl (Dilaudid Pf Inj) 0.5 mg ONCE ONCE IV PUSH Last administered on 10/31/16 05:11; Start 10/31/16 at 05:00; Stop 10/31/16 at 05:01 ; Status DC Hydromorphone HCl (Dilaudid Pf Inj) 0.5 mg Q4H PRN IV PUSH PAIN 4-6; Start 02/06 at 09:15; Stop 11/01/16 at 11:10; Status DC Hydromorphone HCl 1 mg 1 mg Q4H PRN IV PUSH PAIN 7-10 Last administered on 11/01 08:30; Start 10/31/16 at 09:15; Stop 11/01/16 at 11:10; Status DC Potassium Chloride (KCl 20 Meq Premix Inj) 100 ml @ 50 mls/hr Q2H IV Last administered on 8/11/17at 16:29; Start 10/31/16 at 13:00; Stop 10/31/16 at 16:59 ; Status DC Gadodiamide (Omniscan Pf Inj) 18 ml STK-MED ONCE IV Last administered on 15:28; Start 10/31/16 at 15:28; Stop 10/31/16 at 15:29; Status DC Hydromorphone HCl (Dilaudid Pf Inj) 0.5 mg Q3H PRN IV PUSH PAIN 4-6; Start 03/08 at 14:00; Stop 11/01/16 at 14:00; Status DC Hydromorphone HCl (Dilaudid Pf Inj) 1 mg Q3H PRN IV PUSH PAIN 7-10; Start 11/01 at 14:00; Stop 11/01/16 at 14:00; Status DC Magnesium Hydroxide (Milk Of Magnesia Liq) 30 ml DAILY PRN PO CONSTIPATION; Start 11/01/16 at 11:15 Nifedipine (Procardia Xl) 30 mg ONCE ONCE PO Last administered on 11/01/16 12 :22; Start 11/01/16 at 12:00; Stop 11/01/16 at 12:01; Status DC Hydromorphone HCl (Dilaudid Pf Inj) 0.5 mg Q3H PRN IV PUSH PAIN 4-6; Start 03/08 at 12:15 Hydromorphone HCl 1 mg 1 mg Q3H PRN IV PUSH PAIN 7-10 Last administered on 11/07 09:34; Start 11/01/16 at 12:15 Potassium Chloride (KCl 20 Meq Premix Inj) 100 ml @ 50 mls/hr BOLUS ONCE IV Last administered on 11/01/16 16:45; Start 11/01/16 at 16:45; Stop 11/01/16 at 18:44; Status DC Enalaprilat (Vasotec Inj) 1.25 mg ONCE ONCE IV PUSH ; Start 11/01/16 at 16:45 ; Stop 11/01/16 at 16:46; Status DC Nifedipine (Procardia Xl) 30 mg DAILY PO Last administered on 11/03/16 08:25; Start 11/02/16 at 09:00; Stop 11/03/16 at 08:52; Status DC Methadone HCl (Dolophine) 30 mg TID PO Last administered on 11/07/16 09:35; Start 11/03/16 at 09:00 Nifedipine (Procardia Xl) 60 mg DAILY PO Last administered on 11/07/16 09:48; Start 11/04/16 at 09:00 Nifedipine (Procardia Xl) 30 mg ONCE ONCE PO Last administered on 11/03/16 12 :00; Start 11/03/16 at 09:00; Stop 11/03/16 at 11:37; Status DC Clonidine (Catapres) 0.1 mg Q12HR PO Last administered on 11/05/16 09:01; Start 11/04/16 at 11:00; Stop 11/05/16 at 11:41; Status DC Clonidine (Catapres) 0.1 mg Q8H PO Last administered on 11/07/16 09:35; Start 11/05/16 at 17:00 Potassium Chloride (KCl) 30 meq ONCE ONCE PO Last administered on 11/06/16 15 :32; Start 11/06/16 at 12:30; Stop 11/06/16 at 13:40; Status DC A/P Assessment and Plan A/P - severe sepsis due to acute pancreatitis with questionable acute cholecystitis - resolved. MRI of the abdomen with acute pancreatitis lipase is trending down- continue IV fluid-treated - continue antiemetics and pain control. will advance the diet - d/w GI today. advised to comply with low fat diet and stop drinking. -hypokalemia; replaced. -hypertension;overall better- dc amlodipine upon discharge- -continue procardia and clonidine- continue to monitor and adjust the regimen as needed. - seizure disorder/neuropathy; resumed home meds -DVT prophylaxis with subq Lovenox Discharge Planning dc home -hopefully later this evening if tolerates the diet. see med list. f/u; pcp and GI. d/w the patient. d/w GI. Sintia Iverson MD Nov 07, 2016 10:46
[2016-11-07] MEDS ORDERED: CLON.1 PO (10:47)
[2016-11-07] MEDS ORDERED: NIFE30TA8 PO (10:47)
[2016-11-07] MEDS ORDERED: NORC5TAB PO (10:48)
--- NOTE | 2016-11-07 11:03 | HHI.GIFU ---
Subjective Remarks Resting in bed. Pain much improved. No n/v. Tolerating full liquid diet. ( Darya Angulo) Objective Vitals I&O Vital Signs Date Time Temp Pulse Resp B/P Pulse Ox O2 Delivery O2 Flow Rate FiO2 11/07/16 00:00 97.4 77 16 150/87 99 11/06/16 20:00 97.9 91 18 155/96 99 11/06/16 19:42 Room Air 11/06/16 16:00 98.4 81 18 153/88 97 11/06/16 12:14 97.4 71 18 144/80 98 I/O 11/06/16 11/06/16 11/06/16 11/07/16 11/07/16 11/07/16 07:00 15:00 23:00 07:00 15:00 23:00 Intake Total 1257 ml 1200 ml 2195 ml 1335 ml Output Total 1500 ml Balance -243 ml 1200 ml 2195 ml 1335 ml Intake Oral 480 ml 1200 ml 720 ml 720 ml IV Total 777 ml 1475 ml 615 ml Output Urine Total 1500 ml # Voids 4 2 2 # Bowel Movements 0 1 Laboratory Laboratory Tests Test 11/07/16 08:27 Lipase 673 Imaging Last Impressions Abdomen MRI 10/31/16 0000 Signed Impressions: Service Date/Time: Monday, October 31, 2016 14:57 - CONCLUSION: 1. Acute pancreatitis without evidence of organized fluid collections. 2. Hepatic steatosis. 3. No evidence of biliary duct or pancreatic duct dilatation. 4. Mildly distended gallbladder without evidence of cholelithiasis. 5. Minimal ascites. 6. Small hepatic hemangioma. Josias Arthur MD Abdomen/Pelvis CT 10/29/16 0147 Signed Impressions: Service Date/Time: Saturday, October 29, 2016 05:23 - CONCLUSION: 1. Hepatomegaly and hepatic steatosis. 2. Acute pancreatitis. No evidence for pseudocyst or abscess. 3. There is pericholecystic fat stranding and findings of this gallbladder wall edema versus trace pericholecystic fluid. The possibility of cholecystitis should be entertained, and a gallbladder ultrasound would be helpful for further assessment. 4. Atherosclerosis. 5. Small amount of free fluid. 6. Severe osteoarthritis of the left hip. Gustavo Soto MD Gall Bladder Ultrasound 10/29/16 0000 Signed Impressions: Service Date/Time: Saturday, October 29, 2016 07:49 - CONCLUSION: Technically limited exam. Gallbladder is mildly distended but otherwise focally unremarkable. Poorly seen fatty liver with hypoechoic right lobe mass. This likely correlates with hypervascular focus in segment V. Further characterization with hepatic MRI may be beneficial. Christophe Vegas MD Abdomen X-Ray 10/29/16 0000 Signed Impressions: Service Date/Time: Saturday, October 29, 2016 02:11 - CONCLUSION: 1. Nonobstructive bowel gas pattern. Gustavo Soto MD Physical Exam HEENT: Normocephalic; atraumatic; no jaundice. CHEST: CTA CARDIAC: RRR ABDOMEN: Soft, nondistended, nontender; no hepatosplenomegaly; bowel sounds x 4 EXTREMITIES: Generalized edema. SKIN: Normal; no rash; no jaundice. [employer]: No focal deficits; alert and oriented x 3 (Darya Angulo) Assessment and Plan Plan ASSESSMENT - Acute pancreatitis with abdominal pain and nausea/vomiting. Abdomen/Pelvis CT (10/29/16)---> 1. Hepatomegaly and hepatic steatosis. 2. Acute pancreatitis. No evidence for pseudocyst or abscess. 3. There is pericholecystic fat stranding and findings of this gallbladder wall edema versus trace pericholecystic fluid. The possibility of cholecystitis should be entertained, and a gallbladder ultrasound would be helpful for further assessment. 4. Atherosclerosis. 5. Small amount of free fluid. 6. Severe osteoarthritis of the left hip. Gall Bladder Ultrasound (10/29/16)---> Technically limited exam. Gallbladder is mildly distended but otherwise focally unremarkable. Poorly seen fatty liver with hypoechoic right lobe mass. This likely correlates with hypervascular focus in segment V. Further characterization with hepatic MRI may be beneficial. MRI abd 11-01-16--> fatty liver, acute pancreatitis, no evidence biliary or pancreatic duct dilatation, mildly distended GB no evidence cholelithiasis, min ascites, hemangioma liver. Symptoms much improved. Tolerating diet. Lipase 673. - Right hepatic lobe mass on US. AFP 4.9. S/P MRI, hemangioma. - Leukocytosis. WBC 8.6 Zosyn. PLAN - Low fat diet-D/W patient - Cont. PPI - No ETOH-D/W patient - FU MARIANGEL 2 weeks - If tolerates low fat diet, cleared to go home on low fat diet with absolutely no alcohol per GI standpoint. - Patient seen and examined by Dr. Tan and myself and this note is written on his behalf. (Darya Angulo) Physician Comments Patient seen and examined agree with above Continue with current supportive care Monitor labs (Jcarlos Tan MD) Darya Angulo Nov 07, 2016 11:03 Jcarlos Tan MD Nov 07, 2016 22:25
--- NOTE | 2016-11-07 11:08 | HHI.DCPOC ---
Discharge Care Plan Diagnosis: (1) Acute pancreatitis Additional Problems abdominal pain. Goals to Promote Your Health * To prevent worsening of your condition and complications * To maintain your health at the optimal level Directions to Meet Your Goals Take your medications as prescribed Follow your dietary instruction Follow activity as directed Keep your appointments as scheduled Take your immunizations and boosters as scheduled If your symptoms worsen call your PCP, if no PCP go to Urgent Care Center or Emergency Room Smoking is Dangerous to Your Health. Avoid second hand smoke Call the 24-hour hour crisis hotline for domestic abuse at Sintia Iverson MD Nov 07, 2016 11:08
--- NOTE | 2016-11-07 11:08 | HHI.DS ---
Discharge Summary Admission Date Oct 29, 2016 at 06:05 Discharge Date: Nov 07, 2016 Admitting Diagnosis acute pancreatitis (1) Acute pancreatitis ICD Code: K85.90 Diagnosis: Principal Procedures none Brief History - From Admission patient is a 61 y/o male who presented to ER with abdominal pain. he says that the pain started yesterday morning, constant,severe and gradually got worse. pain is more or less generalized. he had some nausea, emesis , fever and chills. he doesn't report any change in his bowel movement. he doesn't recall any similar prior episodes of abdominal pain in the past. CBC/BMP: 11/06/16 0706 11/06/16 0706 Significant Findings Laboratory Tests Test 11/05/16 11/06/16 11/07/16 07:45 07:06 08:27 Lipase 1072 U/L 686 U/L 673 U/L (73-393) (73-393) (73-393) Red Blood Count 3.70 MIL/MM3 (4.50-5.90) Hemoglobin 11.5 GM/DL (13.0-17.0) Hematocrit 34.2 % (39.0-51.0) Neutrophils (%) (Auto) 74.3 % (16.0-70.0) Neutrophils % (Manual) 72 % (16-70) Myelocytes 2 % (0-0) Potassium Level 3.2 MEQ/L (3.5-5.1) Blood Urea Nitrogen 3 MG/DL (7-18) Imaging Last Impressions Abdomen MRI 10/31/16 0000 Signed Impressions: Service Date/Time: Monday, October 31, 2016 14:57 - CONCLUSION: 1. Acute pancreatitis without evidence of organized fluid collections. 2. Hepatic steatosis. 3. No evidence of biliary duct or pancreatic duct dilatation. 4. Mildly distended gallbladder without evidence of cholelithiasis. 5. Minimal ascites. 6. Small hepatic hemangioma. Josias Arthur MD Abdomen/Pelvis CT 10/29/16 0147 Signed Impressions: Service Date/Time: Saturday, October 29, 2016 05:23 - CONCLUSION: 1. Hepatomegaly and hepatic steatosis. 2. Acute pancreatitis. No evidence for pseudocyst or abscess. 3. There is pericholecystic fat stranding and findings of this gallbladder wall edema versus trace pericholecystic fluid. The possibility of cholecystitis should be entertained, and a gallbladder ultrasound would be helpful for further assessment. 4. Atherosclerosis. 5. Small amount of free fluid. 6. Severe osteoarthritis of the left hip. Gustavo Soto MD Gall Bladder Ultrasound 10/29/16 0000 Signed Impressions: Service Date/Time: Saturday, October 29, 2016 07:49 - CONCLUSION: Technically limited exam. Gallbladder is mildly distended but otherwise focally unremarkable. Poorly seen fatty liver with hypoechoic right lobe mass. This likely correlates with hypervascular focus in segment V. Further characterization with hepatic MRI may be beneficial. Christophe Vegas MD Abdomen X-Ray 10/29/16 0000 Signed Impressions: Service Date/Time: Saturday, October 29, 2016 02:11 - CONCLUSION: 1. Nonobstructive bowel gas pattern. Gustavo Soto MD PE at Discharge GENERAL: This is a well-nourished, well-developed patient, in no apparent distress. CARDIOVASCULAR: Regular rate and regular rhythm without murmurs, gallops, or rubs. RESPIRATORY: Clear to auscultation. Breath sounds equal bilaterally. No wheezes , rales, or rhonchi. GASTROINTESTINAL: Abdomen soft, still with periumbilical tenderness, nondistended. Normal, active bowel sounds MUSCULOSKELETAL: Extremities without clubbing, cyanosis, or edema. NEURO: Alert & Oriented x4 to person, place, time, situation. Moves all ext x4 Hospital Course - severe sepsis due to acute pancreatitis with questionable acute cholecystitis - resolved. MRI of the abdomen with acute pancreatitis lipase is trending down- continue IV fluid-treated - continue antiemetics and pain control. will advance the diet - d/w GI today. -hypokalemia; replaced. -hypertension;overall better- dc amlodipine upon discharge- -continue procardia and clonidine- continue to monitor and adjust the regimen as needed. - seizure disorder/neuropathy; resumed home meds -DVT prophylaxis with subq Lovenox Pt Condition on Discharge: Fair Discharge Disposition: Discharge Home Discharge Time: <= 30 minutes Discharge Instructions DIET: Follow Instructions for: Heart Healthy Diet, Low Fat Diet Activities you can perform: Regular-No Restrictions Follow up Referrals: Gastroenterology - 2 Weeks @ [facility] PCP Follow-up New Medications: Hydrocodone-Acetaminophen ([place]) 5-325 mg Tab 1 TAB PO Q6H PRN PAIN #14 Ref 0 TAB Clonidine (Catapres) 0.1 Mg Tab 0.1 MG PO Q8H hypertension Days 30 Ref 0 TAB Nifedipine ER 24 HR (Nifedipine ER 24 HR) 30 Mg Tab 60 MG PO DAILY hypertension Days 30 Ref 0 TAB Continued Medications: Cyanocobalamin (B12) 1,000 Mcg Tab Folic Acid (Folic Acid) 400 Mcg Tab 400 MCG PO DAILY Nutritional Supplement Ref 0 TAB Furosemide (Lasix) 20 Mg Tab 20 MG PO DAILY #30 Ref 0 TAB Gabapentin (Gabapentin) 100 Mg Cap 200 MG PO BID #60 Ref 0 CAP Lorazepam (Ativan) 2 Mg Tab 2 MG PO Q6H PRN ANXIETY AND/OR AGITATION Ref 0 TAB Methadone (Methadone) 10 Mg Tab 30 MG PO TID Ref 0 TAB Ondansetron (Zofran) 4 Mg Tab 4 MG PO Q6HR PRN NAUSEA OR VOMITING #20 Ref 0 TAB Pantoprazole (Pantoprazole) 40 Mg Tab 40 MG PO DAILY gastritis #30 Ref 0 TAB Phenytoin Extended (Dilantin) 100 Mg Cap 100 MG PO TID Control Seizures #90 Ref 0 CAP Tizanidine (Zanaflex) 4 Mg Tab 8 MG PO TID Muscle Spasm Ref 0 TAB Zonisamide (Zonisamide) 100 Mg Cap 100 MG PO BID Control Seizures #60 Ref 0 CAP Discontinued Medications: Amlodipine (Norvasc) 10 Mg Tab 10 MG PO DAILY hypertension #30 Ref 0 TAB Sintia Iverson MD Nov 07, 2016 11:08
[2016-11-07 12:00] VITALS: BP 156/89; PULSE 88; RESP 16; TEMP 98.2; O2SAT 99
[2016-11-07] MEDS: ACETAMINOPHEN/HYDROcodone 325 MG/5 MG TAB PO PRN ×3 (13:27→22:07)
[2016-11-07 16:00] VITALS: BP 151/88; PULSE 76; RESP 17; TEMP 98.1; O2SAT 98
[2016-11-07 20:00] VITALS: BP 155/92; PULSE 96; RESP 16; TEMP 98.1; O2SAT 97
[2016-11-07] MEDS: ACETAMINOPHEN 325 MG TAB PO PRN (22:07)
[2016-11-08] VITALS: BP 142/86; PULSE 83; RESP 17; TEMP 97.2; O2SAT 97
[2016-11-08] MEDS: cloNIDine HCL 0.1 MG TAB PO SCH ×3 (00:35→16:02)
[2016-11-08] MEDS: NS + KCL 20 MEQ INJ 1,000 ML IV SCH ×3 (01:39→17:39)
[2016-11-08] MEDS: ACETAMINOPHEN/HYDROcodone 325 MG/5 MG TAB PO PRN ×3 (02:01→10:00)
[2016-11-08] MEDS: LORazepam 2 MG TAB PO PRN ×4 (03:33→21:58)
[2016-11-08] MEDS: ONDANSETRON HCL 4 MG/2 ML VIAL IVP PRN ×4 (03:33→21:58)
[2016-11-08] MEDS: PHENYTOIN SODIUM 100 MG CAP PO SCH ×3 (03:33→18:00)
[2016-11-08 04:00] VITALS: BP 126/80; PULSE 83; RESP 16; TEMP 96; O2SAT 99
[2016-11-08] MEDS: PIPERACIL-TAZO 3.375 GM PREMIX 50 ML IV SCH ×3 (05:59→18:01)
[2016-11-08 08:00] VITALS: BP 156/96; PULSE 84; RESP 18; TEMP 96.8; O2SAT 100
[2016-11-08] MEDS: SODIUM CHLORIDE 0.9% FLUSH 10 ML FLUSH IV FLUSH SCH ×2 (09:49→21:59)
[2016-11-08] MEDS: PANTOPRAZOLE SODIUM 40 MG VIAL IV PUSH SCH (09:49)
[2016-11-08] MEDS: METHADONE HCL 10 MG TAB PO SCH ×3 (09:50→18:00)
[2016-11-08] MEDS: NIFEdipine 30 MG SUSTAINED RELEASE TAB PO SCH (09:50)
[2016-11-08] MEDS: ENOXAPARIN SODIUM 40 MG/0.4 ML SYRINGE SQ SCH (09:50)
[2016-11-08] MEDS: ZONISAMIDE 100 MG CAP PO SCH ×2 (09:50→21:58)
[2016-11-08] MEDS: GABAPENTIN 100 MG CAP PO SCH ×2 (09:52→21:58)
--- NOTE | 2016-11-08 11:28 | HHI.GIFU ---
Subjective Remarks Resting in bed. In no distress. States that he tolerated the pot roast with mashed potatoes, but had more pain afterwards when his dilaudid was changed to hydrocodone and was "only able to tolerate a chicken salad sandwich." He is upset about this and would like his diet advanced again. (AnguloDarya Marlanat SHEEHAN) Objective Vitals I&O Vital Signs Date Time Temp Pulse Resp B/P Pulse Ox O2 Delivery O2 Flow Rate FiO2 11/08/16 08:00 96.8 84 18 156/96 100 11/08/16 04:00 96.0 83 16 126/80 99 11/08/16 00:00 97.2 83 17 142/86 97 11/07/16 20:00 98.1 96 16 155/92 97 11/07/16 19:14 Room Air 11/07/16 16:00 98.1 76 17 151/88 98 11/07/16 12:00 98.2 88 16 156/89 99 I/O 11/07/16 11/07/16 11/07/16 11/08/16 11/08/16 11/08/16 07:00 15:00 23:00 07:00 15:00 23:00 Intake Total 1335 ml 794 ml 720 ml 720 ml Balance 1335 ml 794 ml 720 ml 720 ml Intake Oral 720 ml 720 ml 720 ml IV Total 615 ml 794 ml # Voids 2 2 2 # Bowel Movements 1 Laboratory Laboratory Tests Test 11/08/16 05:59 Lipase 657 Imaging Last Impressions Abdomen MRI 10/31/16 0000 Signed Impressions: Service Date/Time: Monday, October 31, 2016 14:57 - CONCLUSION: 1. Acute pancreatitis without evidence of organized fluid collections. 2. Hepatic steatosis. 3. No evidence of biliary duct or pancreatic duct dilatation. 4. Mildly distended gallbladder without evidence of cholelithiasis. 5. Minimal ascites. 6. Small hepatic hemangioma. Josias Arthur MD Abdomen/Pelvis CT 10/29/16 0147 Signed Impressions: Service Date/Time: Saturday, October 29, 2016 05:23 - CONCLUSION: 1. Hepatomegaly and hepatic steatosis. 2. Acute pancreatitis. No evidence for pseudocyst or abscess. 3. There is pericholecystic fat stranding and findings of this gallbladder wall edema versus trace pericholecystic fluid. The possibility of cholecystitis should be entertained, and a gallbladder ultrasound would be helpful for further assessment. 4. Atherosclerosis. 5. Small amount of free fluid. 6. Severe osteoarthritis of the left hip. Gustavo Soto MD Gall Bladder Ultrasound 10/29/16 0000 Signed Impressions: Service Date/Time: Saturday, October 29, 2016 07:49 - CONCLUSION: Technically limited exam. Gallbladder is mildly distended but otherwise focally unremarkable. Poorly seen fatty liver with hypoechoic right lobe mass. This likely correlates with hypervascular focus in segment V. Further characterization with hepatic MRI may be beneficial. Christophe Vegas MD Abdomen X-Ray 10/29/16 0000 Signed Impressions: Service Date/Time: Saturday, October 29, 2016 02:11 - CONCLUSION: 1. Nonobstructive bowel gas pattern. Gustavo Soto MD Physical Exam HEENT: Normocephalic; atraumatic; no jaundice. CHEST: CTA CARDIAC: RRR ABDOMEN: Soft, nondistended, NONtender; no hepatosplenomegaly; bowel sounds x 4 EXTREMITIES: Generalized edema. SKIN: Normal; no rash; no jaundice. CAFE ASSISTANT: No focal deficits; alert and oriented x 3 (Darya Angulo) Assessment and Plan Plan ASSESSMENT - Acute pancreatitis with abdominal pain and nausea/vomiting. Abdomen/Pelvis CT (10/29/16)---> 1. Hepatomegaly and hepatic steatosis. 2. Acute pancreatitis. No evidence for pseudocyst or abscess. 3. There is pericholecystic fat stranding and findings of this gallbladder wall edema versus trace pericholecystic fluid. The possibility of cholecystitis should be entertained, and a gallbladder ultrasound would be helpful for further assessment. 4. Atherosclerosis. 5. Small amount of free fluid. 6. Severe osteoarthritis of the left hip. Gall Bladder Ultrasound (10/29/16)---> Technically limited exam. Gallbladder is mildly distended but otherwise focally unremarkable. Poorly seen fatty liver with hypoechoic right lobe mass. This likely correlates with hypervascular focus in segment V. Further characterization with hepatic MRI may be beneficial. MRI abd 11-01-16--> fatty liver, acute pancreatitis, no evidence biliary or pancreatic duct dilatation, mildly distended GB no evidence cholelithiasis, min ascites, hemangioma liver. Symptoms much improved. Lipase 657. Tolerated pot roast and mashed potatoes, but states he could "only tolerate a chicken salad sandwich" after his dilaudid was changed to hydrocodone. He would like this advanced to a regular diet again. He is nontender on exam. He is okay to d/c home from GI standpoint on Lowfat diet and complete ETOH cessation. - Right hepatic lobe mass on US. AFP 4.9. S/P MRI, hemangioma. - Leukocytosis. WBC 8.6 Zosyn. PLAN - Low fat diet-D/W patient - Cont. PPI - No ETOH-D/W patient - FU MARIANGEL 2 weeks - Okay to d/c home from GI standpoint - GI will sign off, please reconsult as needed - Patient seen and examined by Dr. Cooper and myself and this note is written on his behalf. (Darya Angulo) Physician Comments Seen and examined, plan as above, agree with discharge plan. FU as out patient. (Alex Cooper MD) Darya Angulo Nov 08, 2016 11:28 Alex Cooper MD Nov 08, 2016 12:00
[2016-11-08] MEDS ORDERED: HYDR-3288 PO (12:06)
--- NOTE | 2016-11-08 12:15 | HHI.PR ---
Subjective Remarks Pt states that his pain is 8 to 9/10 and he states that the norco 5/325 doesn't help. when I explained to him that if his pain is that bad we probably should back off on resuming a low fat diet, pt changes his story and states that he can eat but he gets some pain after eating and he would like something stronger than the norco 5/325. He goes to explain to me that he has chronic pain and that he known that the 5.325 will not work. he denies any nausea or vomiting, denies any CP/SOB Objective Vitals Vital Signs Date Time Temp Pulse Resp B/P Pulse Ox O2 Delivery O2 Flow Rate FiO2 11/08/16 08:00 96.8 84 18 156/96 100 11/08/16 04:00 96.0 83 16 126/80 99 11/08/16 00:00 97.2 83 17 142/86 97 11/07/16 20:00 98.1 96 16 155/92 97 11/07/16 19:14 Room Air 11/07/16 16:00 98.1 76 17 151/88 98 I/O 11/07/16 11/07/16 11/07/16 11/08/16 11/08/16 11/08/16 07:00 15:00 23:00 07:00 15:00 23:00 Intake Total 1335 ml 794 ml 720 ml 720 ml Balance 1335 ml 794 ml 720 ml 720 ml Intake Oral 720 ml 720 ml 720 ml IV Total 615 ml 794 ml # Voids 2 2 2 # Bowel Movements 1 Result Diagram: 11/06/16 0706 11/06/16 0706 Imaging Last Impressions Abdomen MRI 10/31/16 0000 Signed Impressions: Service Date/Time: Monday, October 31, 2016 14:57 - CONCLUSION: 1. Acute pancreatitis without evidence of organized fluid collections. 2. Hepatic steatosis. 3. No evidence of biliary duct or pancreatic duct dilatation. 4. Mildly distended gallbladder without evidence of cholelithiasis. 5. Minimal ascites. 6. Small hepatic hemangioma. Josias Arthur MD Abdomen/Pelvis CT 10/29/16 0147 Signed Impressions: Service Date/Time: Saturday, October 29, 2016 05:23 - CONCLUSION: 1. Hepatomegaly and hepatic steatosis. 2. Acute pancreatitis. No evidence for pseudocyst or abscess. 3. There is pericholecystic fat stranding and findings of this gallbladder wall edema versus trace pericholecystic fluid. The possibility of cholecystitis should be entertained, and a gallbladder ultrasound would be helpful for further assessment. 4. Atherosclerosis. 5. Small amount of free fluid. 6. Severe osteoarthritis of the left hip. Gustavo Soto MD Gall Bladder Ultrasound 10/29/16 0000 Signed Impressions: Service Date/Time: Saturday, October 29, 2016 07:49 - CONCLUSION: Technically limited exam. Gallbladder is mildly distended but otherwise focally unremarkable. Poorly seen fatty liver with hypoechoic right lobe mass. This likely correlates with hypervascular focus in segment V. Further characterization with hepatic MRI may be beneficial. Christophe Vegas MD Abdomen X-Ray 10/29/16 0000 Signed Impressions: Service Date/Time: Saturday, October 29, 2016 02:11 - CONCLUSION: 1. Nonobstructive bowel gas pattern. Gustavo Soto MD Objective Remarks GENERAL: This is a well-nourished, well-developed patient, laying in bed, appears comfortable. CARDIOVASCULAR: Regular rate and regular rhythm without murmurs RESPIRATORY: Clear to auscultation. Breath sounds equal bilaterally. No wheezes GASTROINTESTINAL: Abdomen soft, mild grimacing in the epigastric area however, pt doesn't complain of pain at all. bowel sounds are present. MUSCULOSKELETAL: Extremities without edema. Moves all extremities. NEURO: Alert & Oriented. Moves all ext x4 Procedures none A/P Problem List: (1) Acute pancreatitis ICD Code: K85.90 Status: Acute Assessment and Plan - severe sepsis due to acute pancreatitis with questionable acute cholecystitis - resolved. MRI of the abdomen with acute pancreatitis lipase is trending down- encourage po hydration as pt is tolerating po- continue antiemetics and pain control. Pt insists that norco 5/325 will not work and is agreeable to try norco 7.5/325. He would like to eat lunch and get one tablet and if pain is controlled he would like to go home today. I did discuss plan w RN. GI evaluated the patient and has advanced diet to low fat diet. Pt has been counseled as well on the importance to eating a low fat diet. He voices his understanding. GI has cleared pt for d/c -hypokalemia; replaced. -hypertension;overall better- off amlodipine -continue procardia and clonidine - fu w PCP as outpatient. - seizure disorder/neuropathy; continue home meds Discharge Planning d/c later today if tolerating diet. Cobb has been switched to 7.5/325 po q6hrs prn. new script provided. Problem Qualifiers (1) Acute pancreatitis: Qualified Code: K85.90 - Acute pancreatitis, unspecified complication status, unspecified pancreatitis type Taty Estrada MD Nov 08, 2016 12:15
[2016-11-08 12:16] VITALS: BP 148/97; PULSE 83; RESP 18; TEMP 97.8; O2SAT 100
[2016-11-08] MEDS ORDERED: ACETAMINOPHEN/HYDROcodone 325 MG/7.5 MG TAB PO PRN ×2 (12:45→20:45)
[2016-11-08 16:00] VITALS: BP 164/91; PULSE 85; RESP 18; TEMP 98.2; O2SAT 99
--- NOTE | 2016-11-08 17:14 | HHI.FF ---
Face to Face Verification Diagnosis: (1) Acute pancreatitis (2) Deconditioned low back Physical Therapy Order: Evaluate and Treat Home Health Nursing Order: Nursing assessment with vital signs I have seen patient Dylan Blackwood on 11/08/16. My clinical findings support the need for the requested home health care services because: pt requires PT for strengthening exercises Deconditioned w/ increased weakness I certify that my clinical findings support that this patient is homebound because:require PT for strengthening exercises Unsteady gait/balance Taty Estrada MD Nov 08, 2016 17:14
[2016-11-08] MEDS: ACETAMINOPHEN/HYDROcodone 325 MG/7.5 MG TAB PO PRN ×2 (18:01→22:00)
[2016-11-08 20:39] VITALS: BP 150/89; PULSE 77; RESP 20; TEMP 98; O2SAT 99
[2016-11-09 00:23] VITALS: BP 145/91; PULSE 71; RESP 18; TEMP 96.9; O2SAT 99
[2016-11-09] MEDS: cloNIDine HCL 0.1 MG TAB PO SCH ×3 (00:26→16:17)
[2016-11-09] MEDS: PIPERACIL-TAZO 3.375 GM PREMIX 50 ML IV SCH ×3 (00:26→12:50)
[2016-11-09] MEDS: ACETAMINOPHEN/HYDROcodone 325 MG/7.5 MG TAB PO PRN ×4 (02:01→14:21)
[2016-11-09] MEDS: PHENYTOIN SODIUM 100 MG CAP PO SCH ×2 (03:07→10:16)
[2016-11-09 04:00] VITALS: BP 128/75; PULSE 75; RESP 18; TEMP 98.2; O2SAT 98
[2016-11-09] MEDS: LORazepam 2 MG TAB PO PRN ×3 (04:19→16:17)
[2016-11-09] MEDS: ONDANSETRON HCL 4 MG/2 ML VIAL IVP PRN ×3 (04:19→16:17)
[2016-11-09 07:45] VITALS: BP 147/84; PULSE 76; RESP 18; TEMP 96.6; O2SAT 99
[2016-11-09] MEDS: NS + KCL 20 MEQ INJ 1,000 ML IV SCH (09:39)
[2016-11-09] MEDS: SODIUM CHLORIDE 0.9% FLUSH 10 ML FLUSH IV FLUSH SCH (10:16)
[2016-11-09] MEDS: METHADONE HCL 10 MG TAB PO SCH ×2 (10:16→12:45)
[2016-11-09] MEDS: ZONISAMIDE 100 MG CAP PO SCH (10:16)
[2016-11-09] MEDS: ENOXAPARIN SODIUM 40 MG/0.4 ML SYRINGE SQ SCH (10:16)
[2016-11-09] MEDS: GABAPENTIN 100 MG CAP PO SCH (10:16)
[2016-11-09] MEDS: NIFEdipine 30 MG SUSTAINED RELEASE TAB PO SCH (10:16)
[2016-11-09] MEDS: PANTOPRAZOLE SODIUM 40 MG VIAL IV PUSH SCH (10:16)
[2016-11-09 12:00] VITALS: BP 148/89; PULSE 87; RESP 18; TEMP 97.7; O2SAT 99
--- NOTE | 2016-11-09 14:35 | HHI.PR ---
Subjective Remarks Pt feeling better. states he is comfortable going home today. had a chicken sandwich yesterday was able to eat it but felt heavy on his stomach. agrees that he should try to eat something chief clinical dietitian next time. pain controlled w norco 7.5 Objective Vitals Vital Signs Date Time Temp Pulse Resp B/P (MAP) Pulse Ox O2 Delivery O2 Flow Rate FiO2 11/09/16 07:45 96.6 76 18 147/84 (105) 99 11/09/16 04:00 98.2 75 18 128/75 (92) 98 11/09/16 00:23 96.9 71 18 145/91 (109) 99 11/08/16 20:39 98.0 77 20 150/89 (109) 99 11/08/16 16:00 98.2 85 18 164/91 (115) 99 I/O 11/08/16 11/08/16 11/08/16 11/09/16 11/09/16 11/09/16 07:00 15:00 23:00 07:00 15:00 23:00 Intake Total 720 ml 960 ml Output Total 1600 ml 1150 ml Balance 720 ml -640 ml -1150 ml Intake Oral 720 ml 960 ml Output Urine Total 1600 ml 1150 ml # Voids 2 0 # Bowel Movements 0 0 Result Diagram: 11/06/16 0706 11/06/16 0706 Imaging Last Impressions Abdomen MRI 10/31/16 0000 Signed Impressions: Service Date/Time: Monday, October 31, 2016 14:57 - CONCLUSION: 1. Acute pancreatitis without evidence of organized fluid collections. 2. Hepatic steatosis. 3. No evidence of biliary duct or pancreatic duct dilatation. 4. Mildly distended gallbladder without evidence of cholelithiasis. 5. Minimal ascites. 6. Small hepatic hemangioma. Josias Arthur MD Abdomen/Pelvis CT 10/29/16 0147 Signed Impressions: Service Date/Time: Saturday, October 29, 2016 05:23 - CONCLUSION: 1. Hepatomegaly and hepatic steatosis. 2. Acute pancreatitis. No evidence for pseudocyst or abscess. 3. There is pericholecystic fat stranding and findings of this gallbladder wall edema versus trace pericholecystic fluid. The possibility of cholecystitis should be entertained, and a gallbladder ultrasound would be helpful for further assessment. 4. Atherosclerosis. 5. Small amount of free fluid. 6. Severe osteoarthritis of the left hip. Gustavo Soto MD Gall Bladder Ultrasound 10/29/16 0000 Signed Impressions: Service Date/Time: Saturday, October 29, 2016 07:49 - CONCLUSION: Technically limited exam. Gallbladder is mildly distended but otherwise focally unremarkable. Poorly seen fatty liver with hypoechoic right lobe mass. This likely correlates with hypervascular focus in segment V. Further characterization with hepatic MRI may be beneficial. Christophe Vegas MD Abdomen X-Ray 10/29/16 0000 Signed Impressions: Service Date/Time: Saturday, October 29, 2016 02:11 - CONCLUSION: 1. Nonobstructive bowel gas pattern. Gustavo Soto MD Objective Remarks GENERAL: laying in bed, appears comfortable. CARDIOVASCULAR: Regular rate and regular rhythm without murmurs RESPIRATORY: Clear to auscultation. Breath sounds equal bilaterally. No wheezes GASTROINTESTINAL: Abdomen soft, non tender to deep palpation MUSCULOSKELETAL: Extremities without edema. Moves all extremities. NEURO: Alert & Oriented. Moves all ext x4 Procedures none A/P Problem List: (1) Acute pancreatitis ICD Code: K85.90 - Acute pancreatitis without necrosis or infection, unspecified Status: Acute Assessment and Plan - severe sepsis due to acute pancreatitis with questionable acute cholecystitis - resolved. MRI of the abdomen with acute pancreatitis lipase is trending down- encourage po hydration as pt is tolerating po- continue antiemetics and pain control.pt states that pain is controlled on norco 7.5/325. He feels comfortable going home this pm, has a friend who can come pick him up. I again counseled him on low fat diet and eating light for then next 1-2 weeks. He voices his understanding. GI has cleared pt for d/c -hypokalemia; replaced. -hypertension;overall better- off amlodipine -continue procardia and clonidine - fu w PCP as outpatient. - seizure disorder/neuropathy; continue home meds Discharge Planning ok to d/c patient home w home health today. Problem Qualifiers (1) Acute pancreatitis: Taty Estrada MD Nov 09, 2016 14:35
== END 2016-11-09 16:42 | disposition home health service (06) | DRG 871 ==
LOC: NEPC 01:13 → NEDA 06:05 → N06A 18:25
PROVIDERS: ADMIT Hospitalist; ATTEND Hospitalist
DX: A41.9 Sepsis, unspecified organism (principal); K85.90 Acute pancreatitis without necrosis or infection, unspecified; K76.0 Fatty (change of) liver, not elsewhere classified; R65.20 Severe sepsis without septic shock; E87.6 Hypokalemia; I10 Essential (primary) hypertension; G62.9 Polyneuropathy, unspecified; G40.909 Epilepsy, unspecified, not intractable, without status epilepticus; M16.12 Unilateral primary osteoarthritis, left hip
CPT/HCPCS: 74020; 74177; 74183; 76705; 76937; 80048; 80053; 81001; 82105; 82550; 83605; 83690; 83735; 84478; 84484; 85007; 85025; 85027; 85610; 85730; 93005; 96361; 96374; 96375; 96376; A9579; C9113; J1170; J1650; J2270; J2405; J2543; J3480; J7030; Q9967

== ENCOUNTER 2016-12-01 19:39 | Emergency (ER) | payer OTHER, MEDICAID ==
[~2016-12-01] VITALS: Ht 182.9 cm; Wt 93.0 kg
[~2016-12-01 19:39] MED LIST changes: -AMLO10 PO; +CLON.1 PO; +HYDR-3288 PO; -LEVA750T9 PO; +METH10TA PO; -METH40TA PO; +NIFE30TA8 PO
[2016-12-01] MEDS ORDERED: IOHEXOL 350 MG/ML 10 ML VIAL (for RAD DIAG) IVCONTRAST ONE (19:40)
[2016-12-01 19:46] VITALS: BP 182/88; PULSE 110; RESP 18; TEMP 99.7; O2SAT 97
[2016-12-01] MEDS ORDERED: SODIUM CHLOR 0.9% 1000 ML INJ 1,000 ML IV SCH (20:08)
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
[2016-12-01] MEDS ORDERED: HYDROmorphone HCL PF 1 MG/ML VIAL IV PUSH ONE ×2 (20:15→23:30)
[2016-12-01] MEDS ORDERED: SODIUM CHLORIDE 0.9% FLUSH 10 ML FLUSH IV FLUSH PRN (20:15)
[2016-12-01] MEDS ORDERED: ONDANSETRON HCL 4 MG/2 ML VIAL IVP ONE (20:15)
[2016-12-01 20:52] LABS: AUTOMATED NEUTROPHIL # 4.9 TH/MM3 (1.8-7.7); BASOPHIL # 0.1 TH/MM3 (0-0.2); EOSINOPHIL # 0.3 TH/MM3 (0-0.4); EOSINOPHIL % 3.1 % (0.0-4.0); HEMATOCRIT 39.1 % (39.0-51.0); HEMO FLAGS DIFF FINAL; LYMPH % 33.5 % (9.0-44.0); MEAN CELL VOLUME 87.6 FL (80.0-100.0); MEAN CORPUSCULAR HEMOGLOBIN 29.5 PG (27.0-34.0); MEAN CORPUSCULAR HGB CONC 33.6 % (32.0-36.0); MONO % 6.9 % (0.0-8.0); NEUT % 55.5 % (16.0-70.0); PLATELET COUNT 319 TH/MM3 (150-450); RED BLOOD COUNT 4.46 MIL/MM3 (4.50-5.90); WHITE BLOOD COUNT 8.8 TH/MM3 (4.0-11.0)
[2016-12-01 21:01] LABS: APTT (PATIENT) 23.6 SEC (24.3-30.1); INTERNATIONAL NORMALIZED RATIO 0.9 RATIO; PROTHROMBIN TIME - PATIENT 10.3 SEC (9.8-11.6)
[2016-12-01 21:09] LABS: BACTERIA, URINE RARE /hpf; BLOOD, URINE NEG (NEG); COMMENT (UR) CULT NOT INDICATED; CULTURE IF INDICATED CULT NOT INDICATED; GLUCOSE,URINE NEG (NEG); KETONE, URINE NEG (NEG); NITRITE,URINE NEG (NEG); SQUAMOUS EPITHELIAL CELL URINE <1 /hpf (0-5); URINE COLOR LIGHT-YELLOW (YELLW/STRAW)
[2016-12-01 21:27] LABS: ALKALINE PHOSPHATASE 122 U/L (45-117); ALT (GPT) 17 U/L (12-78); ANION GAP 12 MEQ/L (5-15); AST (GOT) 18 U/L (15-37); BLOOD UREA NITROGEN 7 MG/DL (7-18); CHLORIDE 103 MEQ/L (98-107); GLOMERULAR FILTRATION RATE 68 ML/MIN (>89); SODIUM (NA) 145 MEQ/L (136-145); TOTAL BILIRUBIN ADULT 0.2 MG/DL (0.2-1.0)
[2016-12-01 21:30] LABS: POTASSIUM 2.7 MEQ/L (3.5-5.1)
--- NOTE | 2016-12-01 21:39 | PD ---
Physical Exam Date Seen by Provider: Dec 01, 2016 Narrative This patient presents with the chief complaint of abdominal pain. Onset was last night. He states that it feels like his pancreatitis. He reports nausea and vomiting but no diarrhea. He reports subjective fever. He denies any urinary tract symptoms. GENERAL: Patient is awake and alert and does not appear to be in any acute distress. SKIN: Warm and dry. Good turgor. Good color. HEAD: Normocephalic/atraumatic. EYES: Pupils are equal. Extraocular movements are intact. ENT: Mouth is moist. NECK: Neck is supple. CARDIOVASCULAR: Heart sounds are normal. RESPIRATORY: Lungs are clear with good air movement throughout. ABDOMEN: Bowel sounds are positive. The abdomen is soft. He has diffuse tenderness with no guarding or rebound. MUSCULOSKELETAL: Atraumatic. NEUROLOGICAL: Nonfocal. PSYCHIATRIC: Appropriate mood and affect. Data Data Last Documented VS Vital Signs Date Time Temp Pulse Resp B/P (MAP) Pulse Ox O2 Delivery O2 Flow Rate FiO2 12/01/16 23:13 99.2 110 20 178/100 (126) 96 Room Air Orders Orders Complete Blood Count With Diff (12/01/16 20:08) Comprehensive Metabolic Panel (12/01/16 20:08) Lipase (12/01/16 20:08) Lactic Acid (12/01/16 20:08) Prothrombin Time / Inr (Pt) (12/01/16 20:08) Act Partial Throm Time (Ptt) (12/01/16 20:08) Urinalysis - C+S If Indicated (12/01/16 20:08) Ct Abd/Pel W Iv Contrast(Rout) (12/01/16 20:08) Iv Access Insert/Monitor (12/01/16 20:08) Ecg Monitoring (12/01/16 20:08) Oximetry (12/01/16 20:08) Ondansetron Inj (Zofran Inj) (12/01/16 20:15) Sodium Chlor 0.9% 1000 Ml Inj (Ns 1000 M (12/01/16 20:08) Sodium Chloride 0.9% Flush (Ns Flush) (12/01/16 20:15) Hydromorphone Pf Inj (Dilaudid Pf Inj) (12/01/16 20:15) Electrocardiogram (12/01/16 ) Phenytoin (Dilantin) (12/01/16 20:08) Potassium Chloride (Kcl) (12/01/16 21:45) Iohexol 350 Inj (Omnipaque 350 Inj) (12/01/16 19:40) Sodium Chlor 0.9% 1000 Ml Inj (Ns 1000 M (12/01/16 23:00) Sodium Chlor 0.9% 1000 Ml Inj (Ns 1000 M (12/01/16 23:00) Ondansetron Inj (Zofran Inj) (12/01/16 23:00) Lactic Acid (12/01/16 23:00) Hydromorphone Pf Inj (Dilaudid Pf Inj) (12/01/16 23:30) Labs Laboratory Tests Test 12/01/16 19:50 12/01/16 20:25 12/01/16 20:40 12/01/16 23:16 White Blood Count 8.8 TH/MM3 Red Blood Count 4.46 MIL/MM3 Hemoglobin 13.2 GM/DL Hematocrit 39.1 % Mean Corpuscular Volume 87.6 FL Mean Corpuscular Hemoglobin 29.5 PG Mean Corpuscular Hemoglobin Concent 33.6 % Red Cell Distribution Width 15.0 % Platelet Count 319 TH/MM3 Mean Platelet Volume 9.1 FL Neutrophils (%) (Auto) 55.5 % Lymphocytes (%) (Auto) 33.5 % Monocytes (%) (Auto) 6.9 % Eosinophils (%) (Auto) 3.1 % Basophils (%) (Auto) 1.0 % Neutrophils # (Auto) 4.9 TH/MM3 Lymphocytes # (Auto) 3.0 TH/MM3 Monocytes # (Auto) 0.6 TH/MM3 Eosinophils # (Auto) 0.3 TH/MM3 Basophils # (Auto) 0.1 TH/MM3 CBC Comment DIFF FINAL Differential Comment Prothrombin Time 10.3 SEC Prothromb Time International Ratio 0.9 RATIO Activated Partial Thromboplast Time 23.6 SEC Blood Urea Nitrogen 7 MG/DL Creatinine 1.10 MG/DL Random Glucose 123 MG/DL Total Protein 7.6 GM/DL Albumin 3.7 GM/DL Calcium Level 9.1 MG/DL Alkaline Phosphatase 122 U/L Aspartate Amino Transf (AST/SGOT) 18 U/L Alanine Aminotransferase (ALT/SGPT) 17 U/L Total Bilirubin 0.2 MG/DL Sodium Level 145 MEQ/L Potassium Level 2.7 MEQ/L Chloride Level 103 MEQ/L Carbon Dioxide Level 30.0 MEQ/L Anion Gap 12 MEQ/L Estimat Glomerular Filtration Rate 68 ML/MIN Lipase 175 U/L Phenytoin (Dilantin) Level 3.4 MCG/ML Lactic Acid Level 3.3 mmol/L 2.1 mmol/L Urine Color LIGHT-YELLOW Urine Turbidity CLEAR Urine pH 6.0 Urine Specific [place] 1.005 Urine Protein NEG mg/dL Urine Glucose (UA) NEG mg/dL Urine Ketones NEG mg/dL Urine Occult Blood NEG Urine Nitrite NEG Urine Bilirubin NEG Urine Urobilinogen LESS THAN 2.0 MG/DL Urine Leukocyte Esterase NEG Urine WBC 1 /hpf Urine Squamous Epithelial Cells <1 /hpf Urine Bacteria RARE /hpf Microscopic Urinalysis Comment CULT NOT INDICATED MDM Supervised Visit with [place]: Yes Interpretation(s) EKG shows a sinus rhythm with a right bundle branch block. No acute ischemic change. Differential Diagnosis Differential diagnosis of abdominal pain includes but is not limited to gastritis, pancreatitis, hepatitis, gastroenteritis, gallbladder disease, constipation, urinary retention, UTI, peptic ulcer disease, diverticulitis or appendicitis Narrative Course This patient presents with abdominal pain associated with nausea and vomiting. He reports a history of pancreatitis. CBC & BMP Diagram 12/01/16 19:50 Total Protein 7.6, Albumin 3.7, Calcium Level 9.1, Alkaline Phosphatase 122 H, Aspartate Amino Transf (AST/SGOT) 18, Alanine Aminotransferase (ALT/SGPT) 17, Total Bilirubin 0.2 Lactic acid is 3.3. Lipase is normal at 175. UA neg. Last Impressions Abdomen/Pelvis CT 12/01/162007 Signed Impressions: Service Date/Time: Thursday, December 01, 2016 22:03 - CONCLUSION: No acute abnormality demonstrated. Previously seen pancreatitis and fatty infiltration of the liver have resolved. Christophe Farmer MD He has had no further emesis in the emergency department. He continues to be nauseous. Heart rate is in the 1 teens following 2 L of fluid. I have ordered an additional 2 L. Heart rate is now down less than 100. Repeat lactic acid is 2.1. He'll be discharged home. Sepsis Criteria SIRS Criteria (2 or more): Heart rate over 90 Severe Sepsis (+one): Lactate >2 Diagnosis Primary Impression: Abdominal pain Qualified Codes: R10.84 - Generalized abdominal pain Additional Impressions: Vomiting Qualified Codes: R11.2 - Nausea with vomiting, unspecified Hypokalemia Lactic acidosis Patient Instructions: Abdominal Pain (ED), Acute Nausea and Vomiting (DC), General Instructions, Narcotic given in the ED Med/Other Pt SpecificInfo: Prescription(s) given Scripts Promethazine (Phenergan) 25 Mg Tablet 25 MG PO Q6H Y for NAUSEA OR VOMITING, #10 TAB 0 Refills Prov: Nikki Fraser MD 12/02/16 Disposition: 01 DISCHARGE HOME Condition: Stable Nikki Fraser MD Dec 01, 2016 21:39
[2016-12-01] MEDS ORDERED: POTASSIUM CHLORIDE 20 MEQ CONTROLLED RELEASE TAB PO ONE (21:45)
--- NOTE | 2016-12-01 22:26 | RADRPT ---
EXAM DATE/TIME: 12/01/2016 22:03 [facility] COMPARISON: CT ABDOMEN & PELVIS W CONTRAST, October 29, 2016, 5:23. INDICATIONS : Diffuse abdominal pain. IV CONTRAST: 95 cc Omnipaque 350 (iohexol) IV ORAL CONTRAST: No oral contrast ingested. RADIATION DOSE: 13.97 CTDIvol (mGy) MEDICAL HISTORY : Seizures. Hypertension. Hernia, hiatal.Renal failure. Head trauma. SURGICAL HISTORY : Spinal fracture repair. ENCOUNTER: Initial ACUITY: 1 day PAIN SCALE: 10/10 LOCATION: Bilateral abdomen TECHNIQUE: Volumetric scanning of the abdomen and pelvis was performed. Using automated exposure control and ad justment of the mA and/or kV according to patient size, radiation dose was kept as low as reasonably achievable to obtain optimal diagnostic quality images. DICOM format image data is available electro nically for review and comparison. FINDINGS: LOWER LUNGS: The visualized lower lungs are clear. LIVER: Homogeneous density without lesion. There is no dilation of the biliary tree. No calcified gallston es. SPLEEN: Normal size without lesion. PANCREAS: Within normal limits. KIDNEYS: Normal in size and shape. There is no mass, stone or hydronephrosis. ADRENAL GLANDS: Within normal limits. VASCULAR: There is no aortic aneurysm. BOWEL/MESENTERY: The stomach, small bowel, and colon demonstrate no acute abnormality. There is no free intraperitone al air or fluid. ABDOMINAL WALL: Within normal limits. RETROPERITONEUM: There is no lymphadenopathy. BLADDER: No wall thickening or mass. REPRODUCTIVE: Within normal limits. INGUINAL: There is no lymphadenopathy or hernia. MUSCULOSKELETAL: No acute bony abnormality demonstrated. Degenerative changes of the lumbar spine and left hip again s een. CONCLUSION: No acute abnormality demonstrated. Previously seen pancreatitis and fatty infiltration of the liver h ave resolved. Christophe Farmer MD on December 01, 2016 at 22:23 Board Certified Radiologist. This report was verified electronically.
[2016-12-01] MEDS ORDERED: SODIUM CHLOR 0.9% 1000 ML INJ 1,000 ML IV ONE ×2 (23:00)
[2016-12-01] MEDS ORDERED: ONDANSETRON HCL 4 MG/2 ML VIAL IV PUSH ONE (23:00)
[2016-12-01 23:13] VITALS: BP 178/100; PULSE 110; RESP 20; TEMP 99.2; O2SAT 96
[2016-12-02] MEDS ORDERED: PROM25TA10 PO (00:18)
[2016-12-02 00:57] VITALS: BP_SYST 180; BP_SYST 194; BP_DIAS 91; BP_DIAS 95; PULSE 97; RESP 18; O2SAT 96
--- NOTE | 2016-12-02 13:41 | EKG ---
Date Performed: 12/01/2016 Time Performed: 21:05:43 PTAGE: 61 years EKG: Sinus rhythm WITH SHORT [place] INTERVAL MARKED LEFT AXIS DEVIATION RIGHT BUNDLE BRANCH BLOCK ABNORMAL ECG PREVIOUS TRACING : 10/29/2016 03.42 Since the prior tracing, there has been improvement in the anterolateral T-wave changes, possibly suggesting improvement in anterolateral ischemia. Clinical cor relation is advised. DOCTOR: Abigail Underwood Interpretating Date/Time 12/02/2016 13:40:25
== END 2016-12-02 01:29 | disposition home or self-care (01) ==
LOC: NEPC 19:39
DX: R10.84 Generalized abdominal pain (principal); R11.2 Nausea with vomiting, unspecified; E87.6 Hypokalemia; E87.2 Acidosis; I45.10 Unspecified right bundle-branch block; R94.31 Abnormal electrocardiogram [ECG] [EKG]; G40.909 Epilepsy, unspecified, not intractable, without status epilepticus; I12.9 Hypertensive chronic kidney disease with stage 1 through stage 4 chronic kidney disease, or unspecified chronic kidney disease; N18.9 Chronic kidney disease, unspecified
CPT/HCPCS: 74177; 80053; 80185; 81001; 83605; 83690; 85025; 85610; 85730; 93005; 96361; 96374; 96375; 96376; 99285; J1170; J2405; J7030; Q9967

== ENCOUNTER 2016-12-11 17:05 | Observation (INO) | payer OTHER, MEDICAID ==
[~2016-12-11] VITALS: Ht 182.9 cm; Wt 93.0 kg
[~2016-12-11 17:05] MED LIST changes: -CLON.1 PO; -HYDR-3288 PO; -NIFE30TA8 PO; -PANT40TA3 PO; +PROM25TA10 PO
[2016-12-11] MEDS ORDERED: IOHEXOL 350 MG/ML 10 ML VIAL (for RAD DIAG) IVCONTRAST ONE (17:06)
[2016-12-11 17:08] VITALS: BP 175/116; PULSE 131; RESP 16; TEMP 99.5; O2SAT 99
--- NOTE | 2016-12-11 17:22 | PD ---
Physical Exam Date Seen by Provider: Dec 11, 2016 Time Seen by Provider: 17:21 Narrative 61-year-old male with history of chronic pancreatitis presents to emergency department for his doctor for increased abdominal pain, nausea, vomiting, and abdominal distention since yesterday. Patient is unsure if he had fever but has had chills. Pain is 10 out of 10. Patient states his blood pressures higher than normal which she feels is due to the pain. Vital signs are reviewed. Patient is awaiting mental placement. Data Data Last Documented VS Vital Signs Date Time Temp Pulse Resp B/P (MAP) Pulse Ox O2 Delivery O2 Flow Rate FiO2 12/11/16 17:08 99.5 131 16 175/116 (135) 99 MDM Medical Record Reviewed: Yes Supervised Visit with [place]: Yes Condition: Stable Zac Cordero Dec 11, 2016 17:22
[2016-12-11] MEDS ORDERED: SODIUM CHLOR 0.9% 1000 ML INJ 1,000 ML IV SCH ×2 (17:35→19:12)
--- NOTE | 2016-12-11 17:39 | PD ---
HPI Chief Complaint: Abdominal Pain Time Seen by Provider: 17:28 Travel History International Travel<30 days: No Contact w/Intl Traveler<30days: No Traveled to known affect area: No History of Present Illness HPI This is a 61-year-old male presents for evaluation of abdominal pain, nausea and vomiting. Symptoms started yesterday evening a few hours after eating dinner. The pain is an aching pain in the epigastrium which is constant. He reports 12 episodes of nonbloody emesis today. He denies flank pain, dysuria, chest pain or shortness of breath, fevers or chills. He has been tachycardic and hypertensive throughout the day. He reports that he was seen here in early October and admitted for pancreatitis and this feels similar. His primary care physician is Dr. Flores. He has no other complaints at this time. PFSH Past Medical History Arthritis: No Asthma: No Heart Rhythm Problems: No Cancer: No Cardiovascular Problems: Yes High Cholesterol: No Chest Pain: No Congestive Heart Failure: No COPD: No Cerebrovascular Accident: No Diabetes: No Diminished Hearing: No Endocrine: No Gastrointestinal Disorders: Yes (PARTIALLY BLOCKED ILLEUM, HIATAL HERNIA ) GERD: No Genitourinary: Yes Headaches: Yes (FOR BRAIN INJURY) Hiatal Hernia: Yes Hypertension: Yes Immune Disorder: No Implanted Vascular Access Dvce: Yes Kidney Stones: No Musculoskeletal: Yes Neurologic: Yes (Neuropathy) Psychiatric: No Reproductive: No Respiratory: Yes (PNEUMOTHORAX IN 1987) Migraines: No Renal Failure: Yes Seizures: Yes Sleep Apnea: No Thyroid Disease: No Ulcer: No Tetanus Vaccination: > 5 Years Past Surgical History Abdominal Surgery: No Arteriovenous Shunt: No Body Medical Devices: cher in right lower leg Cardiac Surgery: No Ear Surgery: No Endocrine Surgery: No Eye Surgery: No Genitourinary Surgery: No Gynecologic Surgery: No Insulin Pump: No Oral Surgery: No Thoracic Surgery: Yes (CHEST TUBES X2 ) Other Surgery: Yes (facial reconstruction) Social History Alcohol Use: Yes (RARELY ) Tobacco Use: No (quit 30 years) Substance Use: No (pt denies ) Allergies-Medications (Allergen,Severity, Reaction): Coded Allergies: No Known Allergies (Unverified , 12/11/16) Reported Meds & Prescriptions Reported Meds & Active Scripts Active Zofran (Ondansetron HCl) 4 Mg Tab 4 Mg PO Q6HR PRN Reported Methadone (Methadone HCl) 10 Mg Tab 30 Mg PO TID Zanaflex (Tizanidine HCl) 4 Mg Tab 8 Mg PO TID Lasix (Furosemide) 20 Mg Tab 20 Mg PO DAILY B12 (Cyanocobalamin) 1,000 Mcg Tab 1 Tab PO DAILY Folic Acid 400 Mcg Tab 400 Mcg PO DAILY Ativan (Lorazepam) 2 Mg Tab 2 Mg PO Q6H PRN Gabapentin 100 Mg Cap 300 Mg PO BID Zonisamide 100 Mg Cap 100 Mg PO BID Dilantin (Phenytoin Extended) 100 Mg Cap 100 Mg PO TID Review of Systems Except as stated in HPI: all other systems reviewed are Neg Physical Exam Narrative GENERAL: Well-developed well-nourished male in no acute distress. Tachycardic. SKIN: Warm and dry. HEAD: Atraumatic. Normocephalic. EYES: Pupils equal and round. No scleral icterus. No injection or drainage. ENT: No nasal bleeding or discharge. Mucous membranes pink and moist. NECK: Trachea midline. No JVD. CARDIOVASCULAR: Regular rate and rhythm. No murmur appreciated. RESPIRATORY: No accessory muscle use. Clear to auscultation. Breath sounds equal bilaterally. GASTROINTESTINAL: Abdomen soft, tender to palpation in the epigastrium without guarding. No right upper quadrant tenderness. No CVA tenderness. MUSCULOSKELETAL: No obvious deformities. No clubbing. No cyanosis. No edema. NEUROLOGICAL: Awake and alert. No obvious cranial nerve deficits. Motor grossly within normal limits. Normal speech. PSYCHIATRIC: Appropriate mood and affect; insight and judgment normal. Data Data Last Documented VS Vital Signs Date Time Temp Pulse Resp B/P (MAP) Pulse Ox O2 Delivery O2 Flow Rate FiO2 12/11/16 20:20 94 20 189/93 (125) 99 2.00 12/11/16 18:14 98.0 12/11/16 17:42 Room Air Orders Orders Complete Blood Count With Diff (12/11/16 17:35) Comprehensive Metabolic Panel (12/11/16 17:35) Lipase (12/11/16 17:35) Lactic Acid (12/11/16 17:35) Prothrombin Time / Inr (Pt) (12/11/16 17:35) Act Partial Throm Time (Ptt) (12/11/16 17:35) Urinalysis - C+S If Indicated (12/11/16 17:35) Ct Abd/Pel W Iv Contrast(Rout) (12/11/16 17:35) Iv Access Insert/Monitor (12/11/16 17:35) Ecg Monitoring (12/11/16 17:35) Oximetry (12/11/16 17:35) Ondansetron Inj (Zofran Inj) (12/11/16 17:45) Sodium Chlor 0.9% 1000 Ml Inj (Ns 1000 M (12/11/16 17:35) Sodium Chloride 0.9% Flush (Ns Flush) (12/11/16 17:45) Electrocardiogram (12/11/16 17:35) Hydromorphone Pf Inj (Dilaudid Pf Inj) (12/11/16 17:45) Electrocardiogram (12/11/16 ) Blood Culture (12/11/16 17:35) Sodium Chlor 0.9% 1000 Ml Inj (Ns 1000 M (12/11/16 19:12) Potassium Chlor 20 Meq Premix (Kcl 20 Me (12/11/16 19:15) Iohexol 350 Inj (Omnipaque 350 Inj) (12/11/16 17:06) Hydromorphone Pf Inj (Dilaudid Pf Inj) (12/11/16 20:15) Admit Order (Ed Use Only) (12/11/16 20:28) Lactic Acid (12/11/16 22:00) Lorazepam Inj (Ativan Inj) (12/11/16 20:30) Pantoprazole Inj (Protonix Inj) (12/11/16 21:00) Place In Observation (12/11/16 ) Vital Signs (Adult) Q4H (12/11/16 20:23) Activity Oob Ad Ellie (12/11/16 20:23) Intake + Output HARJIT.QSHIFT (12/11/16 20:23) Diet Regular Basic (12/12/16 Breakfast) Sodium Chlor 0.9% 1000 Ml Inj (Ns 1000 M (12/11/16 20:23) Sodium Chloride 0.9% Flush (Ns Flush) (12/11/16 20:30) Sodium Chloride 0.9% Flush (Ns Flush) (12/11/16 21:00) Ondansetron Inj (Zofran Inj) (12/11/16 20:30) Comprehensive Metabolic Panel (12/12/16 06:00) Complete Blood Count With Diff (12/12/16 06:00) Scd Bilateral/Knee High HARJIT.BID (12/11/16 20:23) [place] Bilateral/Knee High HARJIT.QSHIFT (12/11/16 20:30) Acetaminophen (Tylenol) (12/11/16 20:30) Acetamin-Hydrocod 325-5 Mg ([place] 5-325 (12/11/16 20:30) Hydromorphone Pf Inj (Dilaudid Pf Inj) (12/11/16 20:30) Docusate Sodium-Senna (Rosalind-Colace) (12/11/16 21:00) Magnesium Hydroxide Liq (Milk Of Magnesi (12/11/16 20:30) Sennosides (Senokot) (12/11/16 20:30) Bisacodyl Supp (Dulcolax Supp) (12/11/16 20:30) Lactulose Liq (Lactulose Liq) (12/11/16 20:30) Methadone (Dolophine) (12/12/16 09:00) Phenytoin (Dilantin) (12/12/16 09:00) Tizanidine Hcl (Zanaflex) (12/12/16 09:00) Zonisamide (Zonegran) (12/11/16 21:00) Labs Laboratory Tests Test 12/11/16 17:40 12/11/16 18:50 White Blood Count 11.2 TH/MM3 Red Blood Count 4.63 MIL/MM3 Hemoglobin 13.8 GM/DL Hematocrit 40.7 % Mean Corpuscular Volume 87.9 FL Mean Corpuscular Hemoglobin 29.9 PG Mean Corpuscular Hemoglobin Concent 34.0 % Red Cell Distribution Width 16.3 % Platelet Count 355 TH/MM3 Mean Platelet Volume 8.9 FL Neutrophils (%) (Auto) 73.0 % Lymphocytes (%) (Auto) 17.9 % Monocytes (%) (Auto) 7.5 % Eosinophils (%) (Auto) 0.7 % Basophils (%) (Auto) 0.9 % Neutrophils # (Auto) 8.2 TH/MM3 Lymphocytes # (Auto) 2.0 TH/MM3 Monocytes # (Auto) 0.8 TH/MM3 Eosinophils # (Auto) 0.1 TH/MM3 Basophils # (Auto) 0.1 TH/MM3 CBC Comment AUTO DIFF Differential Total Cells Counted 100 Neutrophils % (Manual) 84 % Band Neutrophils % 1 % Lymphocytes % 5 % Monocytes % 6 % Eosinophils % 3 % Basophils % 1 % Neutrophils # (Manual) 9.5 TH/MM3 Differential Comment FINAL DIFF MANUAL Platelet Estimate NORMAL Platelet Morphology Comment NORMAL Spherocytes 1+ Ovalocytes 1+ Prothrombin Time 11.2 SEC Prothromb Time International Ratio 1.0 RATIO Activated Partial Thromboplast Time 25.9 SEC Blood Urea Nitrogen 5 MG/DL Creatinine 1.06 MG/DL Random Glucose 126 MG/DL Total Protein 8.0 GM/DL Albumin 4.1 GM/DL Calcium Level 9.4 MG/DL Alkaline Phosphatase 125 U/L Aspartate Amino Transf (AST/SGOT) 23 U/L Alanine Aminotransferase (ALT/SGPT) 15 U/L Total Bilirubin 0.4 MG/DL Sodium Level 140 MEQ/L Potassium Level 2.6 MEQ/L Chloride Level 97 MEQ/L Carbon Dioxide Level 30.2 MEQ/L Anion Gap 13 MEQ/L Estimat Glomerular Filtration Rate 71 ML/MIN Lactic Acid Level 4.6 mmol/L Lipase 131 U/L Urine Color YELLOW Urine Turbidity CLEAR Urine pH 6.0 Urine Specific [place] 1.011 Urine Protein TRACE mg/dL Urine Glucose (UA) NEG mg/dL Urine Ketones NEG mg/dL Urine Occult Blood NEG Urine Nitrite NEG Urine Bilirubin NEG Urine Urobilinogen LESS THAN 2.0 MG/DL Urine Leukocyte Esterase TRACE Urine RBC LESS THAN 1 /hpf Urine WBC 2 /hpf Urine Hyaline Casts 10 /lpf Microscopic Urinalysis Comment CULT NOT INDICATED MDM Medical Decision Making Medical Screen Exam Complete: Yes Emergency Medical Condition: Yes Medical Record Reviewed: Yes Interpretation(s) CONCLUSION: Fatty liver. Otherwise negative. Differential Diagnosis Pancreatitis, pancreatic abscess, cholecystitis, peptic ulcer disease, mesenteric ischemia, ureteral stone, ACS, aortic dissection Narrative Course 61-year-old male who has been expressing epigastric pain, nausea, vomiting since yesterday evening. On examination he has focal tenderness to palpation in the epigastrium. He is tachycardic. He has no right upper quadrant tenderness to palpation. The patient will be placed on ECG monitoring and pulse oximetry. A 12-lead EKG has been ordered. Plan is for basic lab work, CT abdomen and pelvis. He was given IV fluids, Dilaudid, Zofran. The patient's lab work imaging studies have been reviewed and are notable for potassium of 2.6, lactic acid of 4.6, otherwise unremarkable. Upon reexamination the patient continues to have persistent epigastric abdominal pain and therefore additional analgesics have been ordered. Additional liter of IV fluids as well as 20 mEq of oral potassium chloride up in order. At this point in time the plan is to admit the patient for further evaluation and treatment. Diagnosis Primary Impression: Hypokalemia Additional Impressions: Abdominal pain Qualified Codes: R10.13 - Epigastric pain Nausea and vomiting Qualified Codes: R11.2 - Nausea with vomiting, unspecified Lactic acidosis Admitting Information Admitting Physician Requests: Observation Condition: Stable Chris Aponte Dec 11, 2016 17:39
[2016-12-11 17:42] VITALS: RESP 18; O2SAT 98
[2016-12-11] MEDS ORDERED: SODIUM CHLORIDE 0.9% FLUSH 10 ML FLUSH IV FLUSH PRN (17:45)
[2016-12-11] MEDS ORDERED: ONDANSETRON HCL 4 MG/2 ML VIAL IVP ONE (17:45)
[2016-12-11] MEDS ORDERED: HYDROmorphone HCL PF 1 MG/ML VIAL IVS ONE (17:45)
[2016-12-11 18:14] VITALS: BP 179/96; PULSE 96; RESP 18; TEMP 98; O2SAT 99
[2016-12-11 18:41] LABS: AUTOMATED NEUTROPHIL # 8.2 TH/MM3 (1.8-7.7); BASOPHIL # 0.1 TH/MM3 (0-0.2); BASOPHIL % 0.9 % (0.0-2.0); EOSINOPHIL # 0.1 TH/MM3 (0-0.4); EOSINOPHIL % 0.7 % (0.0-4.0); HEMATOCRIT 40.7 % (39.0-51.0); LYMPH % 17.9 % (9.0-44.0); MEAN CELL VOLUME 87.9 FL (80.0-100.0); MEAN CORPUSCULAR HEMOGLOBIN 29.9 PG (27.0-34.0); MONO % 7.5 % (0.0-8.0); PLATELET COUNT 355 TH/MM3 (150-450); RED BLOOD COUNT 4.63 MIL/MM3 (4.50-5.90); RED CELL DISTRIBUTION WIDTH 16.3 % (11.6-17.2); WHITE BLOOD COUNT 11.2 TH/MM3 (4.0-11.0)
[2016-12-11 18:44] LABS: APTT (PATIENT) 25.9 SEC (24.3-30.1); PROTHROMBIN TIME - PATIENT 11.2 SEC (9.8-11.6)
[2016-12-11 19:02] LABS: ALKALINE PHOSPHATASE 125 U/L (45-117); ALT (GPT) 15 U/L (12-78); ANION GAP 13 MEQ/L (5-15); AST (GOT) 23 U/L (15-37); BICARBONATE 30.2 MEQ/L (21.0-32.0); BLOOD UREA NITROGEN 5 MG/DL (7-18); CHLORIDE 97 MEQ/L (98-107); GLOMERULAR FILTRATION RATE 71 ML/MIN (>89); SODIUM (NA) 140 MEQ/L (136-145); TOTAL BILIRUBIN ADULT 0.4 MG/DL (0.2-1.0)
[2016-12-11 19:11] LABS: POTASSIUM 2.6 MEQ/L (3.5-5.1)
[2016-12-11 19:14] LABS: HEMO FLAGS AUTO DIFF
[2016-12-11] MEDS ORDERED: POTASSIUM CHLOR 20 MEQ PREMIX 100 ML IV ONE (19:15)
[2016-12-11 19:20] LABS: BANDS 1 % (0-6); BASOPHILS 1 % (0-2); EOSINOPHILS 3 % (0-4); NEUTROPHIL # MANUAL DIFF 9.5 TH/MM3 (1.8-7.7); POLYS (SEG NEUTROPHILS) 84 % (16-70); WBC DIFF SAMPLE 100
[2016-12-11 19:21] LABS: OVALOCYTES 1+ (NORMAL); PLATELET ESTIMATE SMEAR NORMAL (NORMAL); PLATELET MORPHOLOGY NORMAL (NORMAL); SCAN/DIFF FINAL DIFF MANUAL; SPHEROCYTES 1+ (NORMAL)
[2016-12-11 19:25] LABS: BLOOD, URINE NEG (NEG); COMMENT (UR) CULT NOT INDICATED; CULTURE IF INDICATED CULT NOT INDICATED; GLUCOSE,URINE NEG (NEG); HYALINE CAST, URINE 10 /lpf (RARE); KETONE, URINE NEG (NEG); NITRITE,URINE NEG (NEG); URINE COLOR YELLOW (YELLW/STRAW)
--- NOTE | 2016-12-11 19:58 | RADRPT ---
EXAM DATE/TIME: 12/11/2016 19:32 [facility] COMPARISON: CT ABDOMEN & PELVIS W CONTRAST, December 01, 2016, 22:03. INDICATIONS : Distention with abdominal pain and nausea. IV CONTRAST: 95 cc Omnipaque 350 (iohexol) IV ORAL CONTRAST: No oral contrast ingested. RADIATION DOSE: 10.23 CTDIvol (mGy) MEDICAL HISTORY : Seizures. Hypertension. Pancreatitis.Blocked Illeum. SURGICAL HISTORY : Hiatial hernia. ENCOUNTER: Initial ACUITY: 1 day PAIN SCALE: 7/10 LOCATION: Bilateral lower quadrant TECHNIQUE: Volumetric scanning of the abdomen and pelvis was performed. Using automated exposure control and ad justment of the mA and/or kV according to patient size, radiation dose was kept as low as reasonably achievable to obtain optimal diagnostic quality images. DICOM format image data is available electro nically for review and comparison. FINDINGS: LOWER LUNGS: The visualized lower lungs are clear. LIVER: Mild fatty infiltrated. No focal hepatic lesion. CT appearance of the gallbladder within normal limit s. SPLEEN: Normal size without lesion. PANCREAS: Within normal limits. KIDNEYS: Normal in size and shape. There is no mass, stone or hydronephrosis. ADRENAL GLANDS: Within normal limits. VASCULAR: There is no aortic aneurysm. BOWEL/MESENTERY: The stomach, small bowel, and colon demonstrate no acute abnormality. There is no free intraperitone al air or fluid. ABDOMINAL WALL: Within normal limits. RETROPERITONEUM: There is no lymphadenopathy. BLADDER: No wall thickening or mass. REPRODUCTIVE: Within normal limits. INGUINAL: There is no lymphadenopathy or hernia. MUSCULOSKELETAL: No acute bony abnormality demonstrated. Severe osteoarthritis of the left hip again noted. CONCLUSION: Fatty liver. Otherwise negative. Chirstophe Farmer MD on December 11, 2016 at 19:54 Board Certified Radiologist. This report was verified electronically.
[2016-12-11] MEDS ORDERED: HYDROmorphone HCL PF 1 MG/ML VIAL IV PUSH ONE (20:15)
[2016-12-11 20:20] VITALS: BP 189/93; PULSE 94; RESP 20; O2SAT 99
--- NOTE | 2016-12-11 20:22 | PD ---
Physical Exam Narrative I, Dr. Sullivan, have reviewed the advance practice practitioner's documentation and am in agreement, met with the patient face to face, made the diagnosis, and the medical decision making was done by me. *My assessment and Findings: Pancreatitis vs. colitis vs. peptic ulcer disease 61yo M with PMH of seizure disorder, pancreatitis here with abdominal pain associated with nausea and vomiting since yesterday. Pt told me he had a fever of 101F at home. States it feels like last time he had pancreatitis. Labs reviewed, WBC 11.2. Hypokalemia at 2.6, replaced. Lactic acid elevated at 4.6. Lipase normal at 131. UA negative. CT a/p showed fatty liver. Otherwise negative. Pt given multiple IV pain medication and zofran. He is still in significant pain mainly epigastric tenderness. No also states he is still nauseous. Given 2L NS IVF. Will admit for intractable pain and nausea with hypokalemia and lactic acidosis. Data Data Last Documented VS Vital Signs Date Time Temp Pulse Resp B/P (MAP) Pulse Ox O2 Delivery O2 Flow Rate FiO2 12/11/16 20:20 94 20 189/93 (125) 99 2.00 12/11/16 18:14 98.0 12/11/16 17:42 Room Air Orders Orders Complete Blood Count With Diff (12/11/16 17:35) Comprehensive Metabolic Panel (12/11/16 17:35) Lipase (12/11/16 17:35) Lactic Acid (12/11/16 17:35) Prothrombin Time / Inr (Pt) (12/11/16 17:35) Act Partial Throm Time (Ptt) (12/11/16 17:35) Urinalysis - C+S If Indicated (12/11/16 17:35) Ct Abd/Pel W Iv Contrast(Rout) (12/11/16 17:35) Iv Access Insert/Monitor (12/11/16 17:35) Ecg Monitoring (12/11/16 17:35) Oximetry (12/11/16 17:35) Ondansetron Inj (Zofran Inj) (12/11/16 17:45) Sodium Chlor 0.9% 1000 Ml Inj (Ns 1000 M (12/11/16 17:35) Sodium Chloride 0.9% Flush (Ns Flush) (12/11/16 17:45) Electrocardiogram (12/11/16 17:35) Hydromorphone Pf Inj (Dilaudid Pf Inj) (12/11/16 17:45) Electrocardiogram (12/11/16 ) Blood Culture (12/11/16 17:35) Sodium Chlor 0.9% 1000 Ml Inj (Ns 1000 M (12/11/16 19:12) Potassium Chlor 20 Meq Premix (Kcl 20 Me (12/11/16 19:15) Iohexol 350 Inj (Omnipaque 350 Inj) (12/11/16 17:06) Hydromorphone Pf Inj (Dilaudid Pf Inj) (12/11/16 20:15) Admit Order (Ed Use Only) (12/11/16 20:28) Lactic Acid (12/11/16 22:00) Lorazepam Inj (Ativan Inj) (12/11/16 20:30) Pantoprazole Inj (Protonix Inj) (12/11/16 21:00) Place In Observation (12/11/16 ) Vital Signs (Adult) Q4H (12/11/16 20:23) Activity Oob Ad Ellie (12/11/16 20:23) Intake + Output HARJIT.QSHIFT (12/11/16 20:23) Diet Regular Basic (12/12/16 Breakfast) Sodium Chlor 0.9% 1000 Ml Inj (Ns 1000 M (12/11/16 20:23) Sodium Chloride 0.9% Flush (Ns Flush) (12/11/16 20:30) Sodium Chloride 0.9% Flush (Ns Flush) (12/11/16 21:00) Ondansetron Inj (Zofran Inj) (12/11/16 20:30) Comprehensive Metabolic Panel (12/12/16 06:00) Complete Blood Count With Diff (12/12/16 06:00) Scd Bilateral/Knee High HARJIT.BID (12/11/16 20:23) [place] Bilateral/Knee High HARJIT.QSHIFT (12/11/16 20:30) Acetaminophen (Tylenol) (12/11/16 20:30) Acetamin-Hydrocod 325-5 Mg ([place] 5-325 (12/11/16 20:30) Hydromorphone Pf Inj (Dilaudid Pf Inj) (12/11/16 20:30) Docusate Sodium-Senna (Rosalind-Colace) (12/11/16 21:00) Magnesium Hydroxide Liq (Milk Of Magnesi (12/11/16 20:30) Sennosides (Senokot) (12/11/16 20:30) Bisacodyl Supp (Dulcolax Supp) (12/11/16 20:30) Lactulose Liq (Lactulose Liq) (12/11/16 20:30) Methadone (Dolophine) (12/12/16 09:00) Phenytoin (Dilantin) (12/12/16 09:00) Tizanidine Hcl (Zanaflex) (12/12/16 09:00) Zonisamide (Zonegran) (12/11/16 21:00) Labs Laboratory Tests Test 12/11/16 17:40 12/11/16 18:50 White Blood Count 11.2 TH/MM3 Red Blood Count 4.63 MIL/MM3 Hemoglobin 13.8 GM/DL Hematocrit 40.7 % Mean Corpuscular Volume 87.9 FL Mean Corpuscular Hemoglobin 29.9 PG Mean Corpuscular Hemoglobin Concent 34.0 % Red Cell Distribution Width 16.3 % Platelet Count 355 TH/MM3 Mean Platelet Volume 8.9 FL Neutrophils (%) (Auto) 73.0 % Lymphocytes (%) (Auto) 17.9 % Monocytes (%) (Auto) 7.5 % Eosinophils (%) (Auto) 0.7 % Basophils (%) (Auto) 0.9 % Neutrophils # (Auto) 8.2 TH/MM3 Lymphocytes # (Auto) 2.0 TH/MM3 Monocytes # (Auto) 0.8 TH/MM3 Eosinophils # (Auto) 0.1 TH/MM3 Basophils # (Auto) 0.1 TH/MM3 CBC Comment AUTO DIFF Differential Total Cells Counted 100 Neutrophils % (Manual) 84 % Band Neutrophils % 1 % Lymphocytes % 5 % Monocytes % 6 % Eosinophils % 3 % Basophils % 1 % Neutrophils # (Manual) 9.5 TH/MM3 Differential Comment FINAL DIFF MANUAL Platelet Estimate NORMAL Platelet Morphology Comment NORMAL Spherocytes 1+ Ovalocytes 1+ Prothrombin Time 11.2 SEC Prothromb Time International Ratio 1.0 RATIO Activated Partial Thromboplast Time 25.9 SEC Blood Urea Nitrogen 5 MG/DL Creatinine 1.06 MG/DL Random Glucose 126 MG/DL Total Protein 8.0 GM/DL Albumin 4.1 GM/DL Calcium Level 9.4 MG/DL Alkaline Phosphatase 125 U/L Aspartate Amino Transf (AST/SGOT) 23 U/L Alanine Aminotransferase (ALT/SGPT) 15 U/L Total Bilirubin 0.4 MG/DL Sodium Level 140 MEQ/L Potassium Level 2.6 MEQ/L Chloride Level 97 MEQ/L Carbon Dioxide Level 30.2 MEQ/L Anion Gap 13 MEQ/L Estimat Glomerular Filtration Rate 71 ML/MIN Lactic Acid Level 4.6 mmol/L Lipase 131 U/L Urine Color YELLOW Urine Turbidity CLEAR Urine pH 6.0 Urine Specific [place] 1.011 Urine Protein TRACE mg/dL Urine Glucose (UA) NEG mg/dL Urine Ketones NEG mg/dL Urine Occult Blood NEG Urine Nitrite NEG Urine Bilirubin NEG Urine Urobilinogen LESS THAN 2.0 MG/DL Urine Leukocyte Esterase TRACE Urine RBC LESS THAN 1 /hpf Urine WBC 2 /hpf Urine Hyaline Casts 10 /lpf Microscopic Urinalysis Comment CULT NOT INDICATED MDM Supervised Visit with [place]: Yes Diagnosis Primary Impression: Hypokalemia Additional Impressions: Nausea and vomiting Qualified Codes: R11.2 - Nausea with vomiting, unspecified Abdominal pain Qualified Codes: R10.13 - Epigastric pain Lactic acidosis Admitting Information Admitting Physician Requests: Observation Condition: Stable Yoly Sullivan DO Dec 11, 2016 20:22
[2016-12-11] MEDS ORDERED: LORazepam 2 MG/ML VIAL IV PUSH PRN (20:30)
[2016-12-11] MEDS ORDERED: BISACODYL 10 MG SUPP RECTAL PRN (20:30)
[2016-12-11] MEDS ORDERED: LACTULOSE SYRUP 20 GM/30 ML CUP PO PRN (20:30)
[2016-12-11] MEDS ORDERED: SENNOSIDES 8.6 MG TAB PO PRN (20:30)
[2016-12-11] MEDS ORDERED: MAGNESIUM HYDROXIDE SUSP 30 ML CUP PO PRN (20:30)
[2016-12-11] MEDS ORDERED: ACETAMINOPHEN 325 MG TAB PO PRN (20:30)
--- NOTE | 2016-12-11 20:32 | HHI.HP ---
[facility] Primary Care Physician Christophe Toledo MD Admission Diagnosis hypokalemia, lactic acidosis, abdominal pain, nausea and vomiting Diagnoses: (1) Intractable nausea and vomiting Diagnosis: Principal (2) Hypokalemia Diagnosis: Principal (3) Lactic acidosis Diagnosis: Principal (4) HTN (hypertension) Diagnosis: Principal Travel History International Travel<30 Days: No Contact w/Intl Traveler <30 Da: No Traveled to Known Affected Are: No History of Present Illness This is a 61-year-old male with a PMH of HTN and h/o Pancreatitis who presented to the ER w/ complaints of severe abdominal pain in addition to nausea/vomiting starting tonight. States symptoms started shortly after having dinner, reports symptoms similar to previous episodes of Pancreatitis. Denies fever, chills or diarrhea. On arrival, BP 179/96, HR 96, O2 sat 99% on RA, Afebrile. WBC 11.2. K+ 2.6. Lactic Acid 4.6. INR 1.0. UA negative. CT Abd/Pelvis w/ fatty liver , otherwise negative. S/p multiple doses of Dilaudid and Zofran w/ some improvement. Review of Systems Except as stated in HPI: all other systems reviewed are Neg ROS: 14 point review of systems otherwise negative. Past Family Social History Past Medical History PMH: HTN and h/o Pancreatitis Past Surgical History PAST SURGICAL HISTORY: RLE Chu, Chest Tube Allergies: Coded Allergies: No Known Allergies (Unverified , 12/11/16) Family History PAST FAMILY HISTORY: Reviewed. No h/o DM or CAD Social History PAST SOCIAL HISTORY: Occasional alcohol. Negative for tobacco or drugs. Physical Exam Vital Signs Vital Signs Date Time Temp Pulse Resp B/P (MAP) Pulse Ox O2 Delivery O2 Flow Rate FiO2 12/11/16 18:17 18 12/11/16 18:14 98.0 96 18 179/96 (123) 99 12/11/16 17:42 18 98 Room Air 12/11/16 17:30 18 12/11/16 17:08 99.5 131 16 175/116 (135) 99 Physical Exam PE: GENERAL: Middle-aged male in no acute distress. HEENT: PERRLA, EOMI. No scleral icterus or conjunctival pallor. No lid lag or facial droop. CARDIOVASCULAR: Regular rate and rhythm. No obvious murmurs to auscultation. No chest tenderness to palpation. RESPIRATORY: No obvious rhonchi or wheezing. Clear to auscultation. Breath sounds equal bilaterally. GASTROINTESTINAL: Abdomen soft, mild epigastric tenderness to palpation, nondistended. BS normal. MUSCULOSKELETAL: Extremities without clubbing, cyanosis, or edema. No obvious deformities. NEUROLOGICAL: Awake, alert and oriented x4. No focal neurologic deficits. Moving both upper and lower extremities spontaneously. Laboratory Laboratory Tests Test 12/11/16 17:40 12/11/16 18:50 White Blood Count 11.2 Red Blood Count 4.63 Hemoglobin 13.8 Hematocrit 40.7 Mean Corpuscular Volume 87.9 Mean Corpuscular Hemoglobin 29.9 Mean Corpuscular Hemoglobin Concent 34.0 Red Cell Distribution Width 16.3 Platelet Count 355 Mean Platelet Volume 8.9 Neutrophils (%) (Auto) 73.0 Lymphocytes (%) (Auto) 17.9 Monocytes (%) (Auto) 7.5 Eosinophils (%) (Auto) 0.7 Basophils (%) (Auto) 0.9 Neutrophils # (Auto) 8.2 Lymphocytes # (Auto) 2.0 Monocytes # (Auto) 0.8 Eosinophils # (Auto) 0.1 Basophils # (Auto) 0.1 CBC Comment AUTO DIFF Differential Total Cells Counted 100 Neutrophils % (Manual) 84 Band Neutrophils % 1 Lymphocytes % 5 Monocytes % 6 Eosinophils % 3 Basophils % 1 Neutrophils # (Manual) 9.5 Differential Comment FINAL DIFF MANUAL Platelet Estimate NORMAL Platelet Morphology Comment NORMAL Spherocytes 1+ Ovalocytes 1+ Prothrombin Time 11.2 Prothromb Time International Ratio 1.0 Activated Partial Thromboplast Time 25.9 Blood Urea Nitrogen 5 Creatinine 1.06 Random Glucose 126 Total Protein 8.0 Albumin 4.1 Calcium Level 9.4 Alkaline Phosphatase 125 Aspartate Amino Transf (AST/SGOT) 23 Alanine Aminotransferase (ALT/SGPT) 15 Total Bilirubin 0.4 Sodium Level 140 Potassium Level 2.6 Chloride Level 97 Carbon Dioxide Level 30.2 Anion Gap 13 Estimat Glomerular Filtration Rate 71 Lactic Acid Level 4.6 Lipase 131 Urine Color YELLOW Urine Turbidity CLEAR Urine pH 6.0 Urine Specific [place] 1.011 Urine Protein TRACE Urine Glucose (UA) NEG Urine Ketones NEG Urine Occult Blood NEG Urine Nitrite NEG Urine Bilirubin NEG Urine Urobilinogen LESS THAN 2.0 Urine Leukocyte Esterase TRACE Urine RBC LESS THAN 1 Urine WBC 2 Urine Hyaline Casts 10 Microscopic Urinalysis Comment CULT NOT INDICATED Date/Time Source Procedure Growth Status 12/11/16 17:35 Blood Peripheral Aerobic Blood Culture Pending Received 12/11/16 17:35 Blood Peripheral Anaerobic Blood Culture Pending Received Result Diagram: 12/11/16 1740 12/11/16 1740 Caprini VTE Risk Assessment Caprini VTE Risk Assessment: No/Low Risk (score <= 1) Caprini Risk Assessment Model Point Value = 1 Point Value = 2 Point Value = 3 Point Value = 5 Age 41-60 Minor surgery BMI > 25 kg/m2 Swollen legs Varicose veins or History of unexplained or recurrent spontaneous Oral contraceptives or hormone replacement Sepsis (< 1 month) Serious lung disease, including pneumonia (< 1 month) Abnormal pulmonary function Acute myocardial infarction Congestive heart failure (< 1 month) History of inflammatory bowel disease Medical patient at bed rest Age 61-74 Arthroscopic surgery Major open surgery (> 45 min) Laparoscopic surgery (> 45 min) Malignancy Confined to bed (> 72 hours) Immobilizing plaster cast Central venous access Age >= 75 History of VTE Family history of VTE Factor V Leiden Prothrombin [id number] Lupus anticoagulant Anticardiolipin antibodies Elevated serum homocysteine Heparin-induced thrombocytopenia Other congenital or acquired thrombophilia Stroke (< 1 month) Elective arthroplasty Hip, pelvis, or leg fracture Acute spinal cord injury (< 1 month) Prophylaxis Regimen Total Risk Factor Score Risk Level Prophylaxis Regimen 0-1 Low Early ambulation 2 Moderate Order ONE of the following: *Sequential Compression Device (SCD) *Heparin 5000 units SQ BID 3-4 Higher Order ONE of the following medications: *Heparin 5000 units SQ TID *Enoxaparin/Lovenox 40 mg SQ daily (WT < 150 kg, CrCl > 30 mL/min) *Enoxaparin/Lovenox 30 mg SQ daily (WT < 150 kg, CrCl > 10-29 mL/min) *Enoxaparin/Lovenox 30 mg SQ BID (WT < 150 kg, CrCl > 30 mL/min) AND/OR *Sequential Compression Device (SCD) 5 or more Highest Order ONE of the following medications: *Heparin 5000 units SQ TID (Preferred with Epidurals) *Enoxaparin/Lovenox 40 mg SQ daily (WT < 150 kg, CrCl > 30 mL/min) *Enoxaparin/Lovenox 30 mg SQ daily (WT < 150 kg, CrCl > 10-29 mL/min) *Enoxaparin/Lovenox 30 mg SQ BID (WT < 150 kg, CrCl > 30 mL/min) AND *Sequential Compression Device (SCD) Assessment and Plan Problem List: (1) Intractable nausea and vomiting ICD Code: R11.2 - Nausea with vomiting, unspecified (2) Hypokalemia ICD Code: E87.6 - Hypokalemia Status: Acute (3) Lactic acidosis ICD Code: E87.2 - Acidosis Status: Acute (4) HTN (hypertension) ICD Code: I10 - Essential (primary) hypertension Assessment and Plan A/P: 1. Intractable NV: h/o Pancreatitis, Lipase 131, CT Abd/Pelvis w/ no acute findings, images reviewed by me. Multiple doses of Dilaudid/Zofran w/ mild improvement, will continue w/ analgesics/antiemetics, diet as tolerated, IVF. 2. Hypokalemia: K+ 2.6, s/p replacement in ER, will recheck and replace as needed. 3. Lactic Acidosis: Lactate 4.6, likely related to dehydration from nausea/ vomiting, no indication for Sepsis. S/p 2L IVF in ER, continue w/ IVF, repeat Lactate. 4. HTN: BP 170-180's, likely compounded by nausea/vomiting, monitor BP, resume home medications. 5. DVT Prophylaxis: SCD/Teds. 6. Social work for d/c planning as needed. 7. Case discussed w/ ER physician at length. Emilia Chang MD Dec 11, 2016 20:32
[2016-12-11 21:00] VITALS: BP 179/90; PULSE 92; RESP 16; O2SAT 99
[2016-12-11] MEDS: SODIUM CHLORIDE 0.9% FLUSH 10 ML FLUSH IV FLUSH SCH (21:00)
[2016-12-11] MEDS: SODIUM CHLOR 0.9% 1000 ML INJ 1,000 ML IV SCH (21:15)
[2016-12-11] MEDS: PANTOPRAZOLE SODIUM 40 MG VIAL IV PUSH SCH (21:15)
[2016-12-11] MEDS: DOCUSATE SODIUM 50 MG/SENNA 8.6 MG TAB PO SCH (21:15)
[2016-12-11] MEDS: GABAPENTIN 300 MG CAP PO SCH (21:15)
[2016-12-11] MEDS: ONDANSETRON HCL 4 MG/2 ML VIAL IVP PRN (21:32)
[2016-12-11] MEDS: ZONISAMIDE 100 MG CAP PO SCH (21:32)
[2016-12-11 22:47] LABS: ALKALINE PHOSPHATASE 102 U/L (45-117); ALT (GPT) 14 U/L (12-78); ANION GAP 9 MEQ/L (5-15); AST (GOT) 32 U/L (15-37); BICARBONATE 32.3 MEQ/L (21.0-32.0); BLOOD UREA NITROGEN 5 MG/DL (7-18); CHLORIDE 101 MEQ/L (98-107); GLOMERULAR FILTRATION RATE 85 ML/MIN (>89); SODIUM (NA) 142 MEQ/L (136-145); TOTAL BILIRUBIN ADULT 0.5 MG/DL (0.2-1.0)
[2016-12-11 22:53] LABS: POTASSIUM 3.4 MEQ/L (3.5-5.1)
[2016-12-12] VITALS (9 sets, daily range): BP systolic 90–193; BP diastolic 55–95; PULSE 52–85; RESP 17–20; TEMP 97.9–98.9; O2SAT 93–98
[2016-12-12] MEDS: ACETAMINOPHEN/HYDROcodone 325 MG/5 MG TAB PO PRN ×2 (00:15→17:59)
[2016-12-12] MEDS: HYDROmorphone HCL PF 1 MG/ML VIAL IV PUSH PRN ×5 (02:03→20:08)
[2016-12-12] MEDS: ONDANSETRON HCL 4 MG/2 ML VIAL IVP PRN ×3 (02:50→20:09)
[2016-12-12] MEDS: SODIUM CHLOR 0.9% 1000 ML INJ 1,000 ML IV SCH (06:48)
[2016-12-12 07:13] LABS: AUTOMATED NEUTROPHIL # 5.3 TH/MM3 (1.8-7.7); BASOPHIL # 0.1 TH/MM3 (0-0.2); BASOPHIL % 0.9 % (0.0-2.0); EOSINOPHIL # 0.2 TH/MM3 (0-0.4); EOSINOPHIL % 1.7 % (0.0-4.0); HEMATOCRIT 35.3 % (39.0-51.0); HEMO FLAGS DIFF FINAL; LYMPH % 30.1 % (9.0-44.0); LYMPHOCYTE # 2.7 TH/MM3 (1.0-4.8); MEAN CELL VOLUME 88.6 FL (80.0-100.0); MEAN CORPUSCULAR HEMOGLOBIN 29.3 PG (27.0-34.0); MEAN CORPUSCULAR HGB CONC 33.1 % (32.0-36.0); MONO % 8.2 % (0.0-8.0); NEUT % 59.1 % (16.0-70.0); PLATELET COUNT 255 TH/MM3 (150-450); RED BLOOD COUNT 3.99 MIL/MM3 (4.50-5.90); RED CELL DISTRIBUTION WIDTH 16.3 % (11.6-17.2)
[2016-12-12 07:49] LABS: ALKALINE PHOSPHATASE 103 U/L (45-117); ALT (GPT) 12 U/L (12-78); ANION GAP 9 MEQ/L (5-15); AST (GOT) 15 U/L (15-37); BICARBONATE 31.3 MEQ/L (21.0-32.0); BLOOD UREA NITROGEN 5 MG/DL (7-18); CHLORIDE 100 MEQ/L (98-107); GLOMERULAR FILTRATION RATE 86 ML/MIN (>89); SODIUM (NA) 140 MEQ/L (136-145); TOTAL BILIRUBIN ADULT 0.5 MG/DL (0.2-1.0)
[2016-12-12 08:00] LABS: POTASSIUM 2.8 MEQ/L (3.5-5.1)
[2016-12-12] MEDS ORDERED: MAGNESIUM SULFATE 1 GM PREMIX 100 ML IV ONE ×2 (08:15→09:15)
[2016-12-12] MEDS: POTASSIUM CHLOR 20 MEQ PREMIX 100 ML IV SCH ×2 (08:25→11:00)
[2016-12-12] MEDS: NS + KCL 20 MEQ INJ 1,000 ML IV SCH ×2 (08:26→21:13)
[2016-12-12] MEDS: PHENYTOIN SODIUM 100 MG CAP PO SCH ×3 (08:26→17:58)
[2016-12-12] MEDS: GABAPENTIN 300 MG CAP PO SCH ×2 (08:26→20:08)
[2016-12-12] MEDS: PANTOPRAZOLE SODIUM 40 MG VIAL IV PUSH SCH ×2 (08:26→20:08)
[2016-12-12] MEDS: DOCUSATE SODIUM 50 MG/SENNA 8.6 MG TAB PO SCH ×2 (08:26→20:08)
[2016-12-12] MEDS: METHADONE HCL 10 MG TAB PO SCH ×3 (08:27→17:58)
--- NOTE | 2016-12-12 09:29 | HHI.PR ---
Subjective Remarks Follow up for abdominal pain/nausea/vomiting. The patient reports continued epigastric abdominal pain with some radiation to the left upper quadrant. He has continued nausea overnight and today, but no vomiting since yesterday. He does not have much of an appetite and prefers to start with liquid diet. He reports normal formed nonbloody bowel movements, last BM yesterday. His gastroenterology is Dr. Olguin in [facility]. He denies any NSAID use. Prior to onset of his symptoms, his last meal was at [employer], had quiñones chops cooked medium and mashed potatoes. Objective Vitals Vital Signs Date Time Temp Pulse Resp B/P (MAP) Pulse Ox O2 Delivery O2 Flow Rate FiO2 12/12/16 07:59 98.9 85 20 193/95 (127) 98 12/12/16 02:47 98.1 78 18 154/74 (100) 97 12/11/16 23:39 12/11/16 21:00 92 16 179/90 (119) 99 Nasal Cannula 2.00 12/11/16 21:00 18 12/11/16 20:20 94 20 189/93 (125) 99 2.00 12/11/16 18:17 18 12/11/16 18:14 98.0 96 18 179/96 (123) 99 12/11/16 17:42 18 98 Room Air 12/11/16 17:30 18 12/11/16 17:08 99.5 131 16 175/116 (135) 99 I/O 12/11/16 12/11/16 12/11/16 12/12/16 12/12/16 12/12/16 07:00 15:00 23:00 07:00 15:00 23:00 Intake Total 2100 ml Balance 2100 ml Intake IV Total 2100 ml Result Diagram: 12/12/16 0640 12/12/16 0640 Imaging Last Impressions Abdomen/Pelvis CT 12/11/16 9184 Signed Impressions: Service Date/Time: November 19:32 - CONCLUSION: Fatty liver. Otherwise negative. Christophe Farmer MD Objective Remarks GENERAL: Well-nourished, well-developed male patient in [facility]. SKIN: Warm and dry. No rash. HEAD: Normocephalic. Atraumatic. EYES: Pupils equal and round. No scleral icterus. No injection or drainage. ENT: No nasal bleeding or discharge. Mucous membranes pink and moist. CARDIOVASCULAR: Regular rate and rhythm. S1, S2 noted. No murmur appreciated. RESPIRATORY: No accessory muscle use. Clear to auscultation. Breath sounds equal bilaterally. GASTROINTESTINAL: Abdomen slightly firm, nondistended, TTP at epigastric and LUQ. Normoactive bowel sounds x4. MUSCULOSKELETAL: No obvious deformities. Extremities without clubbing, cyanosis , or edema. NEUROLOGICAL: Awake and alert. No obvious cranial nerve deficits. Motor grossly within normal limits. Normal speech. PSYCHIATRIC: Appropriate mood and affect; insight and judgment normal. Medications and IVs Current Medications Medications (Trade) Dose Ordered Sig/Shannan Route Start Time Stop Time Status Last Admin (Ativan Inj) 1 mg Q2H PRN IV PUSH 12/11/16 20:30 (Protonix Inj) 40 mg Q12HR IV PUSH 12/11/16 21:00 12/12/16 08:26 (NS Flush) 2 ml UNSCH PRN IV FLUSH 12/11/16 20:30 (NS Flush) 2 ml BID IV FLUSH 12/11/16 21:00 12/11/16 21:00 (Zofran Inj) 4 mg Q6H PRN IVP 12/11/16 20:30 12/12/16 08:26 (Tylenol) 650 mg Q6H PRN PO 12/11/16 20:30 ([place] 5-325 Mg) 1 tab Q4H PRN PO 12/11/16 20:30 12/12/16 00:15 (Dilaudid Pf Inj) 1 mg Q3H PRN IV PUSH 12/11/16 20:30 12/12/16 06:48 (Rosalind-Colace) 1 tab BID PO 12/11/16 21:00 12/12/16 08:26 (Milk Of Magnesia Liq) 30 ml Q12H PRN PO 12/11/16 20:30 (Senokot) 17.2 mg Q12H PRN PO 12/11/16 20:30 (Dulcolax Supp) 10 mg DAILY PRN RECTAL 12/11/16 20:30 (Lactulose Liq) 30 ml DAILY PRN PO 12/11/16 20:30 (Neurontin) 300 mg BID PO 12/11/16 21:00 12/12/16 08:26 (Dolophine) 30 mg TID PO 12/12/16 09:00 12/12/16 08:27 (Dilantin) 100 mg TID PO 12/12/16 09:00 12/12/16 08:26 (Zanaflex) 8 mg TID PO 12/12/16 09:00 12/12/16 08:26 (Zonegran) 100 mg BID PO 12/11/16 21:00 12/11/16 21:32 Potassium Chloride 100 ml @ 50 mls/hr Q2H IV 12/12/16 09:00 12/12/16 12:59 12/12/16 08:25 Potassium Chloride/Sodium Chloride 1,000 ml @ 100 mls/hr Q10H IV 12/12/16 10:00 12/12/16 08:26 Magnesium Sulfate/ Dextrose 100 ml @ 100 mls/hr ONCE ONCE IV 12/12/16 09:15 12/12/16 10:14 A/P Problem List: (1) Intractable nausea and vomiting ICD Code: R11.2 - Nausea with vomiting, unspecified (2) Hypokalemia ICD Code: E87.6 - Hypokalemia Status: Acute (3) Lactic acidosis ICD Code: E87.2 - Acidosis Status: Acute (4) HTN (hypertension) ICD Code: I10 - Essential (primary) hypertension Assessment and Plan 61-year-old male with a PMH of HTN and h/o Pancreatitis who presented to the ER w/ complaints of severe abdominal pain in addition to nausea/vomiting starting tonight. States symptoms started shortly after having dinner, reports symptoms similar to previous episodes of Pancreatitis. Intractable Abdominal Pain/Nausea/Vomiting: h/o Pancreatitis, Lipase 131, CT Abd/Pelvis w/ no acute findings, images reviewed by me. Multiple doses of Dilaudid/Zofran w/ mild improvement. Continue supportive treatment with IVF, antiemetics, pain control prn. Clear liquid diet for now. Check GB US. Repeat lipase. Check dilantin level. Consider GI consult if no improvement. Hypokalemia/Hypomagnesemia: K+ 2.6 --> 3.4 --> 2.8. Mag 1.5. Given IV Mag Sulfate replacement and IV KCl boluses. Continue to monitor. Lactic Acidosis: Lactate 4.6, likely related to dehydration from nausea/ vomiting, no indication for Sepsis. S/p 2L IVF in ER, continue w/ IVF, repeat Lactate 1.8. Resolved. HTN: BP 170-180's, likely compounded by nausea/vomiting, monitor BP, resume home medications. DVT Prophylaxis: SCD/Teds. Discharge Planning Discharge pending further clinical improvement. Anayeli Stevenson PA-C Dec 12, 2016 9:29 am
[2016-12-12] MEDS ORDERED: LORazepam 2 MG TAB PO PRN (09:30)
[2016-12-12] MEDS: ZONISAMIDE 100 MG CAP PO SCH ×2 (10:58→21:00)
[2016-12-12] MEDS: SODIUM CHLORIDE 0.9% FLUSH 10 ML FLUSH IV FLUSH SCH ×2 (10:59→20:08)
--- NOTE | 2016-12-12 16:36 | EKG ---
Date Performed: 12/11/2016 Time Performed: 19:17:17 PTAGE: 61 years EKG: Sinus rhythm MARKED LEFT AXIS DEVIATION RIGHT BUNDLE BRANCH BLOCK ABNORMAL ECG Since PREVIOUS TRACING , no significant change noted PREVIOUS TRACIN12/11/2016 18.13 DOCTOR: Mary Daley Interpretating Date/Time 12/12/2016 16:36:21
--- NOTE | 2016-12-12 16:36 | EKG ---
Date Performed: 12/11/2016 Time Performed: 18:13:37 PTAGE: 61 years EKG: Sinus rhythm MARKED LEFT AXIS DEVIATION RIGHT BUNDLE BRANCH BLOCK ABNORMAL ECG Since PREVIOUS TRACING , no significant change noted PREVIOUS TRACIN12/01/2016 21.05 DOCTOR: Mary Daley Interpretating Date/Time 12/12/2016 16:35:32
--- NOTE | 2016-12-12 16:37 | RADRPT ---
EXAM DATE/TIME: 12/12/2016 16:09 [place] COMPARISON: US ABDOMEN - GALLBLADDER, October 29, 2016, 7:49. INDICATIONS : Nausea/Vomiting. MEDICAL HISTORY : Hypertension. Neck pain. Seizures. Head trauma. Pnemothorax. Hiatal hernia. Renal disease. Back p roblems. Depression. Anxiety. SURGICAL HISTORY : Chest tubes. Tibula and fibula fracture. Facial reconstruction. ENCOUNTER: Subsequent ACUITY: 3 days PAIN SCORE: 5/10 LOCATION: Right upper quadrant MEASUREMENTS: LIVER: 20.2 cm length COMMON DUCT: 3 mm RIGHT KIDNEY: 10.3 x 4.8 x 4.9 cm FINDINGS: LIVER: Increased hepatic echotexture with a focal, 1 cm area of diminished echogenicity possibly representin g some focal fatty sparing in the right lobe. COMMON DUCT: No intraluminal mass or stone visualized. GALLBLADDER: Contains no stones, demonstrates no wall thickening or pericholecystic fluid. PANCREAS: The visualized portions are within normal limits. RIGHT KIDNEY: No evidence of hydronephrosis, stone, or mass. CONCLUSION: 1. Increased hepatic echotexture characteristic of fatty infiltration. 2. 1 cm area of diminished attenuation in the right hepatic lobe does not have characteristics of a s imple cyst. However, this may represent a focal area of fatty sparing. This was present previously an d actually appear slightly smaller when compared with prior Edmar Lewis MD on December 12, 2016 at 16:33 Board Certified Radiologist. This report was verified electronically.
[2016-12-12 17:42] LABS: BICARBONATE 32.4 MEQ/L (21.0-32.0); MAGNESIUM 1.8 MG/DL (1.5-2.5)
[2016-12-12 17:44] LABS: POTASSIUM 3.7 MEQ/L (3.5-5.1)
[2016-12-13] VITALS (7 sets, daily range): BP systolic 98–118; BP diastolic 50–72; PULSE 50–87; RESP 16–20; TEMP 97.7–98.8; O2SAT 94–100
[2016-12-13] MEDS: SODIUM CHLORIDE 0.9% FLUSH 10 ML FLUSH IV FLUSH PRN ×3 (00:53→05:28)
[2016-12-13] MEDS: HYDROmorphone HCL PF 1 MG/ML VIAL IV PUSH PRN ×4 (00:54→23:37)
[2016-12-13] MEDS: ONDANSETRON HCL 4 MG/2 ML VIAL IVP PRN ×3 (02:37→21:23)
[2016-12-13] MEDS: NS + KCL 20 MEQ INJ 1,000 ML IV SCH ×3 (06:00→23:49)
--- NOTE | 2016-12-13 09:11 | HHI.PR ---
Subjective Remarks Follow-up for abdominal pain, distention, nausea. The patient continues to complain of abdominal distention and nausea today. He has tolerated ice chips and some chicken broth overnight. He had a normal BM 2 days ago. He states she will consider trying to advance his diet, but is worried about abdominal pain. He denies any tobacco use. He reports rare alcohol use currently, admits to history of alcohol abuse. Patient has had extensive GI workup during recent admissions. Objective Vitals Vital Signs Date Time Temp Pulse Resp B/P (MAP) Pulse Ox O2 Delivery O2 Flow Rate FiO2 12/13/16 07:44 97.7 61 19 117/63 (81) 99 12/13/16 05:31 98.8 58 18 115/59 (77) 100 12/13/16 00:26 98.7 52 18 98/50 (66) 97 12/12/16 21:51 98.2 52 17 112/65 (81) 97 12/12/16 20:58 14 12/12/16 19:11 16 12/12/16 19:11 16 12/12/16 18:28 110/62 (78) 12/12/16 16:32 97.9 53 20 97/61 (73) 93 12/12/16 15:05 110/62 (78) 12/12/16 14:30 63 101/58 (72) 12/12/16 12:44 90/55 (67) 12/12/16 12:05 98.4 60 18 97 I/O 12/12/16 12/12/16 12/12/16 12/13/16 12/13/16 12/13/16 07:00 15:00 23:00 07:00 15:00 23:00 Intake Total 500 ml 1250 ml Output Total 100 ml Balance 500 ml 1150 ml Intake Oral 250 ml IV Total 500 ml 1000 ml Output Urine Total 100 ml Result Diagram: 12/12/16 0640 12/12/16 1555 Imaging Last Impressions Gall Bladder Ultrasound 12/12/16 0000 Signed Impressions: Service Date/Time: Monday, December 12, 2016 16:09 - CONCLUSION: 1. Increased hepatic echotexture characteristic of fatty infiltration. 2. 1 cm area of diminished attenuation in the right hepatic lobe does not have characteristics of a simple cyst. However, this may represent a focal area of fatty sparing. This was present previously and actually appear slightly smaller when compared with prior Edmar Lewis MD Abdomen/Pelvis CT 12/11/16 4990 Signed Impressions: Service Date/Time: November 19:32 - CONCLUSION: Fatty liver. Otherwise negative. Christophe Farmer MD Objective Remarks GENERAL: Well-developed well-nourished. In no acute distress. SKIN: Warm and dry. No lesions noted. HEENT: Normocephalic. Pupils equal and round. Mucous membranes pink and moist. CARDIOVASCULAR: Regular rate and rhythm. No murmur appreciated. RESPIRATORY: No accessory muscle use. Clear to auscultation. Breath sounds equal bilaterally. GASTROINTESTINAL: Abdomen tense, mildly distended, generalized TTP. Bowel sounds x4. MUSCULOSKELETAL: No obvious deformities. No clubbing or cyanosis. No edema. NEUROLOGICAL: Awake and alert. No focal neurological deficits. Moves upper and lower extremities spontaneously. Normal speech. PSYCHIATRIC: Appropriate mood and affect; insight and judgment normal. A/P Problem List: (1) Intractable nausea and vomiting ICD Code: R11.2 - Nausea with vomiting, unspecified Status: Acute (2) Hypokalemia ICD Code: E87.6 - Hypokalemia Status: Resolved (3) Lactic acidosis ICD Code: E87.2 - Acidosis Status: Resolved (4) HTN (hypertension) ICD Code: I10 - Essential (primary) hypertension Status: Chronic Assessment and Plan 61-year-old male with a PMH of HTN and h/o Pancreatitis who presented to the ER w/ complaints of severe abdominal pain in addition to nausea/vomiting starting tonight. States symptoms started shortly after having dinner, reports symptoms similar to previous episodes of Pancreatitis. Intractable Abdominal Pain/Nausea/Vomiting: h/o Pancreatitis, Lipase 131, CT Abd/Pelvis w/ no acute findings. Gallbladder ultrasound with fatty liver. Recent admissions with HIDA scan, EGD with unremarkable pathology, and abdominal MRI. -IVF -Continue clear liquids for now -Consult gastroenterology -Check KUB with distention -Consider gastric emptying with chronic opiate use -On chronic methadone. Pain control with [place] as needed and IV Dilaudid for breakthrough. Attempt to limit narcotics with symptoms as above. Hypokalemia/Hypomagnesemia: Replaced. Potassium 3.7 and magnesium 1.8. Improved. Continue to monitor. Lactic Acidosis: Lactate 4.6, likely related to dehydration from nausea/ vomiting, no indication for Sepsis. S/p 2L IVF in ER, continue w/ IVF, repeat Lactate 1.8. Resolved. HTN: BP elevated at admission, no BP meds at home. BP improved with pain control. DVT Prophylaxis: SCD/Teds. Discharge Planning Follow up GI recommendations Problem Qualifiers (1) HTN (hypertension): Qualified Codes: I10 - Essential (primary) hypertension Mark Main Dec 13, 2016 09:10
--- NOTE | 2016-12-13 09:58 | RADRPT ---
EXAM DATE/TIME: 12/13/2016 09:30 [facility] COMPARISON: CT ABDOMEN & PELVIS W CONTRAST, December 11, 2016, 19:32. INDICATIONS : Abdominal distension, nausea MEDICAL HISTORY : Seizures. Hypertension. Pancreatitis.Blocked [place] SURGICAL HISTORY : Hiatial hernia. ENCOUNTER: Subsequent ACUITY: 2 days PAIN SCORE: 5/10 LOCATION: Bilateral abdomen FINDINGS: 2 supine frontal views of the abdomen demonstrate air within bowel in a nonobstructive pattern. The l iver shadow appears enlarged. No abnormal mass effect is appreciated. Lung bases are clear. There is severe left hip joint osteoarthritis. Increased density within the urinary bladder is related to yest erday's CT scan injection. CONCLUSION: 1. No acute abdominal abnormality is identified. 2. Nonacute findings include hepatomegaly and severe left hip joint osteoarthritis. Christophe Gonzalez MD on December 13, 2016 at 9:55 Board Certified Radiologist. This report was verified electronically.
[2016-12-13] MEDS: PHENYTOIN SODIUM 100 MG CAP PO SCH ×3 (10:04→18:00)
[2016-12-13] MEDS: PANTOPRAZOLE SODIUM 40 MG VIAL IV PUSH SCH ×2 (10:04→21:20)
[2016-12-13] MEDS: METHADONE HCL 10 MG TAB PO SCH ×3 (10:05→18:00)
[2016-12-13] MEDS: FOLIC ACID 1 MG TAB PO SCH (10:05)
[2016-12-13] MEDS: ZONISAMIDE 100 MG CAP PO SCH ×2 (10:05→21:20)
[2016-12-13] MEDS: SODIUM CHLORIDE 0.9% FLUSH 10 ML FLUSH IV FLUSH SCH ×2 (10:06→21:19)
[2016-12-13] MEDS: DOCUSATE SODIUM 50 MG/SENNA 8.6 MG TAB PO SCH ×2 (10:06→21:20)
[2016-12-13] MEDS: CYANOCOBALAMIN 1,000 MCG TAB PO SCH (10:06)
[2016-12-13] MEDS: GABAPENTIN 300 MG CAP PO SCH ×2 (10:06→21:20)
[2016-12-13] MEDS ORDERED: POLYETHYLENE GLYCOL 17 GM PKG PO ONE ×2 (14:00→17:15)
[2016-12-13] MEDS ORDERED: LACTULOSE SYRUP 20 GM/30 ML CUP PO ONE ×2 (14:00→17:15)
--- NOTE | 2016-12-13 14:33 | PD.CONS ---
HPI History of Present Illness This is a 61 year old male with hx pancreatitis who presented to the ER for abd pain, n/v. 3 days ago he started vomiting, that night he vomited 12 times. The vomiting has improved, he has not vomited for 2 says. He is still nauseous. He is having epigastric pain that radiates to the left side. He is also complaining of abd distention which has improved somewhat. No diarrhea, constipation, blood in emesis, blood in stool, dark tarry stool, weight loss. Lipase 131. No acute findings on CT or KUB. US GB shows fatty liver. He was seen 10/29 for acute pancreatitis. He was also treated in September for ileus. He takes methadone and used to take oxycontin, he says he takes pain meds for a fall 18 yr ago. He had EGD 09/30 found no bleeding, no ulcers, hiatal hernia, GERD, mild gastritis, path benign. (Christi Narayan) PFSH Past Medical History PMH: HTN and h/o Pancreatitis ileus Past Surgical History PAST SURGICAL HISTORY: RLE Chu, Chest Tube (Christi Narayan) Coded Allergies: No Known Allergies (Unverified , 12/11/16) Family History PAST FAMILY HISTORY: Reviewed. No h/o DM or CAD Social History PAST SOCIAL HISTORY: Occasional alcohol. Negative for tobacco or drugs. (Christi Narayan) Review of Systems Constitutional: COMPLAINS OF: Fever, DENIES: Weight loss Eyes: DENIES: Blurred vision Ears, nose, mouth, throat: DENIES: Hearing loss Respiratory: DENIES: Cough Cardiovascular: DENIES: Chest pain Gastrointestinal: COMPLAINS OF: Abdominal pain, Nausea, Swelling of Abdomen, DENIES: Black stools, Bloody stools, Constipation, Diarrhea, Vomiting (Christi Narayan) GI Exam Vitals I&O Vital Signs Date Time Temp Pulse Resp B/P (MAP) Pulse Ox O2 Delivery O2 Flow Rate FiO2 12/13/16 11:17 98.2 87 20 118/61 (80) 97 12/13/16 07:44 97.7 61 19 117/63 (81) 99 12/13/16 05:31 98.8 58 18 115/59 (77) 100 12/13/16 00:26 98.7 52 18 98/50 (66) 97 12/12/16 21:51 98.2 52 17 112/65 (81) 97 12/12/16 20:58 14 12/12/16 19:11 16 12/12/16 19:11 16 12/12/16 18:28 110/62 (78) 12/12/16 16:32 97.9 53 20 97/61 (73) 93 12/12/16 15:05 110/62 (78) 12/12/16 14:30 63 101/58 (72) I/O 12/12/16 12/12/16 12/12/16 12/13/16 12/13/16 12/13/16 07:00 15:00 23:00 07:00 15:00 23:00 Intake Total 500 ml 1250 ml Output Total 100 ml Balance 500 ml 1150 ml Intake Oral 250 ml IV Total 500 ml 1000 ml Output Urine Total 100 ml Imaging Last Impressions Abdomen X-Ray 12/13/16 0000 Signed Impressions: Service Date/Time: Tuesday, December 13, 2016 09:30 - CONCLUSION: 1. No acute abdominal abnormality is identified. 2. Nonacute findings include hepatomegaly and severe left hip joint osteoarthritis. Christophe Gonzalez MD Gall Bladder Ultrasound 12/12/16 0000 Signed Impressions: Service Date/Time: Monday, December 12, 2016 16:09 - CONCLUSION: 1. Increased hepatic echotexture characteristic of fatty infiltration. 2. 1 cm area of diminished attenuation in the right hepatic lobe does not have characteristics of a simple cyst. However, this may represent a focal area of fatty sparing. This was present previously and actually appear slightly smaller when compared with prior Edmar Lewis MD Abdomen/Pelvis CT 12/11/16 0784 Signed Impressions: Service Date/Time: November 19:32 - CONCLUSION: Fatty liver. Otherwise negative. Christophe Farmer MD Laboratory Test 12/12/16 15:55 Blood Urea Nitrogen 6 MG/DL Creatinine 0.92 MG/DL Random Glucose 127 MG/DL Calcium Level 7.5 MG/DL Magnesium Level 1.8 MG/DL Sodium Level 140 MEQ/L Potassium Level 3.7 MEQ/L Chloride Level 102 MEQ/L Carbon Dioxide Level 32.4 MEQ/L Anion Gap 6 MEQ/L Estimat Glomerular Filtration Rate 84 ML/MIN Date/Time Source Procedure Growth Status 12/11/16 17:35 Blood Peripheral Aerobic Blood Culture - Preliminary NO GROWTH IN 2 DAYS Resulted 12/11/16 17:35 Blood Peripheral Anaerobic Blood Culture - Preliminary NO GROWTH IN 2 DAYS Resulted Physical Examination HEENT: PERRL; normocephalic; atraumatic; no jaundice. CHEST: CTA CARDIAC: RRR ABDOMEN: Soft, nondistended, mild TTP epigastrium, LLQ; no hepatosplenomegaly; bowel sounds are present in all four quadrants. EXTREMITIES: No clubbing, cyanosis, or edema. SKIN: Normal; no rash; no jaundice. PHOTOGRAPHER SCIENTIFIC: No focal deficits; alert and oriented times three. (Christi Narayan) Assessment and Plan Plan ASSESSMENT - n/v/ epigastric pain - unclear etiology, WBC was 11.2 on admission and now WNL , lipase 131. imaging so far showing no acute findings, however d/w ER PA and KUB image does show what looks like stool. Pt denies diarrhea or constipation. On methadone. Treated for ileus here in September. EGD 09/30 showed no bleeding or ulcers, a hiatal hernia, GERD, mild gastritis. hx pancreatitis, treated here for that in October. He is tolerating clears. PLAN - continue lactulose - continue miralax - clears - monitor labs - supportive care - further recs to follow This pt seen by myself and DR Tan and this note is written on his behalf (Christi Narayan) Physician Comments Patient seen and examined Agree with above Continue with current supportive care Monitor labs Possibly a viral gastroenteritis Considering EGD on Thursday (Jcarlos Tan MD) Christi Narayan Dec 13, 2016 14:33 Jcarlos Tan MD Dec 13, 2016 21:59
[2016-12-13] MEDS: ACETAMINOPHEN/HYDROcodone 325 MG/5 MG TAB PO PRN (21:21)
[2016-12-14 03:44] VITALS: BP 116/84; PULSE 59; RESP 18; TEMP 98.5; O2SAT 96
[2016-12-14] MEDS: ACETAMINOPHEN/HYDROcodone 325 MG/5 MG TAB PO PRN (04:06)
[2016-12-14] MEDS: ONDANSETRON HCL 4 MG/2 ML VIAL IVP PRN ×2 (04:08→10:45)
[2016-12-14] MEDS: HYDROmorphone HCL PF 1 MG/ML VIAL IV PUSH PRN ×2 (05:30→10:51)
[2016-12-14 07:56] VITALS: BP 98/56; PULSE 57; RESP 20; TEMP 98.1; O2SAT 98
--- NOTE | 2016-12-14 08:45 | HHI.PR ---
Subjective Remarks Follow-up for abdominal pain and distention. The KUB yesterday showed probable significant amount of stool in the colon, reviewed with Dr Washington and GI BOILERMAKER APPRENTICE. Discussed with the patient who was agreeable to laxatives. The patient states that after laxatives he had a large bowel movement overnight. He states that after the bowel movement and his abdomen feels much less distended and painful. He would like to try to advance his diet. He states that normally he has a normal bowel movement every day. She does not take any stool softeners. He has been on chronic narcotics for back pain for the last 8 years. He is hoping to go home later today for follow-up with his jukebox operator, Dr. Colon, if he tolerates diet. Objective Vitals Vital Signs Date Time Temp Pulse Resp B/P (MAP) Pulse Ox O2 Delivery O2 Flow Rate FiO2 12/14/16 07:56 98.1 57 20 98/56 (70) 98 12/14/16 03:44 98.5 59 18 116/84 (95) 96 12/13/16 23:29 97.9 56 19 115/72 (86) 97 12/13/16 19:24 97.7 50 19 111/54 (73) 95 12/13/16 15:26 98.7 51 16 104/55 (71) 94 12/13/16 11:17 98.2 87 20 118/61 (80) 97 I/O 12/13/16 12/13/16 12/13/16 12/14/16 12/14/16 12/14/16 07:00 15:00 23:00 07:00 15:00 23:00 Intake Total 500 ml Balance 500 ml Intake Oral 500 ml # Voids 2 Result Diagram: 12/12/16 0640 12/12/16 1555 Imaging Last Impressions Abdomen X-Ray 12/13/16 0000 Signed Impressions: Service Date/Time: Tuesday, December 13, 2016 09:30 - CONCLUSION: 1. No acute abdominal abnormality is identified. 2. Nonacute findings include hepatomegaly and severe left hip joint osteoarthritis. Christophe Gonzalez MD Gall Bladder Ultrasound 12/12/16 0000 Signed Impressions: Service Date/Time: Monday, December 12, 2016 16:09 - CONCLUSION: 1. Increased hepatic echotexture characteristic of fatty infiltration. 2. 1 cm area of diminished attenuation in the right hepatic lobe does not have characteristics of a simple cyst. However, this may represent a focal area of fatty sparing. This was present previously and actually appear slightly smaller when compared with prior Edmar Lewis MD Abdomen/Pelvis CT 12/11/16 2620 Signed Impressions: Service Date/Time: , December 11, 2016 19:32 - CONCLUSION: Fatty liver. Otherwise negative. Christophe Farmer MD Objective Remarks GENERAL: Well-developed well-nourished. In no acute distress. SKIN: Warm and dry. No lesions noted. HEENT: Normocephalic. Pupils equal and round. Mucous membranes pink and moist. CARDIOVASCULAR: Regular rate and rhythm. No murmur appreciated. RESPIRATORY: No accessory muscle use. Clear to auscultation. Breath sounds equal bilaterally. GASTROINTESTINAL: Abdomen less tender, mildly distended, nontender. Bowel sounds x4. MUSCULOSKELETAL: No obvious deformities. No clubbing or cyanosis. No edema. NEUROLOGICAL: Awake and alert. No focal neurological deficits. Moves upper and lower extremities spontaneously. Normal speech. PSYCHIATRIC: Appropriate mood and affect; insight and judgment normal. A/P Problem List: (1) Intractable nausea and vomiting ICD Code: R11.2 - Nausea with vomiting, unspecified Status: Resolved (2) Hypokalemia ICD Code: E87.6 - Hypokalemia Status: Resolved (3) Lactic acidosis ICD Code: E87.2 - Acidosis Status: Resolved (4) HTN (hypertension) ICD Code: I10 - Essential (primary) hypertension Status: Chronic Assessment and Plan 61-year-old male with a PMH of HTN and h/o Pancreatitis who presented to the ER w/ complaints of severe abdominal pain in addition to nausea/vomiting starting tonight. States symptoms started shortly after having dinner, reports symptoms similar to previous episodes of Pancreatitis. Intractable Abdominal Pain/Nausea/Vomiting: h/o Pancreatitis, Lipase 131, CT Abd/Pelvis w/ no acute findings. Gallbladder ultrasound with fatty liver. Recent admissions with HIDA scan, EGD with unremarkable pathology, and abdominal MRI. -IVF -Consulted gastroenterology, possible viral enteritis, consider EGD if not improved -Personally reviewed KUB with distention, showed stool, given laxatives with a large BM improvement in symptoms -Consider gastric emptying if further episodes with chronic opiate use -On chronic methadone. Pain control with [place] as needed and IV Dilaudid for breakthrough. Attempt to limit narcotics with symptoms as above. -Symptoms improving after BM, trial of regular diet. Hypokalemia/Hypomagnesemia: Replaced. Potassium 3.7 and magnesium 1.8. Improved. Continue to monitor. Lactic Acidosis: Lactate 4.6, likely related to dehydration from nausea/ vomiting, no indication for Sepsis. S/p 2L IVF in ER, continue w/ IVF, repeat Lactate 1.8. Resolved. HTN: BP elevated at admission, no BP meds at home. BP improved with pain control. DVT Prophylaxis: SCD/Teds. Discharge Planning If patient is able to tolerate regular diet, then discharge planning for outpatient GI follow-up. If patient does not tolerate diet, will change back to clear liquids and plan for EGD with gastroenterology tomorrow. Problem Qualifiers (1) Intractable nausea and vomiting: Qualified Codes: R11.2 - Nausea with vomiting, unspecified (2) HTN (hypertension): Qualified Codes: I10 - Essential (primary) hypertension Mark Main Dec 14, 2016 08:45
[2016-12-14] MEDS: SODIUM CHLORIDE 0.9% FLUSH 10 ML FLUSH IV FLUSH SCH (09:25)
[2016-12-14] MEDS: PANTOPRAZOLE SODIUM 40 MG VIAL IV PUSH SCH (09:26)
[2016-12-14] MEDS: FOLIC ACID 1 MG TAB PO SCH (09:27)
[2016-12-14] MEDS: DOCUSATE SODIUM 50 MG/SENNA 8.6 MG TAB PO SCH (09:27)
[2016-12-14] MEDS: GABAPENTIN 300 MG CAP PO SCH (09:27)
[2016-12-14] MEDS: METHADONE HCL 10 MG TAB PO SCH ×2 (09:27→13:40)
[2016-12-14] MEDS: ZONISAMIDE 100 MG CAP PO SCH (09:27)
[2016-12-14] MEDS: PHENYTOIN SODIUM 100 MG CAP PO SCH ×2 (09:27→13:39)
[2016-12-14] MEDS: CYANOCOBALAMIN 1,000 MCG TAB PO SCH (09:28)
--- NOTE | 2016-12-14 09:28 | HHI.GIFU ---
Subjective Remarks Sitting up in bed. Tolerating clear liquid diet. Has nausea, but no emesis. States symptoms are controlled with Zofran. Reports continued abdominal pain, but states this is improving. Had large formed BM last night after taking laxatives. Patient asking to advance his diet and would like to go home today. (Arianna Petty) Objective Vitals I&O Vital Signs Date Time Temp Pulse Resp B/P (MAP) Pulse Ox O2 Delivery O2 Flow Rate FiO2 12/14/16 07:56 98.1 57 20 98/56 (70) 98 12/14/16 03:44 98.5 59 18 116/84 (95) 96 12/13/16 23:29 97.9 56 19 115/72 (86) 97 12/13/16 19:24 97.7 50 19 111/54 (73) 95 12/13/16 15:26 98.7 51 16 104/55 (71) 94 12/13/16 11:17 98.2 87 20 118/61 (80) 97 I/O 12/13/16 12/13/16 12/13/16 12/14/16 12/14/16 12/14/16 07:00 15:00 23:00 07:00 15:00 23:00 Intake Total 500 ml Balance 500 ml Intake Oral 500 ml # Voids 2 Laboratory Date/Time Source Procedure Growth Status 12/11/16 17:35 Blood Peripheral Aerobic Blood Culture - Preliminary NO GROWTH IN 2 DAYS Resulted 12/11/16 17:35 Blood Peripheral Anaerobic Blood Culture - Preliminary NO GROWTH IN 2 DAYS Resulted Imaging Last Impressions Abdomen X-Ray 12/13/16 0000 Signed Impressions: Service Date/Time: Tuesday, December 13, 2016 09:30 - CONCLUSION: 1. No acute abdominal abnormality is identified. 2. Nonacute findings include hepatomegaly and severe left hip joint osteoarthritis. Christophe Gonzalez MD Gall Bladder Ultrasound 12/12/16 0000 Signed Impressions: Service Date/Time: Monday, December 12, 2016 16:09 - CONCLUSION: 1. Increased hepatic echotexture characteristic of fatty infiltration. 2. 1 cm area of diminished attenuation in the right hepatic lobe does not have characteristics of a simple cyst. However, this may represent a focal area of fatty sparing. This was present previously and actually appear slightly smaller when compared with prior Edmar Lewis MD Abdomen/Pelvis CT 12/11/16 9191 Signed Impressions: Service Date/Time: November 19:32 - CONCLUSION: Fatty liver. Otherwise negative. Christophe Farmer MD Physical Exam HEENT: Normocephalic; atraumatic; no jaundice. NECK: Neck is supple. CHEST: CTA. CARDIAC: RRR with no murmur gallop or rubs. ABDOMEN: Soft, mildly distended, mild TTP; bowel sounds are present. EXTREMITIES: No clubbing, cyanosis, or edema. SKIN: Normal; no rash; no jaundice. SUPERVISOR TOWER: No focal deficits; alert and oriented x 3 (Arianna Petty) Assessment and Plan Plan ASSESSMENT - Nausea/vomiting/epigastric pain, unclear etiology. Recent admissions in September and October for abdominal pain. Abdomen CT scan (09/24/16) showed ileus and diffuse fatty liver. HIDA scan (09/27/16) negative. Hepatobiliary Scan (09/27/16) normal. EGD (09/30/16 ) showed hiatal hernia, GERD, gastritis. Abdomen MRI (10/31/16) showed acute pancreatitis. CT Abdomen (12/11/16)--Fatty liver. Otherwise negative. Gall Bladder US ()--1. Increased hepatic echotexture characteristic of fatty infiltration. 2. 1 cm area of diminished attenuation in the right hepatic lobe does not have characteristics of a simple cyst. However, this may represent a focal area of fatty sparing. This was present previously and actually appear slightly smaller when compared with prior. KUB (12/13/16)--1. No acute abdominal abnormality is identified. 2. Nonacute findings include hepatomegaly and severe left hip joint osteoarthritis. Patient is on methadone. Patient is established with GI as outpatient (Dr. Colon). 12/14/16--Tolerating clear liquid diet. Reports nausea, but no vomiting. Had large formed BM last night after taking laxatives. Patient is requesting regular diet and discharge today. Plan is to advance diet and if patient is tolerating regular diet, patient will discharge with outpatient GI followup. PLAN - Advance diet - Okay to discharge with outpatient GI followup if patient is tolerating regular diet - Plan for EGD Thursday with NPO after MN if patient is not tolerating regular diet today - Monitor labs - Continue antiemetics - Supportive care - Further recommendations to follow based on results of above Patient seen and examined by Dr. Tan and myself and this note is written on his behalf. (Arianna Petty) Physician Comments Patient seen and examined Agree with above Continue with current supportive care Monitor labs Okay for discharge from GI standpoint (Jcarlos Tan MD) Arianna Petty Dec 14, 2016 09:27 Jcarlos Tan MD Dec 14, 2016 23:34
[2016-12-14] MEDS: NS + KCL 20 MEQ INJ 1,000 ML IV SCH (10:44)
[2016-12-14 11:50] VITALS: BP 126/73; PULSE 60; RESP 20; TEMP 98; O2SAT 97
[2016-12-14] MEDS ORDERED: SENN1TAB PO (15:20)
--- NOTE | 2016-12-14 15:25 | HHI.DS ---
Discharge Summary Admission Date Dec 11, 2016 at 20:31 Discharge Date: Dec 14, 2016 Admitting Diagnosis hypokalemia, lactic acidosis, abdominal pain, nausea and vomiting (1) Intractable nausea and vomiting ICD Code: R11.2 - Nausea with vomiting, unspecified Diagnosis: Principal Status: Resolved (2) Hypokalemia ICD Code: E87.6 - Hypokalemia Diagnosis: Secondary Status: Resolved (3) Lactic acidosis ICD Code: E87.2 - Acidosis Diagnosis: Secondary Status: Resolved (4) HTN (hypertension) ICD Code: I10 - Essential (primary) hypertension Diagnosis: Secondary Status: Chronic (5) Abdominal pain ICD Code: R10.9 - Unspecified abdominal pain Diagnosis: Principal Status: Acute Procedures None Brief History - From Admission This is a 61-year-old male with a PMH of HTN and h/o Pancreatitis who presented to the ER w/ complaints of severe abdominal pain in addition to nausea/vomiting starting tonight. States symptoms started shortly after having dinner, reports symptoms similar to previous episodes of Pancreatitis. Denies fever, chills or diarrhea. On arrival, BP 179/96, HR 96, O2 sat 99% on RA, Afebrile. WBC 11.2. K+ 2.6. Lactic Acid 4.6. INR 1.0. UA negative. CT Abd/Pelvis w/ fatty liver , otherwise negative. S/p multiple doses of Dilaudid and Zofran w/ some improvement. CBC/BMP: 12/12/16 0640 12/12/16 1555 Significant Findings Laboratory Tests Test 12/11/16 17:40 12/11/16 18:50 12/11/16 21:37 12/11/16 21:57 White Blood Count 11.2 TH/MM3 (4.0-11.0) Neutrophils (%) (Auto) 73.0 % (16.0-70.0) Neutrophils # (Auto) 8.2 TH/MM3 (1.8-7.7) Neutrophils % (Manual) 84 % (16-70) Lymphocytes % 5 % (9-44) Neutrophils # (Manual) 9.5 TH/MM3 (1.8-7.7) Spherocytes 1+ (NORMAL) Ovalocytes 1+ (NORMAL) Blood Urea Nitrogen 5 MG/DL (7-18) 5 MG/DL (7-18) Random Glucose 126 MG/DL (74-106) Alkaline Phosphatase 125 U/L (45-117) Potassium Level 2.6 MEQ/L (3.5-5.1) 3.4 MEQ/L (3.5-5.1) Chloride Level 97 MEQ/L (98-107) Estimat Glomerular Filtration Rate 71 ML/MIN (>89) 85 ML/MIN (>89) Lactic Acid Level 4.6 mmol/L (0.4-2.0) Urine Leukocyte Esterase TRACE (NEG) Albumin 3.3 GM/DL (3.4-5.0) Calcium Level 8.0 MG/DL (8.5-10.1) Carbon Dioxide Level 32.3 MEQ/L (21.0-32.0) Test 12/12/16 06:40 12/12/16 15:55 Red Blood Count 3.99 MIL/MM3 (4.50-5.90) Hemoglobin 11.7 GM/DL (13.0-17.0) Hematocrit 35.3 % (39.0-51.0) Monocytes (%) (Auto) 8.2 % (0.0-8.0) Blood Urea Nitrogen 5 MG/DL (7-18) 6 MG/DL (7-18) Random Glucose 112 MG/DL (74-106) 127 MG/DL (74-106) Calcium Level 8.0 MG/DL (8.5-10.1) 7.5 MG/DL (8.5-10.1) Potassium Level 2.8 MEQ/L (3.5-5.1) Estimat Glomerular Filtration Rate 86 ML/MIN (>89) 84 ML/MIN (>89) Phenytoin (Dilantin) Level 2.9 MCG/ML (10.0-20.0) Carbon Dioxide Level 32.4 MEQ/L (21.0-32.0) Imaging Last Impressions Abdomen X-Ray 12/13/16 0000 Signed Impressions: Service Date/Time: Tuesday, December 13, 2016 09:30 - CONCLUSION: 1. No acute abdominal abnormality is identified. 2. Nonacute findings include hepatomegaly and severe left hip joint osteoarthritis. Christophe Gonzalez MD Gall Bladder Ultrasound 12/12/16 0000 Signed Impressions: Service Date/Time: Monday, December 12, 2016 16:09 - CONCLUSION: 1. Increased hepatic echotexture characteristic of fatty infiltration. 2. 1 cm area of diminished attenuation in the right hepatic lobe does not have characteristics of a simple cyst. However, this may represent a focal area of fatty sparing. This was present previously and actually appear slightly smaller when compared with prior Edmar Lewis MD Abdomen/Pelvis CT 12/11/16 1735 Signed Impressions: Service Date/Time: November 19:32 - CONCLUSION: Fatty liver. Otherwise negative. Christophe Farmer MD PE at Discharge GENERAL: Well-developed well-nourished. In no acute distress. SKIN: Warm and dry. No lesions noted. HEENT: Normocephalic. Pupils equal and round. Mucous membranes pink and moist. CARDIOVASCULAR: Regular rate and rhythm. No murmur appreciated. RESPIRATORY: No accessory muscle use. Clear to auscultation. Breath sounds equal bilaterally. GASTROINTESTINAL: Abdomen less tender, mildly distended, nontender. Bowel sounds x4. MUSCULOSKELETAL: No obvious deformities. No clubbing or cyanosis. No edema. NEUROLOGICAL: Awake and alert. No focal neurological deficits. Moves upper and lower extremities spontaneously. Normal speech. PSYCHIATRIC: Appropriate mood and affect; insight and judgment normal. Pt update on day of discharge Seen by GI and cleared for discharge for outpatient GI follow-up the patient tolerating regular diet. Patient tolerated regular diet with no difficulties. Hospital Course 61-year-old male with a PMH of HTN and h/o Pancreatitis who presented to the ER w/ complaints of severe abdominal pain in addition to nausea/vomiting starting tonight. States symptoms started shortly after having dinner, reports symptoms similar to previous episodes of Pancreatitis. Intractable Abdominal Pain/Nausea/Vomiting: h/o Pancreatitis, Lipase 131, CT Abd/Pelvis w/ no acute findings. Gallbladder ultrasound with fatty liver. Recent admissions with HIDA scan, EGD with unremarkable pathology, and abdominal MRI. -Consulted gastroenterology, possible viral enteritis, cleared for discharge as patient tolerating regular diet with no difficulties -Checked KUB with distention, showed stool upon review, given laxatives with a large BM improvement in symptoms. Continue Rosalind-Colace. -On chronic methadone, caution with narcotic side effects and symptoms as above. Pt Condition on Discharge: Stable Discharge Disposition: Discharge Home Discharge Time: > 30 minutes Discharge Instructions DIET: Follow Instructions for: Heart Healthy Diet Activities you can perform: Regular-No Restrictions Follow up Referrals: Gastroenterology - 1 Week with Reji Olguin M.d. PCP Follow-up - 2-3 Days with Christophe Toledo MD New Medications: Sennosides-Docusate Sodium (Senna Plus 8.6-50 mg) 8.6 Mg-50 Mg Tab 1 TAB PO BID for Constipation, #60 TAB Continued Medications: Cyanocobalamin (B12) 1,000 Mcg Tab 1 TAB PO DAILY Folic Acid (Folic Acid) 400 Mcg Tab 400 MCG PO DAILY for Nutritional Supplement, TAB 0 Refills Furosemide (Lasix) 20 Mg Tab 20 MG PO DAILY, #30 TAB 0 Refills Gabapentin (Gabapentin) 100 Mg Cap 300 MG PO BID, #60 CAP 0 Refills Lorazepam (Ativan) 2 Mg Tab 2 MG PO Q6H PRN for ANXIETY AND/OR AGITATION, TAB 0 Refills Methadone (Methadone) 10 Mg Tab 30 MG PO TID, TAB 0 Refills Ondansetron (Zofran) 4 Mg Tab 4 MG PO Q6HR PRN for NAUSEA OR VOMITING, #20 TAB 0 Refills Phenytoin Extended (Dilantin) 100 Mg Cap 100 MG PO TID for Control Seizures, #90 CAP 0 Refills Tizanidine (Zanaflex) 4 Mg Tab 8 MG PO TID for Muscle Spasm, TAB 0 Refills Zonisamide (Zonisamide) 100 Mg Cap 100 MG PO BID for Control Seizures, #60 CAP 0 Refills Mark Main Dec 14, 2016 15:25
[2016-12-14] MEDS ORDERED: HYDR-3516 PO (16:06)
== END 2016-12-14 16:31 | disposition home or self-care (01) ==
LOC: NEPC 17:05 → NEDA 20:31 → INTOOBSV 20:31 → NEPHCDU 23:38
PROVIDERS: ADMIT Hospitalist; ATTEND Hospitalist
DX: R11.2 Nausea with vomiting, unspecified (principal); R10.13 Epigastric pain; E87.6 Hypokalemia; K56.7 Ileus, unspecified; E87.2 Acidosis; E86.0 Dehydration; E83.42 Hypomagnesemia; R10.9 Unspecified abdominal pain; I10 Essential (primary) hypertension; K76.0 Fatty (change of) liver, not elsewhere classified; K86.1 Other chronic pancreatitis; K29.70 Gastritis, unspecified, without bleeding; K21.9 Gastro-esophageal reflux disease without esophagitis; G40.909 Epilepsy, unspecified, not intractable, without status epilepticus; M16.10 Unilateral primary osteoarthritis, unspecified hip; Z79.891 Long term (current) use of opiate analgesic
CPT/HCPCS: 74000; 74177; 76705; 80053; 80185; 81001; 83605; 83690; 83735; 85007; 85025; 85027; 85610; 85730; 87040; 93005; 96361; 96365; 96367; 96375; 96376; 99285; C9113; G0378; J1170; J2405; J3475; J3480; J7030; Q9967; 80048

== ENCOUNTER 2017-02-21 16:45 | Inpatient (IN) | payer OTHER, MEDICAID, MEDICARE ==
[~2017-02-21] VITALS: Ht 182.9 cm; Wt 104.0 kg
[~2017-02-21 16:45] MED LIST changes: +HYDR-3516 PO; -PROM25TA10 PO; +SENN1TAB PO; -WALKER WHEELS/F1 MIS
[2017-02-21 16:59] VITALS: BP 146/97; PULSE 113; RESP 13; TEMP 100.2; O2SAT 98
--- NOTE | 2017-02-21 18:12 | PD ---
HPI . Right lower leg pain Chief Complaint: Fall Time Seen by Provider: 17:08 Travel History International Travel<30 days: No Contact w/Intl Traveler<30days: No Traveled to known affect area: No History of Present Illness HPI This patient presents stating that he suffered a fall last night in his kitchen. He states that both his legs were hyper flexed at the knee and underneath him. He reports some mild left calf tenderness. His main concern is right lower leg pain. He states that he has had a previous tib-fib fracture status post ORIF. He is complaining of pain in the right knee, right mid wolfe, right ankle and right foot. Pain is rated 10/10. Pain is exacerbated by movement. Pain was unrelieved by his usual dose of methadone which she takes for chronic back pain. PFSH Past Medical History Arthritis: No Asthma: No Anxiety: Yes Depression: Yes Heart Rhythm Problems: No Cancer: No Cardiovascular Problems: Yes High Cholesterol: No Chest Pain: No Congestive Heart Failure: No COPD: No Cerebrovascular Accident: No Diabetes: No Diminished Hearing: No Endocrine: No Gastrointestinal Disorders: Yes (PARTIALLY BLOCKED ILLEUM, HIATAL HERNIA ) GERD: No Genitourinary: Yes Headaches: Yes (FOR BRAIN INJURY) Hiatal Hernia: Yes Hypertension: Yes Immune Disorder: No Implanted Vascular Access Dvce: Yes Kidney Stones: No Musculoskeletal: Yes Neurologic: Yes (Neuropathy) Psychiatric: No Reproductive: No Respiratory: Yes (PNEUMOTHORAX IN 1987) Migraines: No Renal Failure: Yes Seizures: Yes Sleep Apnea: No Thyroid Disease: No Ulcer: No Past Surgical History Abdominal Surgery: No Arteriovenous Shunt: No Body Medical Devices: cher in right lower leg Cardiac Surgery: No Ear Surgery: No Endocrine Surgery: No Eye Surgery: No Genitourinary Surgery: No Gynecologic Surgery: No Insulin Pump: No Oral Surgery: No Thoracic Surgery: Yes (CHEST TUBES X2 ) Other Surgery: Yes (facial reconstruction) Social History Alcohol Use: Yes (RARELY ) Tobacco Use: No (quit 30 years) Substance Use: No (pt denies ) Allergies-Medications (Allergen,Severity, Reaction): Coded Allergies: No Known Allergies (Unverified Adverse Reaction, Unknown, 02/21/17) Reported Meds & Prescriptions Reported Meds & Active Scripts Active Hydrocodone-Acetaminophen 5-325 mg Tab 1 Tab PO Q8HR PRN Senna Plus 8.6-50 mg (Sennosides-Docusate Sodium) 8.6 Mg-50 Mg Tab 1 Tab PO BID Zofran (Ondansetron HCl) 4 Mg Tab 4 Mg PO Q6HR PRN Reported Methadone (Methadone HCl) 10 Mg Tab 30 Mg PO TID Zanaflex (Tizanidine HCl) 4 Mg Tab 8 Mg PO TID Lasix (Furosemide) 20 Mg Tab 20 Mg PO DAILY B12 (Cyanocobalamin) 1,000 Mcg Tab 1 Tab PO DAILY Folic Acid 400 Mcg Tab 400 Mcg PO DAILY Ativan (Lorazepam) 2 Mg Tab 2 Mg PO Q6H PRN Gabapentin 100 Mg Cap 300 Mg PO BID Zonisamide 100 Mg Cap 100 Mg PO BID Dilantin (Phenytoin Extended) 100 Mg Cap 100 Mg PO TID Review of Systems Except as stated in HPI: all other systems reviewed are Neg Musculoskeletal: Positive: Myalgias, Limited ROM, Edema, Pain Neurologic: Positive: Seizures Physical Exam Narrative GENERAL: Awake and alert and in no acute distress. SKIN: Warm and dry. HEAD: Normocephalic/atraumatic. EYES: Pupils are equal. Extraocular movements are intact. NECK: Normal range of motion. CARDIOVASCULAR: Regular rate and rhythm. RESPIRATORY: Nonlabored respirations. MUSCULOSKELETAL: He has some visible swelling of his right lower extremity from the knee down. I am unable to elicit any point tenderness. There is no gross deformity. He is distally neurovascularly intact. NEUROLOGICAL: Nonfocal. PSYCHIATRIC: The patient is moderately anxious. Data Data Last Documented VS Vital Signs Date Time Temp Pulse Resp B/P (MAP) Pulse Ox O2 Delivery O2 Flow Rate FiO2 02/21/17 20:41 112 20 188/91 (123) 98 Room Air 02/21/17 16:59 100.2 Orders Orders Ankle, Complete ([id number]) (02/21/17 18:05) Tibia/Fibula (Ap/Lat) (02/21/17 18:05) Hydromorphone (Dilaudid) (02/21/17 18:15) Foot, Limited (2vws) (02/21/17 18:05) [employer] Request For Service (02/21/17 19:42) Lorazepam Inj (Ativan Inj) (02/21/17 20:00) Ed Discharge Order (02/21/17 19:53) Lorazepam Inj (Ativan Inj) (02/21/17 20:15) Fiberglass Short Leg Splint Ad (02/21/17 ) Fiberglass Sugartong Sp Ad Sl (02/21/17 ) Admit Order (Ed Use Only) (02/21/17 ) Vital Signs (Adult) Q4H (02/21/17 21:15) Diet Heart Healthy (02/22/17 Breakfast) Activity Oob With Assistance (02/21/17 21:15) Notify Dr: Other (02/21/17 21:15) MDM Medical Decision Making Medical Screen Exam Complete: Yes Emergency Medical Condition: Yes Differential Diagnosis Differential diagnosis of extremity trauma includes but is not limited to fracture, sprain or strain, dislocation, contusion Narrative Course This patient presents for evaluation of injuries which were sustained in a fall yesterday. He is complaining with bilateral lower extremity pain. However, the left lower extremity pain is very mild. There are x-rays pending of his right leg including the tib-fib, ankle and foot. Last Impressions Tibia/Fibula X-Ray 02/21/171804 Signed Impressions: Service Date/Time: Tuesday, February 21, 2017 18:38 - CONCLUSION: 1. Acute minimally displaced medial and lateral malleoli fractures. 2. Old, healed distal shaft fractures of the right tibia and fibula. Christophe Farmer MD Foot X-Ray 02/21/171804 Signed Impressions: Service Date/Time: Tuesday, February 21, 2017 18:18 - CONCLUSION: Comminuted and mildly displaced intra-articular fracture distally of the little toe proximal phalanx. Christophe Farmer MD Ankle X-Ray 02/21/171804 Signed Impressions: Service Date/Time: Tuesday, February 21, 2017 18:35 - CONCLUSION: Acute, minimally displaced medial and lateral malleoli fractures. Christophe Farmer MD X-rays were independently viewed by me. The patient will be splinted and then referred to orthopedics for follow-up. The nursing staff reports that this patient is not able to ambulate. He will be admitted to the hospital for pain control and for consultation with physical therapy. Physician Communication Physician Communication Dr. Chang Diagnosis Primary Impression: Bimalleolar fracture of right ankle Qualified Codes: S82.841A - Displaced bimalleolar fracture of right lower leg , initial encounter for closed fracture Additional Impressions: Fracture of fifth toe, right, closed Qualified Codes: S92.501A - Displaced unspecified fracture of right lesser toe (s), initial encounter for closed fracture Gastrocnemius strain, left Qualified Codes: S86.112A - Strain of other muscle(s) and tendon(s) of posterior muscle group at lower leg level, left leg, initial encounter Admitting Information Admitting Physician Requests: Observation Referrals: José Watt MD 3 days Patient Instructions: Ankle Fracture (DC), General Instructions, Narcotic given in the ED, RICE Therapy (ED), Toe Fracture (DC) Additional Instructions: Take your usual pain and muscle relaxant medications. Keep your leg iced and elevated as much as possible. This will decrease the pain. Disposition: 01 DISCHARGE HOME Condition: Stable Nikki Fraser MD Feb 21, 2017 18:12
[2017-02-21] MEDS ORDERED: HYDROmorphone HCL 2 MG TAB PO ONE (18:15)
--- NOTE | 2017-02-21 19:11 | RADRPT ---
EXAM DATE/TIME: 02/21/2017 18:38 [facility] COMPARISON: No previous studies available for comparison. INDICATIONS : Pain post fall. MEDICAL HISTORY : None. SURGICAL HISTORY : Lower leg surgery. ENCOUNTER: Initial ACUITY: 1 day PAIN SCORE: 10/10 LOCATION: Right Lower leg. FINDINGS: Patient has old distal shaft fractures of the right tibia and fibula, healed status post tibial roddi ng. Distal screw crosses the tib-fib syndesmosis and is fractured. There is a distal shaft fracture of the right fibula and a medial malleolus fracture of the distal ti alice that appear acute, both minimally displaced. CONCLUSION: 1. Acute minimally displaced medial and lateral malleoli fractures. 2. Old, healed distal shaft fractures of the right tibia and fibula. Christophe Farmer MD on February 21, 2017 at 19:07 Board Certified Radiologist. This report was verified electronically.
--- NOTE | 2017-02-21 19:15 | RADRPT ---
EXAM DATE/TIME: 02/21/2017 18:18 [facility] COMPARISON: No previous studies available for comparison. INDICATIONS : Pain post fall. MEDICAL HISTORY : None. SURGICAL HISTORY : None. ENCOUNTER: Initial ACUITY: 1 day PAIN SCORE: 10/10 LOCATION: Right Foot. FINDINGS: Bones of the right foot are osteopenic. There is a comminuted, intra-articular fracture of the head a nd neck region of the little toe proximal phalanx. This is probably acute or subacute in age. I don't see any other fractures of the right foot. There is some patchy sclerosis in the heel which may be a small, chronic bone infarct. CONCLUSION: Comminuted and mildly displaced intra-articular fracture distally of the little toe proximal phalanx. Christophe Farmer MD on February 21, 2017 at 19:11 Board Certified Radiologist. This report was verified electronically.
--- NOTE | 2017-02-21 19:20 | RADRPT ---
EXAM DATE/TIME: 02/21/2017 18:35 [facility] COMPARISON: No previous studies available for comparison. INDICATIONS : Pain post fall. MEDICAL HISTORY : None. SURGICAL HISTORY : None. ENCOUNTER: Initial ACUITY: 1 day PAIN SCORE: 10/10 LOCATION: Right Ankle. FINDINGS: There are acute fractures of the medial and lateral malleoli of the distal tibia and fibula, respecti vely. Displacement is minimal. Patient is status post distal shaft fractures of the right tibia and fibula which are healed. There i s a tibial cher. There is a fractured screw distally of the tibial cher. The screw partially crosses th e distal tib-fib syndesmosis. The fibula fracture close to the screw tip. CONCLUSION: Acute, minimally displaced medial and lateral malleoli fractures. Christophe Farmer MD on February 21, 2017 at 19:16 Board Certified Radiologist. This report was verified electronically.
[2017-02-21] MEDS ORDERED: LORazepam 2 MG/ML VIAL IV PUSH ONE (20:00)
[2017-02-21] MEDS ORDERED: LORazepam 2 MG/ML VIAL IM ONE (20:15)
[2017-02-21 20:41] VITALS: BP 188/91; PULSE 112; RESP 20; O2SAT 98
--- NOTE | 2017-02-21 21:29 | HHI.HP ---
[facility] Admission Diagnosis right bimalleolar fx, right 5th toe fx, left gastroc strain Diagnoses: (1) Bimalleolar fracture of right ankle Diagnosis: Principal (2) Fracture of fifth toe, right, closed Diagnosis: Principal (3) Gastrocnemius strain, left Diagnosis: Principal (4) Fever Diagnosis: Principal (5) HTN (hypertension) Diagnosis: Principal (6) Chronic pain Diagnosis: Principal Travel History International Travel<30 Days: No Contact w/Intl Traveler <30 Da: No Traveled to Known Affected Are: No History of Present Illness This is a 61-year-old male with a PMH of Anxiety, Depression, Chronic Back Pain on Methadone and HTN who presents the ER with complaints of bilateral leg pain after fall last night. Today, w/ significant pain to right leg and left calf. Denies LOC or head trauma. Has been taking Methadone at home w/ minimal relief. On arrival, BP 146/97, HR 113, O2 sat 98% on RA, Temp 100.2. Labs unavailable at this time. Right Ankle X-ray with acute minimally displaced medial or lateral malleoli fractures. Right Foot Fracture comminuted and mildly displaced intra-articular fracture of the little toe. Left Gastrocnemius strain. Pt was to be d/c'd from ER w/ outpatient Ortho follow up , however unable to ambulate and having persistent pain. Review of Systems Except as stated in HPI: all other systems reviewed are Neg ROS: 14 point review of systems otherwise negative. Past Family Social History Past Medical History PMH: Anxiety, Depression, Chronic Back Pain on Methadone and HTN Past Surgical History PAST SURGICAL HISTORY: Right Leg Brought, Facial Reconstruction, Chest Tube Allergies: Coded Allergies: No Known Allergies (Unverified Allergy, Unknown, 02/21/17) Family History PAST FAMILY HISTORY: Reviewed. No h/o DM or CAD Social History PAST SOCIAL HISTORY: Occasional alcohol. Negative for tobacco or drugs. Physical Exam Vital Signs Vital Signs Date Time Temp Pulse Resp B/P (MAP) Pulse Ox O2 Delivery O2 Flow Rate FiO2 02/21/17 20:41 112 20 188/91 (123) 98 Room Air 02/21/17 17:14 16 99 Room Air 02/21/17 16:59 100.2 113 13 146/97 (226) 98 Room Air Physical Exam PE: GENERAL: Middle-aged male in no acute distress. HEENT: PERRLA, EOMI. No scleral icterus or conjunctival pallor. No lid lag or facial droop. CARDIOVASCULAR: Regular rate and rhythm. No obvious murmurs to auscultation. No chest tenderness to palpation. RESPIRATORY: No obvious rhonchi or wheezing. Clear to auscultation. Breath sounds equal bilaterally. GASTROINTESTINAL: Abdomen soft, non-tender, nondistended. BS normal. MUSCULOSKELETAL: Extremities without clubbing, cyanosis, or edema. No obvious deformities. RLE edema, decreased ROM due to injury. NEUROLOGICAL: Awake, alert and oriented x4. No focal neurologic deficits. Moving both upper and lower extremities spontaneously. Caprini VTE Risk Assessment Caprini VTE Risk Assessment: Mod/High Risk (score >= 2) Caprini Risk Assessment Model Point Value = 1 Point Value = 2 Point Value = 3 Point Value = 5 Age 41-60 Minor surgery BMI > 25 kg/m2 Swollen legs Varicose veins or History of unexplained or recurrent spontaneous Oral contraceptives or hormone replacement Sepsis (< 1 month) Serious lung disease, including pneumonia (< 1 month) Abnormal pulmonary function Acute myocardial infarction Congestive heart failure (< 1 month) History of inflammatory bowel disease Medical patient at bed rest Age 61-74 Arthroscopic surgery Major open surgery (> 45 min) Laparoscopic surgery (> 45 min) Malignancy Confined to bed (> 72 hours) Immobilizing plaster cast Central venous access Age >= 75 History of VTE Family history of VTE Factor V Leiden Prothrombin [id number] Lupus anticoagulant Anticardiolipin antibodies Elevated serum homocysteine Heparin-induced thrombocytopenia Other congenital or acquired thrombophilia Stroke (< 1 month) Elective arthroplasty Hip, pelvis, or leg fracture Acute spinal cord injury (< 1 month) Prophylaxis Regimen Total Risk Factor Score Risk Level Prophylaxis Regimen 0-1 Low Early ambulation 2 Moderate Order ONE of the following: *Sequential Compression Device (SCD) *Heparin 5000 units SQ BID 3-4 Higher Order ONE of the following medications: *Heparin 5000 units SQ TID *Enoxaparin/Lovenox 40 mg SQ daily (WT < 150 kg, CrCl > 30 mL/min) *Enoxaparin/Lovenox 30 mg SQ daily (WT < 150 kg, CrCl > 10-29 mL/min) *Enoxaparin/Lovenox 30 mg SQ BID (WT < 150 kg, CrCl > 30 mL/min) AND/OR *Sequential Compression Device (SCD) 5 or more Highest Order ONE of the following medications: *Heparin 5000 units SQ TID (Preferred with Epidurals) *Enoxaparin/Lovenox 40 mg SQ daily (WT < 150 kg, CrCl > 30 mL/min) *Enoxaparin/Lovenox 30 mg SQ daily (WT < 150 kg, CrCl > 10-29 mL/min) *Enoxaparin/Lovenox 30 mg SQ BID (WT < 150 kg, CrCl > 30 mL/min) AND *Sequential Compression Device (SCD) Assessment and Plan Problem List: (1) Bimalleolar fracture of right ankle ICD Code: S82.841A - Displaced bimalleolar fracture of right lower leg, initial encounter for closed fracture Status: Acute (2) Fracture of fifth toe, right, closed ICD Code: S92.501A - Displaced unspecified fracture of right lesser toe(s), initial encounter for closed fracture Status: Acute (3) Gastrocnemius strain, left ICD Code: S86.112A - Strain of other muscle(s) and tendon(s) of posterior muscle group at lower leg level, left leg, initial encounter Status: Acute (4) Chronic pain ICD Code: G89.29 - Other chronic pain Status: Acute (5) Fever ICD Code: R50.9 - Fever, unspecified (6) HTN (hypertension) ICD Code: I10 - Essential (primary) hypertension Status: Chronic Assessment and Plan A/P: 1. Right Ankle Fx: s/p mechanical fall yesterday, now w/ increasing pain/ swelling. X-ray w/ acute minimally displaced medial and lateral malleoli fractures, images reviewed by me. Pt was to be d/c'd from ER w/ outpatient Ortho follow up, however unable to ambulate and +persistent pain. Analgesics/ antiemetics as needed. Ortho consult. 2. Right Toe Fx: secondary to fall. Foot X-ray w/ comminuted and minimally displaced fracture of little toe. Analgesics/antiemetics 3. Left Gastrocnemius Strain: secondary to fall w/ soft tissue injury. Analgesics/antiemetics as needed. 4. Fever: Temp 100.2. Check CBC, U/a and CXR for underlying infectious etiology. IVF for hydration. 5. Chronic Pain: On Methadone, will resume home medications. 6. HTN: BP 188/91, HR 112, likely compounded by pain/fever, IVF, optimize pain control, monitor BP. 7. DVT Prophylaxis: Mechanical contraindication secondary to injury 8. Social work for d/c planning as needed. 9. Case discussed w/ ER physician at length. Physician Certification 2 Midnight Certification Type: Admission for Inpatient Services Order for Inpatient Services The services are ordered in accordance with Medicare regulations or non- Medicare payer requirements, as applicable. In the case of services not specified as inpatient-only, they are appropriately provided as inpatient services in accordance with the 2-midnight benchmark. Estimated LOS (days): 2 days is the estimated time the patient will need to remain in the hospital, assuming treatment plan goals are met and no additional complications. Post-Hospital Plan: Not yet determined Problem Qualifiers (1) Bimalleolar fracture of right ankle: Qualified Codes: S82.841A - Displaced bimalleolar fracture of right lower leg, initial encounter for closed fracture (2) Fracture of fifth toe, right, closed: Qualified Codes: S92.501A - Displaced unspecified fracture of right lesser toe( s), initial encounter for closed fracture (3) Gastrocnemius strain, left: Qualified Codes: S86.112A - Strain of other muscle(s) and tendon(s) of posterior muscle group at lower leg level, left leg, initial encounter Emilia Chang MD Feb 21, 2017 21:29
[2017-02-21] MEDS ORDERED: ACETAMINOPHEN 325 MG TAB PO PRN (21:30)
[2017-02-21] MEDS ORDERED: LACTULOSE SYRUP 20 GM/30 ML CUP PO PRN (21:30)
[2017-02-21] MEDS ORDERED: MAGNESIUM HYDROXIDE SUSP 30 ML CUP PO PRN (21:30)
[2017-02-21] MEDS ORDERED: MORPHINE SULFATE 4 MG/ML INJ IV PUSH PRN (21:30)
[2017-02-21] MEDS ORDERED: SODIUM CHLORIDE 0.9% FLUSH 10 ML FLUSH IV FLUSH PRN (21:30)
[2017-02-21] MEDS ORDERED: SENNOSIDES 8.6 MG TAB PO PRN (21:30)
[2017-02-21] MEDS ORDERED: BISACODYL 10 MG SUPP RECTAL PRN (21:30)
[2017-02-21] MEDS ORDERED: PILL SPLITTER OTHER PRN (21:45)
[2017-02-21] MEDS: SODIUM CHLOR 0.9% 1000 ML INJ 1,000 ML IV SCH (22:08)
[2017-02-21] MEDS: ONDANSETRON HCL 4 MG/2 ML VIAL IVP PRN (22:10)
[2017-02-21 22:14] VITALS: BP 199/98; PULSE 102; RESP 20; O2SAT 99
[2017-02-21] MEDS ORDERED: METOPROLOL TARTRATE 5 MG/5 ML VIAL IV PUSH ONE (22:30)
[2017-02-21 22:51] VITALS: BP 188/88; PULSE 85; RESP 18; O2SAT 99
[2017-02-21 23:32] VITALS: BP 184/105; PULSE 84; RESP 24; O2SAT 99
[2017-02-21 23:52] VITALS: BP 189/103; PULSE 98; RESP 20; O2SAT 97
[2017-02-21] MEDS: HYDROmorphone HCL PF 1 MG/ML VIAL IV PUSH PRN (23:54)
[2017-02-22] VITALS (13 sets, daily range): BP systolic 88–185; BP diastolic 53–93; PULSE 45–96; RESP 15–19; TEMP 96.9–100.9; O2SAT 95–100
[2017-02-22] MEDS: SODIUM CHLOR 0.9% 1000 ML INJ 1,000 ML IV SCH ×3 (01:16→22:00)
[2017-02-22] MEDS: HYDROmorphone HCL PF 1 MG/ML VIAL IV PUSH PRN ×2 (03:57→08:13)
[2017-02-22] MEDS: LORazepam 2 MG TAB PO PRN ×2 (04:51→11:04)
[2017-02-22 07:33] LABS: AUTOMATED NEUTROPHIL # 7.3 TH/MM3 (1.8-7.7); BASOPHIL # 0.1 TH/MM3 (0-0.2); BASOPHIL % 1.1 % (0.0-2.0); EOSINOPHIL % 0.2 % (0.0-4.0); HEMATOCRIT 38.5 % (39.0-51.0); HEMO FLAGS DIFF FINAL; LYMPH % 19.7 % (9.0-44.0); LYMPHOCYTE # 2.1 TH/MM3 (1.0-4.8); MEAN CORPUSCULAR HEMOGLOBIN 31.2 PG (27.0-34.0); MEAN CORPUSCULAR HGB CONC 35.1 % (32.0-36.0); MONO % 9.6 % (0.0-8.0); NEUT % 69.4 % (16.0-70.0); PLATELET COUNT 219 TH/MM3 (150-450); RED BLOOD COUNT 4.32 MIL/MM3 (4.50-5.90); RED CELL DISTRIBUTION WIDTH 14.3 % (11.6-17.2); WHITE BLOOD COUNT 10.4 TH/MM3 (4.0-11.0)
[2017-02-22] MEDS ORDERED: GENTAMICIN SULFATE 80 MG/2 ML VIAL ONE ×2 (08:05)
[2017-02-22] MEDS ORDERED: BUPIVACAINE HCL PF 0.5% 30 ML VIAL ONE (08:05)
[2017-02-22 08:06] LABS: ALKALINE PHOSPHATASE 116 U/L (45-117); ALT (GPT) 19 U/L (12-78); ANION GAP 6 MEQ/L (5-15); AST (GOT) 25 U/L (15-37); BICARBONATE 34.4 MEQ/L (21.0-32.0); BLOOD UREA NITROGEN 8 MG/DL (7-18); CHLORIDE 99 MEQ/L (98-107); GLOMERULAR FILTRATION RATE 67 ML/MIN (>89); SODIUM (NA) 139 MEQ/L (136-145); TOTAL BILIRUBIN ADULT 0.7 MG/DL (0.2-1.0)
[2017-02-22 08:10] LABS: POTASSIUM 2.9 MEQ/L (3.5-5.1)
[2017-02-22] MEDS: FOLIC ACID 1 MG TAB PO SCH (08:49)
[2017-02-22] MEDS: PHENYTOIN SODIUM 100 MG CAP PO SCH ×3 (08:49→17:09)
[2017-02-22] MEDS: FUROSEMIDE 20 MG TAB PO SCH (08:49)
[2017-02-22] MEDS: DOCUSATE SODIUM 50 MG/SENNA 8.6 MG TAB PO SCH ×2 (08:50→20:24)
[2017-02-22] MEDS: GABAPENTIN 100 MG CAP PO SCH ×2 (08:51→20:24)
[2017-02-22] MEDS: METHADONE HCL 10 MG TAB PO SCH ×3 (08:52→17:24)
[2017-02-22 08:54] LABS: BLOOD, URINE NEG (NEG); GLUCOSE,URINE NEG (NEG); KETONE, URINE NEG (NEG); NITRITE,URINE NEG (NEG); PH, URINE 7.5 (5.0-8.5); URINE COLOR LIGHT-YELLOW (YELLW/STRAW)
[2017-02-22] MEDS: SODIUM CHLORIDE 0.9% FLUSH 10 ML FLUSH IV FLUSH SCH ×2 (08:54→20:24)
[2017-02-22 08:56] LABS: COMMENT (UR) CULT NOT INDICATED; CULTURE IF INDICATED CULT NOT INDICATED
--- NOTE | 2017-02-22 09:24 | HHI.PR ---
Subjective Remarks This is a pleasant 61 y/o male with Anxiety disorder, Depression, Chronic Back Pain on Methadone and HTN who presents the ER with complaints of bilateral leg pain after fall. Today, w/ significant pain to right leg and left calf. Denies LOC or head trauma. Has been taking Methadone at home w/ minimal relief. On arrival, BP 146/97, HR 113, O2 sat 98% on RA, Temp 100.2. Labs unavailable at this time. Right Ankle X-ray with acute minimally displaced medial or lateral malleoli fractures. Right Foot Fracture comminuted and mildly displaced intra-articular fracture of the little toe. Left Gastrocnemius strain. Pt was to be d/c'd from ER w/ outpatient Ortho follow up, however unable to ambulate and having persistent pain. 02/22: Discussed with nurse early in am, due to Hypertension was given Clonidine one dose of 0.1 mg also given pain medicine IV and Lorazepam given early in am at this time running hypotensive giving IV fluids to Improve his blood pressure, and following closely with nurse no nausea, vomit or diarrhea. seen with nurse after normal saline bolus and is stable. Objective Vital Signs Date Time Temp Pulse Resp B/P (MAP) Pulse Ox O2 Delivery O2 Flow Rate FiO2 02/22/17 07:40 99.6 91 19 185/93 (123) 100 02/22/17 04:30 100.7 92 19 172/88 (116) 100 02/22/17 04:13 18 02/22/17 04:12 Room Air 02/22/17 01:00 100.9 96 19 174/92 (119) 100 02/22/17 00:49 96 18 171/82 (111) 98 Room Air 02/22/17 00:16 177/87 (117) 02/21/17 23:52 98 20 189/103 (131) 97 Room Air 02/21/17 23:32 84 24 184/105 (131) 99 02/21/17 22:51 85 18 188/88 (121) 99 Room Air 02/21/17 22:14 102 20 199/98 (131) 99 Room Air 02/21/17 20:41 112 20 188/91 (123) 98 Room Air 02/21/17 17:14 16 99 Room Air 02/21/17 16:59 100.2 113 13 146/97 (113) 98 Room Air I/O 02/21/17 02/21/17 02/21/17 02/22/17 02/22/17 02/22/17 07:00 15:00 23:00 07:00 15:00 23:00 Intake Total 1480 ml Output Total 500 ml Balance 980 ml Intake Oral 480 ml IV Total 1000 ml Output Urine Total 500 ml # Bowel Movements 0 Result Diagram: 02/22/17 0653 02/22/17 0653 Imaging Last Impressions Tibia/Fibula X-Ray 02/21/171804 Signed Impressions: Service Date/Time: Tuesday, February 21, 2017 18:38 - CONCLUSION: 1. Acute minimally displaced medial and lateral malleoli fractures. 2. Old, healed distal shaft fractures of the right tibia and fibula. Christophe Farmer MD Foot X-Ray 02/21/171804 Signed Impressions: Service Date/Time: Tuesday, February 21, 2017 18:18 - CONCLUSION: Comminuted and mildly displaced intra-articular fracture distally of the little toe proximal phalanx. Christophe Farmer MD Ankle X-Ray 02/21/171804 Signed Impressions: Service Date/Time: Tuesday, February 21, 2017 18:35 - CONCLUSION: Acute, minimally displaced medial and lateral malleoli fractures. Christophe Farmer MD Procedures None Other Results Laboratory Tests Test 02/22/17 06:53 02/22/17 08:35 White Blood Count 10.4 TH/MM3 Red Blood Count 4.32 MIL/MM3 Hemoglobin 13.5 GM/DL Hematocrit 38.5 % Mean Corpuscular Volume 89.0 FL Mean Corpuscular Hemoglobin 31.2 PG Mean Corpuscular Hemoglobin Concent 35.1 % Red Cell Distribution Width 14.3 % Platelet Count 219 TH/MM3 Mean Platelet Volume 8.5 FL Neutrophils (%) (Auto) 69.4 % Lymphocytes (%) (Auto) 19.7 % Monocytes (%) (Auto) 9.6 % Eosinophils (%) (Auto) 0.2 % Basophils (%) (Auto) 1.1 % Neutrophils # (Auto) 7.3 TH/MM3 Lymphocytes # (Auto) 2.1 TH/MM3 Monocytes # (Auto) 1.0 TH/MM3 Eosinophils # (Auto) 0.0 TH/MM3 Basophils # (Auto) 0.1 TH/MM3 CBC Comment DIFF FINAL Differential Comment Blood Urea Nitrogen 8 MG/DL Creatinine 1.12 MG/DL Random Glucose 113 MG/DL Total Protein 7.3 GM/DL Albumin 3.4 GM/DL Calcium Level 8.4 MG/DL Alkaline Phosphatase 116 U/L Aspartate Amino Transf (AST/SGOT) 25 U/L Alanine Aminotransferase (ALT/SGPT) 19 U/L Total Bilirubin 0.7 MG/DL Sodium Level 139 MEQ/L Potassium Level 2.9 MEQ/L Chloride Level 99 MEQ/L Carbon Dioxide Level 34.4 MEQ/L Anion Gap 6 MEQ/L Estimat Glomerular Filtration Rate 67 ML/MIN Urine Color LIGHT-YELLOW Urine Turbidity CLEAR Urine pH 7.5 Urine Specific [place] 1.004 Urine Protein NEG mg/dL Urine Glucose (UA) NEG mg/dL Urine Ketones NEG mg/dL Urine Occult Blood NEG Urine Nitrite NEG Urine Bilirubin NEG Urine Urobilinogen LESS THAN 2.0 MG/DL Urine Leukocyte Esterase NEG Urine RBC LESS THAN 1 /hpf Urine WBC LESS THAN 1 /hpf Microscopic Urinalysis Comment CULT NOT INDICATED Objective Remarks GENERAL: Middle-aged male in no acute distress. HEENT: PERRLA, EOMI. No scleral icterus or conjunctival pallor. No lid lag or facial droop. CARDIOVASCULAR: Regular rate and rhythm. No obvious murmurs to auscultation. No chest tenderness to palpation. RESPIRATORY: No obvious rhonchi or wheezing. Clear to auscultation. Breath sounds equal bilaterally. GASTROINTESTINAL: Abdomen soft, non-tender, nondistended. BS normal. MUSCULOSKELETAL: Extremities without clubbing, cyanosis, or edema. No obvious deformities. RLE edema, decreased ROM due to injury. NEUROLOGICAL: Awake, alert and oriented x4. No focal neurologic deficits. Moving both upper and lower extremities spontaneously. Medications and IVs Current Medications Medications (Trade) Dose Ordered Sig/Shannan Route Start Time Stop Time Status Last Admin Sodium Chloride 1,000 ml @ 100 mls/hr Q10H IV 02/21/17 22:00 02/22/17 01:16 (NS Flush) 2 ml UNSCH PRN IV FLUSH 02/21/17 21:30 (NS Flush) 2 ml BID IV FLUSH 02/22/17 09:00 (Zofran Inj) 4 mg Q6H PRN IVP 02/21/17 21:30 02/21/17 22:10 (Tylenol) 650 mg Q6H PRN PO 02/21/17 21:30 ([place] 5-325 Mg) 1 tab Q4H PRN PO 02/21/17 21:30 (Rosalind-Colace) 1 tab BID PO 02/22/17 09:00 02/22/17 08:50 (Milk Of Magnesia Liq) 30 ml Q12H PRN PO 02/21/17 21:30 (Senokot) 17.2 mg Q12H PRN PO 02/21/17 21:30 (Dulcolax Supp) 10 mg DAILY PRN RECTAL 02/21/17 21:30 (Lactulose Liq) 30 ml DAILY PRN PO 02/21/17 21:30 (Folate) 0.5 mg DAILY PO 02/22/17 09:00 02/22/17 08:49 (Lasix) 20 mg DAILY PO 02/22/17 09:00 02/22/17 08:49 (Neurontin) 300 mg BID PO 02/22/17 09:00 02/22/17 08:51 (Ativan) 2 mg Q6H PRN PO 02/21/17 21:30 02/22/17 04:51 (Dolophine) 30 mg TID PO 02/22/17 09:00 02/22/17 08:52 (Dilantin) 100 mg TID PO 02/22/17 09:00 02/22/17 08:49 (Zanaflex) 8 mg TID PO 02/22/17 09:00 02/22/17 08:50 (Zonegran) 100 mg BID PO 02/22/17 09:00 (Pill Splitter) 1 ea UNSCH PRN OTHER 02/21/17 21:45 (Dilaudid Pf Inj) 1 mg Q4H PRN IV PUSH 02/21/17 22:30 02/22/17 08:13 A/P Assessment and Plan 1. Right Ankle Fx: s/p mechanical fall, with increased pain and swelling, X- ray w/ acute minimally displaced medial and lateral malleoli fractures. Pt was to be d/c'd from ER w/ outpatient Ortho follow up, however unable to ambulate and +persistent pain. Analgesics/antiemetics as needed. Awaiting final recommendations by Orthopedic Surgery. 2. Right Toe Fx: secondary to fall. Foot X-ray w/ comminuted and minimally displaced fracture of little toe. 3. Left Gastrocnemius Strain: secondary to fall w/ soft tissue injury. 4. Fever: Temp 100.2. Check CBC, U/a and CXR for underlying infectious etiology. IVF for hydration. 5. Chronic Pain: On Methadone, will resume home medications. 6. HTN: BP 188/91, HR 112, likely compounded by pain/fever, IVF, optimize pain control, due to Hypertension given one dose of Clonidine and the patient developed Hypotension at this time giving IV fluids and following closely. on hold IV pain medicines and Ativan. 7. Electrolyte derangement replacing and following. DVT prophylaxis Social work for d/c planning as needed. PT Discharge Planning Awaiting final recommendations by Orthopedic Surgery and manager winter for discharge. Ed Small MD Feb 22, 2017 9:24 am
[2017-02-22] MEDS ORDERED: cloNIDine HCL 0.1 MG TAB PO PRN (09:30)
[2017-02-22] MEDS: POTASSIUM CHLOR 20 MEQ PREMIX 100 ML IV SCH ×2 (09:48→12:06)
[2017-02-22] MEDS: ONDANSETRON HCL 4 MG/2 ML VIAL IVP PRN ×2 (09:49→18:39)
[2017-02-22 10:10] LABS: MAGNESIUM 1.8 MG/DL (1.5-2.5)
[2017-02-22] MEDS: ZONISAMIDE 100 MG CAP PO SCH ×2 (11:10→20:27)
[2017-02-22] MEDS ORDERED: SODIUM CHLOR 0.9% 1000 ML INJ 1,000 ML IV ONE (12:15)
[2017-02-22] MEDS ORDERED: MAGNESIUM SULFATE 1 GM PREMIX 100 ML IV ONE (12:15)
[2017-02-22] MEDS ORDERED: POTASSIUM PHOSPHATE INJ 15 MMOL in SODIUM CHLORIDE 0.9% INJ 150 ML IV ONE (12:15)
--- NOTE | 2017-02-22 12:15 | MB ---
cc: RAMON ALVARES DATE OF CONSULTATION: 02/22/2017. REASON FOR CONSULTATION: Right bimalleolar ankle fracture and right fifth toe fracture. HISTORY OF PRESENT ILLNESS: This patient is a 61-year-old male with past history of seizure disorder, anxiety, depression, chronic pain syndrome on methadone who had a fall last night sustaining severe injury to the right ankle and foot. He was unable to stand or bear weight. He presented to the [facility] Emergency Room for further evaluation and management. X-rays revealed evidence of a fracture of the distal tibia and also distal fibula with minimal displacement. He has a history of prior intramedullary nailing of a right tibia shaft fracture performed by Dr. Person in [place] approximately three years ago. Of note, in addition to his fractures of the distal tibia and fibula, which are just distal to his nail, he also has a fracture of the fifth toe. PAST MEDICAL HISTORY: 1. Anxiety. 2. Depression. 3. Chronic pain syndrome. 4. Seizure disorder. 5. He is on methadone. 6. He does have a history of hypertension. 7. He has a history of hiatal hernia. 8. History of intestinal obstruction. PAST SURGICAL HISTORY: 1. Right tibia intramedullary nailing three years [address] by [address] Person in [facility]. 2. Facial reconstruction. 3. Chest tube. ALLERGIES: None. FAMILY HISTORY: Reviewed, unremarkable. SOCIAL HISTORY: He occasionally drinks alcohol. He does not smoke. He does use methadone. MEDICATIONS: His medications include: 1. Methadone. 2. Zanaflex. 3. Lasix. 4. B12. 5. Folic acid. 6. Ativan. 7. Neurontin. 8. Dilantin. PHYSICAL EXAMINATION: GENERAL: The patient is awake, lying in bed in no acute distress. HEAD, EYES, EARS, NOSE, THROAT: Normocephalic and atraumatic. Pupils round and reactive to light. Extraocular muscles intact. NECK: The neck is supple. LUNGS: Clear. HEART: Regular rate and rhythm. ABDOMEN: Abdomen soft and nontender. EXTREMITIES: The right lower extremity currently has a well-padded splint to his right ankle and lower leg. He has brisk capillary refill of his toes. Sensation intact distally. IMAGING STUDIES: X-rays of the right ankle shows minimally displaced fracture of the distal tibia and also the lateral malleolus. There is an intramedullary nail within the tibia. The distal locking screw appears broken. The previous tibia shaft fracture appears healed. His new fractures of the distal tibia and fibula are relatively nondisplaced. X-rays of the right foot show comminuted fracture of the phalanx of the small toe with minimal displacement. IMPRESSION: 1. This patient is a 61-year-old male status post fall right distal tibia and fibula ankle fracture, which is minimally displaced. He has a history of prior intramedullary nail transversing a healed tibia shaft fracture on the same side. He has a minimally displaced fifth toe fracture. 2. History of chronic pain syndrome on methadone. 3. History of seizure disorder. PLAN: I discussed the diagnosis with the patient. Recommend nonoperative treatment and strict non-weightbearing right lower extremity and maintaining the splint. All questions were answered. He can follow up with the undersigned in the [facility] in approximately two weeks. MD TYSON Jenkins/MARCO /11:28 AM /12:01 PM
[2017-02-22] MEDS: ACETAMINOPHEN/HYDROcodone 325 MG/5 MG TAB PO PRN ×2 (18:36→22:54)
[2017-02-22] MEDS ORDERED: LORazepam 1 MG TAB PO ONE (23:30)
[2017-02-23] MEDS: ACETAMINOPHEN/HYDROcodone 325 MG/5 MG TAB PO PRN ×6 (02:49→23:22)
[2017-02-23 03:00] VITALS: BP 116/58; PULSE 67; RESP 18; TEMP 96.7; O2SAT 99
[2017-02-23] MEDS: ONDANSETRON HCL 4 MG/2 ML VIAL IVP PRN (03:07)
[2017-02-23] MEDS: SODIUM CHLOR 0.9% 1000 ML INJ 1,000 ML IV SCH ×2 (06:28→15:06)
[2017-02-23 07:25] VITALS: PULSE 86
[2017-02-23 08:00] VITALS: BP 125/80; PULSE 71; RESP 18; TEMP 97; O2SAT 96
[2017-02-23] MEDS: PHENYTOIN SODIUM 100 MG CAP PO SCH ×3 (08:24→18:00)
[2017-02-23] MEDS: GABAPENTIN 100 MG CAP PO SCH (08:24)
[2017-02-23] MEDS: ZONISAMIDE 100 MG CAP PO SCH (08:24)
[2017-02-23] MEDS: METHADONE HCL 10 MG TAB PO SCH ×3 (08:25→18:00)
[2017-02-23] MEDS: FUROSEMIDE 20 MG TAB PO SCH (08:25)
[2017-02-23] MEDS: DOCUSATE SODIUM 50 MG/SENNA 8.6 MG TAB PO SCH ×2 (08:26→21:00)
[2017-02-23] MEDS: FOLIC ACID 1 MG TAB PO SCH (08:26)
[2017-02-23] MEDS: SODIUM CHLORIDE 0.9% FLUSH 10 ML FLUSH IV FLUSH SCH ×2 (09:00→23:23)
[2017-02-23 12:00] VITALS: BP 101/60; PULSE 63; RESP 18; TEMP 96.5; O2SAT 97
--- NOTE | 2017-02-23 12:18 | HHI.PR ---
Subjective Remarks in no acute distress. complaining of severe pain to the right foot along with worsening anxiety. Objective Vitals Vital Signs Date Time Temp Pulse Resp B/P (MAP) Pulse Ox O2 Delivery O2 Flow Rate FiO2 02/23/17 08:00 97.0 71 18 125/80 (95) 96 02/23/17 07:25 86 02/23/17 03:00 96.7 67 18 116/58 (77) 99 02/22/17 23:05 51 02/22/17 23:00 96.9 62 19 108/58 (75) 100 02/22/17 19:03 97.1 54 18 98/56 (70) 98 02/22/17 19:00 48 15 105/57 (73) 95 02/22/17 18:15 45 15 108/56 (73) 02/22/17 17:00 15 99/56 (70) 02/22/17 15:32 98.7 53 19 88/53 (65) 97 I/O 02/22/17 02/22/17 02/22/17 02/23/17 02/23/17 02/23/17 07:00 15:00 23:00 07:00 15:00 23:00 Intake Total 1480 ml 1960 ml 2029 ml 480 ml Output Total 500 ml 300 ml 500 ml Balance 980 ml 1660 ml 2029 ml -20 ml Intake Oral 480 ml 950 ml 480 ml 480 ml IV Total 1000 ml 1010 ml 1549 ml Output Urine Total 500 ml 300 ml 500 ml # Voids 1 4 # Bowel Movements 0 0 1 Result Diagram: 02/22/17 0653 02/22/1753 Imaging Last Impressions Tibia/Fibula X-Ray 02/21/171804 Signed Impressions: Service Date/Time: Tuesday, February 21, 2017 18:38 - CONCLUSION: 1. Acute minimally displaced medial and lateral malleoli fractures. 2. Old, healed distal shaft fractures of the right tibia and fibula. Christophe Farmer MD Foot X-Ray 02/21/171804 Signed Impressions: Service Date/Time: Tuesday, February 21, 2017 18:18 - CONCLUSION: Comminuted and mildly displaced intra-articular fracture distally of the little toe proximal phalanx. Christophe Farmer MD Ankle X-Ray 02/21/171804 Signed Impressions: Service Date/Time: Tuesday, February 21, 2017 18:35 - CONCLUSION: Acute, minimally displaced medial and lateral malleoli fractures. Christophe Farmer MD Objective Remarks GENERAL: This is a well-nourished, well-developed patient, in no apparent distress. CARDIOVASCULAR: Regular rate and regular rhythm without murmurs, gallops, or rubs. RESPIRATORY: Clear to auscultation. Breath sounds equal bilaterally. No wheezes , rales, or rhonchi. GASTROINTESTINAL: Abdomen soft, non-tender, nondistended. Normal, active bowel sounds MUSCULOSKELETAL: right leg covered with clean dressing. NEURO: Alert & Oriented x4 to person, place, time, situation. Moves all ext x4 Medications and IVs Current Medications Hydromorphone HCl (Dilaudid) 2 mg ONCE ONCE PO Last administered on 02/21/17 18:13; Start 02/21/17 at 18:15; Stop 02/21/17 at 18:16; Status DC Lorazepam (Ativan Inj) 2 mg ONCE ONCE IV PUSH ; Start 02/21/17 at 20:00; Stop 02/21/17 at 20:05; Status DC Lorazepam (Ativan Inj) 2 mg ONCE ONCE IM Last administered on 02/21/17 20:16 ; Start 02/21/17 at 20:15; Stop 02/21/17 at 20:16; Status DC Sodium Chloride 1,000 ml @ 100 mls/hr Q10H IV Last administered on 02/22/17 01:16; Start 02/21/17 at 22:00; Stop 02/22/17 at 09:28; Status DC Sodium Chloride (NS Flush) 2 ml UNSCH PRN IV FLUSH FLUSH AFTER USING IV ACCESS ; Start 02/21/17 at 21:30 Sodium Chloride (NS Flush) 2 ml BID IV FLUSH ; Start 02/22/17 at 09:00 Ondansetron HCl (Zofran Inj) 4 mg Q6H PRN IVP NAUSEA OR VOMITING Last administered on 02/23/17 03:07; Start 02/21/17 at 21:30 Acetaminophen (Tylenol) 650 mg Q6H PRN PO FEVER/PAIN SCALE 1 TO 2; Start at 21:30 Acetaminophen/ Hydrocodone Bitart ([place] 5-325 Mg) 1 tab Q4H PRN PO PAIN SCALE 3 TO 5 Last administered on 02/23/17 10:35; Start 02/21/17 at 21:30 Morphine Sulfate (Morphine Inj) 2 mg Q3H PRN IV PUSH Pain 6-10 Last administered on 02/21/17 22:09; Start 02/21/17 at 21:30; Stop 02/21/17 at 22:19 ; Status DC Senna/Docusate Sodium (Rosalind-Colace) 1 tab BID PO Last administered on 20:24; Start 02/22/17 at 09:00 Magnesium Hydroxide (Milk Of Magnesia Liq) 30 ml Q12H PRN PO Mild constipation ; Start 02/21/17 at 21:30 Sennosides (Senokot) 17.2 mg Q12H PRN PO Moderate constipation; Start 02/21/17 at 21:30 Bisacodyl (Dulcolax Supp) 10 mg DAILY PRN RECTAL SEVERE CONSITIPATION; Start 02/21/17 at 21:30 Lactulose (Lactulose Liq) 30 ml DAILY PRN PO SEVERE CONSITIPATION; Start at 21:30 Folic Acid (Folate) 0.5 mg DAILY PO Last administered on 02/23/17 08:26; Start 02/22/17 at 09:00 Furosemide (Lasix) 20 mg DAILY PO Last administered on 02/23/17 08:25; Start 02/22/17 at 09:00 Gabapentin (Neurontin) 300 mg BID PO Last administered on 02/23/17 08:24; Start 02/22/17 at 09:00 Lorazepam (Ativan) 2 mg Q6H PRN PO ANXIETY AND/OR AGITATION Last administered on 02/22/17 11:04; Start 02/21/17 at 21:30; Stop 02/22/17 at 12:18; Status DC Methadone HCl (Dolophine) 30 mg TID PO Last administered on 02/23/17 08:25; Start 02/22/17 at 09:00 Phenytoin (Dilantin) 100 mg TID PO Last administered on 02/23/17 08:24; Start 02/22/17 at 09:00 Tizanidine HCl (Zanaflex) 8 mg TID PO Last administered on 02/23/17 08:24; Start 02/22/17 at 09:00 Zonisamide (Zonegran) 100 mg BID PO Last administered on 02/23/17 08:24; Start 02/22/17 at 09:00 Miscellaneous (Pill Splitter) 1 ea UNSCH PRN OTHER SEE LABEL COMMENTS; Start 02/21/17 at 21:45 Hydromorphone HCl (Dilaudid Pf Inj) 1 mg Q4H PRN IV PUSH PAIN 6-10 Last administered on 02/22/17 08:13; Start 02/21/17 at 22:30; Stop 02/22/17 at 12:18 ; Status DC Metoprolol Tartrate (Lopressor Inj) 5 mg ONCE ONCE IV PUSH Last administered on 02/21/17 22:48; Start 02/21/17 at 22:30; Stop 02/21/17 at 22:31; Status DC Bupivacaine HCl (Marcaine Pf 0.5% Inj) 30 ml STK-MED ONCE .ROUTE ; Start at 08:05; Stop 02/22/17 at 08:06; Status DC Gentamicin Sulfate (Gentamicin Inj) 160 mg STK-MED ONCE .ROUTE ; Start 02/22/17 at 08:05; Stop 02/22/17 at 08:06; Status DC Gentamicin Sulfate (Gentamicin Inj) 80 mg STK-MED ONCE .ROUTE ; Start 02/22/17 at 08:05; Stop 02/22/17 at 08:06; Status DC Potassium Chloride 100 ml @ 50 mls/hr Q2H IV Last administered on 02/22/17 12 :06; Start 02/22/17 at 09:30; Stop 02/22/17 at 13:29; Status DC Clonidine (Catapres) 0.1 mg Q6H PRN PO SBP>160, DBP>90 Last administered on 09:50; Start 02/22/17 at 09:30; Stop 02/22/17 at 12:18; Status DC Potassium Phosphate 15 mmol/ Sodium Chloride 155 ml @ 38.75 mls/ hr ONCE ONCE IV Last administered on 02/22/17 18:39; Start 02/22/17 at 12:15; Stop at 16:14; Status DC Magnesium Sulfate/ Dextrose 100 ml @ 100 mls/hr ONCE ONCE IV Last administered on 02/22/17 17:09; Start 02/22/17 at 12:15; Stop 02/22/17 at 13:14 ; Status DC Sodium Chloride 1,000 ml @ 999 mls/hr BOLUS ONCE IV Last administered on 02/22 12:15; Start 02/22/17 at 12:15; Stop 02/22/17 at 13:15; Status DC Sodium Chloride 1,000 ml @ 125 mls/hr Q8H IV Last administered on 02/23/17 06 :28; Start 02/22/17 at 14:00 Lorazepam (Ativan) 1 mg ONCE ONCE PO Last administered on 02/22/17 23:42; Start 02/22/17 at 23:30; Stop 02/22/17 at 23:31; Status DC A/P Problem List: (1) Bimalleolar fracture of right ankle ICD Code: S82.841A - Displaced bimalleolar fracture of right lower leg, initial encounter for closed fracture Status: Acute (2) Fracture of fifth toe, right, closed ICD Code: S92.501A - Displaced unspecified fracture of right lesser toe(s), initial encounter for closed fracture Status: Acute (3) Gastrocnemius strain, left ICD Code: S86.112A - Strain of other muscle(s) and tendon(s) of posterior muscle group at lower leg level, left leg, initial encounter Status: Acute (4) Chronic pain ICD Code: G89.29 - Other chronic pain Status: Acute (5) Fever ICD Code: R50.9 - Fever, unspecified (6) HTN (hypertension) ICD Code: I10 - Essential (primary) hypertension Status: Chronic Assessment and Plan A/P 1. Right Ankle Fx: s/p mechanical fall, with increased pain and swelling, X- ray w/ acute minimally displaced medial and lateral malleoli fractures. Pt was to be d/c'd from ER w/ outpatient Ortho follow up, however unable to ambulate and +persistent pain. Analgesics/antiemetics as needed. case management consulted for dc planning to rehab. f/u with ortho as outpatient. 2. Right Toe Fx: secondary to fall. Foot X-ray w/ comminuted and minimally displaced fracture of little toe. 3. Chronic Pain: On Methadone. 4. HTN: will monitor closely. 5.hypokalemia/ hypophosphatemia; will repeat the labs today. DVT prophylaxis with subq Lovenox. Social work for d/c planning as needed. PT Discharge Planning dc to rehab within the next 24-48 hrs when pain is better controlled. Problem Qualifiers (1) Bimalleolar fracture of right ankle: Qualified Codes: S82.841A - Displaced bimalleolar fracture of right lower leg, initial encounter for closed fracture (2) Fracture of fifth toe, right, closed: Qualified Codes: S92.501A - Displaced unspecified fracture of right lesser toe( s), initial encounter for closed fracture (3) Gastrocnemius strain, left: Qualified Codes: S86.112A - Strain of other muscle(s) and tendon(s) of posterior muscle group at lower leg level, left leg, initial encounter Sintia Iverson MD Feb 23, 2017 12:18
[2017-02-23] MEDS: ENOXAPARIN SODIUM 40 MG/0.4 ML SYRINGE SQ SCH (12:43)
[2017-02-23] MEDS: LORazepam 0.5 MG TAB PO PRN ×2 (12:46→23:22)
[2017-02-23 13:28] LABS: POTASSIUM 2.8 MEQ/L (3.5-5.1)
--- NOTE | 2017-02-23 14:27 | RADRPT ---
EXAM DATE/TIME: 02/23/2017 13:36 [facility] COMPARISON: No previous studies available for comparison. INDICATIONS : Pain post fall one week ago. MEDICAL HISTORY : Seizures. Hypertension. Pancreatitis.Blocked Illeum. SURGICAL HISTORY : Hiatal hernia. ENCOUNTER: Subsequent ACUITY: 2 days PAIN SCORE: 10/10 LOCATION: Left Ankle FINDINGS: Mild swelling is present. There is no evidence of acute fracture. Bony mineralization is normal. Ther e is sclerosis involving the distal tibia and in the calcaneus which may reflect bone infarcts. CONCLUSION: 1. There is no evidence of acute fracture. Chandler Hurtado MD on February 23, 2017 at 14:21 Board Certified Radiologist. This report was verified electronically.
[2017-02-23 16:00] VITALS: BP 109/59; PULSE 53; RESP 18; TEMP 95.9; O2SAT 98
[2017-02-23 20:30] VITALS: BP 128/67; PULSE 54; RESP 18; TEMP 96.4; O2SAT 99
[2017-02-23] MEDS ORDERED: HYDROmorphone HCL PF 1 MG/ML VIAL IV PUSH PRN (23:00)
[2017-02-24] VITALS (7 sets, daily range): BP systolic 92–167; BP diastolic 60–89; PULSE 52–75; RESP 16–18; TEMP 95.5–98.1; O2SAT 96–100
[2017-02-24] MEDS: ZONISAMIDE 100 MG CAP PO SCH ×3 (00:07→22:26)
[2017-02-24] MEDS: GABAPENTIN 100 MG CAP PO SCH ×3 (00:08→21:05)
[2017-02-24] MEDS: SODIUM CHLOR 0.9% 1000 ML INJ 1,000 ML IV SCH ×2 (04:26→17:46)
[2017-02-24] MEDS: LORazepam 0.5 MG TAB PO PRN (06:20)
[2017-02-24] MEDS: ACETAMINOPHEN/HYDROcodone 325 MG/5 MG TAB PO PRN ×4 (06:21→18:24)
[2017-02-24] MEDS: FOLIC ACID 1 MG TAB PO SCH (08:13)
[2017-02-24] MEDS: FUROSEMIDE 20 MG TAB PO SCH (08:13)
[2017-02-24] MEDS: PHENYTOIN SODIUM 100 MG CAP PO SCH ×3 (08:13→17:58)
[2017-02-24] MEDS: METHADONE HCL 10 MG TAB PO SCH ×3 (08:14→18:00)
[2017-02-24] MEDS: SODIUM CHLORIDE 0.9% FLUSH 10 ML FLUSH IV FLUSH SCH ×2 (09:00→21:06)
[2017-02-24] MEDS: DOCUSATE SODIUM 50 MG/SENNA 8.6 MG TAB PO SCH ×2 (09:00→21:00)
[2017-02-24] MEDS: ONDANSETRON HCL 4 MG/2 ML VIAL IVP PRN ×2 (10:04→22:26)
[2017-02-24] MEDS: ENOXAPARIN SODIUM 40 MG/0.4 ML SYRINGE SQ SCH (12:16)
--- NOTE | 2017-02-24 12:18 | HHI.PR ---
Subjective Remarks in no acute distress. complaining of moderate to severe pain to the right ankle. anxious at times. d/w the RN. Objective Vitals Vital Signs Date Time Temp Pulse Resp B/P (MAP) Pulse Ox O2 Delivery O2 Flow Rate FiO2 02/24/17 12:00 95.5 65 18 94/60 (71) 96 02/24/17 08:00 98.1 75 18 167/89 (115) 100 02/24/17 07:20 75 02/24/17 04:41 97.0 56 18 116/68 (84) 100 02/24/17 00:25 97.0 58 18 115/68 (84) 99 02/23/17 20:30 96.4 54 18 128/67 (87) 99 02/23/17 16:00 95.9 53 18 109/59 (76) 98 I/O 02/23/17 02/23/17 02/23/17 02/24/17 02/24/17 02/24/17 07:00 15:00 23:00 07:00 15:00 23:00 Intake Total 480 ml 960 ml 360 ml 360 ml Output Total 500 ml 1500 ml 800 ml Balance -20 ml -540 ml 360 ml -440 ml Intake Oral 480 ml 960 ml 360 ml 360 ml Output Urine Total 500 ml 1500 ml 800 ml # Voids 2 # Bowel Movements 1 0 0 0 Result Diagram: 02/22/17 0653 02/23/17 1251 Imaging Last Impressions Tibia/Fibula X-Ray 02/23/17 0000 Signed Impressions: Service Date/Time: Thursday, February 23, 2017 13:36 - CONCLUSION: 1. There is no evidence of acute fracture. Chandler Hurtado MD Foot X-Ray 02/21/171804 Signed Impressions: Service Date/Time: Tuesday, February 21, 2017 18:18 - CONCLUSION: Comminuted and mildly displaced intra-articular fracture distally of the little toe proximal phalanx. Christophe Farmer MD Ankle X-Ray 02/21/171804 Signed Impressions: Service Date/Time: Tuesday, February 21, 2017 18:35 - CONCLUSION: Acute, minimally displaced medial and lateral malleoli fractures. Christophe Farmer MD Objective Remarks GENERAL: This is a well-nourished, well-developed patient, in no apparent distress. CARDIOVASCULAR: Regular rate and regular rhythm without murmurs, gallops, or rubs. RESPIRATORY: Clear to auscultation. Breath sounds equal bilaterally. No wheezes , rales, or rhonchi. GASTROINTESTINAL: Abdomen soft, non-tender, nondistended. Normal, active bowel sounds MUSCULOSKELETAL: right leg covered with clean dressing. NEURO: Alert & Oriented x4 to person, place, time, situation. Moves all ext x4 Medications and IVs Current Medications Hydromorphone HCl (Dilaudid) 2 mg ONCE ONCE PO Last administered on 02/21/17 18:13; Start 02/21/17 at 18:15; Stop 02/21/17 at 18:16; Status DC Lorazepam (Ativan Inj) 2 mg ONCE ONCE IV PUSH ; Start 02/21/17 at 20:00; Stop 02/21/17 at 20:05; Status DC Lorazepam (Ativan Inj) 2 mg ONCE ONCE IM Last administered on 02/21/17 20:16 ; Start 02/21/17 at 20:15; Stop 02/21/17 at 20:16; Status DC Sodium Chloride 1,000 ml @ 100 mls/hr Q10H IV Last administered on 02/22/17 01:16; Start 02/21/17 at 22:00; Stop 02/22/17 at 09:28; Status DC Sodium Chloride (NS Flush) 2 ml UNSCH PRN IV FLUSH FLUSH AFTER USING IV ACCESS ; Start 02/21/17 at 21:30 Sodium Chloride (NS Flush) 2 ml BID IV FLUSH Last administered on 02/23/17 23: 23; Start 02/22/17 at 09:00 Ondansetron HCl (Zofran Inj) 4 mg Q6H PRN IVP NAUSEA OR VOMITING Last administered on 02/24/17 10:04; Start 02/21/17 at 21:30 Acetaminophen (Tylenol) 650 mg Q6H PRN PO FEVER/PAIN SCALE 1 TO 2; Start at 21:30 Acetaminophen/ Hydrocodone Bitart ([place] 5-325 Mg) 1 tab Q4H PRN PO PAIN SCALE 3 TO 5 Last administered on 02/24/17 10:36; Start 02/21/17 at 21:30 Morphine Sulfate (Morphine Inj) 2 mg Q3H PRN IV PUSH Pain 6-10 Last administered on 02/21/17 22:09; Start 02/21/17 at 21:30; Stop 02/21/17 at 22:19 ; Status DC Senna/Docusate Sodium (Rosalind-Colace) 1 tab BID PO Last administered on 20:24; Start 02/22/17 at 09:00 Magnesium Hydroxide (Milk Of Magnesia Liq) 30 ml Q12H PRN PO Mild constipation ; Start 02/21/17 at 21:30 Sennosides (Senokot) 17.2 mg Q12H PRN PO Moderate constipation; Start 02/21/17 at 21:30 Bisacodyl (Dulcolax Supp) 10 mg DAILY PRN RECTAL SEVERE CONSITIPATION; Start 02/21/17 at 21:30 Lactulose (Lactulose Liq) 30 ml DAILY PRN PO SEVERE CONSITIPATION; Start at 21:30 Folic Acid (Folate) 0.5 mg DAILY PO Last administered on 02/24/17 08:13; Start 02/22/17 at 09:00 Furosemide (Lasix) 20 mg DAILY PO Last administered on 02/24/17 08:13; Start 02/22/17 at 09:00 Gabapentin (Neurontin) 300 mg BID PO Last administered on 02/24/17 08:14; Start 02/22/17 at 09:00 Lorazepam (Ativan) 2 mg Q6H PRN PO ANXIETY AND/OR AGITATION Last administered on 02/22/17 11:04; Start 02/21/17 at 21:30; Stop 02/22/17 at 12:18; Status DC Methadone HCl (Dolophine) 30 mg TID PO Last administered on 02/24/17 08:14; Start 02/22/17 at 09:00 Phenytoin (Dilantin) 100 mg TID PO Last administered on 02/24/17 08:13; Start 02/22/17 at 09:00 Tizanidine HCl (Zanaflex) 8 mg TID PO Last administered on 02/24/17 08:13; Start 02/22/17 at 09:00 Zonisamide (Zonegran) 100 mg BID PO Last administered on 02/24/17 08:14; Start 02/22/17 at 09:00 Miscellaneous (Pill Splitter) 1 ea UNSCH PRN OTHER SEE LABEL COMMENTS; Start 02/21/17 at 21:45 Hydromorphone HCl (Dilaudid Pf Inj) 1 mg Q4H PRN IV PUSH PAIN 6-10 Last administered on 02/22/17 08:13; Start 02/21/17 at 22:30; Stop 02/22/17 at 12:18 ; Status DC Metoprolol Tartrate (Lopressor Inj) 5 mg ONCE ONCE IV PUSH Last administered on 02/21/17 22:48; Start 02/21/17 at 22:30; Stop 02/21/17 at 22:31; Status DC Bupivacaine HCl (Marcaine Pf 0.5% Inj) 30 ml STK-MED ONCE .ROUTE ; Start at 08:05; Stop 02/22/17 at 08:06; Status DC Gentamicin Sulfate (Gentamicin Inj) 160 mg STK-MED ONCE .ROUTE ; Start 02/22/17 at 08:05; Stop 02/22/17 at 08:06; Status DC Gentamicin Sulfate (Gentamicin Inj) 80 mg STK-MED ONCE .ROUTE ; Start 02/22/17 at 08:05; Stop 02/22/17 at 08:06; Status DC Potassium Chloride 100 ml @ 50 mls/hr Q2H IV Last administered on 02/22/17 12 :06; Start 02/22/17 at 09:30; Stop 02/22/17 at 13:29; Status DC Clonidine (Catapres) 0.1 mg Q6H PRN PO SBP>160, DBP>90 Last administered on 09:50; Start 02/22/17 at 09:30; Stop 02/22/17 at 12:18; Status DC Potassium Phosphate 15 mmol/ Sodium Chloride 155 ml @ 38.75 mls/ hr ONCE ONCE IV Last administered on 02/22/17 18:39; Start 02/22/17 at 12:15; Stop at 16:14; Status DC Magnesium Sulfate/ Dextrose 100 ml @ 100 mls/hr ONCE ONCE IV Last administered on 02/22/17 17:09; Start 02/22/17 at 12:15; Stop 02/22/17 at 13:14 ; Status DC Sodium Chloride 1,000 ml @ 999 mls/hr BOLUS ONCE IV Last administered on 02/22 12:15; Start 02/22/17 at 12:15; Stop 02/22/17 at 13:15; Status DC Sodium Chloride 1,000 ml @ 75 mls/hr [id number] IV Last administered on 06:28; Start 02/22/17 at 14:00 Lorazepam (Ativan) 1 mg ONCE ONCE PO Last administered on 02/22/17 23:42; Start 02/22/17 at 23:30; Stop 02/22/17 at 23:31; Status DC Lorazepam (Ativan) 0.5 mg Q6HR PRN PO ANXIETY Last administered on 02/24/17 06 :20; Start 02/23/17 at 12:30 Enoxaparin Sodium (Lovenox Inj) 40 mg Q24H SQ Last administered on 02/23/17 12 :43; Start 02/23/17 at 13:00 Hydromorphone HCl (Dilaudid Pf Inj) 0.2 mg Q4H PRN IV PUSH pain >5 Last administered on 02/23/17 23:23; Start 02/23/17 at 23:00; Stop 02/24/17 at 06:00 ; Status DC A/P Problem List: (1) Bimalleolar fracture of right ankle ICD Code: S82.841A - Displaced bimalleolar fracture of right lower leg, initial encounter for closed fracture Status: Acute (2) Fracture of fifth toe, right, closed ICD Code: S92.501A - Displaced unspecified fracture of right lesser toe(s), initial encounter for closed fracture Status: Acute (3) Gastrocnemius strain, left ICD Code: S86.112A - Strain of other muscle(s) and tendon(s) of posterior muscle group at lower leg level, left leg, initial encounter Status: Acute (4) Chronic pain ICD Code: G89.29 - Other chronic pain Status: Acute (5) Fever ICD Code: R50.9 - Fever, unspecified (6) HTN (hypertension) ICD Code: I10 - Essential (primary) hypertension Status: Chronic Assessment and Plan A/P 1. Right Ankle Fx: s/p mechanical fall, with increased pain and swelling, X- ray w/ acute minimally displaced medial and lateral malleoli fractures. Pt was to be d/c'd from ER w/ outpatient Ortho follow up, however unable to ambulate and +persistent pain. Analgesics/antiemetics as needed; will increase the dose of [place] today and monitor the response. case management consulted for dc planning to rehab. f/u with ortho as outpatient. 2. Right Toe Fx: secondary to fall. Foot X-ray w/ comminuted and minimally displaced fracture of little toe. 3. Chronic Pain: On Methadone; pain management as noted above. 4. HTN: will monitor closely. 5.hypokalemia- repeat the level today. DVT prophylaxis with subq Lovenox. Social work for d/c planning as needed. PT Discharge Planning dc to rehab tomorrow if stable and pain is better. Problem Qualifiers (1) Bimalleolar fracture of right ankle: Qualified Codes: S82.841A - Displaced bimalleolar fracture of right lower leg, initial encounter for closed fracture (2) Fracture of fifth toe, right, closed: Qualified Codes: S92.501A - Displaced unspecified fracture of right lesser toe( s), initial encounter for closed fracture (3) Gastrocnemius strain, left: Qualified Codes: S86.112A - Strain of other muscle(s) and tendon(s) of posterior muscle group at lower leg level, left leg, initial encounter Sintia Iverson MD Feb 24, 2017 12:18
[2017-02-24] MEDS: LORazepam 2 MG TAB PO PRN ×2 (14:40→21:05)
[2017-02-25 00:11] VITALS: BP 94/61; PULSE 52; RESP 17; TEMP 98; O2SAT 100
[2017-02-25] MEDS: ACETAMINOPHEN/HYDROcodone 325 MG/5 MG TAB PO PRN ×4 (01:54→15:23)
[2017-02-25] MEDS: LORazepam 2 MG TAB PO PRN ×3 (03:52→17:30)
[2017-02-25 04:30] VITALS: BP 148/89; PULSE 70; RESP 17; TEMP 96.7; O2SAT 100
[2017-02-25] MEDS: ONDANSETRON HCL 4 MG/2 ML VIAL IVP PRN (06:14)
[2017-02-25] MEDS: SODIUM CHLOR 0.9% 1000 ML INJ 1,000 ML IV SCH (07:06)
[2017-02-25 08:00] VITALS: BP 165/80; PULSE 77; RESP 19; TEMP 98.7; O2SAT 100
[2017-02-25 08:32] VITALS: PULSE 105
[2017-02-25] MEDS: ZONISAMIDE 100 MG CAP PO SCH (08:37)
[2017-02-25] MEDS: FOLIC ACID 1 MG TAB PO SCH (08:38)
[2017-02-25] MEDS: FUROSEMIDE 20 MG TAB PO SCH (08:38)
[2017-02-25] MEDS: GABAPENTIN 100 MG CAP PO SCH (08:38)
[2017-02-25] MEDS: PHENYTOIN SODIUM 100 MG CAP PO SCH ×3 (08:38→17:30)
[2017-02-25] MEDS: METHADONE HCL 10 MG TAB PO SCH (08:38)
[2017-02-25] MEDS: DOCUSATE SODIUM 50 MG/SENNA 8.6 MG TAB PO SCH (08:39)
[2017-02-25] MEDS: SODIUM CHLORIDE 0.9% FLUSH 10 ML FLUSH IV FLUSH SCH (08:45)
[2017-02-25 12:00] VITALS: BP 101/68; PULSE 66; RESP 18; TEMP 98.4; O2SAT 97
[2017-02-25] MEDS ORDERED: ENOX40P SQ (12:15)
[2017-02-25] MEDS ORDERED: HYDR-3516 PO (12:15)
[2017-02-25] MEDS ORDERED: LORA-475 PO (12:15)
[2017-02-25] MEDS ORDERED: METH10TA PO ×2 (12:15→12:22)
--- NOTE | 2017-02-25 12:26 | HHI.PR ---
Subjective Remarks in no acute distress. pain seems to be fairly controlled. d/w the RN and no acute issues over night. Objective Vitals Vital Signs Date Time Temp Pulse Resp B/P (MAP) Pulse Ox O2 Delivery O2 Flow Rate FiO2 02/25/17 08:00 98.7 77 19 165/80 (108) 100 02/25/17 04:30 96.7 70 17 148/89 (108) 100 02/25/17 00:11 98.0 52 17 94/61 (72) 100 02/24/17 20:12 96.6 52 16 109/66 (80) 98 02/24/17 16:00 96.0 54 18 92/60 (71) 99 I/O 02/24/17 02/24/17 02/24/17 02/25/17 02/25/17 02/25/17 07:00 15:00 23:00 07:00 15:00 23:00 Intake Total 360 ml 860 ml 480 ml 480 ml Output Total 800 ml 1300 ml Balance -440 ml 860 ml 480 ml -820 ml Intake Oral 360 ml 860 ml 480 ml 480 ml Output Urine Total 800 ml 1300 ml # Voids 3 0 # Bowel Movements 0 0 0 0 Result Diagram: 02/22/17 0653 02/24/17 1400 Imaging Last Impressions Tibia/Fibula X-Ray 02/23/17 0000 Signed Impressions: Service Date/Time: Thursday, February 23, 2017 13:36 - CONCLUSION: 1. There is no evidence of acute fracture. Chandler Hurtado MD Foot X-Ray 02/21/171804 Signed Impressions: Service Date/Time: Tuesday, February 21, 2017 18:18 - CONCLUSION: Comminuted and mildly displaced intra-articular fracture distally of the little toe proximal phalanx. Christophe Farmer MD Ankle X-Ray 02/21/171804 Signed Impressions: Service Date/Time: Tuesday, February 21, 2017 18:35 - CONCLUSION: Acute, minimally displaced medial and lateral malleoli fractures. Christophe Farmer MD Objective Remarks GENERAL: This is a well-nourished, well-developed patient, in no apparent distress. CARDIOVASCULAR: Regular rate and regular rhythm without murmurs, gallops, or rubs. RESPIRATORY: Clear to auscultation. Breath sounds equal bilaterally. No wheezes , rales, or rhonchi. GASTROINTESTINAL: Abdomen soft, non-tender, nondistended. Normal, active bowel sounds MUSCULOSKELETAL: right leg covered with clean dressing. NEURO: Alert & Oriented x4 to person, place, time, situation. Moves all ext x4 Procedures none Medications and IVs Current Medications Hydromorphone HCl (Dilaudid) 2 mg ONCE ONCE PO Last administered on 02/21/17 18:13; Start 02/21/17 at 18:15; Stop 02/21/17 at 18:16; Status DC Lorazepam (Ativan Inj) 2 mg ONCE ONCE IV PUSH ; Start 02/21/17 at 20:00; Stop 02/21/17 at 20:05; Status DC Lorazepam (Ativan Inj) 2 mg ONCE ONCE IM Last administered on 02/21/17 20:16 ; Start 02/21/17 at 20:15; Stop 02/21/17 at 20:16; Status DC Sodium Chloride 1,000 ml @ 100 mls/hr Q10H IV Last administered on 02/22/17 01:16; Start 02/21/17 at 22:00; Stop 02/22/17 at 09:28; Status DC Sodium Chloride (NS Flush) 2 ml UNSCH PRN IV FLUSH FLUSH AFTER USING IV ACCESS ; Start 02/21/17 at 21:30 Sodium Chloride (NS Flush) 2 ml BID IV FLUSH Last administered on 02/25/17 08: 45; Start 02/22/17 at 09:00 Ondansetron HCl (Zofran Inj) 4 mg Q6H PRN IVP NAUSEA OR VOMITING Last administered on 02/25/17 06:14; Start 02/21/17 at 21:30 Acetaminophen (Tylenol) 650 mg Q6H PRN PO FEVER/PAIN SCALE 1 TO 2; Start at 21:30 Acetaminophen/ Hydrocodone Bitart (Mobile 5-325 Mg) 1 tab Q4H PRN PO PAIN SCALE 3 TO 5 Last administered on 02/24/17 10:36; Start 02/21/17 at 21:30 Morphine Sulfate (Morphine Inj) 2 mg Q3H PRN IV PUSH Pain 6-10 Last administered on 02/21/17 22:09; Start 02/21/17 at 21:30; Stop 02/21/17 at 22:19 ; Status DC Senna/Docusate Sodium (Rosalind-Colace) 1 tab BID PO Last administered on 20:24; Start 02/22/17 at 09:00 Magnesium Hydroxide (Milk Of Magnesia Liq) 30 ml Q12H PRN PO Mild constipation ; Start 02/21/17 at 21:30 Sennosides (Senokot) 17.2 mg Q12H PRN PO Moderate constipation; Start 02/21/17 at 21:30 Bisacodyl (Dulcolax Supp) 10 mg DAILY PRN RECTAL SEVERE CONSITIPATION; Start 02/21/17 at 21:30 Lactulose (Lactulose Liq) 30 ml DAILY PRN PO SEVERE CONSITIPATION; Start at 21:30 Folic Acid (Folate) 0.5 mg DAILY PO Last administered on 02/25/17 08:38; Start 02/22/17 at 09:00 Furosemide (Lasix) 20 mg DAILY PO Last administered on 02/25/17 08:38; Start 02/22/17 at 09:00 Gabapentin (Neurontin) 300 mg BID PO Last administered on 02/25/17 08:38; Start 02/22/17 at 09:00 Lorazepam (Ativan) 2 mg Q6H PRN PO ANXIETY AND/OR AGITATION Last administered on 02/22/17 11:04; Start 02/21/17 at 21:30; Stop 02/22/17 at 12:18; Status DC Methadone HCl (Dolophine) 30 mg TID PO Last administered on 02/25/17 08:38; Start 02/22/17 at 09:00 Phenytoin (Dilantin) 100 mg TID PO Last administered on 02/25/17 08:38; Start 02/22/17 at 09:00 Tizanidine HCl (Zanaflex) 8 mg TID PO Last administered on 02/25/17 08:37; Start 02/22/17 at 09:00 Zonisamide (Zonegran) 100 mg BID PO Last administered on 02/25/17 08:37; Start 02/22/17 at 09:00 Miscellaneous (Pill Splitter) 1 ea UNSCH PRN OTHER SEE LABEL COMMENTS; Start 02/21/17 at 21:45 Hydromorphone HCl (Dilaudid Pf Inj) 1 mg Q4H PRN IV PUSH PAIN 6-10 Last administered on 02/22/17 08:13; Start 02/21/17 at 22:30; Stop 02/22/17 at 12:18 ; Status DC Metoprolol Tartrate (Lopressor Inj) 5 mg ONCE ONCE IV PUSH Last administered on 02/21/17 22:48; Start 02/21/17 at 22:30; Stop 02/21/17 at 22:31; Status DC Bupivacaine HCl (Marcaine Pf 0.5% Inj) 30 ml STK-MED ONCE .ROUTE ; Start at 08:05; Stop 02/22/17 at 08:06; Status DC Gentamicin Sulfate (Gentamicin Inj) 160 mg STK-MED ONCE .ROUTE ; Start 02/22/17 at 08:05; Stop 02/22/17 at 08:06; Status DC Gentamicin Sulfate (Gentamicin Inj) 80 mg STK-MED ONCE .ROUTE ; Start 02/22/17 at 08:05; Stop 02/22/17 at 08:06; Status DC Potassium Chloride 100 ml @ 50 mls/hr Q2H IV Last administered on 02/22/17 12 :06; Start 02/22/17 at 09:30; Stop 02/22/17 at 13:29; Status DC Clonidine (Catapres) 0.1 mg Q6H PRN PO SBP>160, DBP>90 Last administered on 09:50; Start 02/22/17 at 09:30; Stop 02/22/17 at 12:18; Status DC Potassium Phosphate 15 mmol/ Sodium Chloride 155 ml @ 38.75 mls/ hr ONCE ONCE IV Last administered on 02/22/17 18:39; Start 02/22/17 at 12:15; Stop at 16:14; Status DC Magnesium Sulfate/ Dextrose 100 ml @ 100 mls/hr ONCE ONCE IV Last administered on 02/22/17 17:09; Start 02/22/17 at 12:15; Stop 02/22/17 at 13:14 ; Status DC Sodium Chloride 1,000 ml @ 999 mls/hr BOLUS ONCE IV Last administered on 02/22 12:15; Start 02/22/17 at 12:15; Stop 02/22/17 at 13:15; Status DC Sodium Chloride 1,000 ml @ 75 mls/hr [id number] IV Last administered on 06:28; Start 02/22/17 at 14:00 Lorazepam (Ativan) 1 mg ONCE ONCE PO Last administered on 02/22/17 23:42; Start 02/22/17 at 23:30; Stop 02/22/17 at 23:31; Status DC Lorazepam (Ativan) 0.5 mg Q6HR PRN PO ANXIETY Last administered on 02/24/17 06 :20; Start 02/23/17 at 12:30; Stop 02/24/17 at 12:16; Status DC Enoxaparin Sodium (Lovenox Inj) 40 mg Q24H SQ Last administered on 02/24/17 12 :16; Start 02/23/17 at 13:00 Hydromorphone HCl (Dilaudid Pf Inj) 0.2 mg Q4H PRN IV PUSH pain >5 Last administered on 02/23/17 23:23; Start 02/23/17 at 23:00; Stop 02/24/17 at 06:00 ; Status DC Lorazepam (Ativan) 2 mg Q6HR PRN PO ANXIETY Last administered on 02/25/17 10: 55; Start 02/24/17 at 12:15 Acetaminophen/ Hydrocodone Bitart (Mobile 5-325 Mg) 2 tab Q4H PRN PO PAIN 6-10 Last administered on 02/25/17 10:55; Start 02/24/17 at 12:15 A/P Problem List: (1) Bimalleolar fracture of right ankle ICD Code: S82.841A - Displaced bimalleolar fracture of right lower leg, initial encounter for closed fracture Status: Acute (2) Fracture of fifth toe, right, closed ICD Code: S92.501A - Displaced unspecified fracture of right lesser toe(s), initial encounter for closed fracture Status: Acute (3) Gastrocnemius strain, left ICD Code: S86.112A - Strain of other muscle(s) and tendon(s) of posterior muscle group at lower leg level, left leg, initial encounter Status: Acute (4) Chronic pain ICD Code: G89.29 - Other chronic pain Status: Acute (5) Fever ICD Code: R50.9 - Fever, unspecified (6) HTN (hypertension) ICD Code: I10 - Essential (primary) hypertension Status: Chronic Assessment and Plan A/P 1. Right Ankle Fx: s/p mechanical fall, with increased pain and swelling, X- ray w/ acute minimally displaced medial and lateral malleoli fractures. Pt was to be d/c'd from ER w/ outpatient Ortho follow up, however unable to ambulate and +persistent pain. Analgesics/antiemetics as needed; will increase the dose of Mobile today and monitor the response. case management consulted for dc planning to rehab. f/u with ortho as outpatient. 2. Right Toe Fx: secondary to fall. Foot X-ray w/ comminuted and minimally displaced fracture of little toe. 3. Chronic Pain: On Methadone; pain management as noted above. 4. HTN: will monitor closely. 5.hypokalemia- repeat the level today. DVT prophylaxis with subq Lovenox. Social work for d/c planning as needed. PT Discharge Planning dc to rehab- hopefully soon- pending potassium level. see med list. f/u; pcp and ortho. d/w the patient and RN. time spent 35 min. Problem Qualifiers (1) Bimalleolar fracture of right ankle: Qualified Codes: S82.841A - Displaced bimalleolar fracture of right lower leg, initial encounter for closed fracture (2) Fracture of fifth toe, right, closed: Qualified Codes: S92.501A - Displaced unspecified fracture of right lesser toe( s), initial encounter for closed fracture (3) Gastrocnemius strain, left: Qualified Codes: S86.112A - Strain of other muscle(s) and tendon(s) of posterior muscle group at lower leg level, left leg, initial encounter Sintia Iverson MD Feb 25, 2017 12:26
--- NOTE | 2017-02-25 12:29 | HHI.DS ---
Discharge Summary Admission Date Feb 21, 2017 at 21:27 Discharge Date: Feb 25, 2017 Admitting Diagnosis right bimalleolar fx, right 5th toe fx, left gastroc strain (1) Bimalleolar fracture of right ankle ICD Code: S82.841A - Displaced bimalleolar fracture of right lower leg, initial encounter for closed fracture Diagnosis: Principal Status: Acute (2) Fracture of fifth toe, right, closed ICD Code: S92.501A - Displaced unspecified fracture of right lesser toe(s), initial encounter for closed fracture Diagnosis: Principal Status: Acute (3) Chronic pain ICD Code: G89.29 - Other chronic pain Diagnosis: Secondary Status: Acute (4) HTN (hypertension) ICD Code: I10 - Essential (primary) hypertension Diagnosis: Secondary Status: Chronic Procedures none Brief History - From Admission This is a 61-year-old male with a PMH of Anxiety, Depression, Chronic Back Pain on Methadone and HTN who presents the ER with complaints of bilateral leg pain after fall last night. Today, w/ significant pain to right leg and left calf. Denies LOC or head trauma. Has been taking Methadone at home w/ minimal relief. On arrival, BP 146/97, HR 113, O2 sat 98% on RA, Temp 100.2. Labs unavailable at this time. Right Ankle X-ray with acute minimally displaced medial or lateral malleoli fractures. Right Foot Fracture comminuted and mildly displaced intra-articular fracture of the little toe. Left Gastrocnemius strain. Pt was to be d/c'd from ER w/ outpatient Ortho follow up , however unable to ambulate and having persistent pain. CBC/BMP: 02/22/17 0653 02/24/17 1400 Significant Findings Laboratory Tests Test 02/23/17 12:51 02/24/17 14:00 Blood Urea Nitrogen 6 MG/DL (7-18) Random Glucose 113 MG/DL (74-106) Calcium Level 7.8 MG/DL (8.5-10.1) Phosphorus Level 2.3 MG/DL (2.5-4.9) Potassium Level 2.8 MEQ/L (3.5-5.1) 3.0 MEQ/L (3.5-5.1) Imaging Last Impressions Tibia/Fibula X-Ray 02/23/17 0000 Signed Impressions: Service Date/Time: Thursday, February 23, 2017 13:36 - CONCLUSION: 1. There is no evidence of acute fracture. Chandler Hurtado MD Foot X-Ray 02/21/17 1805 Signed Impressions: Service Date/Time: Tuesday, February 21, 2017 18:18 - CONCLUSION: Comminuted and mildly displaced intra-articular fracture distally of the little toe proximal phalanx. Christophe Farmer MD Ankle X-Ray 02/21/175 Signed Impressions: Service Date/Time: Tuesday, February 21, 2017 18:35 - CONCLUSION: Acute, minimally displaced medial and lateral malleoli fractures. Christophe Farmer MD PE at Discharge GENERAL: This is a well-nourished, well-developed patient, in no apparent distress. CARDIOVASCULAR: Regular rate and regular rhythm without murmurs, gallops, or rubs. RESPIRATORY: Clear to auscultation. Breath sounds equal bilaterally. No wheezes , rales, or rhonchi. GASTROINTESTINAL: Abdomen soft, non-tender, nondistended. Normal, active bowel sounds MUSCULOSKELETAL: right leg covered with clean dressing. NEURO: Alert & Oriented x4 to person, place, time, situation. Moves all ext x4 Hospital Course patient was admitted with right ankle and little toe fracture. ortho was consulted and recommended non-op treatment at this time with outpatient follow- up. continued with pain control. will discharge him to rehab with f/u by pcp and ortho. Pt Condition on Discharge: Stable Discharge Disposition: Discharge to SNF Discharge Time: > 30 minutes Discharge Instructions DIET: Follow Instructions for: Heart Healthy Diet Activities you can perform: Non Weight Bearing Follow up Referrals: Orthopedics PCP Follow-up New Medications: Enoxaparin Inj (Lovenox Inj) 40 Mg/0.4 Ml Syr 40 MG SQ Q24H for dvt prophylaxis for 7 Days, INJECTION 0 Refills Changed Medications: Methadone (Methadone) 10 Mg Tab 30 MG PO Q8HR for Pain Management, #30 TAB 0 Refills (Changed from: TID) Continued Medications: Cyanocobalamin (B12) 1,000 Mcg Tab 1 TAB PO DAILY Folic Acid (Folic Acid) 400 Mcg Tab 400 MCG PO DAILY for Nutritional Supplement, TAB 0 Refills Furosemide (Lasix) 20 Mg Tab 20 MG PO DAILY, #30 TAB 0 Refills Gabapentin (Gabapentin) 100 Mg Cap 300 MG PO BID, #60 CAP 0 Refills Hydrocodone-Acetaminophen (Hydrocodone-Acetaminophen) 5-325 mg Tab 1 TAB PO Q8HR PRN for PAIN 6-10, #10 TAB (This prescription has been renewed) Lorazepam (Ativan) 2 Mg Tab 2 MG PO Q6H PRN for ANXIETY AND/OR AGITATION, #20 TAB 0 Refills (This prescription has been renewed) Ondansetron (Zofran) 4 Mg Tab 4 MG PO Q6HR PRN for NAUSEA OR VOMITING, #20 TAB 0 Refills Phenytoin Extended (Dilantin) 100 Mg Cap 100 MG PO TID for Control Seizures, #90 CAP 0 Refills Sennosides-Docusate Sodium (Senna Plus 8.6-50 mg) 8.6 Mg-50 Mg Tab 1 TAB PO BID for Constipation, #60 TAB Tizanidine (Zanaflex) 4 Mg Tab 8 MG PO TID for Muscle Spasm, TAB 0 Refills Zonisamide (Zonisamide) 100 Mg Cap 100 MG PO BID for Control Seizures, #60 CAP 0 Refills Sintia Iverson MD Feb 25, 2017 12:29
[2017-02-25] MEDS ORDERED: METHADONE HCL 10 MG TAB PO SCH (14:00)
[2017-02-25] MEDS: ENOXAPARIN SODIUM 40 MG/0.4 ML SYRINGE SQ SCH (14:07)
[2017-02-25] MEDS ORDERED: POTASSIUM CHLORIDE 10 MEQ CONTROLLED RELEASE TAB PO ONE (14:45)
[2017-02-25 16:00] VITALS: BP 140/97; PULSE 74; RESP 18; TEMP 97; O2SAT 98
== END 2017-02-25 19:14 | DRG 563 ==
LOC: NEPD 16:45 → NEDA 21:23 → OBSVTOIN 21:27 → N06B 02-22 00:55
PROVIDERS: ADMIT Internal Medicine; ATTEND Internal Medicine
DX: S82.841A Displaced bimalleolar fracture of right lower leg, initial encounter for closed fracture (principal); I95.9 Hypotension, unspecified; S92.511A Displaced fracture of proximal phalanx of right lesser toe(s), initial encounter for closed fracture; E83.39 Other disorders of phosphorus metabolism; I10 Essential (primary) hypertension; S86.112A Strain of other muscle(s) and tendon(s) of posterior muscle group at lower leg level, left leg, initial encounter; Z79.891 Long term (current) use of opiate analgesic; W18.30XA Fall on same level, unspecified, initial encounter; Y92.000 Kitchen of unspecified non-institutional (private) residence as the place of occurrence of the external cause; G89.4 Chronic pain syndrome; G40.909 Epilepsy, unspecified, not intractable, without status epilepticus; F41.9 Anxiety disorder, unspecified; F32.9 Major depressive disorder, single episode, unspecified; E87.6 Hypokalemia; G62.9 Polyneuropathy, unspecified; K44.9 Diaphragmatic hernia without obstruction or gangrene; M54.9 Dorsalgia, unspecified; R50.9 Fever, unspecified
CPT/HCPCS: 73590; 73610; 73620; 80048; 80053; 81001; 83735; 83880; 84100; 84132; 85025; 96374; 96375; 96376; J1170; J1580; J1650; J2060; J2270; J2405; J3475; J3480; J7030